=== PATIENT | female | born 1990 | race Caucasian/White ===

== ENCOUNTER 2023-04-30 22:30 | Emergency (ER) | payer OTHER, SELFPAY ==
[2023-04-30 22:34] VITALS: BP 165/109; PULSE 94; RESP 18; TEMP 36.8; O2SAT 95; BMI 34.3
--- NOTE | 2023-04-30 22:43 | ED.GENADUL1 ---
HPI - General Adult General Chief complaint: Extremity Injury, Lower Stated complaint: LOWER EXTREMITY PAIN Time Seen by Provider: 04/30/23 22:43 Mode of arrival: walk-in History of Present Illness HPI narrative: pt presents to emergency department complaining of left knee pain. Patient states yesterday she was startled by her and thinks she twisted her knee. She's had issues with the knee in the passt. She had an MRI done 2 years ago. Pain is worse in the medial aspect. She denies any weakness or paresthesias,She did not take anything at home because she doesn't have anything at home for pain. She states the pain is worse when she tries to bear weight. He denies any fever, chills, or direct trauma to it. Related Data Home Medications Medication Instructions Recorded Confirmed buspirone 5 mg tablet 5 mg PO BID 04/30/23 04/30/23 paliperidone palmitate 156 mg/mL 234 mg IM Q30D 04/30/23 04/30/23 intramuscular syringe (Invega Sustenna) Previous Rx's Medication Instructions Recorded ibuprofen 800 mg tablet 800 mg PO Q8H PRN pain #20 tabs 05/01/23 Allergies Allergy/AdvReac Type Severity Reaction Status Date / Time codeine Allergy Unknown UNKNOWN Verified 04/30/23 22:43 fluticasone Allergy Unknown DYSPNEA Verified 04/30/23 22:43 [From Advair Diskus] salmeterol Allergy Unknown DYSPNEA Verified 04/30/23 22:43 [From Advair Diskus] sumatriptan AdvReac Unknown Verified 04/30/23 22:43 Review of Systems ROS Status of ROS 10 or more systems reviewed and unremarkable except as noted in history and below [facility] Medical History (Updated 05/01/23 @ 00:33 by Estrellita Nolasco MD) Social History Smoking status: Current every day smoker Exam Narrative Exam Narrative: Vital signs reviewed and nurse's notes. The patient is not hypoxic. General: Alert, no acute distress, patient resting comfortably Skin: warm, intact, no pallor noted Head: Normocephalic, atraumatic Eye: Normal conjunctiva Respiratory: No acute distress Musculoskeletal: No evidence of deformity to the L knee. There is amount of swelling. There is no ecchymosis. No erythema or warmth noted. DP and PT pulses are intact 2+. Normal sensation, normal capillary refill less than 2 seconds. There is no cyanosis or mottling noted. The patient has tenderness to of the right knee. The patient has no laxity with varus or valgus stressing. The patient has negative anterior drawer and Ny testing. The patient was able to flex and extend although with pain. Patient was able to extend leg off the cart without difficulty. No tenderness noted to the 5th MT, midfoot, ankle or proximal fibular area. There is no pain with calcaneal squeeze, achilles tendon is intact and no defect is palpated. The patient has no pelvic instability. The patient has no shortening or rotation noted to the bilateral lower extremities. Neurological: alert and orient x4, normal sensory and motor observed. Psychiatric: Cooperative Constitutional Vital Signs, click to edit/add: Last Vital Signs Temp 98.3 F 04/30/23 22:34 Pulse 90 04/30/23 22:51 Resp 18 04/30/23 22:34 BP 165/109 H 04/30/23 22:34 Pulse Ox 95 04/30/23 22:34 O2 Del Method Room Air 04/30/23 22:34 Course Vital Signs Vital signs: Vital Signs Temperature 98.3 F 04/30/23 22:34 Pulse Rate 94 H 04/30/23 22:34 Respiratory Rate 18 04/30/23 22:34 Blood Pressure 165/109 H 04/30/23 22:34 Pulse Oximetry 95 04/30/23 22:34 Oxygen Delivery Method Room Air 04/30/23 22:34 Temperature 98.3 F 04/30/23 22:34 Pulse Rate 90 04/30/23 22:51 Respiratory Rate 18 04/30/23 22:34 Blood Pressure 165/109 H 04/30/23 22:34 Pulse Oximetry 95 04/30/23 22:34 Oxygen Delivery Method Room Air 04/30/23 22:34 Medical Decision Making MDM Narrative Medical decision making narrative: Patient was given Motrin 800. This helped her symptoms. She had an x-ray done which was unremarkable. Patient is advised to apply pressure as high she stated is due to the pain she will monitor with her primary care doctor. Patient was given an knee immobilizer, crutches. She is nontoxic, stable for outpatient follow-up and treatment. No additional indication for emergent studies at this time. I answered all questions. Discussed discharge instructions including standard anticipatory guidance and what should prompt a return to the emergency department, including if they get worse are not getting better or develops any new or concerning symptoms. I've given them specific time frame in which to follow-up, and who to follow-up with. The patient demonstrates understanding. Patient is nontoxic and stable for discharge with outpatient follow-up. This note was created with the assistance of a speech recognition program. Although the intention is to generate documents that actually reflects the content of the visit, no guarantees can be provided that every mistake has been identified and corrected by editing. Discharge Plan Discharge Chief Complaint: Extremity Injury, Lower Clinical Impression: Left knee sprain Patient Disposition: Home, Self-Care Time of Disposition Decision: 00:25 Condition: Good Mode of Transportation: Private Vehicle Prescriptions / Home Meds: New ibuprofen 800 mg tablet 800 mg PO Q8H PRN (Reason: pain) Qty: 20 0RF No Action Invega Sustenna 156 mg/mL syringe 234 mg IM Q30D buspirone 5 mg tablet 5 mg PO BID Instructions: Knee Sprain (ED) Additional Instructions: Cynthia Barkley [phone] Stand Alone Forms: Portal Instructions Referrals: CYNTHIA BARKLEY [Physician] - 1 week CARMEN DONAHUE APRN [Physician] - 1 week Physician,Non-Staff, MD [Primary Care Provider] - 1 week Discharge Date/Time: 05/01/23 01:01
[2023-04-30 22:51] VITALS: PULSE 90
--- NOTE | 2023-04-30 22:54 | PC.NURSE ---
patient jumped and believe she twister her left knee. Pain was minimal yesterday. woke up in the night with more pain.
--- NOTE | 2023-04-30 23:13 | XR_ITS ---
The [address] [address] Patient Name: BOZENA PERERA MRN: [id number] date: 1990 Sex: F Assigned Patient Location: ER Current Patient Location: Accession/Order Number: [id number] Exam Date: 04/30/2023 23:25 Report Date: 05/01/2023 00:10 At the request of: LEAH COLIN Procedure: XR knee LT 4V EXAM: XR knee LT 4V HISTORY: pain COMPARISON: None. TECHNIQUE: 4 views of the left knee were obtained. FINDINGS: No acute fracture or dislocation is seen. The joint spaces are preserved. There is no significant left knee joint effusion. XR/XR knee LT 4V IMPRESSION: 1. No acute fracture or dislocation of the left knee is seen. If there is concern for internal derangement, a nonemergent outpatient MRI is recommended. Electronically authenticated by: Suellen DE LEON Date: 05/01/2023 00:10
[2023-04-30] MEDS: IBUPROFEN 400 MG TABLET 800 MG PO (23:42)
--- NOTE | 2023-05-01 12:42 | PC.NURSE ---
PT CALLED ER TO TRY AND FIND OUT WHERE HER PRESCRIPTION WAS SENT. TOLD PATIENT THAT NO PRESCRIPTION WAS SENT ELECTRONICALLY, PRESCRIPTION FOUND IN PT'S CHART PILE -- CALLED [facility] PER PT'S REQUEST.
== END 2023-05-01 01:01 | disposition home or self-care (01) ==
PROVIDERS: Emergency Provider Emergency Medicine
DX: S83.92XA Sprain of unspecified site of left knee, initial encounter (principal); X50.1XXA Overexertion from prolonged static or awkward postures, initial encounter; Z79.899 Other long term (current) drug therapy; F17.210 Nicotine dependence, cigarettes, uncomplicated
CPT/HCPCS: 73564; 99283

== ENCOUNTER 2023-05-13 10:01 | Outpatient (RCR) | payer OTHER, SELFPAY | END 2023-05-18 15:47 | disposition home or self-care (01) | LOC: PT 10:01 | DX: M23.92 Unspecified internal derangement of left knee (principal) | CPT/HCPCS: 97110; 97161 ==

== ENCOUNTER 2023-07-17 10:05 | Outpatient (OUT) | payer OTHER, SELFPAY ==
[2023-07-17 10:45] LABS: Basophils Absolute Auto 0.1 10^3/uL (0.0-0.1); Basophils Percent Auto 0.7 % (0.2-2.0); Eosinophils Absolute Auto 0.2 10^3/uL (0.0-0.7); Eosinophils Percent Auto 1.5 % (0.9-7.0); Hematocrit 43.3 % (36.0-48.0); Hemoglobin 13.8 g/dL (12.0-16.0); Immature Granulocytes Abs Auto 0.04 10^3/uL (0.00-0.03); Immature Granulocytes Pct Auto 0.4 % (0.0-0.5); Lymphocytes Absolute Auto 2.2 10^3/uL (1.2-3.8); Lymphocytes Percent Auto 21.9 % (20.5-60.0); Mean Corpuscular HGB Conc 31.9 g/dL (29.9-35.2); Mean Corpuscular Hemoglobin 27.4 pg (26.7-34.0); Mean Corpuscular Volume 86.1 fL (81.0-99.0); Mean Platelet Volume 9.8 fL (9.5-13.5); Monocytes Absolute Auto 0.6 10^3/uL (0.3-0.8); Neutrophils Percent Auto 69.5 % (43.0-75.0); Platelet Count 302 10^3/uL (150-450); Red Blood Count 5.03 10^6/uL (4.20-5.40); Red Cell Distribution Width 13.2 % (11.0-15.0); White Blood Count 10.1 10^3/uL (4.0-11.0)
[2023-07-17 11:17] LABS: Alanine Aminotransferase 28 U/L (14-59); Albumin Globulin Ratio 0.9; Albumin Level 3.6 g/dL (3.4-5.0); Alkaline Phosphatase 83 U/L (46-116); Anion Gap 12.3; Aspartate Amino Transferase 15 U/L (15-37); BUN Creatinine Ratio 6.6; Bilirubin Total 0.3 mg/dL (0.2-1.0); Calcium 9.3 mg/dL (8.5-10.1); Carbon Dioxide 29.4 mmol/L (21.0-32.0); Chloride 101 mmol/L (98-107); Chol HDL Ratio 5.7; Cholesterol 215 mg/dL (<=200); Estimated GFR (African America >60 (>=60); Estimated GFR (Non-African Ame >60 (>=60); Globulin 3.8 g/dL; Glucose 99 mg/dL (74-106); HCG Quantitative <1 mIU/mL; HDL Cholesterol 38 mg/dL (40-60); Potassium 3.7 mmol/L (3.5-5.1); Sodium 139 mmol/L (136-145); Thyroid Stimulating Hormone 0.665 uIU/mL (0.358-3.740); Total Protein 7.4 g/dL (6.4-8.2); Triglycerides 92 mg/dL (<=150); VLDL CHOLESTEROL 18.4 mg/dL
[2023-07-18 07:07] LABS: FSH 7.1 mIU/mL (.); Luteinizing Hormone(LH) 12.5 mIU/mL (.); Triiodothyronine (T3) 143 ng/dL (71-180)
[2023-07-22 01:07] LABS: Estrogens, Total 159 pg/mL (.)
== END 2023-07-17 10:06 | disposition home or self-care (01) ==
LOC: LAB 10:08
DX: Z00.00 Encounter for general adult medical examination without abnormal findings (principal); N94.6 Dysmenorrhea, unspecified
CPT/HCPCS: 36415; 80053; 80061; 82672; 83001; 83002; 84436; 84443; 84480; 84702; 85025

== ENCOUNTER 2023-08-09 22:44 | Emergency (ER) | payer OTHER, SELFPAY ==
[2023-08-09 22:47] VITALS: BP 151/96; PULSE 100; RESP 18; TEMP 36.7; O2SAT 99; BMI 35.9
--- NOTE | 2023-08-09 23:05 | CT_ITS ---
The [address] [address] Patient Name: BOZENA PERERA MRN: [id number] date: 1990 Sex: F Assigned Patient Location: ER Current Patient Location: ED.MAIN Accession/Order Number: [id number] Exam Date: 08/09/2023 23:15 Report Date: 08/09/2023 23:53 At the request of: LANA TAY Procedure: CT cervical spine wo con EXAMINATION: CT cervical spine wo con HISTORY: fall COMPARISON: No relevant comparison available. TECHNIQUE: Axial, Coronal, and Sagittal images were created without IV contrast. Dose reduction techniques were achieved by using automated exposure control and/or adjustment of mA and/or kV according to patient size and/or use of iterative reconstruction technique. FINDINGS: VERTEBRAL BODIES: No fracture, pars defect, or osseous lesion. FACET JOINTS: No disruption or abnormal widening. DISCS: No significant disc/facet abnormality, spinal stenosis, or foraminal stenosis. CENTRAL CANAL: No spinal stenosis or evidence of hemorrhage. PARASPINAL AREA: No visible mass. CT/CT cervical spine wo con IMPRESSION: 1. No acute abnormality or significant degenerative changes of the cervical spine. Electronically authenticated by: DARLINE TREVIZO Date: 08/09/2023 23:53
--- NOTE | 2023-08-09 23:05 | XR_ITS ---
The [address] [address] Patient Name: BOZENA PERERA MRN: [id number] date: 1990 Sex: F Assigned Patient Location: ER Current Patient Location: ER Accession/Order Number: [id number] Exam Date: 08/09/2023 23:15 Report Date: 08/09/2023 23:49 At the request of: LANA TAY Procedure: XR hand LT 2V PROCEDURE: XR hand LT 2V, XR wrist LT min 3V, XR forearm LT 2V HISTORY: fall COMPARISON: None. FINDINGS: BONES:Sclerotic focus along the articular surface of distal radial metaphysis. Questionable cortical step off involving the distal radial articular surface with nondisplaced fracture through metaphysis versus summation artifact of the trabecula. Intact carpal bones SOFT TISSUES:No visible soft tissue swelling. EFFUSION:None visible. OTHER: Negative. XR/XR hand LT 2V IMPRESSION: 1. Suspect nondisplaced fracture of the distal radial metaphysis with intra-articular extension. Electronically authenticated by: DARLINE TREVIZO Date: 08/09/2023 23:49
--- NOTE | 2023-08-09 23:05 | XR_ITS ---
The [address] [address] Patient Name: BOZENA PERERA MRN: [id number] date: 1990 Sex: F Assigned Patient Location: ER Current Patient Location: ER Accession/Order Number: [id number] Exam Date: 08/09/2023 23:15 Report Date: 08/09/2023 23:54 At the request of: LANA TAY Procedure: XR shoulder LT min 2V PROCEDURE: XR shoulder LT min 2V HISTORY: fall COMPARISON: None. FINDINGS: BONES:No fracture, acute abnormality, or significant arthropathy. SOFT TISSUES:No visible soft tissue swelling. EFFUSION:None visible. OTHER: Negative. XR/XR shoulder LT min 2V IMPRESSION: 1. No acute bone abnormality. Electronically authenticated by: DARLINE TREVIZO Date: 08/09/2023 23:54
--- NOTE | 2023-08-09 23:05 | XR_ITS ---
The [address] [address] Patient Name: BOZENA PERERA MRN: [id number] date: 1990 Sex: F Assigned Patient Location: ER Current Patient Location: ER Accession/Order Number: [id number] Exam Date: 08/09/2023 23:15 Report Date: 08/09/2023 23:49 At the request of: LANA TAY Procedure: XR forearm LT 2V PROCEDURE: XR hand LT 2V, XR wrist LT min 3V, XR forearm LT 2V HISTORY: fall COMPARISON: None. FINDINGS: BONES:Sclerotic focus along the articular surface of distal radial metaphysis. Questionable cortical step off involving the distal radial articular surface with nondisplaced fracture through metaphysis versus summation artifact of the trabecula. Intact carpal bones SOFT TISSUES:No visible soft tissue swelling. EFFUSION:None visible. OTHER: Negative. XR/XR forearm LT 2V IMPRESSION: 1. Suspect nondisplaced fracture of the distal radial metaphysis with intra-articular extension. Electronically authenticated by: DARLINE TREVIZO Date: 08/09/2023 23:49
--- NOTE | 2023-08-09 23:05 | XR_ITS ---
The [address] [address] Patient Name: BOZENA PERERA MRN: [id number] date: 1990 Sex: F Assigned Patient Location: ER Current Patient Location: ER Accession/Order Number: [id number] Exam Date: 08/09/2023 23:15 Report Date: 08/09/2023 23:49 At the request of: LANA TAY Procedure: XR wrist LT min 3V PROCEDURE: XR hand LT 2V, XR wrist LT min 3V, XR forearm LT 2V HISTORY: fall COMPARISON: None. FINDINGS: BONES:Sclerotic focus along the articular surface of distal radial metaphysis. Questionable cortical step off involving the distal radial articular surface with nondisplaced fracture through metaphysis versus summation artifact of the trabecula. Intact carpal bones SOFT TISSUES:No visible soft tissue swelling. EFFUSION:None visible. OTHER: Negative. XR/XR wrist LT min 3V IMPRESSION: 1. Suspect nondisplaced fracture of the distal radial metaphysis with intra-articular extension. Electronically authenticated by: DARLINE TREVIZO Date: 08/09/2023 23:49
[2023-08-09] MEDS: KETOROLAC TROMETHAMINE 60 MG/2 ML VIAL IM (23:34)
--- NOTE | 2023-08-09 23:50 | ED_ITS ---
HPI - General Adult General Chief complaint: Extremity Injury, Upper Stated complaint: Fall Upper Injury Time Seen by Provider: 08/09/23 22:53 Source: patient Mode of arrival: walk-in Limitations: no limitations History of Present Illness HPI narrative: The patient presenting to us after she fell down almost 5 days ago on Wednesday and she is presently on a Wednesday, she mentioned that she was getting into the shower with her boyfriend scared her and she slipped and fell on the left side of her body with time she did have some muscle pain but she noted over the last few days that she been having some left-sided neck pain also left shoulder pain and left wrist and finger pain associated with numbness and tingling in the thumb area the patient mentioned that she have no pain in her left elbow no other injuries There was no head injury at that time there was no loss of consciousness The patient described the pain as shooting pain from her shoulder down to her fingers, with limitation of the flexion of the wrist as well as the fingers Related Data Home Medications Medication Instructions Recorded Confirmed paliperidone palmitate 156 mg/mL 234 mg IM Q30D 04/30/23 04/30/23 intramuscular syringe (Invega Sustenna) hydroxyzine HCl 50 mg tablet 50 mg PO DAILY PRN itching 08/09/23 08/09/23 Previous Rx's Medication Instructions Recorded diclofenac sodium 75 mg 75 mg PO BID PRN pain #14 tabs 08/10/23 tablet,delayed release Allergies Allergy/AdvReac Type Severity Reaction Status Date / Time codeine Allergy Unknown UNKNOWN Verified 08/09/23 22:50 fluticasone Allergy Unknown DYSPNEA Verified 08/09/23 22:50 [From Advair Diskus] salmeterol Allergy Unknown DYSPNEA Verified 08/09/23 22:50 [From Advair Diskus] sumatriptan AdvReac Unknown Verified 08/09/23 22:50 Review of Systems ROS Status of ROS 10 or more systems reviewed and unremarkable except as noted in history and below [facility] Medical History (Updated 08/10/23 @ 00:27 by Aspen Pozo MD) Asthma ?J45.909 - Unspecified asthma, uncomplicated (ICD-10) Autism ?F84.0 - Autistic disorder (ICD-10) Social History Smoking status: Current every day smoker Exam Narrative Exam Narrative: Nurses notes and vital signs reviewed and patient is not hypoxic. General: Well-appearing and in no apparent distress. Skin: Warm, dry, no pallor noted. No rash. Head: Normocephalic, atraumatic. Neck: Supple, left paraspinal muscle tenderness there was no intervertebral line tenderness Eye: Pupils are equal, round and EOMI. No scleral icterus. Ears, Nose, Mouth, and Throat: TM are clear, no nasal mucosal hypertrophy. Oral mucosa is moist, no posterior oropharynx erythema, uvula is mid-line Cardiovascular: Regular Rate and Rhythm without murmur, gallop or rub. Respiratory: No accessory muscle use or respiratory distress. Lungs are clear to auscultation, no wheezing, rales or rhonchi Chest Wall: no tenderness Back: No midline thoracic or lumbar vertebral tenderness. No CVA tenderness Musculoskeletal: normal ROM, no calf or popliteal tenderness, no lower extremity edema/swelling, there is tenderness upon palpation of the whole wrist and the left side, in addition to limitation of the flexion of the rest, according to the patient she does have decreased sensation on the hand level mostly at the palmar aspect the patient also had full range of movement of the left shoulder but with pain on abduction GI: Abdomen is soft, non-distended. Normal bowel sounds. No masses appreciated. No tenderness to palpation. No rebound, guarding, or rigidity noted. Neurological: A&O x4. No cranial nerve dysfunction observed. No truncal ataxia. Moves all extremities. Sensation intact. Psychiatric: Cooperative and interactive. Normal mood and affect. Constitutional Vital Signs, click to edit/add: Last Vital Signs Temp 98.0 F 08/09/23 22:47 Pulse 100 H 08/09/23 22:47 Resp 18 08/09/23 22:47 BP 151/96 H 08/09/23 22:47 Pulse Ox 99 08/09/23 22:47 O2 Del Method Room Air 08/09/23 22:47 Course Vital Signs Vital signs: Vital Signs Temperature 98.0 F 08/09/23 22:47 Pulse Rate 100 H 08/09/23 22:47 Respiratory Rate 18 08/09/23 22:47 Blood Pressure 151/96 H 08/09/23 22:47 Pulse Oximetry 99 08/09/23 22:47 Oxygen Delivery Method Room Air 08/09/23 22:47 Temperature 98.0 F 08/09/23 22:47 Pulse Rate 100 H 08/09/23 22:47 Respiratory Rate 18 08/09/23 22:47 Blood Pressure 151/96 H 08/09/23 22:47 Pulse Oximetry 99 08/09/23 22:47 Oxygen Delivery Method Room Air 08/09/23 22:47 Medical Decision Making MDM Narrative Medical decision making narrative: X-ray of the left distal radius shows that he have fracture nondisplaced although the patient mentioned that she had similar injury almost when she was at the age of 19 and she has been doing physical therapy because of her left forearm pain The patient had a sugar-tongue splint applied with sling and she was instructed about follow-up and referral to orthopedic as outpatient The patient is to follow up with primary care physician in next 2-3 days or to return to the emergency department should any of the signs or symptoms worsen or new symptoms develop. The patient agrees with the following Diagnosis and Treatment plan and the patient will be discharged home. Discharge Plan Discharge Chief Complaint: Extremity Injury, Upper Clinical Impression: Contusion of hand, Contusion of neck, Contusion of left shoulder, Distal radius fracture Patient Disposition: Home, Self-Care Time of Disposition Decision: 00:26 Condition: Good Prescriptions / Home Meds: New diclofenac sodium 75 mg tablet,delayed release (DR/EC) 75 mg PO BID PRN (Reason: pain) Qty: 14 0RF Discontinued ibuprofen 800 mg tablet 800 mg PO Q8H PRN (Reason: pain) Qty: 20 0RF No Action hydroxyzine HCl 50 mg tablet 50 mg PO DAILY PRN (Reason: itching) Invega Sustenna 156 mg/mL syringe 234 mg IM Q30D Instructions: Arm Fracture in Adults (DC) Stand Alone Forms: Portal Instructions Referrals: Physician,Non-Staff, [Primary Care Provider] - 1 week Brayan Garber MD [Physician] - 1 week
== END 2023-08-10 00:41 | disposition home or self-care (01) ==
PROVIDERS: Emergency Provider Emergency Medicine
DX: S52.502A Unspecified fracture of the lower end of left radius, initial encounter for closed fracture (principal); S10.93XA Contusion of unspecified part of neck, initial encounter; S40.012A Contusion of left shoulder, initial encounter; S60.222A Contusion of left hand, initial encounter; J45.909 Unspecified asthma, uncomplicated; F84.0 Autistic disorder; F17.210 Nicotine dependence, cigarettes, uncomplicated; Z79.899 Other long term (current) drug therapy; W16.212A Fall in (into) filled bathtub causing other injury, initial encounter
CPT/HCPCS: 29125; 72125; 73030; 73090; 73110; 73120; 96372; 99285

== ENCOUNTER 2024-09-07 07:42 | Emergency (ER) | payer OTHER, SELFPAY ==
[2024-09-07] VITALS (20 sets, daily range): BP systolic 116–153; BP diastolic 83–106; PULSE 83–102; TEMP 36.8; O2SAT 97–100; BMI 27.5
--- NOTE | 2024-09-07 07:49 | ECG_ITS ---
The [facility] Test Date: 2024-09-07 Pat Name: BOZENA PERERA Department: Room: - Gender: Female [employer]: : 1990 Requested By: Order Number: [id number] Reading MD: CAROLE POSADAS Measurements Intervals [place] Rate: 93 P: 24 MA: 130 QRS: 28 QRSD: 88 T: 24 QT: 370 QTc: 421 Interpretive Statements 1100 Sinus rhythm 4068 Nonspecific [place] abnormality 9130 borderline ECG Compared to ECG 04/18/2022 22:37:58 Sinus tachycardia no longer present Short MA interval no longer present Electronically Signed On 09-07-2024 19:25:41 EST by CAROLE POSADAS
--- NOTE | 2024-09-07 07:50 | ED_ITS ---
HPI HPI - General Adult General Chief complaint: Neuro Symptoms/Deficit Stated complaint: GENERAL WEAKNESS Time Seen by Provider: 09/07/24 07:49 Source: patient Mode of arrival: ambulance Limitations: no limitations History of Present Illness HPI narrative: 34-year-old female presents to the emergency department for bilateral leg numbness and weakness. This appears to be an ongoing issue for about a year and she states in the last 2 months its gotten worse. She had 3 emergency department visits in the last week at another hospital and she tells me she is never seen a specialist such as a neurologist for this issue. She tells me they did blood tests over this past week but no scans. Related Data Home Medications ?Medication ?Instructions ?Recorded ?Confirmed paliperidone palmitate 156 mg/mL 234 mg IM Q30D 04/30/23 09/07/24 intramuscular syringe (Invega Sustenna) Previous Rx's ?Medication ?Instructions ?Recorded magnesium oxide-magnesium amino 1 cap PO DAILY 7 days #7 caps 09/07/24 acid chelate 300 mg capsule (Magnesium (oxide/AA chelate)) potassium chloride 20 mEq 40 meq (2 x 20 mEq) PO DAILY 7 09/07/24 tablet,extended release days #14 tabs Allergies Allergy/AdvReac Type Severity Reaction Status Date / Time codeine Allergy Unknown UNKNOWN Verified 08/09/23 22:50 fluticasone (From Advair Allergy Unknown DYSPNEA Verified 08/09/23 22:50 Diskus) salmeterol (From Advair Allergy Unknown DYSPNEA Verified 08/09/23 22:50 Diskus) sumatriptan AdvReac Unknown Verified 08/09/23 22:50 Opioid HPI Opioid Management Most Recent Opioid Data: Last Pain Scale 8 08/09/23 23:34 08/09/23 Review of Systems ROS Narrative A ten point review of systems is negative except as noted above. [facility] Medical History (Updated 09/07/24 @ 10:27 by Kyle Yu MD) Autism ?F84.0 - Autistic disorder (ICD-10) Asthma ?J45.909 - Unspecified asthma, uncomplicated (ICD-10) Social History Smoking status: Current every day smoker Exam Narrative Exam Narrative: Nurses note and vital signs reviewed and patient is not hypoxic. General: The patient appears in no apparent distress. Patient is resting comfortably on cart. Skin: Warm, dry, no pallor noted. There is no rash noted. Head: Normocephalic, atraumatic Eye: Normal conjunctiva, no drainage Ears, Nose, Mouth, and Throat: oral mucosa is moist. Nares patent. Cardiovascular: Regular Rate and Rhythm Respiratory: Patient is in no distress, no accessory muscle use, lungs are clear to auscultation, no wheezing, rales or rhonchi Back: non-tender, no CVA tenderness bilaterally to percussion. GI: Soft and nontender Musculoskeletal: The patient has no evidence of calf tenderness, no pitting edema, symmetrical pulses noted bilaterally Neurological: A&O, normal speech; she seems to have symmetric mild weakness in each leg. Psychiatric: Cooperative Constitutional Vital Signs, click to edit/add: Last Vital Signs Temp 98.3 F 09/07/24 07:44 Pulse 102 H 09/07/24 07:44 Resp 18 09/07/24 07:44 BP 145/98 H 09/07/24 07:44 Pulse Ox 100 09/07/24 08:04 O2 Del Method Room Air 09/07/24 08:04 Course Vital Signs Vital signs: Vital Signs Temperature 98.3 F 09/07/24 07:44 Pulse Rate 102 H 09/07/24 07:44 Respiratory Rate 18 09/07/24 07:44 Blood Pressure 145/98 H 09/07/24 07:44 Pulse Oximetry 99 09/07/24 07:44 Oxygen Delivery Method Room Air 09/07/24 07:44 Temperature 98.3 F 09/07/24 07:44 Pulse Rate 102 H 09/07/24 07:44 Respiratory Rate 18 09/07/24 07:44 Blood Pressure 145/98 H 09/07/24 07:44 Pulse Oximetry 100 09/07/24 08:04 Oxygen Delivery Method Room Air 09/07/24 08:04 Medical Decision Making MDM Narrative Medical decision making narrative: Her symptoms are an ongoing issue for many months, perhaps a year. Potassium and magnesium were found to be low again and she was given oral supplementation for the potassium and IV for the magnesium. Prescriptions are sent to her pharmacy for both of these as well. The importance of follow-up with PCP was discussed and she was given a primary care list. Treatment diagnosis and follow-up were discussed thoroughly. CAT scan of the brain and lumbar spine are negative. Differential Diagnosis Differential Diagnosis: Intracranial mass, lumbar disc herniation, electrolyte imbalance Lab Data Lab results reviewed: Yes I reviewed the patient's lab results Labs: Lab Results 09/07/24 Range/Units 07:56 WBC 15.7 H (4.0-11.0) 10^3/uL RBC 4.44 (4.20-5.40) 10^6/uL Hgb 13.3 (12.0-16.0) g/dL Hct 39.9 (36.0-48.0) % MCV 89.9 (81.0-99.0) fL MCH 30.0 (26.7-34.0) pg MCHC 33.3 (29.9-35.2) g/dL RDW 16.2 H (11.0-15.0) % Plt Count 324 (150-450) 10^3/uL MPV 10.1 (9.5-13.5) fL Neut % (Auto) 65.3 (43.0-75.0) % Lymph % (Auto) 26.9 (20.5-60.0) % [place] % (Auto) 5.8 (1.7-12.0) % Eos % (Auto) 1.0 (0.9-7.0) % Baso % (Auto) 0.4 (0.2-2.0) % Neut # (Auto) 10.2 H (1.4-6.5) 10^3/uL Lymph # (Auto) 4.2 H (1.2-3.8) 10^3/uL [place] # (Auto) 0.9 H (0.3-0.8) 10^3/uL Eos # (Auto) 0.2 (0.0-0.7) 10^3/uL Baso # (Auto) 0.1 (0.0-0.1) 10^3/uL Abs Immat Gran (auto) 0.09 H (0.00-0.03) 10^3/uL Imm/Tot Granulo (auto) 0.6 H (0.0-0.5) % Sodium 141 (136-145) mmol/L Potassium 2.8 L* (3.5-5.1) mmol/L Chloride 102 (98-107) mmol/L Carbon Dioxide 26.0 (21.0-32.0) mmol/L Anion Gap 15.8 BUN 4.0 L (7.0-18.0) mg/dL Creatinine 0.71 (0.55-1.02) mg/dL Est GFR ( Amer) >60 (>=60 mL/min/1.73m^2) Est GFR (Non-Af Amer) >60 (>=60 mL/min/1.73m^2) BUN/Creatinine Ratio 5.6 Glucose 101 (74-106) mg/dL Calcium 8.5 (8.5-10.1) mg/dL Magnesium 1.6 L (1.8-2.4) mg/dL Serum HCG, Qual Negative (NEGATIVE) Imaging Data CT scan - head: Radiologist's impression: ITS Impressions Head CT 09/07/24 09:03 IMPRESSION: Normal CT of the head. Electronically authenticated by: GEORGE HANDY Date: 09/07/2024 10:[address] 09/07/24 09:03 IMPRESSION: 1. Normal CT of the lumbar spine. 2. No significant degenerative changes. There is no spinal stenosis or neural foraminal narrowing at any level. Electronically authenticated by: GEORGE HANDY Date: 09/07/2024 10:16 Discharge Plan Discharge Chief Complaint: Neuro Symptoms/Deficit Clinical Impression: Hypokalemia, Hypomagnesemia Patient Disposition: Home, Self-Care Time of Disposition Decision: 10:26 Condition: Good Mode of Transportation: Private Vehicle Prescriptions / Home Meds: New potassium chloride 20 mEq tablet extended release 40 meq PO DAILY 7 Days Qty: 14 0RF Magnesium (oxide/AA chelate) 300 mg capsule 1 cap PO DAILY 7 Days Qty: 7 0RF No Action Invega Sustenna 156 mg/mL syringe 234 mg IM Q30D Print Language: Indonesian Instructions: Hypokalemia (ED), Hypomagnesemia (ED) Additional Instructions: Obtain PCP. List provided. Referrals: Physician,Non-Staff, MD [Physician] - 1 week
--- OUTSIDE RECORDS SUMMARY | 2024-09-07 07:52 | XMS_ITS | CCD ---
Author Organization [facility] Care Team Providers Care Emergency Vehicle Driver Name Role Phone Desmond Barrera Unavailable Unavailable gibran Unavailable Unavailable sprout Unavailable Unavailable Desmond Barrera Unavailable Unavailable Albert, Negin Unavailable Unavailable Provider, None Unavailable Unavailable Provider, None Unavailable Unavailable Blane, Johnny M Unavailable Unavailable Blane, Johnny M Unavailable Unavailable Provider, None Unavailable Unavailable Blane, Johnny M Unavailable Unavailable Blane, Johnny M Unavailable Unavailable Provider, None Unavailable Unavailable Hercher, Annika L Unavailable Unavailable Hercher, Annika L Unavailable Unavailable Hercher, Annika L Unavailable Unavailable Hercher, Annika L Unavailable Unavailable Provider, None Unavailable Unavailable Desmond Barrera Primary Care Provider Desmond Barrera Primary Care Provider Desmond Barrera Primary Care Provider [phone] RAJENDRA NEWTON Attending Unavaila ROBERTO CARLOS Jones Referring Unavailable DESMOND BARRERA Primary Care Unavailable RAJENDRA NEWTON Admitting Unavaila ble Bruce 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 - Desmond GOOD Primary Care Provider Desmond Barrera CNP Primary Care Provider [phone] Desmond Barrera CNP Primary Care Provider [phone] DESMOND BARRERA Referring Unavailable DESMOND BARRERA Primary Care Unavailable Bruce 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 - Desmond GOOD Primary Care Provider FRANSICO SHELL Referring Unavailable DESMOND BARRERA Primary Care Unavailable FRANSICO SHELL Referring Unavailable BRUCE, DESMOND M Primary Care Unavailable DESMOND BARRERA M Primary Care Unavailable BAHN CAL M Admitting Unavailable CAL ELIZABETH Attending Unavailable JL, DR MONIE Dacosta Consulting Unavailable BRUCE, MS DESMOND Primary Care Unavailable DEBI, MIKAL Attending Unavailable DEBI, MIKAL Admitting Unavailable DEBI, MIKAL Consulting Unavailable JL, DR MNOIE Dacosta Consulting Unavailable BRUCE, MS DESMOND Primary Care Unavailable MISC, DR SOLORIO Attending Unavailable MISC, DR SOLORIO Admitting Unavailable MISC, DR SOLORIO Consulting Unavailable MISC, DR SOLORIO Consulting Unavailable BRUCE, MS DESMOND Primary Care Unavailable MISC, DR SOLORIO Attending Unavailable MISC, DR SOLORIO Admitting Unavailable GRECHNY ., SHAWNEE FERNANDEZ Consulting Unavailabl e MARKER ., DR ARREDONDO Attending Unavailable MARKER ., DR ARREDONDO Admitting Unavailable BRUCE, MS DESMOND Primary Care Unavailable BINU PETER Consulting Unavailable JENY LAYTON Consulting Unavailable KINJAL, JENY Monroy Attending Unavailable JENY LAYTON Admitting Unavailable BRUCE, MS DESMOND Primary Care Unavailable MONIE YANEZ Consulting Unavailable JOSELINE, DR DARLINE Cruz Consulting Unavailable DIXIE ., LEAH Attending Unavailable DIXIE ., LEAH Admitting Unavailable BRUCE, MS DESMOND Primary Care Unavailable DIXIE ., LEAH Consulting Unavailable SOFIA, FROY Consulting Unavailable BRUCE, MS DESMOND Primary Care Unavailable SOFIA, FROY Attending Unavailable SOFIA, FROY Admitting Unavailable SOFIA, FROY Consulting Unavailable SOFIA, FROY Attending Unavailable SOFIA, FROY Admitting Unavailable BRUCE, MS DSEMOND Primary Care Unavailable PAY ., DR HE Consulting Unavailable PAY ., DR HE Attending Unavailable PAY ., DR HE Admitting Unavailable BRUCE, MS DESMOND Primary Care Unavailable Bruce FLORENTINO, Desmond Primary Care Provider Isabel Chi Unavailable Patric Peters Unavailable NON STAFF Primary Care Provider UnavailALTA Reyes Attending Provider Pancho Henry Unavailable Halie BARRERA Primary Care Physician Unavailab Halie Rangel Referring Unavailable Halie BARRERA Attending Unavailable NON STAFF Primary Care Provider UnavailMD Pancho Cortez Attending Provider [phone] NON STAFF Primary Care Unavailable Isabel Chi Admitting Unavailable Isabel Chi Attending Unavailable NON STAFF Primary Care Unavailable Isaak Guzman Admitting Unavailab Isaak Estes Attending Unavailab Pancho Kohler Admitting Unavailable Pancho Henry Attending Unavailable NON STAFF Primary Care Unavailable Bruce 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, Desmond M Primary Care Provider CANDIS WALLACE Referring Unavailable CANDIS WALLACE Attending Unavailable CANDIS WALLACE Attending Unavailable NONE, NONE Primary Care Unavailable BRUCE, DESMOND M Primary Care Unavailable SCHJACQUELYN QUIROZ Referring Unavailable BRUCE, DESMOND M Primary Care Unavailable NONE, NONE Primary Care Unavailable ABRIL VALLADARES Attending Unavailable BRUCE, DESMOND M Primary Care Unavailable BRUCE, DESMOND M Primary Care Unavailable JACQUELYN SADLER Referring Unavailable BRUCE, DESMOND M Primary Care Unavailable SCHGABRIELLA JACQUELYN Referring Unavailable BRUCE, DESMOND M Primary Care Unavailable SCHCOCOGER JACQUELYN Referring Unavailable BRUCE, DESMOND M Primary Care Unavailable SCHUERGER, JACQUELYN Referring Unavailable BRUCE, DESMOND M Primary Care Unavailable SCHUERGER, JACQUELYN Referring Unavailable BRUCE, DESMOND M Primary Care Unavailable SCHCOCOGER, JACQUELYN Referring Unavailable BRUCE, DESMOND M Primary Care Unavailable SCHCOCOGER, JACQUELYN Referring Unavailable BRUCE, DESMOND M Primary Care Unavailable SCHCOCOGER, JACQUELYN Referring Unavailable BRUCE, DESMOND M Primary Care Unavailable BRUCE, DESMOND M Primary Care Unavailable BRUCE, DESMOND M Primary Care Unavailable ROBERTO CARLOS SMITH Attending Unavailable NONE, NONE Primary Care Unavailable BRUCE, DESMOND M Primary Care Unavailable Allergies Allergy Classification Reported Allergen(s) Allergy Type Date of Onset Reaction(s) Facility Amitriptyline (1 source) Amitriptyline Drug Allergy 05-25-20 17 [facility] Antihistamines (1 source) hydrOXYzine Drug Allergy 08-16-20 23 [facility] Corticosteroids (1 source) fluticasone Drug Allergy 04-30-20 23 Shortness Of Breath [facility] Opioid Agonists (5 sources) Codeine Drug Allergy 04-13-20 17 Codeine [facility] Plasmin (1 source) Plasmin Drug Allergy 12-13-19 20 [facility] salmeterol (1 source) salmeterol Drug Allergy 04-30-20 23 Shortness Of Breath [facility] Serotonin-1b and Serotonin-1d Receptor Agonists (4 sources) SUMAtriptan Drug Allergy 04-30-20 23 Nausea And Vomiting Health [facility] Work Phone: (20 sources) codeine; Translations: [codeine] Drug Allergy 03-13-19 98 unknown [facility] Repository (20 sources) SUMAtriptan; Translations: [Sumatriptan] Drug Allergy 03-13-20 09 Health [facility] (20 sources) -No Environmental Allergies Allergy to substance (disorder) [facility] (1 source) -No Known Food Allergies Allergy to substance (disorder) [facility] (1 source) Tryptan; Translations: [Tryptan] Propensity to adverse reactions to drug (disorder) [facility] Repository (7 sources) Triptans Propensity to adverse reactions to drug 02-29-20 [place] Sun Allergy to substance 04-08-20 20 Skin Rashes, Skin Rashes / Eruption of skin [facility] (5 sources) Amitriptyline; Translations: [AMITRIPTYLINE] Drug Allergy 05-25-20 17 [facility] (5 sources) Plasmin Drug Allergy 12-13-19 20 [facility] Work Phone: (5 sources) Triptans Propensity to adverse reactions to drug 02-29-20 20 [facility] (10 sources) SUMAtriptan Drug Allergy 04-30-20 23 Nausea And Vomiting [facility] Other (3 sources) hydrOXYzine; Translations: [hydrOXYzine HCl 50 MG Oral Tablet] Drug Allergy 08-16-20 23 [facility] (1 source) SUMAtriptan Drug Allergy 09-30-20 23 [facility] Repository (2 sources) fluticasone Drug Allergy 04-30-20 23 Shortness Of Breath [facility] (2 sources) hydrOXYzine Drug Allergy 08-16-20 23 [facility] (2 sources) salmeterol Drug Allergy 04-30-20 23 Shortness Of Breath [facility] (2 sources) ALLERGIES NOT ON FILE; Translations: [ALLERGIES NOT ON FILE] Propensity to adverse reactions (disorder) [facility] Repository Medications Current Medications Medication Drug Class(es) Dates Sig (Normalized) Sig (Original) *NEBULIZER SUPPLIES Miscellaneous (12 sources) Start: 04-30-2022 *NEBULIZER SUPPLIES Miscellaneous 04/30/2022 Provider: Desmond Barrera CNP [id number] 200 actuat albuterol 0.09 mg/actuat metered dose inhaler (20 sources) beta2-Adrenergic Agonist Start: 04-30-2022 Albuterol Sulfate (2.5 MG/3ML) 0.083% Inhalation Nebulization solution 04/30/2022 Provider: Desmond Barrera CNP Start: 12-19-2020 End: 07-15-2023 VENTOLIN HFA 108 (90 Base) M CG/ACT inhaler Start: 12-19-2020 Ventolin HFA 1 08 (90 Base) MCG/ACT Inhalation Aerosol Solution 12/19/2020 Provider: Desmond Barrera CNP Albuterol Sulfat e HFA 108 (90 Base) MCG/ACT Inhalation for 25 Days Active Albuterol Sulfat e HFA 108 (90 Base) MCG/ACT Inhalation for 25 Days Active Ankle Support Miscellaneous (18 sources) Start: 04-28-2021 Ankle Support Miscellaneous 04/28/2021 Provider: Desmond Barrera CNP busPIRone hydrochloride 5 mg oral tablet (12 sources) Start: 08-16-2023 busPIRone HCl 5 MG Oral Tablet 08/16/2023 Provider: Desmond Barrera CNP Start: 05-25-2023 End: 07-15-2023 busPIRone HCl 5 MG Oral Tabl et 05/25/2023 - 07/15/2023 Provider: cholecalciferol 1.25 mg oral capsule (5 sources) Vitamin D Start: 09-08-2018 take 1 capsule by mouth every week Cholecalciferol 56753 UNIT 1 capsule Orally once a week Aug, Active diclofenac sodium 75 mg delayed release oral tablet (3 sources) Nonsteroidal Anti-inflammatory Drug take 1 tablet by mouth every twelve hours Diclofenac Sodium 75 MG 1 tablet as needed Oral Twice a day for 30 days Active etodolac 400 mg oral tablet (2 sources) Nonsteroidal Anti-inflammatory Drug Start: 04-03-2024 take 1 tablet by mouth twice daily etodolac (LODINE) 400 MG tablet Take 1 tablet by mouth 2 times daily 14 tablet 0 04/03/2024 Active Start: 02-05-2024 End: 04-03-2024 take 1 tablet by mouth twice daily etodolac (LODINE) 400 MG tablet Take 1 tablet by mouth 2 times daily 14 tablet 0 02/05/2024 04/03/2024 Discontinued 60 actuat formoterol fumarate 0.005 mg/actuat / mometasone furoate 0.2 mg/actuat metered dose inhaler (20 sources) Corticosteroid, beta2-Adrenergic Agonist Start: 04-30-2022 End: 07-15-2023 Dulera 200-5 MCG/ACT Inhalation Aerosol 07/15/2023 Provider: Desmond Barrera CNP Dulera 200-5 MCG /ACT Inhalation for 30 Days Active lidocaine 0.04 mg/mg medicated patch (1 source) Antiarrhythmic, Amide Local Anesthetic Start: 12-12-2023 End: 01-11-2024 apply 1 dose transdermal route once daily lidocaine 4 % external patch Place 1 patch onto the skin daily 30 patch 0 12/12/2023 01/11/2024 Active naproxen 500 mg oral tablet (3 sources) Nonsteroidal Anti-inflammatory Drug Start: 12-12-2023 naproxen (NAPROSYN) tablet 500 mg ondansetron 4 mg disintegrating oral tablet (20 sources) Serotonin-3 Receptor Antagonist Start: 01-11-2024 take 1 tablet by mouth three times daily as needed for nausea ondansetron (ZOFRAN-ODT) 4 MG disintegrating tablet Take 1 tablet by mouth 3 times daily as needed for Nausea or Vomiting 21 tablet 0 01/11/2024 Active Start: 01-11-2024 End: 01-11-2024 ondansetron (ZOFRAN) injecti on 4 mg Start: 02-15-2021 End: 02-15-2021 ondansetron (ZOFRAN) injecti on 4 mg Start: 07-25-2020 End: 04-28-2021 take 1 tablet by mouth every eight hours as needed for nausea ondansetron (ZOFRAN ODT) 4 MG disintegrating tablet Take 1 tablet by mouth every 8 hours as needed for Nausea 20 tablet 0 02/16/2021 Active microencapsulated potassium chloride 20 meq extended release oral tablet (5 sources) Start: 09-08-2018 take 1 tablet by mouth every twenty-four hours Klor-Con M20 20 MEQ 1 tablet with food Orally Once a day for 30 day(s) Aug, Active sertraline 50 mg oral tablet (6 sources) Serotonin Reuptake Inhibitor Start: 09-04-2020 take 1 tablet by mouth once daily sertraline (ZOLOFT) 50 MG tablet Take 1 tablet by mouth daily 30 tablet 0 09/04/2020 Active Start: 09-04-2020 take 1 tablet by ethan th once daily sertraline (ZOLOFT) 50 MG tablet Take 1 tablet by mouth daily 30 tablet 0 09/04/2020 Active vitamin B12 (5 sources) Vitamin B12 Start: 09-08-2018 take 1 tablet by mouth once daily Cyanocobalamin 500 MCG 1 tablet Orally Once a day for 30 day(s) Aug, Active Completed/Discontinued Medications Medication Drug Class(es) Dates Sig (Normalized) Sig (Original) 60 actuat budesonide 0.16 mg/actuat / formoterol fumarate 0.0045 mg/actuat metered dose inhaler (18 sources) Corticosteroid, beta2-Adrenergic Agonist Start: 03-19-2021 End: 03-16-2022 Symbicort 160-4.5 MCG/ACT Inhalation Aerosol 03/19/2021 - 03/16/2022 Provider: Desmond Barrera CNP cefdinir (20 sources) Cephalosporin Antibacterial Start: 09-08-2017 End: 09-09-2020 CEFDINIR 300 mg [facility] 09/08/2017 - 09/09/2020 Provider: Start: 09-08-2017 End: 09-08-2017 CEFDINIR 300 mg [facility] 017 - 09/08/2017 Provider: Start: 09-08-2017 End: 09-18-2017 take 1 capsule by mouth every twelve hours cefdinir 300 mg oral capsule 09/08/2017 09/18/2017 take 1 capsule (300 mg) by oral route every 12 hours for 10 days cetirizine hydrochloride 10 mg oral tablet (20 sources) Histamine-1 Receptor Antagonist Start: 03-03-2018 take 1 tablet by mouth once daily Zyrtec 10 mg oral tablet 03/03/2018 take 1 tablet (10 mg) by oral route once daily , start after zyrtec d complete Start: 03-03-2018 End: 09-09-2020 ZYRTEC 10 mg MISC 03/03/2018 - 09/09/2020 Provider: Start: 03-03-2018 End: 03-03-2018 ZYRTEC 10 mg MISC 03/03/2018 - 03/03/2018 Provider: 12 hr cetirizine hydrochloride 5 mg / pseudoePHEDrine hydrochloride 120 mg extended release oral tablet (20 sources) alpha-Adrenergic Agonist, Histamine-1 Receptor Antagonist Start: 03-03-2018 take 1 tablet by mouth every twelve hours Zyrtec-D 5-120 mg oral tablet extended release 12 hr 03/03/2018 take 1 tablet by oral route every 12 hours x 14 days Start: 03-03-2018 End: 09-09-2020 Z[facility]EC-D 5-120 [facility] 03/03 - 09/09/2020 Provider: Start: 03-03-2018 End: 03-03-2018 ZYRTEC-D 5-120 MG [facility] 03/03 - 03/03/2018 Provider: famotidine 40 mg oral tablet (20 sources) Histamine-2 Receptor Antagonist Start: 08-15-2020 End: 03-16-2022 Pepcid 40 MG Oral Tablet 08/15/2020 - 03/16/2022 Provider: Desmond Barrera CNP fluconazole 150 mg oral tablet (14 sources) Azole Antifungal Start: 03-16-2022 End: 04-30-2022 Diflucan 150 MG Oral Tablet 03/16/2022 - 04/30/2022 Provider: Desmond Barrera CNP 120 actuat fluticasone propionate 0.115 mg/actuat / salmeterol 0.021 mg/actuat metered dose inhaler (20 sources) Corticosteroid, beta2-Adrenergic Agonist Start: 12-19-2020 End: 03-19-2021 Advair HFA 115-21 MCG/ACT Inhalation Aerosol 12/19/2020 - 03/19/2021 Provider: Desmond Barrera CNP hydrOXYzine hydrochloride 50 mg oral tablet (20 sources) Antihistamine Start: 09-24-2021 End: 08-16-2023 hydrOXYzine HCl 50 MG Oral Tablet 07/15/2023 - 08/09/2023 Provider: Desmond Barrera CNP Start: 09-03-2020 End: 09-18-2020 take 1 tablet by mouth three times daily as needed for anxiety hydrOXYzine (ATARAX) 50 MG tablet Take 1 tablet by mouth 3 times daily as needed for Anxiety 45 tablet 0 09/03/2020 09/18/2020 Active take 1 capsule by [facility] three times daily as needed hydrOXYzine pamoate (VISTARIL) 50 MG capsule Take 50 mg by mouth 3 times daily as needed for Itching 0 Active End: 09-03-2020 hydrOXYzine (VISTARIL) 50 MG capsule Take 25 mg by mouth 3 times daily as needed for Anxiety 0 09/03/2020 Discontinued (Stop Taking at Discharge) hydrOXYzine (VIS TARIL) 50 MG capsule Take 75 mg by mouth 3 times daily as needed for Itching 0 Active ibuprofen 600 mg oral tablet (20 sources) Nonsteroidal Anti-inflammatory Drug Start: 11-28-2023 End: 11-28-2023 ibuprofen (ADVIL;MOTRIN) tablet 600 mg Start: 12-04-2016 End: 09-09-2020 Ibuprofen 800 MG OR TABS - 09/09/2020 Provider: take 1 tablet by [facility] every six hours as needed for pain ibuprofen (ADVIL;MOTRIN) 200 MG tablet Take 200 mg by mouth every 6 hours as needed for Pain 0 Active iopamidol (ISOVUE-370) 76 % injection 75 mL (1 source) Start: 02-15-2021 End: 02-15-2021 iopamidol (ISOVUE-370) 76 % injection 75 mL loratadine 10 mg oral tablet (19 sources) Start: 02-25-2021 End: 03-16-2022 Claritin 10 MG Oral Tablet 02/25/2021 - 03/16/2022 Provider: Desmond Barrera CNP lurasidone hydrochloride 60 mg oral tablet (20 sources) Atypical Antipsychotic Start: 11-05-2018 End: 09-09-2020 Latuda 20 MG OR TABS 11/05/2018 - 09/09/2020 Provider: Conversion Provider Start: 11-05-2018 End: 09-09-2020 Latuda 60 MG OR TABS 019 - 09/09/2020 Provider: Conversion Provider End: 09-03-2020 take 1 tablet by mouth once daily lurasidone (LATUDA) 40 MG TABS tablet Take 40 mg by mouth daily 0 09/03/2020 Discontinued (Stop Taking at Discharge) End: 06-01-2017 take 1 tablet by mouth once daily at mealtime Latuda 20 mg oral tablet 06/01/2017 take 1 tablet (20 mg) by oral route once daily with food (at least 350 calories) Dosage Change metroNIDAZOLE 0.0075 mg/mg vaginal gel (19 sources) Nitroimidazole Antimicrobial Start: 01-20-2021 End: 02-25-2021 metroNIDAZOLE 0.75% Vaginal Gel 01/20/2021 - 02/25/2021 Provider: Desmond Barrera CNP multivitamin (1 source) Start: 09-02-2016 take 1 tablet by mouth once daily multivitamin oral tablet 09/02/2016 take 1 tablet by oral route daily MULTIVITAMIN MISC (8 sources) Start: 09-02-2016 End: 09-02-2016 MULTIVITAMIN MISC 09/02/2016 - 09/02/2016 Provider: MULTIVITAMIN MISC (20 sources) Start: 09-02-2016 End: 09-09-2020 MULTIVITAMIN MISC 09/02/2016 - 09/09/2020 Provider: Start: 09-02-2016 End: 09-02-2016 MULTIVITAMIN MISC 09/02/2016 - 09/02/2016 Provider: 0.5 ml paliperidone palmitate 156 mg/ml prefilled syringe (20 sources) Atypical Antipsychotic Start: 07-25-2020 End: 07-15-2023 Invega Sustenna 78 MG/0.5ML Intramuscular Suspension Prefilled Syringe 07/25/2020 - 07/15/2023 Provider: Paliperidone Pal mitate (INVEGA SUSTENNA IM) Inject into the muscle Pt states get this injection monthly 0 Active End: 09-03-2020 inject 156 mg by intramuscular injection every 30 days paliperidone palmitate ER (INVEGA SUSTENNA) 156 MG/ML WADE IM injection Inject 156 mg into the muscle every 30 days 0 09/03/2020 Discontinued (Stop Taking at Discharge) penicillin v potassium 500 mg oral tablet (14 sources) Start: 03-16-2022 End: 04-30-2022 Penicillin V Potassium 500 MG Oral Tablet 03/16/2022 - 04/30/2022 Provider: Desmond Barrera CNP predniSONE 10 mg oral tablet (20 sources) Corticosteroid Start: 03-03-2018 End: 09-09-2020 predniSONE 10 MG OR TABS 03/03/2018 - 09/09/2020 Provider: Start: 09-08-2017 End: 09-09-2020 predniSONE 20 MG OR TABS - 09/09/2020 Provider: sincalide (KINEVAC) 1.22 mcg in sodium chloride 0.9 % 50 mL infusion (1 source) Start: 08-12-2020 End: 08-12-2020 sincalide (KINEVAC) 1.22 mcg in sodium chloride 0.9 % 50 mL infusion 50 ml sodium chloride 9 mg/m l injection (2 sources) Start: 01-11-2024 End: 01-11-2024 sodium chloride 0.9 % bolus 1,000 mL Start: 02-15-2021 End: 02-16-2021 0.9 % sodium chloride bolus technetium mebrofenin (CHOLETEC) injection 5 millicurie (1 source) Start: 08-12-2020 End: 08-12-2020 technetium mebrofenin (CHOLETEC) injection 5 millicurie topiramate 50 mg oral tablet (20 sources) Anti-epileptic Agent Start: 11-05-2018 End: 09-09-2020 Topamax 50 MG OR TABS 11/05/2018 - 09/09/2020 Provider: Linda Provider End: 02-21-2020 take 2 tablets by mouth twice daily topiramate (TOPAMAX) 25 MG tablet Take 50 mg by mouth 2 times daily 0 02/21/2020 Discontinued (Therapy completed) triamcinolone acetonide 40 mg/ml injectable suspension (5 sources) Corticosteroid Start: 06-08-2023 Kenalog-40 May, 40 mg Problems Active Problems Problem Classification Problem Date Documented Date Episodic/Chronic Anxiety disorders (20 sources) Generalized anxiety disorder; Translations: [Generalized anxiety disorder] Onset: 07-25-2020 Chronic Asthma (20 sources) Moderate persistent asthma; Translations: [Moderate persistent asthma, uncomplicated] Onset: 03-31-2022 Resolved: 05-28-2022 Chronic Blindness and vision defects (1 source) Visual hallucinations; Translations: [Visual hallucination] Episodic Disorders usually diagnosed in infancy, childhood, or adolescence (15 sources) Autism spectrum disorder; Translations: [Autistic disorder] Onset: 03-29-2023 07-15-2023 Chronic E Codes: Natural/environment (1 source) Overexertion from prolonged static or awkward postures, initial encounter; Translations: [OVEREXERT PROLNG STAT/AWK PST INIT] Onset: 10-23-2022 Episodic E Codes: Struck by; against (1 source) Striking against or struck by other objects, initial encounter; Translations: [STRIKING AGNST/STRUCK OTH OBJ INIT] Onset: 11-04-2022 Episodic Esophageal disorders (1 source) Gastro-esophageal reflux disease without esophagitis; Translations: [GERD WITHOUT ESOPHAGITIS] Onset: 03-31-2022 Chronic Fluid and electrolyte disorders (1 source) Hypokalemia; Translations: [Hypokalemia] Onset: 08-27-2024 Episodic Fracture of lower limb (4 sources) Nondisplaced fracture of second metatarsal bone, left foot, initial encounter for closed fracture; Translations: [NDSPL FX 2ND MT BN LT FT INIT CLOS] Onset: 12-16-2022 Episodic Immunizations and screening for infectious disease (5 sources) Encounter for immunization; Translations: [Encounter For Immunization] Onset: 07-15-2023 Episodic Joint disorders and dislocations; trauma-related (9 sources) Derangement of left knee; Translations: [Unspecified internal derangement of left knee] Chronic Menstrual disorders (6 sources) Dysmenorrhea; Translations: [Dysmenorrhea] Onset: 07-15-2023 Chronic Mood disorders (9 sources) Bipolar II disorder; Translations: [Depressive disorder] Chronic Nausea and vomiting (5 sources) Nausea; Translations: [Nausea] Onset: 08-04-2024 Episodic Nutritional deficiencies (8 sources) Vitamin D deficiency; Translations: [Vitamin D deficiency, unspecified] Chronic Other bone disease and musculoskeletal deformities (1 source) Other specified disorders of bone, forearm; Translations: [Other specified disorders of bone, forearm] Onset: 09-30-2022 Episodic Other congenital anomalies (1 source) Other specified congenital deformities of feet; Translations: [OTH SPEC CONGEN DEFORMITIES FEET] Onset: 12-19-2022 Chronic Other connective tissue disease (1 source) Other enthesopathies, not elsewhere classified; Translations: [Other enthesopathies, not elsewhere classified] Onset: 09-30-2022 Episodic Other connective tissue disease (3 sources) Pain in left foot; Translations: [PAIN IN LEFT FOOT] Onset: 11-03-2022 Episodic Other connective tissue disease (4 sources) Enthesopathy, unspecified; Translations: [ENTHESOPATHY UNSPECIFIED] Onset: 10-05-2022 Episodic Other connective tissue disease (1 source) Pain in left foot; Translations: [Left foot pain] Other injuries and conditions due to external causes (1 source) Other specified injuries of left wrist, hand and finger(s), initial encounter Episodic Other nervous system disorders (2 sources) Lesion of ulnar nerve, left upper limb; Translations: [Lesion of ulnar nerve, left upper limb] Onset: 08-21-2024 Chronic Other nervous system disorders (2 sources) Carpal tunnel syndrome, left upper limb; Translations: [Carpal tunnel syndrome, left upper limb] Onset: 03-20-2024 Chronic Other non-traumatic joint disorders (1 source) Knee pain; Translations: [Acute pain of left knee] Episodic Other non-traumatic joint disorders (2 sources) Arthralgia of the ankle and/or foot; Translations: [Pain in joint, ankle and foot] Onset: 04-28-2021 Episodic Other non-traumatic joint disorders (3 sources) Pain in right ankle and joints of right foot; Translations: [PAIN IN RIGHT ANKLE] Onset: 10-20-2022 Episodic Other non-traumatic joint disorders (1 source) Pain in left knee Episodic Other non-traumatic joint disorders (1 source) Joint derangement, unspecified Episodic Other non-traumatic joint disorders (1 source) Pain in wrist; Translations: [Pain in left wrist] 11-28-2023 Episodic Other nutritional; endocrine; and metabolic disorders (6 sources) Overweight; Translations: [Overweight] Onset: 12-11-2020 Chronic Other nutritional; endocrine; and metabolic disorders (20 sources) Finding of body mass index; Translations: [Body mass index (observable entity)] Onset: 02-25-2021 Chronic Other nutritional; endocrine; and metabolic disorders (11 sources) Simple obesity ; Translations: [Obesity, unspecified] Onset: 02-25-2021 Chronic Other nutritional; endocrine; and metabolic disorders (1 source) Hypomagnesemia; Translations: [Hypomagnesemia] Onset: 08-27-2024 Chronic Other upper respiratory disease (5 sources) Perennial allergic rhinitis with seasonal variation; Translations: [Other seasonal allergic rhinitis] Onset: 02-25-2021 Chronic Ovarian cyst (2 sources) Cyst of right ovary; Translations: [Unspecified ovarian cyst, right side] Onset: 08-04-2024 Episodic Schizophrenia and other psychotic disorders (20 sources) Schizoaffective disorder; Translations: [Schizoaffective disorder, bipolar type] Onset: 07-25-2020 08-30-2020 Chronic Screening and history of mental health and substance abuse codes (1 source) Abnormal developmental screening; Translations: [Encounter for autism screening] Episodic Spondylosis; intervertebral disc disorders; other back problems (2 sources) Spondylosis without myelopathy or radiculopathy, lumbar region; Translations: [Spondylosis without myelopathy or radiculopathy, lumbar region] Onset: 09-08-2022 Chronic Sprains and strains (12 sources) Sprain of unspecified ligament of right ankle, initial encounter; Translations: [Sprain of other specified parts of left knee, subsequent encounter] Onset: 10-23-2022 Episodic Substance-related disorders (20 sources) Nicotine dependence; Translations: [Tobacco use disorder] Onset: 02-25-2021 Chronic Suicide and intentional self-inflicted injury (2 sources) Suicidal thoughts; Translations: [Suicidal ideation] Episodic Superficial injury; contusion (8 sources) Contusion of left foot, subsequent encounter; Translations: [Contusion of left foot, initial encounter] Onset: 08-12-2022 Episodic Unclassified (2 sources) CONTACT W/AND (SUSP) EXPOS COVID-19; Translations: [CONTACT W/AND (SUSP) EXPOS COVID-19] Onset: 06-18-2022 Unclassified (1 source) Joint derangement, unspecified; Translations: [Joint derangement, unspecified] Onset: 09-22-2023 Unclassified (1 source) Unspecified internal derangement of left knee; Translations: [Unspecified internal derangement of left knee] Onset: 06-05-2023 Unclassified (1 source) Low back pain, unspecified; Translations: [Low back pain, unspecified] Onset: 08-27-2024 Urinary tract infections (1 source) Acute cystitis without hematuria; Translations: [Acute cystitis without hematuria] Onset: 08-04-2024 Episodic Viral infection (1 source) COVID-19; Translations: [COVID-19] Onset: 06-18-2022 Past or Other Problems Problem Classification Problem Date Documented Da te Episodic/Chronic Disorders of teeth and jaw (4 sources) Other specified disorders of teeth and supporting structures; Translations: [Periapical abscess without sinus] Onset: 03-30-2022 Episodic Other bone disease and musculoskeletal deformities (2 sources) Disorder of bone, unspecified; Translations: [Disorder of bone, unspecified] Onset: 03-20-2024 Episodic Other lower respiratory disease (20 sources) Cough; Translations: [Cough] Onset: 12-24-2021 Episodic Other non-traumatic joint disorders (4 sources) Disorder of joint of ankle and/or foot; Translations: [Pain] Onset: 04-28-2021 Episodic Other non-traumatic joint disorders (6 sources) Pain in left wrist; Translations: [PAIN IN LEFT WRIST] Onset: 10-09-2022 Episodic Other nutritional; endocrine; and metabolic disorders (14 sources) Finding of body mass index; Translations: [Body mass index (observable entity)] Onset: 07-25-2020 Episodic Other nutritional; endocrine; and metabolic disorders (11 sources) Overweight; Translations: [Overweight] Onset: 12-11-2020 Episodic Other screening for suspected conditions (not mental disorders or infectious disease) (20 sources) Encounter for screening for diabetes mellitus; Translations: [Encounter for screening for malignant neoplasm of cervix] Onset: 12-11-2020 Episodic Other upper respiratory disease (20 sources) Deviated nasal septum; Translations: [Deviated nasal septum] Onset: 04-08-2020 04-08-2020 Episodic Spondylosis; intervertebral disc disorders; other back problems (3 sources) Radiculopathy, cervical region; Translations: [Dorsalgia, unspecified] Onset: 12-12-2023 Episodic Unclassified (10 sources) Finding of body mass index; Translations: [Body mass index (observable entity)] Onset: 07-25-2020 Unclassified (9 sources) Intervention & Counseling Cessation of Tobacco Use 3-10 Min.; Translations: [Intervention & Counseling Cessation of Tobacco Use 3-10 Min.] Onset: 12-24-2021 Unclassified (1 source) CONTACT W/AND (SUSP) EXPOS COVID-19; Translations: [CONTACT W/AND (SUSP) EXPOS COVID-19] Onset: 06-16-2022 Viral infection (2 sources) Viral disease; Translations: [Viral infection, unspecified] Onset: 01-11-2024 01-11-2024 Episodic Results Test Name Value Interpretation Reference Range Facility XR ANKLE LEFT (MIN 3 VIEWS)o n 09-03-2024 XR ANKLE LEFT (MIN 3 VIEWS) EXAMINATION: THREE XRAY VIEWS OF THE LEFT ANKLE 09/03/2024 5:28 pm COMPARISON: None. HISTORY: ORDERING SYSTEM PROVIDED HISTORY: pain TECHNOLOGIST PROVIDED HISTORY: Reason for exam:->pain Is the patient ?->No What reading provider will be dictating this exam?->CRC FINDINGS: No fracture or dislocation. Talar dome is intact. No radiopaque foreign body. IMPRESSION: No acute osseous abnormality involving the left ankle. Interpreted by: Chris Ashraf DO Signed by: Chris Ashraf DO 09/03/24 Final result Normal [facility] Basic Metabolic Panelon 11- Anion gap [Moles/Vol] 12 mmol/L Normal 9-15 [facility] Comment on above: Order Comment: [facility] tel. [phone], Chemistry results called to and read back by charleen PEARSON, 08/27/2024 01:47, by CANDELARIO Performed By: #### B MP #### [facility] [address] [place] [address] Calcium [Mass/Vol] 9.2 mg/dL Normal 8.5-9.9 [facility] Comment on above: Order Comment: [facility] tel. [phone], Chemistry results called to and read back by charleen PEARSON, 08/27/2024 01:47, by CANDELARIO Performed By: #### B MP #### [facility] [address] [place] [address] Chloride [Moles/Vol] 96 mmol/L Normal 95-107 [facility] Comment on above: Order Comment: [facility] tel. [phone], Chemistry results called to and read back by charleen PEARSON, 08/27/2024 01:47, by CANDELARIO Performed By: #### B MP #### [facility] [address] [place] [address] CO2 [Moles/Vol] 28 mmol/L Normal 20-31 [facility] Comment on above: Order Comment: CALL [facility] tel. [phone], Chemistry results called to and read back by charleen PEARSON, 08/27/2024 01:47, by CANDELARIO Performed By: #### B MP #### [facility] [address] [place] [address] Creatinine [Mass/Vol] 0.61 mg/dL Normal 0.50-0.90 [facility] Comment on above: Order Comment: CALL [facility] tel. [phone], Chemistry results called to and read back by charleen PEARSON, 08/27/2024 01:47, by CANDELARIO Performed By: #### B MP #### [facility] [address] [place] [address] GFR >90.0 Normal >60 [facility] Comment on above: Order Comment: CALL [facility] tel. [phone], Chemistry results called to and read back by charleen PEARSON, 08/27/2024 01:47, by CANDELARIO Result Comment: Apolinar atric calculator link https://www.kidney.org/professionals/kdoqi/gfr_calculatorped Effective Jul 13, 2022 These results are not intended for use in patients <18 years of age. eGFR results are calculated without a race factor using the 2020 CKD-EPI equation. Careful clinical correlation is recommended, particularly when comparing to results calculated using previous equations. The CKD-EPI equation is less accurate in patients with extremes of muscle mass, extra-renal metabolism of creatinine, excessive creatinine ingestion, or following therapy that affects renal tubular secretion. Performed By: #### B MP #### [facility] [address] [place] [address] Glucose [Mass/Vol] 161 mg/dL Critically high 70-99 [facility] Comment on above: Order Comment: [facility] tel. [phone], Chemistry results called to and read back by charleen PEARSON, 08/27/2024 01:47, by CANDELARIO Performed By: #### B MP #### [facility] [address] [place] [address] Potassium [Moles/Vol] 2.7 mmol/L Critically low 3.4-4.9 [facility] Comment on above: Order Comment: [facility] tel. [phone], Chemistry results called to and read back by charleen RN, 08/27/2024 01:47, by CANDELARIO Performed By: #### B MP #### [facility] [address] [place] [address] Sodium [Moles/Vol] 136 mmol/L Normal 135-144 [facility] Comment on above: Order Comment: [facility] tel. [phone], Chemistry results called to and read back by charleen PEARSON, 08/27/2024 01:47, by CANDELARIO Performed By: #### B MP #### [facility] [address] [place] [address] Urea nitrogen [Mass/Vol] mg/dL Low 6-20 [facility] Comment on above: Order Comment: CALL [facility] tel. [phone], Chemistry results called to and read back by charleen PEARSON, 08/27/2024 01:47, by CANDELARIO Performed By: #### B MP #### [facility] [address] [place] [address] CBC With Platelet and Differ entialon 08-27-2024 Basophils (Bld) [#/Vol] 0.1 10*3/uL Normal 0.0-0.2 [facility] Comment on above: Performed By: #### C BCWD #### [facility] [address] [place] [address] Basophils/100 WBC (Bld) 0.4 % Normal [facility] Comment on above: Performed By: #### C BCWD #### [facility] [address] [place] [address] Eosinophils (Bld) [#/Vol] 0.3 10*3/uL Normal 0.0-0.7 [facility] Comment on above: Performed By: #### C BCWD #### [facility] [address] [place] [address] Eosinophils/100 WBC (Bld) 1.8 % Normal [facility] Comment on above: Performed By: #### C BCWD #### [facility] [address] [place] [address] Erythrocyte distribution width (RBC) [Ratio] 15.9 % Critically high 11.5-14.5 [facility] Comment on above: Performed By: #### C BCWD #### [facility] [address] [place] [address] Hematocrit (Bld) [Volume fraction] 42.7 % Normal 37.0-47.0 [facility] Comment on above: Performed By: #### C BCWD #### [facility] [address] [place] [address] Hemoglobin (Bld) [Mass/Vol] 14.6 g/dL Normal 12.0-16.0 [facility] Comment on above: Performed By: #### C BCWD #### [facility] [address] [place] [address] Lymphocytes (Bld) [#/Vol] 5.0 10*3/uL Critically high 1.0-4.8 [facility] Comment on above: Performed By: #### C BCWD #### [facility] [address] [place] [address] Lymphocytes/100 WBC (Bld) 31.5 % Normal [facility] Comment on above: Performed By: #### C BCWD #### [facility] [address] [place] [address] MCH (RBC) [Entitic mass] 30.5 pg Normal 27.0-31.3 [facility] Comment on above: Performed By: #### C BCWD #### [facility] [address] [place] [address] MCHC 34.2 % Normal 33.0-37.0 [facility] Comment on above: Performed By: #### C BCWD #### [facility] [address] [place] [address] MCV (RBC) [Entitic vol] 89.1 fL Normal 79.4-94.8 [facility] Comment on above: Performed By: #### C BCWD #### [facility] [address] [place] [address] Monocytes (Bld) [#/Vol] 0.9 10*3/uL Critically high 0.2-0.8 [facility] Comment on above: Performed By: #### C BCWD #### [facility] [address] [place] [address] Monocytes/100 WBC (Bld) 5.5 % Normal [facility] Comment on above: Performed By: #### C BCWD #### [facility] [address] [place] [address] Neutrophils (Bld) [#/Vol] 9.5 10*3/uL Critically high 1.4-6.5 [facility] Comment on above: Performed By: #### C BCWD #### [facility] [address] [place] [address] Neutrophils/100 WBC (Bld) 60.0 % Normal [facility] Comment on above: Performed By: #### C BCWD #### [facility] [address] [place] [address] Platelets (Bld) [#/Vol] 372 10*3/uL Normal 130-400 [facility] Comment on above: Performed By: #### C BCWD #### [facility] [address] [place] [address] RBC (Bld) [#/Vol] 4.79 10*6/uL Normal 4.20-5.40 [facility] Comment on above: Performed By: #### C BCWD #### [facility] [address] [place] [address] WBC (Bld) [#/Vol] 15.9 10*3/uL Critically high 4.8-10.8 [facility] Comment on above: Performed By: #### C BCWD #### [facility] [address] [place] [address] Creatine Kinaseon 08-27-2024 CK [Catalytic activity/Vol] 151 U/L Normal 0-170 [facility] Comment on above: Order Comment: CALL [facility] tel. [phone], Chemistry results called to and read back by charleen PEARSON, 08/27/2024 01:47, by CANDELARIO Performed By: #### B MP #### [facility] [address] [place] [address] High Sensitivity Troponin To n 08-27-2024 High Sensitivity Troponin T 14 ng/L Normal 0-19 [facility] Comment on above: Result Comment: High Sensitivity Troponin values cannot be compared with other Troponin methodologies. Performed By: #### T RP5 #### [facility] [address] [place] [address] Lactic Acidon 08-27-2024 Lactate [Moles/Vol] 2.0 mmol/L Normal 0.5-2.2 [facility] Comment on above: Performed By: #### B MP #### [facility] [address] [place] [address] Magnesiumon 08-27-2024 Magnesium [Mass/Vol] 1.5 mg/dL Low 1.7-2.4 [facility] Comment on above: Order Comment: CALL [facility] tel. [phone], Chemistry results called to and read back by charleen PEARSON, 08/27/2024 01:47, by CANDELARIO Performed By: #### B MP #### [facility] [address] [place] [address] TSH w/out Reflexon 11-17-202 4 TSH w/out Reflex 1.510 uIU/mL Normal 0.440-3.86 [facility] Comment on above: Performed By: #### T SH #### [facility] [address] [place] [address] CBC With Platelet and Differ entialon 08-04-2024 Platelet Slide Review Adequate Normal [facility] Comment on above: Performed By: #### C BCWD #### [facility] [address] [place] [address] Slide Review see below Normal [facility] Comment on above: Result Comment: Slid e review agrees with reported results Performed By: #### C BCWD #### [facility] [address] [place] [address] Anisocytosis Ql (Bld) 1+ Normal [facility] Comment on above: Performed By: #### C BCWD #### [facility] [address] [place] [address] Atypical Lymphs 10 % Normal [facility] Comment on above: Performed By: #### C BCWD #### [facility] [address] [place] [address] Basophils (Bld) [#/Vol] 0.0 10*3/uL Normal 0.0-0.2 [facility] Comment on above: Performed By: #### C BCWD #### [facility] [address] [place] [address] Eosinophils (Bld) [#/Vol] 0.3 10*3/uL Normal 0.0-0.7 [facility] Comment on above: Performed By: #### C BCWD #### [facility] [address] [place] [address] Eosinophils/100 WBC (Bld) 2.0 % Normal [facility] Comment on above: Performed By: #### C BCWD #### [facility] [address] [place] [address] Lymphocytes (Bld) [#/Vol] 4.8 10*3/uL Normal 1.0-4.8 [facility] Comment on above: Performed By: #### C BCWD #### [facility] [address] [place] [address] Lymphocytes/100 WBC (Bld) 20.0 % Normal [facility] Comment on above: Performed By: #### C BCWD #### [facility] [address] [place] [address] Macrocytic 1+ Normal [facility] Comment on above: Performed By: #### C BCWD #### [facility] [address] [place] [address] Monocytes (Bld) [#/Vol] 1.0 10*3/uL Critically high 0.2-0.8 [facility] Comment on above: Performed By: #### C BCWD #### [facility] [address] [place] [address] Monocytes/100 WBC (Bld) 5.8 % Normal [facility] Comment on above: Performed By: #### C BCWD #### [facility] [address] [place] [address] Neutrophils (Bld) [#/Vol] 10.1 10*3/uL Critically high 1.4-6.5 [facility] Comment on above: Performed By: #### C BCWD #### [facility] [address] [place] [address] Neutrophils/100 WBC (Bld) 63.0 % Normal [facility] Comment on above: Performed By: #### C BCWD #### [facility] [address] [place] [address] Poikilocytosis 1+ Normal [facility] Comment on above: Performed By: #### C BCWD #### [facility] [address] [place] [address] Smudge Cells 12.5 Normal [facility] Comment on above: Performed By: #### C BCWD #### [facility] [address] [place] [address] Basophils/100 WBC (Bld) 0.4 % Normal [facility] Comment on above: Performed By: #### C BCWD #### [facility] [address] [place] [address] Erythrocyte distribution width (RBC) [Ratio] 15.4 % Critically high 11.5-14.5 [facility] Comment on above: Performed By: #### C BCWD #### [facility] [address] [place] [address] Hematocrit (Bld) [Volume fraction] 45.4 % Normal 37.0-47.0 [facility] Comment on above: Performed By: #### C BCWD #### [facility] [address] [place] [address] Hemoglobin (Bld) [Mass/Vol] 15.3 g/dL Normal 12.0-16.0 [facility] Comment on above: Performed By: #### C BCWD #### [facility] [address] [place] [address] MCH (RBC) [Entitic mass] 29.2 pg Normal 27.0-31.3 [facility] Comment on above: Performed By: #### C BCWD #### [facility] [address] [place] [address] MCHC 33.7 % Normal 33.0-37.0 [facility] Comment on above: Performed By: #### C BCWD #### [facility] [address] [place] [address] MCV (RBC) [Entitic vol] 86.6 fL Normal 79.4-94.8 [facility] Comment on above: Performed By: #### C BCWD #### [facility] [address] [place] [address] Platelets (Bld) [#/Vol] 352 10*3/uL Normal 130-400 [facility] Comment on above: Performed By: #### C BCWD #### [facility] [address] [place] [address] RBC (Bld) [#/Vol] 5.24 10*6/uL Normal 4.20-5.40 [facility] Comment on above: Performed By: #### C BCWD #### [facility] [address] [place] [address] WBC (Bld) [#/Vol] 16.0 10*3/uL Critically high 4.8-10.8 [facility] Comment on above: Performed By: #### C BCWD #### [facility] [address] [place] [address] CT ABDOMEN PELVIS W IV CONTR Babar 08-04-2024 CT ABDOMEN PELVIS W IV CONTRAST EXAMINATION: CT OF THE ABDOMEN AND PELVIS WITH CONTRAST 08/04/2024 8:47 pm TECHNIQUE: CT of the abdomen and pelvis was performed with the administration of intravenous contrast. Multiplanar reformatted images are provided for review. Automated exposure control, iterative reconstruction, and/or weight based adjustment of the mA/kV was utilized to reduce the radiation dose to as low as reasonably achievable. COMPARISON: None. HISTORY: ORDERING SYSTEM PROVIDED HISTORY: generalized abd pain with NV TECHNOLOGIST PROVIDED HISTORY: Reason for exam:->generalized abd pain with NV Additional Contrast?->None Decision Support Exception - unselect if not a suspected or confirmed emergency medical condition->Emergency Medical Condition (MA) What reading provider will be dictating this exam?->CRC FINDINGS: Lower Chest: The lung bases are clear. The heart is normal in size. No pleural or pericardial effusion. Organs: Liver: Normal in size and contour. Diffuse steatosis. No focal lesion or ductal dilatation. Gallbladder: Decompressed. Otherwise, grossly unremarkable. Pancreas: Unremarkable. Spleen: Unremarkable. Adrenals: Unremarkable. Kidneys: Unremarkable. GI/Bowel: No bowel wall thickening or obstruction. Status post appendectomy. Pelvis: There is a 5.4 x 3.4 x 4.9 cm septated left adnexal cyst. The urinary bladder and the uterus are grossly unremarkable. Peritoneum/Retroperitoneum: No lymphadenopathy. No free air or free fluid is seen. The abdominal aorta and pelvic arteries are unremarkable. Bones/Soft Tissues: The visualized bones are intact without fracture or focal lesion. IMPRESSION: 1. No acute abnormality in the abdomen or pelvis. 2. 5.4 x 3.4 x 4.9 cm septated left adnexal cyst. Further evaluation with pelvic sonography is recommended. 3. Hepatic steatosis. Interpreted by: Norma Fuentes MD Signed by: Norma Fuentes MD 08/04/24 Final result Normal [facility] Comprehensive Metabolic Pane иван 08-04-2024 Albumin [Mass/Vol] 3.8 g/dL Normal 3.5-4.6 [facility] Comment on above: Order Comment: CALL [facility] tel. [phone], Chemistry results called to and read back by charleen PEARSON, 08/27/2024 01:47, by CANDELARIO Performed By: #### B MP #### [facility] [address] [place] [address] ALP [Catalytic activity/Vol] 81 U/L Normal 40-130 [facility] Comment on above: Order Comment: [facility] tel. [phone], Chemistry results called to and read back by charleen PEARSON, 08/27/2024 01:47, by CANDELARIO Performed By: #### B MP #### [facility] [address] [place] [address] ALT [Catalytic activity/Vol] 39 U/L Critically high 0-33 [facility] Comment on above: Order Comment: [facility] tel. [phone], Chemistry results called to and read back by charleen PEARSON, 08/27/2024 01:47, by CANDELARIO Performed By: #### B MP #### [facility] [address] [place] [address] Anion gap [Moles/Vol] 9 mmol/L Normal 9-15 [facility] Comment on above: Order Comment: [facility] tel. [phone], Chemistry results called to and read back by charleen PEARSON, 08/27/2024 01:47, by CANDELARIO Performed By: #### B MP #### [facility] [address] [place] [address] AST [Catalytic activity/Vol] 31 U/L Normal 0-35 [facility] Comment on above: Order Comment: [facility] tel. [phone], Chemistry results called to and read back by charleen PEARSON, 08/27/2024 01:47, by CANDELARIO Performed By: #### B MP #### [facility] [address] [place] [address] Bilirubin [Mass/Vol] 0.6 mg/dL Normal 0.2-0.7 [facility] Comment on above: Order Comment: [facility] tel. [phone], Chemistry results called to and read back by charleen PEARSON, 08/27/2024 01:47, by CANDELARIO Performed By: #### B MP #### [facility] [address] [place] [address] Calcium [Mass/Vol] 9.3 mg/dL Normal 8.5-9.9 [facility] Comment on above: Order Comment: [facility] tel. [phone], Chemistry results called to and read back by charleen PEARSON, 08/27/2024 01:47, by CANDELARIO Performed By: #### B MP #### [facility] [address] [place] [address] Chloride [Moles/Vol] 97 mmol/L Normal 95-107 [facility] Comment on above: Order Comment: [facility] tel. [phone], Chemistry results called to and read back by charleen PEARSON, 08/27/2024 01:47, by CANDELARIO Performed By: #### B MP #### [facility] [address] [place] [address] CO2 [Moles/Vol] 29 mmol/L Normal 20-31 [facility] Comment on above: Order Comment: [facility] tel. [phone], Chemistry results called to and read back by charleen PEARSON, 08/27/2024 01:47, by CANDELARIO Performed By: #### B MP #### [facility] [address] [place] [address] Creatinine [Mass/Vol] 0.66 mg/dL Normal 0.50-0.90 [facility] Comment on above: Order Comment: [facility] tel. [phone], Chemistry results called to and read back by charleen PEARSON, 08/27/2024 01:47, by CANDELARIO Performed By: #### B MP #### [facility] [address] [place] [address] GFR >90.0 Normal >60 [facility] Comment on above: Order Comment: [facility] tel. [phone], Chemistry results called to and read back by charleen PEARSON, 08/27/2024 01:47, by CANDELARIO Result Comment: Apolinar atric calculator link https://www.kidney.org/professionals/kdoqi/gfr_calculatorped Effective Jul 13, 2022 These results are not intended for use in patients <18 years of age. eGFR results are calculated without a race factor using the 2020 CKD-EPI equation. Careful clinical correlation is recommended, particularly when comparing to results calculated using previous equations. The CKD-EPI equation is less accurate in patients with extremes of muscle mass, extra-renal metabolism of creatinine, excessive creatinine ingestion, or following therapy that affects renal tubular secretion. Performed By: #### B MP #### [facility] [address] [place] [address] Globulin (S) [Mass/Vol] 2.5 g/dL Normal 2.3-3.5 [facility] Comment on above: Order Comment: CALL [facility] tel. [phone], Chemistry results called to and read back by charleen PEARSON, 08/27/2024 01:47, by CANDELARIO Performed By: #### B MP #### [facility] [address] [place] [address] Glucose [Mass/Vol] 111 mg/dL Critically high 70-99 M [facility] Comment on above: Order Comment: CALL [facility] tel. [phone], Chemistry results called to and read back by charleen PEARSON, 08/27/2024 01:47, by CANDELARIO Performed By: #### B MP #### [facility] [address] [place] [address] Potassium [Moles/Vol] 2.7 mmol/L Critically low 3.4-4.9 [facility] Comment on above: Order Comment: CALL [facility] tel. [phone], Chemistry results called to and read back by charleen PEARSON, 08/27/2024 01:47, by CANDELARIO Performed By: #### B MP #### [facility] [address] [place] [address] Protein [Mass/Vol] 6.3 g/dL Normal 6.3-8.0 [facility] Comment on above: Order Comment: CALL [facility] tel. [phone], Chemistry results called to and read back by charleen PEARSON, 08/27/2024 01:47, by CANDELARIO Performed By: #### B MP #### [facility] [address] [place] [address] Sodium [Moles/Vol] 135 mmol/L Normal 135-144 [facility] Comment on above: Order Comment: CALL [facility] tel. [phone], Chemistry results called to and read back by charleen PEARSON, 08/27/2024 01:47, by CANDELARIO Performed By: #### B MP #### [facility] [address] [place] [address] Urea nitrogen [Mass/Vol] 3 mg/dL Low 6-20 [facility] Comment on above: Order Comment: CALL [facility] tel. [phone], Chemistry results called to and read back by charleen PEARSON, 08/27/2024 01:47, by CANDELARIO Performed By: #### B MP #### [facility] [address] [place] [address] Culture, Urineon 08-04-2024 Culture, Urine ORDER#: [id number] OR DERED BY: MONIE STOLL SOURCE: Urine Clean Catch COLLECTED: 08/04/24 21:07 ANTIBIOTICS AT MALATHI.: RECEIVED : 08/04/24 21:07 Culture, Urine FINAL 08/06/24 10:41 Cult,Urine: NO SIGNIFICANT GROWTH Performed at [facility] [address] [place] [address] Normal [facility] Comment on above: Performed By: #### Godwin LEONARD #### [facility] [address] [place] [address] Lipaseon 08-04-2024 Lipase [Catalytic activity/Vol] 12 U/L Normal 12-95 [facility] Comment on above: Order Comment: CALL [facility] tel. [phone],POTASSIUM results called to and read back by Godwin AVALOS RN, 08/04/2024 19:47,by WEBAM Performed By: #### R SS #### [facility] [address] [place] [address] Magnesiumon 08-04-2024 Magnesium [Mass/Vol] 1.8 mg/dL Normal 1.7-2.4 [facility] Comment on above: Order Comment: CALL [facility] tel. [phone], POTASSIUM results called to and read back by Godwin AVALOS RN, 08/04/2024 19:47, by WEBAM Performed By: #### M G #### [facility] [address] [place] [address] Urinalysis, reflex to cultur xiao 08-04-2024 Urine Reflexed to Culture Yes Normal [facility] Comment on above: Performed By: #### B MP #### [facility] [address] [place] [address] Bilirubin Ql (U) Negative Normal Negative [facility] Comment on above: Performed By: #### B MP #### [facility] [address] [place] [address] Clarity (U) CLOUDY Abnormal Clear [facility] Comment on above: Performed By: #### B MP #### [facility] [address] [place] [address] Color (U) Yellow Normal Straw/[place] [facility] Comment on above: Performed By: #### B MP #### [facility] [address] [place] [address] Glucose Ql (U) Negative Normal Negative [facility] Comment on above: Performed By: #### B MP #### [facility] [address] [place] [address] Hemoglobin Ql (U) Negative Normal Negative [facility] Comment on above: Performed By: #### B MP #### [facility] [address] [place] [address] Ketones Ql (U) Negative Normal Negative [facility] Comment on above: Performed By: #### B MP #### [facility] [address] [place] [address] Leukocyte esterase Test strip Ql (U) SMALL Abnormal Negative [facility] Comment on above: Performed By: #### B MP #### [facility] [address] [place] [address] Nitrite Ql (U) Negative Normal Negative [facility] Comment on above: Performed By: #### B MP #### [facility] [address] [place] [address] pH (U) 7.0 [pH] Normal 5.0-9.0 [facility] Comment on above: Performed By: #### B MP #### [facility] [address] [place] [address] Protein Ql (U) Negative Normal Negative [facility] Comment on above: Performed By: #### B MP #### [facility] [address] [place] [address] Specific gravity (U) [Rel density] 1.003 Normal 1.005-1.03 [facility] Comment on above: Performed By: #### B MP #### [facility] [address] [place] [address] Urobilinogen Qn (U) 0.2 {Karina'U}/dL Normal < 2.0 [facility] Comment on above: Performed By: #### B MP #### [facility] [address] [place] [address] Urine Microscopicon 08-04-20 24 Urine RBC 0-2 Normal 0-2 [facility] Comment on above: Performed By: #### B MP #### [facility] [address] [place] [address] Bacteria LM.HPF (Urine sed) [#/Area] Negative Normal Negative [facility] Comment on above: Performed By: #### B MP #### [facility] [address] [place] [address] Urine Epithelial Cells Auto 6-10 Normal 0-5 [facility] Comment on above: Performed By: #### B MP #### [facility] [address] [place] [address] Urine Hyaline Casts Auto 0-1 Normal 0-5 [facility] Comment on above: Performed By: #### B MP #### [facility] [address] [place] [address] Urine WBC Auto 10-20 Abnormal 0-5 [facility] Comment on above: Performed By: #### B MP #### [facility] [address] [place] [address] XR CHEST PORTABLEon 08-04-20 24 XR CHEST PORTABLE EXAMINATION: ONE XRAY VIEW OF THE CHEST 08/04/2024 8:07 pm COMPARISON: None. HISTORY: ORDERING SYSTEM PROVIDED HISTORY: cough TECHNOLOGIST PROVIDED HISTORY: Reason for exam:->cough Is the patient ?->No What reading provider will be dictating this exam?->CRC FINDINGS: The lungs are without acute focal process. There is no effusion or pneumothorax. The cardiomediastinal silhouette is without acute process. The osseous structures are without acute process. IMPRESSION: No acute process. Interpreted by: Michael Euceda MD Signed by: Michael Euceda MD 08/04/24 Final result Normal [facility] XR SHOULDER LEFT (MIN 2 VIEW S)on 06-13-2024 XR SHOULDER LEFT (MIN 2 VIEWS) EXAMINATION: THREE XRAY VIEWS OF THE LEFT SHOULDER 06/13/2024 4:01 am COMPARISON: None. HISTORY: ORDERING SYSTEM PROVIDED HISTORY: fall TECHNOLOGIST PROVIDED HISTORY: Reason for exam:->fall Is the patient ?->No What reading provider will be dictating this exam?->CRC IMPRESSION: No radiographic evidence of acute fracture or dislocation. Interpreted by: Migel Garcia MD Signed by: Migel Garcia MD 06/13/24 Final result Normal [facility] XR HAND LEFT (MIN 3 VIEWS)on 04-03-2024 XR HAND LEFT (MIN 3 VIEWS) EXAMINATION: THREE XRAY VIEWS OF THE LEFT HAND; 3 XRAY VIEWS OF THE LEFT WRIST; TWO XRAY VIEWS OF THE LEFT FOREARM 04/03/2024 12:39 am COMPARISON: 11/28/2023 HISTORY: ORDERING SYSTEM PROVIDED HISTORY: pain TECHNOLOGIST PROVIDED HISTORY: Reason for exam:->pain Is the patient ?->No What reading provider will be dictating this exam?->CRC FINDINGS: There is no evidence of acute fracture. There is normal alignment. No acute joint abnormality. No focal osseous lesion. No focal soft tissue abnormality. IMPRESSION: No acute osseous abnormality. Interpreted by: Debo Cantu MD Signed by: Debo Cantu MD 04/03/24 Final result Normal [facility] XR RADIUS ULNA LEFT (2 VIEWS )on 04-03-2024 XR RADIUS ULNA LEFT (2 VIEWS) EXAMINATION: THREE XRAY VIEWS OF THE LEFT HAND; 3 XRAY VIEWS OF THE LEFT WRIST; TWO XRAY VIEWS OF THE LEFT FOREARM 04/03/2024 12:39 am COMPARISON: 11/28/2023 HISTORY: ORDERING SYSTEM PROVIDED HISTORY: pain TECHNOLOGIST PROVIDED HISTORY: Reason for exam:->pain Is the patient ?->No What reading provider will be dictating this exam?->CRC FINDINGS: There is no evidence of acute fracture. There is normal alignment. No acute joint abnormality. No focal osseous lesion. No focal soft tissue abnormality. IMPRESSION: No acute osseous abnormality. Interpreted by: Debo Cantu MD Signed by: Debo Cantu MD 04/03/24 Final result Normal [facility] XR WRIST LEFT (MIN 3 VIEWS)o n 04-03-2024 XR WRIST LEFT (MIN 3 VIEWS) EXAMINATION: THREE XRAY VIEWS OF THE LEFT HAND; 3 XRAY VIEWS OF THE LEFT WRIST; TWO XRAY VIEWS OF THE LEFT FOREARM 04/03/2024 12:39 am COMPARISON: 11/28/2023 HISTORY: ORDERING SYSTEM PROVIDED HISTORY: pain TECHNOLOGIST PROVIDED HISTORY: Reason for exam:->pain Is the patient ?->No What reading provider will be dictating this exam?->CRC FINDINGS: There is no evidence of acute fracture. There is normal alignment. No acute joint abnormality. No focal osseous lesion. No focal soft tissue abnormality. IMPRESSION: No acute osseous abnormality. Interpreted by: Debo Cantu MD Signed by: Debo Cantu MD 04/03/24 Final result Normal [facility] XR WRIST LEFT 3+ VIEWSon XR WRIST LEFT 3+ VIEWS Interpreted By: Judy Negron, STUDY: XR WRIST LEFT 3+ VIEWS; ; 03/20/2024 9:57 am INDICATION: Signs/Symptoms:pain. COMPARISON: None. ACCESSION NUMBER(S): [id number] ORDERING CLINICIAN: CANDIS WALLACE FINDINGS: PA, oblique and lateral views were obtained. There is no fracture or dislocation. Joint spaces appear intact. Cortical bone island is noted in the dorsal subcortical aspect of the distal radius. IMPRESSION: No acute osseous abnormality MACRO: None Signed by: Judy Negron 03/23/2024 3:26 PM Dictation workstation: [id number] [facility] XR FOOT RIGHT (MIN 3 VIEWS)o n 02-05-2024 XR FOOT RIGHT (MIN 3 VIEWS) EXAMINATION: THREE XRAY VIEWS OF THE RIGHT FOOT 02/05/2024 4:17 pm COMPARISON: None. HISTORY: ORDERING SYSTEM PROVIDED HISTORY: injury TECHNOLOGIST PROVIDED HISTORY: Reason for exam:->injury Is the patient ?->No What reading provider will be dictating this exam?->CRC FINDINGS: There is no evidence of acute fracture. There is normal alignment of the tarsometatarsal joints. No acute joint abnormality. No focal osseous lesion. No focal soft tissue abnormality. IMPRESSION: No acute osseous abnormality. Interpreted by: Trey Duggan MD Signed by: Trey Duggan MD 02/05/24 Final result Normal [facility] COVID-19on 01-11-2024 SARS-CoV-2 (COVID-19) RNA MONY+probe Ql (Unsp spec) Not detected Normal Not Detect [facility] Comment on above: Result Comment: Rapi d NAAT: Negative results should be treated as presumptive and, if inconsistent with clinical signs and symptoms or necessary for patient management, should be tested with an alternative molecular assay. Negative results do not preclude SARS-CoV-2 infection and should not be used as the sole basis for patient management decisions. This test has been authorized by the FDA under an Emergency Use Authorization (EUA) for use by authorized laboratories. Fact sheet for Healthcare Providers: https://www.fda.gov/media/311174/download Fact sheet for Patients: https://www.fda.gov/media/796365/download METHODOLOGY: Isothermal Nucleic Acid Amplification Performed By: #### C OVRG #### [facility] [address] [facility] [address] COVID-19, Rapidon 01-11-2024 SARS-CoV-2 (COVID-19) RdRp gene MONY+probe Ql (Resp) Not detected Not Detected [facility] Comment on above: Rapid NAAT: Negative results should be treated as presumptive and, if inconsistent with clinical signs and symptoms or necessary for patient management, should be tested with an alternative molecular assay. Negative results do not preclude SARS-CoV-2 infection and should not be used as the sole basis for patient management decisions. This test has been authorized by the FDA under an Emergency Use Authorization (EUA) for use by authorized laboratories. Fact sheet for Healthcare Providers: https://www.fda.gov/media/840513/download Fact sheet for Patients: https://www.fda.gov/media/627620/download METHODOLOGY: Isothermal Nucleic Acid Amplification [facility] Influenza A and [facility] 01-11-20 24 Influenza A by PCR Negative Normal [facility] Comment on above: Performed By: #### B MP #### [facility] [address] [facility] [address] Influenza B by PCR Negative Normal [facility] Comment on above: Performed By: #### B MP #### [facility] [address] [facility] [address] No Panel InformationOrdered By: Orly Manning on 01-11-2024 [facility] POC Urine QualOrde red By: Orly Manning on 01-11-2024 Beta HCG ( test) Ql (U) Negative Negative [facility] MMIS Lot Number [id number] [facility] Negative QC Pass/Fail Acceptable [facility] Positive QC Pass/Fail Acceptable [facility] POCT CREATININEon 01-11-2024 Interpretation and review of laboratory results Normal [facility] MMIS POC CREATININE WHOLE BLOOD 0.6 [facility] MMIS POCT Venouson 01-11-2024 Creatinine [Mass/Vol] 0.6 mg/dL 0.6 - 1.2 mg/dL [facility] GFR/1.73 sq M.predicted among non-blacks MDRD (S/P/Bld) [Vol rate/Area] 60 - PINF [facility] Comment on above: Pediatric calculator link https://www.kidney.org/professionals/kdoqi/gfr_calculatorped Effective Jul 13, 2022 These results are not intended for use in patients <18 years of age. eGFR results are calculated without a race factor using the 2020 CKD-EPI equation. Careful clinical correlation is recommended, particularly when comparing to results calculated using previous equations. The CKD-EPI equation is less accurate in patients with extremes of muscle mass, extra-renal metabolism of creatinine, excessive creatinine ingestion, or following therapy that affects renal tubular secretion. Performed on SEE BELOW [facility] Comment on above: Performed on POC Sample Type KONRAD [facility] Creatinine [Mass/Vol] 0.6 mg/dL Normal 0.6-1.2 [facility] Comment on above: Performed By: #### P KONRAD #### [facility] [address] [place] [address] GFR >90 Normal >60 [facility] Comment on above: Result Comment: Pedsharla atric calculator link https://www.kidney.org/professionals/kdoqi/gfr_calculatorped Effective Jul 13, 2022 These results are not intended for use in patients <18 years of age. eGFR results are calculated without a race factor using the 2020 CKD-EPI equation. Careful clinical correlation is recommended, particularly when comparing to results calculated using previous equations. The CKD-EPI equation is less accurate in patients with extremes of muscle mass, extra-renal metabolism of creatinine, excessive creatinine ingestion, or following therapy that affects renal tubular secretion. Performed By: #### P KONRAD #### [facility] [address] [place] [address] POC Performed on SEE BELOW Normal [facility] Comment on above: Result Comment: Perf ormed on POC Performed By: #### P KONRAD #### [facility] [address] [place] [address] POC Sample Type KONRAD Normal [facility] Comment on above: Performed By: #### P KONRAD #### [facility] [address] [place] [address] Rapid A Strep Antigenon 04-0 S. pyogenes Ag IA Ql (Unsp spec) Negative Normal [facility] Comment on above: Result Comment: Nega tive for Strep A nucleic acid. Performed By: #### R SS #### [facility] [address] [place] [address] Rapid Influenza A/B Antigens on 01-11-2024 [facility] [employer] Rapid Strep Screenon 024 Strep Grp A PCR Negative [facility] Comment on above: Negative for Strep A nucleic acid. [facility] [employer] XR WRIST LEFT (MIN 3 VIEWS)o n 11-28-2023 XR WRIST LEFT (MIN 3 VIEWS) EXAMINATION: 3 XRAY VIEWS OF THE LEFT WRIST 11/28/2023 2:05 am COMPARISON: None. HISTORY: ORDERING SYSTEM PROVIDED HISTORY: distal ulna pain TECHNOLOGIST PROVIDED HISTORY: Reason for exam:->distal ulna pain Is the patient ?->No What reading provider will be dictating this exam?->CRC FINDINGS: Osteopenia. No fracture, dislocation or osseous lesion. No significant degenerative change. Soft tissues unremarkable. IMPRESSION: No acute fracture or dislocation. Osteopenia. RECOMMENDATION: Careful clinical correlation and follow up recommended. Interpreted by: Butch Novoa MD Signed by: Butch Novoa MD 11/28/23 Final result Normal [facility] XR Wrist - left 3 Viewson No acute fracture or dislocation. Osteopenia. RECOMMENDATION: Careful clinical correlation and follow up recommended. [facility] EXAMINATION: 3 XRAY VIEWS OF THE LEFT WRIST 11/28/2023 2:05 am COMPARISON: None. HISTORY: ORDERING SYSTEM PROVIDED HISTORY: distal ulna pain TECHNOLOGIST PROVIDED HISTORY: Reason for exam:->distal ulna pain Is the patient ?->No What reading provider will be dictating this exam?->CRC FINDINGS: Osteopenia. No fracture, dislocation or osseous lesion. No significant degenerative change. Soft tissues unremarkable. [facility] Butch Novoa MD - 11/28/2023 EXAMINATION: 3 XRAY VIEWS OF THE LEFT WRIST 11/28/2023 2:05 am COMPARISON: None. HISTORY: ORDERING SYSTEM PROVIDED HISTORY: distal ulna pain TECHNOLOGIST PROVIDED HISTORY: Reason for exam:->distal ulna pain Is the patient ?->No What reading provider will be dictating this exam?->CRC FINDINGS: Osteopenia. No fracture, dislocation or osseous lesion. No significant degenerative change. Soft tissues unremarkable. IMPRESSION: No acute fracture or dislocation. Osteopenia. RECOMMENDATION: Careful clinical correlation and follow up recommended. [facility] Radiology Study observation (narrative) [employer] [facility] i[employer] XR Wrist - left 3 ViewsOrder ed By: Butch Novoa on 11-28-2023 [facility] Work Phone: MR wrist LT wo conon 023 MR wrist LT wo con [facility] [address] MRI Report Signed Patient: Maggie Gaines MR#: [id number] : 1990 Acct:[id number] Age/Sex: 33 / F ADM Date: 09/22/23 Loc: [facility] Room: Type: [facility] Attending Dr: Pancho Henry MD Copies to: Pancho Henry MD Ordering Provider: Pancho Henry MD Date of Service: 09/22/23 MR/MR wrist LT wo con: Derangement of left wrist joint MRI left wrist without contrast Routine technique HISTORY: Fell on outstretched left hand 7 weeks ago. Continued pain. Heterogeneous signal changes of the disc proper of the triangular fibrocartilage near the ulnar styloid suggests a tear. The foveal insertion is intact. The radial insertion intact. There is a small amount of fluid in the distal radioulnar joint concerning for a full-thickness tear. The dorsal and volar radioulnar ligaments are intact. Volar ulnar lunate and ulnar triquetral ligaments intact. No bone marrow edema. No fracture. Adequate bony alignment. Normal signal and musculature. No subcutaneous abnormality. Tiny ganglion cyst near the radial styloid. MR/MR wrist LT wo con IMPRESSION: Heterogeneous signal changes of the disc proper of the TFCC complex near the ulnar styloid consistent with tear with a full-thickness tear suspected given fluid identified in the distal radioulnar articulation. Impression dictated by: Nathan Farrar M.D.09/22/2023 2:11 PM Dictation Location: [place] [address] Transcribed By: [facility] 09/22/23 1411 Dictated By: Nathan Farrar DO 09/22/23 1349 Signed By: 09/22/23 1411 [facility] ST - Assessmentson 3 ST - Assessments [id number]#1.00CD:127 [facility] MR knee LT wo conon 06-05-20 MR knee LT wo con [facility] [address] MRI Report Signed Patient: Maggie Gaines MR#: [id number] : 1990 Acct:[id number] Age/Sex: 32 / F ADM Date: 06/05/23 Loc: MR Room: Type: [facility] Attending Dr: Isabel CARDENASC Copies to: RENATE Emerson Ordering Provider: RENATE Emerson Date of Service: 06/05/23 MR/MR knee LT wo con: Internal derangement of left knee EXAMINATION: MRI OF THE LEFT KNEE CLINICAL DATA: Twisted left knee 6 weeks ago. Medial knee pain since COMPARISON: none TECHNIQUE: Multiecho, multiplanar imaging was performed with use of an extremity coil. No contrast was administered. FINDINGS: Joint:Minimal joint effusion. No bone marrow edema or fracture. Articular cartilage appears intact. Soft tissues: Mild soft tissue swelling. Quadriceps/Patellar tendon/retinaculum: Normal Muscles: Normal ACL:Normal PCL:Normal Medial Meniscus:Normal Lateral Meniscus:Normal MCL:Normal LCL complex: Normal MR/MR knee LT wo con IMPRESSION: MINIMAL JOINT EFFUSION. NO MRI EVIDENCE OF INTERNAL DERANGEMENT. Impression dictated by: Vidal Karimi Jr., D.O.06/05/2023 12:12 PM Dictation Location: [place] [address] Transcribed By: [facility] 06/05/23 121 Dictated By: Vidal Karimi Jr, DO 06/05/23 1210 Signed By: 06/05/23 1212 [facility] Consent for Treatmenton 03-11 Consent for Treatment [id number]:[address] [facility] Outside Recordson 03-26-2023 Outside Records [id number]#1.00CD:[address] [facility] ST - Orderson 03-26-2023 ST - Orders [id number]#1.00CD:[address] [facility] ST - Otheron 03-26-2023 ST - Other [id number]#1.00CD:[address] [facility] CT FOOT LT WO CONon 12-17-19 CT FOOT LT WO CON EXAMINATION: CT FOOT LT WO CON HISTORY: Closed fracture of second metatarsal bone of left foot COMPARISON: 11/03/2022 TECHNIQUE: Multi-planar CT images were created without IV contrast. Dose reduction techniques were achieved by using automated exposure control and/or adjustment of mA and/or kV according to patient size and/or use of iterative reconstruction technique. FINDINGS: BONES: Normal alignment with no definite fracture, dislocation or significant degenerative changes SOFT TISSUES: Negative. No visible soft tissue swelling. EFFUSION: None visible. OTHER: Negative. IMPRESSION: No acute abnormality observed Electronically authenticated by: MONIE PARIKH Date: 2022-12-16 11:10 Normal [facility] XR ANKLE RT MIN 3 VIEWSon XR ANKLE RT MIN 3 VIEWS EXAM: XR ANKLE RT MIN 3 VIEWS HISTORY: Arthralgia of the ankle and/or foot COMPARISON: Right foot x-ray 06/08/2013 TECHNIQUE: 3 views of the right ankle were obtained. FINDINGS: There is no evidence of an acute fracture or dislocation. The joint spaces are intact. No osteochondral injury is identified. There is no apparent effusion at the ankle joint. No abnormal soft tissue calcifications are present. No osteophytes arise from the posterior calcaneus. IMPRESSION: No acute fracture or dislocation. The joint spaces are intact. No significant osseous abnormality is identified. Similar findings can be seen in corresponding areas of the right foot study performed in 2012. Electronically authenticated by: BINU PETER Date: 2022-10-20 19:55 Normal [facility] SAUNDRA by IFAon 10-07-2022 Antinuclear Antibodies, IFA Negative Normal [facility] Comment on above: Result Comment: Nega tive <1:80 Borderline 1:80 Positive >1:80 ICAP nomenclature: AC-0 For more information about Hep-2 cell patterns use ANApatterns.org, the official website for the International Consensus on Antinuclear Antibody (SAUNDRA) Patterns (ICAP). Performed By: #### A NAIFA #### [facility] [address] [address] [address] Randal Fontaine RHEUMATOID FACTORon 10-07-20 RA Latex Turbid. <10.0 Normal <14.0 [facility] Comment on above: Performed By: #### R F ####[facility] [address] [place], [place] [address]DiDr. Randal Fontaine CBC AUTO DIFFon 10-05-2022 BASO # 0.1 103/ul Normal 0.0-0.1 [facility] Comment on above: Performed By: #### C BC #### [facility] [address] [address] [address] Randal Fontaine Basophils/100 WBC (Bld) 0.5 % Normal 0.2-2.0 [facility] Comment on above: Performed By: #### C BC #### [facility] [address] [place] [address] Dr. Randal Fontaine EO # 0.2 103/ul Normal 0.0-0.7 [facility] Comment on above: Performed By: #### C BC #### [facility] [address] [place] [address] Dr. Randal Fontaine Eosinophils/100 WBC (Bld) 1.6 % Normal 0.9-7.0 [facility] Comment on above: Performed By: #### C BC #### [facility] [address] [place] [address] Dr. Randal Fontaine Erythrocyte distribution width (RBC) [Ratio] 14.0 % Normal 11.0-15.0 [facility] Comment on above: Performed By: #### C BC #### [facility] [address] [place] [address] Dr. Randal Fontaine Hematocrit (Bld) [Volume fraction] 44.5 % Normal 36.0-48.0 [facility] Comment on above: Performed By: #### C BC #### [facility] [address] [place] [address] Dr. Randal Fontaine Hemoglobin (Bld) [Mass/Vol] 14.4 g/dL Normal 12.0-16.0 [facility] Comment on above: Performed By: #### C BC #### [facility] [address] [place] [address] Dr. Randal Fontaine IG # 0.03 10e3/ul Normal 0.00-0.03 [facility] Comment on above: Performed By: #### C BC #### [facility] [address] [place] [address] Dr. Randal Fontaine IG % 0.3 % Normal 0.0-0.5 [facility] Comment on above: Performed By: #### C BC #### [facility] [address] [place] [address] Dr. Randal Fontaine LYMPH # 2.3 103/ul Normal 1.2-3.8 [facility] Comment on above: Performed By: #### C BC #### [facility] [address] [place] [address] Dr. Randal Fontaine Lymphocytes/100 WBC (Bld) 20.3 % Critically low 20.5-60.0 [facility] Comment on above: Performed By: #### C BC #### [facility] [address] [place] [address] Dr. Randal Fontaine MANUAL DIFF REQ NO Normal [facility] Comment on above: Performed By: #### C BC #### [facility] [address] [place] [address] Dr. Randal Fontaine MCH (RBC) [Entitic mass] 27.9 pg Normal 26.7-34.0 [facility] Comment on above: Performed By: #### C BC #### [facility] [address] [place] [address] Dr. Randal Fontaine MCHC (RBC) [Mass/Vol] 32.4 g/dL Normal 29.9-35.2 [facility] Comment on above: Performed By: #### C BC #### [facility] [address] [place] [address] Dr. Randal Fontaine MCV (RBC) [Entitic vol] 86.2 fL Normal 81.0-99.0 [facility] Comment on above: Performed By: #### C BC #### [facility] [address] [place] [address] Dr. Randal Fontaine MONO # 0.6 103/ul Normal 0.3-0.8 [facility] Comment on above: Performed By: #### C BC #### [facility] [address] [place] [address] Dr. Randal Fontaine Monocytes/100 WBC (Bld) 5.7 % Normal 1.7-12.0 [facility] Comment on above: Performed By: #### C BC #### [facility] [address] [place] [address] Dr. Randal Fontaine NEUT # 7.9 103/ul Critically high 1.4-6.5 [facility] Comment on above: Performed By: #### C BC #### [facility] [address] [address] [address] Randal Fontaine Neutrophils/100 WBC (Bld) 71.6 % Normal 43.0-75.0 [facility] Comment on above: Performed By: #### C BC #### [facility] [address] [address] [address] Randal Fontaine Platelet mean volume (Bld) [Entitic vol] 10.5 fL Normal 9.5-13.5 [facility] Comment on above: Performed By: #### C BC #### [facility] [address] [address] [address] Randal Fontaine PLT 263 103/ul Normal 150-450 [facility] Comment on above: Performed By: #### C BC #### [facility] [address] [place] [address] Dr. Randal Fontaine RBC 5.16 106/ul Normal 4.20-5.40 [facility] Comment on above: Performed By: #### C BC #### [facility] [address] [address] [address] Randal Fontaine WBC 11.1 103/ul Critically high 4.0-11.0 [facility] Comment on above: Performed By: #### C BC #### [facility] [address] [place] [address] Dr. Randal Fontaine CRPon 10-05-2022 CRP [Mass/Vol] mg/L Normal <=1.0 [facility] Comment on above: Performed By: #### C RP, URIC #### [facility] [address] [address] [address] Randal Fontaine SED RATE WESTERGRENon 2021 SED RATE 16 mm/hr Normal <=20 [facility] Comment on above: Performed By: #### S EDR ####[facility] [address] [address]Dr. Randal Fontaine URIC ACID SERUMon 10-05-2022 Urate [Mass/Vol] 4.6 mg/dL Normal 2.6-6.0 [facility] Comment on above: Performed By: #### C , URIC #### [facility] [address] [address] [address] Randal Fontaine NM BONE SCAN 3 PHASEon 10-01 NM BONE SCAN 3 PHASE EXAMINATION: THREE PHASE BONE SCAN 09/30/2022 8:02 am TECHNIQUE: The patient was injected intravenously with 25.8 mCi of 99 mTc MDP. Initial blood flow and pool images of the hands and wrists were acquired. After 3 hours, delayed bone images were acquired. COMPARISON: Patient did not have previous imaging studies for comparison. 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 Blood pool images reveal asymmetric increased soft tissue activity in the right thenar eminence. Findings compatible with hyperemia medial right wrist. Delayed images show no abnormal foci of radiotracer deposition. IMPRESSION: Increased flow medial right wrist increased soft tissue activity on blood pool images same location consistent with hyperemia to the soft tissues of the thenar eminence right wrist. Bone uptake is unremarkable. Interpreted by: Rosalba Gutierrez MD Signed by: Rosalba Gutierrez MD 10/01/22 Final result Normal [facility] Increased flow media l right wrist increased soft tissue activity on blood pool images same location consistent with hyperemia to the soft tissues of the thenar eminence right wrist. Bone uptake is unremarkable. [facility] EXAMINATION: THREE PHASE BONE SCAN 09/30/2022 8:02 am TECHNIQUE: The patient was injected intravenously with 25.8 mCi of 99 mTc MDP. Initial blood flow and pool images of the hands and wrists were acquired. After 3 hours, delayed bone images were acquired. COMPARISON: Patient did not have previous imaging studies for comparison. 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 Blood pool images reveal asymmetric increased soft tissue activity in the right thenar eminence. Findings compatible with hyperemia medial right wrist. Delayed images show no abnormal foci of radiotracer deposition. [facility] Rosalba Gutierrez MD - 10/01/2022 EXAMINATION: THREE PHASE BONE SCAN 09/30/2022 8:02 am TECHNIQUE: The patient was injected intravenously with 25.8 mCi of 99 mTc MDP. Initial blood flow and pool images of the hands and wrists were acquired. After 3 hours, delayed bone images were acquired. COMPARISON: Patient did not have previous imaging studies for comparison. 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 Blood pool images reveal asymmetric increased soft tissue activity in the right thenar eminence. Findings compatible with hyperemia medial right wrist. Delayed images show no abnormal foci of radiotracer deposition. IMPRESSION: Increased flow medial right wrist increased soft tissue activity on blood pool images same location consistent with hyperemia to the soft tissues of the thenar eminence right wrist. Bone uptake is unremarkable. [employer] Phone: NM BONE SCAN 3 PHASEOrdered By: Rosalba Gutierrez on 10-01-2022 [facility] [employer] Phone: NM BONE SCAN 3 PHASEon 09-30 Radiology Study observation (narrative) [facility] [employer] Phone: FLUORO FOR SURGICAL PROCEDUR ESon 09-08-2022 FLUORO FOR SURGICAL PROCEDURES Radiology exam is complete. No Radiologist dictation. Please follow up with ordering provider. Final result Normal [facility] XR FOOT LT MIN 3 VIEWSon XR FOOT LT MIN 3 VIEWS EXAM: XR FOOT LT MIN 3 VIEWS HISTORY: Foot pain COMPARISON: X-rays 06/08/2013 TECHNIQUE: 3 views FINDINGS: No osseous lesion, fracture, dislocation or subluxation. Joint spaces are normal. No visualized effusion. No visualized soft tissue edema. IMPRESSION: Normal x-rays Electronically authenticated by: MONIE YANEZ Date: 2022-07-30 19:04 Normal [facility] Covid-19 PCR (CVDTBH)on SARS-CoV-2 (COVID-19) RNA MONY+probe Ql (Unsp spec) Detected Critically abnormal NOT DETECTED [facility] Comment on above: Result Comment: This test is not yet approved or cleared by the [place] FDA. When there are no FDA-approved or cleared tests available, and other criteria are met, FDA can make tests available under an emergency access mechanism called an Emergency Use Authorization (EUA). The EUA for this test is supported by the [place] of Health and Human Service's (HHS's) declaration that circumstances exist to justify the emergency use of in vitro diagnostics for the detection and/or diagnosis of the virus that causes COVID-19. This EUA will remain in effect (meaning this test can be used) for the duration of the COVID-19 declaration justifying emergency of IVDs, unless it is terminated or revoked by FDA (after which the test may no longer be used). Performed By: #### C [facility] #### [facility] [address] [place] [address] Dr. Randal Fontaine CBC with Diffon 03-17-2022 Abs. Basophil 0.07 k/uL Normal 0.00-0.20 [facility] Comment on above: Performed By: #### C P, T4, CDP, TSH, T3, LIPR #### [place] [address] [employer]: Pedro Luis Morales MD Abs.Imm.Granulocyte 0.03 k/uL Normal 0.00-0.30 [facility] Comment on above: Performed By: #### C P, T4, CDP, TSH, T3, LIPR #### [id number] [employer]: Pedro Luis Morales MD Abs.Neutrophil (Seg) 5.46 k/uL Normal 1.50-8.10 [facility] Comment on above: Performed By: #### C P, T4, CDP, TSH, T3, LIPR #### [place] [address] [employer]: Pedro Luis Morales MD Basophils/100 WBC (Bld) 1 % Normal 0-2 [facility] Comment on above: Performed By: #### C P, T4, CDP, TSH, T3, LIPR #### [address] [address] [employer]: Pedro Luis Morales MD Eosinophils (Bld) [#/Vol] 0.15 10*3/uL Normal 0.00-0.44 [facility] Comment on above: Performed By: #### C P, T4, CDP, TSH, T3, LIPR #### [place] [address] [employer]: Pedro Luis Morales MD Eosinophils/100 WBC (Bld) 2 % Normal 1-4 [facility] Comment on above: Performed By: #### C P, T4, CDP, TSH, T3, LIPR #### [place] [address] [employer]: Pedro Luis Morales MD Erythrocyte distribution width (RBC) [Ratio] 12.8 % Normal 11.8-14.4 [facility] Comment on above: Performed By: #### C P, T4, CDP, TSH, T3, LIPR #### [place] [address] [employer]: Pedro Luis Morales MD Hematocrit (Bld) [Volume fraction] 43.7 % Normal 36.3-47.1 [facility] Comment on above: Performed By: #### C P, T4, CDP, TSH, T3, LIPR #### [place] [address] [employer]: Pedro Luis Morales MD Hemoglobin (Bld) [Mass/Vol] 13.7 g/dL Normal 11.9-15.1 [facility] Comment on above: Performed By: #### C P, T4, CDP, TSH, T3, LIPR #### [address] [address] [employer]: Pedro Luis Morales MD Immature granulocytes/100 WBC (Bld) 0 % Normal 0 [facility] Comment on above: Performed By: #### C P, T4, CDP, TSH, T3, LIPR #### [address] [address] [employer]: Pedro Luis Morales MD Lymphocytes (Bld) [#/Vol] 2.15 10*3/uL Normal 1.10-3.70 [facility] Comment on above: Performed By: #### C P, T4, CDP, TSH, T3, LIPR #### [address] [address] [employer]: Pedro Luis Morales MD Lymphocytes/100 WBC (Bld) 26 % Normal 24-43 [facility] Comment on above: Performed By: #### C P, T4, CDP, TSH, T3, LIPR #### [place] [address] [employer]: Pedro Luis Morales MD MCH (RBC) [Entitic mass] 30.6 pg Normal 25.2-33.5 [facility] Comment on above: Performed By: #### C P, T4, CDP, TSH, T3, LIPR #### [address] [address] [employer]: Pedro uLis Morales MD MCHC (RBC) [Mass/Vol] 31.4 g/dL Normal 28.4-34.8 [facility] Comment on above: Performed By: #### C P, T4, CDP, TSH, T3, LIPR #### [address] [address] [employer]: Pedro Luis Morales MD MCV (RBC) [Entitic vol] 97.5 fL Normal 82.6-102.9 [facility] Comment on above: Performed By: #### C P, T4, CDP, TSH, T3, LIPR #### [address] [address] [employer]: Pedro Luis Morales MD Monocytes (Bld) [#/Vol] 0.56 10*3/uL Normal 0.10-1.20 [facility] Comment on above: Performed By: #### C P, T4, CDP, TSH, T3, LIPR #### [address] [address] [employer]: Pedro Luis Morales MD Monocytes/100 WBC (Bld) 7 % Normal 3-12 [facility] Comment on above: Performed By: #### C P, T4, CDP, TSH, T3, LIPR #### [address] [address] [employer]: Pedro Luis Morales MD Neutrophil (Seg) 64 % Normal 36-65 [facility] Comment on above: Performed By: #### C P, T4, CDP, TSH, T3, LIPR #### [address] [address] [employer]: Pedro Luis Morales MD NRBC Automated 0.0 per 100 WBC Normal 0.0 [facility] Comment on above: Performed By: #### C P, T4, CDP, TSH, T3, LIPR #### [address] [address] [employer]: Pedro Luis Morales MD Platelet mean volume (Bld) [Entitic vol] 10.6 fL Normal 8.1-13.5 [facility] Comment on above: Performed By: #### C P, T4, CDP, TSH, T3, LIPR #### [address] [address] [employer]: Pedro Luis Morales MD Platelets (Bld) [#/Vol] 300 10*3/uL Normal 138-453 [facility] Comment on above: Performed By: #### C P, T4, CDP, TSH, T3, LIPR #### [address] [place] [address] [employer]: Pedro Luis Morales MD RBC (Bld) [#/Vol] 4.48 10*6/uL Normal 3.95-5.11 [facility] Comment on above: Performed By: #### C P, T4, CDP, TSH, T3, LIPR #### [address] [place] [address] [employer]: Pedro Luis Morales MD WBC (Bld) [#/Vol] 8.4 10*3/uL Normal 3.5-11.3 [facility] Comment on above: Performed By: #### C P, T4, CDP, TSH, T3, LIPR #### [address] [address] [employer]: Pedro Luis Morales MD Comp Metabolic Profon 2021 (cont.) Normal [facility] Comment on above: Result Comment: Aver age GFR for 30-39 years old: 107 mL/min/1.73sq m Chronic Kidney Disease: <60 mL/min/1.73sq m Kidney failure: <15 mL/min/1.73sq m eGFR calculated using average adult body mass. Additional eGFR calculator available at: http://www.[employer]inplug.ZeeWhere/multiple_crcl_2012.htm Performed By: #### C P, T4, CDP, TSH, T3, LIPR #### [address] [address] [employer]: Pedro Luis Morales MD Albumin [Mass/Vol] 4.1 g/dL Normal 3.5-5.2 [facility] Comment on above: Performed By: #### C P, T4, CDP, TSH, T3, LIPR #### [address] [address] [employer]: Pedro Luis Morales MD Albumin/Glob Ratio 1.6 Normal 1.0-2.5 [facility] Comment on above: Performed By: #### C P, T4, CDP, TSH, T3, LIPR #### [address] [address] [employer]: Pedro Luis Morales MD Alkaline Phos 77 U/L Normal 35-104 [facility] Comment on above: Performed By: #### C P, T4, CDP, TSH, T3, LIPR #### [address] [address] [employer]: Pedro Luis Morales MD ALT [Catalytic activity/Vol] 16 U/L Normal 5-33 [facility] Comment on above: Performed By: #### C P, T4, CDP, TSH, T3, LIPR #### [address] [address] [employer]: Pedro Luis Morales MD Anion gap [Moles/Vol] 15 mmol/L Normal 9-17 [facility] Comment on above: Performed By: #### C P, T4, CDP, TSH, T3, LIPR #### [address] [address] [employer]: Pedro Luis Morales MD AST [Catalytic activity/Vol] 17 U/L Normal <32 [facility] Comment on above: Performed By: #### C P, T4, CDP, TSH, T3, LIPR #### [address] [address] [employer]: Pedro Luis Morales MD Bilirubin [Mass/Vol] 0.28 mg/dL Low 0.3-1.2 [facility] Comment on above: Performed By: #### C P, T4, CDP, TSH, T3, LIPR #### [address] [address] [employer]: Pedro Luis Morales MD Calcium [Mass/Vol] 9.5 mg/dL Normal 8.6-10.4 [facility] Comment on above: Performed By: #### C P, T4, CDP, TSH, T3, LIPR #### [address] [address] [employer]: Pedro Luis Morales MD Chloride [Moles/Vol] 101 mmol/L Normal 98-107 [facility] Comment on above: Performed By: #### C P, T4, CDP, TSH, T3, LIPR #### [address] [address] [employer]: Pedro Luis Morales MD CO2 [Moles/Vol] 23 mmol/L Normal 20-31 [facility] Comment on above: Performed By: #### C P, T4, CDP, TSH, T3, LIPR #### [address] [address] [employer]: Pedro Luis Morales MD Creatinine [Mass/Vol] 0.68 mg/dL Normal 0.50-0.90 [facility] Comment on above: Performed By: #### C P, T4, CDP, TSH, T3, LIPR #### [address] [address] [employer]: Pedro Luis Morales MD GFR, Amer >60 Normal >60 [facility] Comment on above: Performed By: #### C P, T4, CDP, TSH, T3, LIPR #### [address] [address] [employer]: Pedro Luis Morales MD GFR,non Amer >60 Normal >60 [facility] Comment on above: Performed By: #### C P, T4, CDP, TSH, T3, LIPR #### [address] [address] [employer]: Pedro Luis Morales MD Glucose [Mass/Vol] 89 mg/dL Normal 70-99 [facility] Comment on above: Performed By: #### C P, T4, CDP, TSH, T3, LIPR #### [facility] [employer] [address] [place] [address] [employer]: Pedro Luis Morales MD Potassium [Moles/Vol] 4.1 mmol/L Normal 3.7-5.3 [facility] Comment on above: Performed By: #### C P, T4, CDP, TSH, T3, LIPR #### [facility] [employer] [address] [place] [address] [employer]: Pedro Luis Morales MD Protein [Mass/Vol] 6.6 g/dL Normal 6.4-8.3 [facility] Comment on above: Performed By: #### C P, T4, CDP, TSH, T3, LIPR #### [facility] [employer] [address] [place] [address] [employer]: Pedro Luis Morales MD Sodium [Moles/Vol] 139 mmol/L Normal 135-144 [facility] Comment on above: Performed By: #### C P, T4, CDP, TSH, T3, LIPR #### [facility] [employer] [address] [place] [address] [employer]: Pedro Luis Morales MD Urea nitrogen [Mass/Vol] 3 mg/dL Low 6-20 [facility] Comment on above: Performed By: #### C P, T4, CDP, TSH, T3, LIPR #### [facility] [employer] [address] [place] [address] [employer]: Pedro Luis Morales MD Lipid Profileon 03-17-2022 Cholesterol [Mass/Vol] 159 mg/dL Normal <200 [facility] Comment on above: Result Comment: Cholesterol Guidelines: <200 Desirable 200-240 Borderline >240 Undesirable Performed By: #### C P, T4, CDP, TSH, T3, LIPR #### [facility] [employer] [address] [place] [address] [employer]: Pedro Luis Morales MD Cholesterol in HDL [Mass/Vol] 36 mg/dL Low >40 [facility] Comment on above: Result Comment: HDL Guidelines: <40 Undesirable 40-59 Borderline >59 Desirable Performed By: #### C P, T4, CDP, TSH, T3, LIPR #### [address] [id number] [employer]: Pedro Luis Morales MD Cholesterol in LDL [Mass/Vol] 105 mg/dL Normal 0-130 [facility] Comment on above: Result Comment: LDL Guidelines: <100 Desirable 100-129 Near to/above Desirable 130-159 Borderline >159 Undesirable Direct (measured) LDL and calculated LDL are not interchangeable tests. Performed By: #### C P, T4, CDP, TSH, T3, LIPR #### [address] [id number] [employer]: Pedro Luis Morales MD Cholesterol.total/Ch olesterol in HDL [Mass ratio] 4.4 {ratio} Normal <5 [facility] Comment on above: Performed By: #### C P, T4, CDP, TSH, T3, LIPR #### [address] [address] [employer]: Pedro Luis Morales MD Triglyceride [Mass/Vol] 92 mg/dL Normal <150 [facility] Comment on above: Result Comment: Triglyceride Guidelines: <150 Desirable 150-199 Borderline 200-499 High >499 Very high Based on AHA Guidelines for fasting triglyceride, July 2012. Performed By: #### C P, T4, CDP, TSH, T3, LIPR #### [address] [id number] [employer]: Pedro Luis Morales MD Thyroid Stim. Horm.on 2021 Thyroid Stim. Horm. 0.92 uIU/mL Normal 0.30-5.00 [facility] Comment on above: Performed By: #### C P, T4, CDP, TSH, T3, LIPR #### [facility] [employer] [address] [place] [address] [employer]: Pedro Luis Morales MD Thyroxine T4on 03-17-2022 T4 [Mass/Vol] 7.5 ug/dL Normal 4.5-10.9 [facility] Comment on above: Performed By: #### C P, T4, CDP, TSH, T3, LIPR #### [facility] [employer] [address] [place] [phone] [employer]: Pedro Luis Morales MD Triiodothyronine T3on 2021 Triiodothyronine T3 149 ng/dL Normal 60-181 [facility] Comment on above: Performed By: #### C P, T4, CDP, TSH, T3, LIPR #### [address] [address] [employer]: Pedro Luis Morales MD Laboratory - Chemistry and C hemistry - challengeOrdered By: Desmond Barrera on 03-16-2022 Albumin [Mass/Vol] 4.1 g/dL (3.5-5.2 ) [facility] Work Phone: Comment on above: Note: Responsible Ob dining room server: CCEV AUTOFILE (3002) ALT [Catalytic activity/Vol] 16 U/L (5-33 ) [facility] Work Phone: Comment on above: Note: Responsible Ob dining room server: CCEV AUTOFILE (3002) Anion gap [Moles/Vol] 15 mmol/L (9-17 ) [facility] Work Phone: Comment on above: Note: Responsible Ob dining room server: CCEV AUTOFILE (3002) AST [Catalytic activity/Vol] 17 U/L (<32 ) [facility] Work Phone: Comment on above: Note: Responsible Ob dining room server: CCEV AUTOFILE (3002) Bilirubin [Mass/Vol] 0.28 mg/dL Low (0.3-1.2 ) [employer] Work Phone: Comment on above: Note: Responsible Ob dining room server: CCEV AUTOFILE (3002) Calcium [Mass/Vol] 9.5 mg/dL (8.6-10.4 ) [facility] Work Phone: Comment on above: Note: Responsible Ob dining room server: CCEV AUTOFILE (3002) Chloride [Moles/Vol] 101 mmol/L (98-107 ) [employer] Work Phone: Comment on above: Note: Responsible Ob dining room server: CCEV AUTOFILE (3002) Cholesterol [Mass/Vol] 159 mg/dL (<200 ) [facility] Work Phone: Comment on above: Note: Cholesterol Gu idelines:<200 [id number] Borderline>240 UndesirableResponsible Observer: CCEV AUTOFILE (3002) Cholesterol.total/Ch olesterol in HDL [Mass ratio] 4.4 {ratio} (<5 ) [facility] Work Phone: Comment on above: Note: Responsible Ob dining room server: CCEV AUTOFILE (3002) CO2 [Moles/Vol] 23 mmol/L (20-31 ) [facility] Work Phone: Comment on above: Note: Responsible Ob dining room server: CCEV AUTOFILE (3002) Creatinine [Mass/Vol] 0.68 mg/dL (0.50-0.90 ) [facility] Work Phone: Comment on above: Note: Responsible Ob dining room server: CCEV AUTOFILE (3002) Glucose [Mass/Vol] 89 mg/dL (70-99 ) [facility] Work Phone: Comment on above: Note: Responsible Ob dining room server: CCEV AUTOFILE (3002) Magnesium [Mass/Vol] 36 mg/dL Low (>40 ) [employer] Work Phone: Comment on above: Note: HDL Guidelines :<40 [id number] Borderline>59 DesirableResponsible Observer: CCEV AUTOFILE (3002) Magnesium [Mass/Vol] 105 mg/dL (0-130 ) [facility] Work Phone: Comment on above: Note: LDL Guidelines :<100 [id number] Near to/above [id number] Borderline>159 UndesirableDirect (measured) LDL and calculated LDL are not interchangeable tests.Responsible Observer: CCEV AUTOFILE (3002) Potassium [Moles/Vol] 4.1 mmol/L (3.7-5.3 ) [facility] Work Phone: Comment on above: Note: Responsible Ob dining room server: CCEV AUTOFILE (3002) Protein [Mass/Vol] 6.6 g/dL (6.4-8.3 ) [facility] Work Phone: Comment on above: Note: Responsible Ob dining room server: CCEV AUTOFILE (3002) Sodium [Moles/Vol] 139 mmol/L (135-144 ) [facility] Work Phone: Comment on above: Note: Responsible Ob dining room server: CCEV AUTOFILE (3002) T4 [Mass/Vol] 7.5 ug/dL (4.5-10.9 ) [facility] Work Phone: Comment on above: Note: Responsible Ob dining room server: HENRY SALES (4007) Triglyceride [Mass/Vol] 92 mg/dL (<150 ) [facility] Work Phone: Comment on above: Note: Triglyceride G uidelines:<150 [id number] Urqobjtuys195-353 High>499 Very highBased on AHA Guidelines for fasting triglyceride, July 2012.Responsible Observer: CCEV AUTOFILE (3002) Urea nitrogen [Mass/Vol] 3 mg/dL Low (6-20 ) [facility] Work Phone: Comment on above: Note: Responsible Ob dining room server: CCEV AUTOFILE (3002) Laboratory - Hematology and Cell countsOrdered By: Desmond Barrera on 03-16-2022 Basophils/100 WBC (Bld) 1 % (0-2 ) [facility] Work Phone: Comment on above: Note: Responsible Ob dining room server: XNV AUTOFILE (3018) Eosinophils (Bld) [#/Vol] 0.15 10*3/uL (0.00-0.44 ) [facility] Work Phone: Comment on above: Note: Responsible Ob dining room server: XNV AUTOFILE (3018) Eosinophils/100 WBC (Bld) 2 % (1-4 ) [facility] Work Phone: Comment on above: Note: Responsible Ob dining room server: XNV AUTOFILE (3018) Erythrocyte distribution width (RBC) [Ratio] 12.8 % (11.8-14.4 ) [facility] Work Phone: Comment on above: Note: Responsible Ob dining room server: XNV AUTOFILE (3018) Hematocrit (Bld) [Volume fraction] 43.7 % (36.3-47.1 ) [facility] Work Phone: Comment on above: Note: Responsible Ob dining room server: XNV AUTOFILE (3018) Hemoglobin (Bld) [Mass/Vol] 13.7 g/dL (11.9-15.1 ) [facility] Work Phone: Comment on above: Note: Responsible Ob dining room server: XNV AUTOFILE (3018) Immature granulocytes/100 WBC (Bld) 0 % (0 ) [facility] Work Phone: Comment on above: Note: Responsible Ob dining room server: XNV AUTOFILE (3018) Lymphocytes (Bld) [#/Vol] 2.15 10*3/uL (1.10-3.70 ) [facility] Work Phone: Comment on above: Note: Responsible Ob dining room server: XNV AUTOFILE (3018) Lymphocytes/100 WBC (Bld) 26 % (24-43 ) [facility] Work Phone: Comment on above: Note: Responsible Ob dining room server: XNV AUTOFILE (3018) MCH (RBC) [Entitic mass] 30.6 pg (25.2-33.5 ) [facility] Work Phone: Comment on above: Note: Responsible Ob dining room server: XNV AUTOFILE (3018) MCHC (RBC) [Mass/Vol] 31.4 g/dL (28.4-34.8 ) [facility] Work Phone: Comment on above: Note: Responsible Ob dining room server: XNV AUTOFILE (3018) MCV (RBC) [Entitic vol] 97.5 fL (82.6-102. 9 ) [facility] Work Phone: Comment on above: Note: Responsible Ob dining room server: XNV AUTOFILE (3018) Monocytes (Bld) [#/Vol] 0.56 10*3/uL (0.10-1.20 ) [facility] Work Phone: Comment on above: Note: Responsible Ob dining room server: XNV AUTOFILE (3018) Monocytes/100 WBC (Bld) 7 % (3-12 ) [facility] Work Phone: Comment on above: Note: Responsible Ob dining room server: XNV AUTOFILE (3018) Platelet mean volume (Bld) [Entitic vol] 10.6 fL (8.1-13.5 ) [facility] Work Phone: Comment on above: Note: Responsible Ob dining room server: XNV AUTOFILE (3018) Platelets (Bld) [#/Vol] 300 10*3/uL (138-453 ) [facility] Work Phone: Comment on above: Note: Responsible Ob dining room server: XNV AUTOFILE (3018) RBC (Bld) [#/Vol] 4.48 10*6/uL (3.95-5.11 ) [facility] Work Phone: Comment on above: Note: Responsible Ob dining room server: XNV AUTOFILE (3018) Segmented neutrophils/100 WBC (Bld) 64 % (36-65 ) [facility] Work Phone: Comment on above: Note: Responsible Ob dining room server: XNV AUTOFILE (3018) WBC (Bld) [#/Vol] 8.4 10*3/uL (3.5-11.3 ) [facility] Work Phone: Comment on above: Note: Responsible Ob dining room server: XNV AUTOFILE (3018) No Panel InformationOrdered By: Desmond Barrera on 03-16-2022 (cont.) See Note [facility] Work Phone: Comment on above: Note: Average GFR fo r 30-39 years old:107 mL/min/1.73sq mChronic Kidney Disease:<60 mL/min/1.73sq mKidney failure:<15 mL/min/1.73sq meGFR calculated using average adult body mass. Additional eGFR calculatoravailable at:http://www.fuseSPORT/multiple_crcl_2012.htmResponsible Observer: CCEV AUTOFILE (3002) Abs. Basophil 0.07 k/uL (0.00-0.20 ) [facility] Work Phone: Comment on above: Note: Responsible Ob dining room server: XNV AUTOFILE (3018) Abs.Imm.Granulocyte 0.03 k/uL (0.00-0. 30 ) [facility] Work Phone: Comment on above: Note: Responsible Ob dining room server: XNV AUTOFILE (3018) Abs.Neutrophil (Seg) 5.46 k/uL (1.50-8 .10 ) [facility] Work Phone: Comment on above: Note: Responsible Ob dining room server: XNV AUTOFILE (3018) Albumin/Glob Ratio 1.6 (1.0-2.5 ) [facility] Work Phone: Comment on above: Note: Responsible Ob dining room server: CCEV AUTOFILE (3002) Alkaline Phos 77 U/L (35-104 ) [facility] Work Phone: Comment on above: Note: Responsible Ob dining room server: CCEV AUTOFILE (3002) GFR, Amer >60 mL/min (>60 ) [facility] Work Phone: Comment on above: Note: Responsible Ob dining room server: CCEV AUTOFILE (3002) GFR,non Amer >60 mL/min (>60 ) [employer] Work Phone: Comment on above: Note: Responsible Ob dining room server: CCEV AUTOFILE (3002) NRBC Automated 0.0 per_100_WBC (0.0 ) [facility] Work Phone: Comment on above: Note: Responsible Ob dining room server: XNV AUTOFILE (1448) Reported Physicians See Note [facility] Work Phone: Comment on above: Note: Reported Physi cians:Ordering: Desmond Barrera MAttending: Desmond BarreraReferring: Desmond Barrera Thyroid Stim. Horm. 0.92 uIU/mL (0.30-5. 00 ) [facility] Work Phone: Comment on above: Note: Responsible Ob dining room server: CCEV AUTOFILE (3002) Triiodothyronine T3 149 ng/dL (60-181 ) [facility] Work Phone: Comment on above: Note: Responsible Ob dining room server: CANDIS WILSON (061) CT ABDOMEN PELVIS W IV CONTR AST Additional Contrast? NoneOrdered By: Elliot Reed on 02-16-2021 No acute finding in the abdomen or pelvis. Specifically, the appendix is normal. RECOMMENDATIONS: 2 cm benign appearing ovarian cyst. No follow-up imaging is recommended. Reference: J Am Malathi Radiol 2013;10:675-681 [facility] Work Phone: EXAMINATION: CT OF T ABDOMEN AND PELVIS WITH CONTRAST 02/15/2021 11:48 pm TECHNIQUE: CT of the abdomen and pelvis was performed with the administration of intravenous contrast. Multiplanar reformatted images are provided for review. Dose modulation, iterative reconstruction, and/or weight based adjustment of the mA/kV was utilized to reduce the radiation dose to as low as reasonably achievable. COMPARISON: None. HISTORY: ORDERING SYSTEM PROVIDED HISTORY: 2 days of RLQ abd pain. Tenderness worst at [place]. TECHNOLOGIST PROVIDED HISTORY: 2 days of RLQ abd pain. Tenderness worst at [place]. Decision Support Exception - unselect if not a suspected or confirmed emergency medical condition->Emergency Medical Condition (MA) FINDINGS: Lower Chest: The lung bases are clear and the heart size is normal. Organs: The gallbladder is contracted. There are no calcified gallstones. No pericholecystic fluid. The liver, spleen, pancreas, adrenal glands and kidneys are normal. GI/Bowel: The appendix is normal. Unopacified bowel loops are unremarkable. No bowel obstruction. Pelvis: There is a 2 cm dominant follicle in the right ovary. Uterus and ovaries are otherwise unremarkable. Urinary bladder is normal. Peritoneum/Retroperitoneum: There is no adenopathy, free air or free fluid. Bones/Soft Tissues: No acute bone or soft tissue abnormality. [employer] Work Phone: Lucas, Mhpn Incoming R adiant Results From Viral[facility]/Victiv - 02/16/2021 12:40 AM EDT EXAMINATION: CT OF THE ABDOMEN AND PELVIS WITH CONTRAST 02/15/2021 11:48 pm TECHNIQUE: CT of the abdomen and pelvis was performed with the administration of intravenous contrast. Multiplanar reformatted images are provided for review. Dose modulation, iterative reconstruction, and/or weight based adjustment of the mA/kV was utilized to reduce the radiation dose to as low as reasonably achievable. COMPARISON: None. HISTORY: ORDERING SYSTEM PROVIDED HISTORY: 2 days of RLQ abd pain. Tenderness worst at [place]. TECHNOLOGIST PROVIDED HISTORY: 2 days of RLQ abd pain. Tenderness worst at [place]. Decision Support Exception - unselect if not a suspected or confirmed emergency medical condition->Emergency Medical Condition (MA) FINDINGS: Lower Chest: The lung bases are clear and the heart size is normal. Organs: The gallbladder is contracted. There are no calcified gallstones. No pericholecystic fluid. The liver, spleen, pancreas, adrenal glands and kidneys are normal. GI/Bowel: The appendix is normal. Unopacified bowel loops are unremarkable. No bowel obstruction. Pelvis: There is a 2 cm dominant follicle in the right ovary. Uterus and ovaries are otherwise unremarkable. Urinary bladder is normal. Peritoneum/Retroperitoneum: There is no adenopathy, free air or free fluid. Bones/Soft Tissues: No acute bone or soft tissue abnormality. IMPRESSION: No acute finding in the abdomen or pelvis. Specifically, the appendix is normal. RECOMMENDATIONS: 2 cm benign appearing ovarian cyst. No follow-up imaging is recommended. Reference: J Am Malathi Radiol 2013;10:[id number] [employer] Phone: Comprehensive Metabolic Pane lOrdered By: Elliot Reed on 02-16-2021 Albumin [Mass/Vol] 3.7 g/dL 3.5 - 5.2 g/dL [facility] Phone: Albumin/Globulin [Mass ratio] 1.5 {ratio} [employer] Phone: ALP (Bld) [Catalytic activity/Vol] 87 U/L 35 - 104 U/L [facility] Phone: ALT [Catalytic activity/Vol] 9 U/L 5 - 33 U/L [facility] Phone: Anion gap [Moles/Vol] 7 mmol/L Low 9 - 17 mmol/L [facility] Phone: AST [Catalytic activity/Vol] 12 U/L <32 [employer] Phone: Bilirubin [Mass/Vol] mg/dL Low 0.3 - 1 .2 mg/dL [facility] Phone: Calcium [Mass/Vol] 9.7 mg/dL 8.6 - 10. 4 mg/dL [facility] Phone: Chloride [Moles/Vol] 104 mmol/L 98 - 10 7 mmol/L [facility] Phone: CO2 [Moles/Vol] 26 mmol/L 20 - 31 mmol/L [facility] Phone: Creatinine [Mass/Vol] 0.54 mg/dL 0.50 - 0.90 mg/dL [employer] Phone: Free PSA/Total PSA [Mass fraction] 6.1 g/dL Low 6.4 - 8.3 g/dL [facility] Phone: GFR >60 >60 mL/min [facility] Phone: GFR Non- >60 >60 mL/min [facility] Phone: Glucose [Mass/Vol] 102 mg/dL High 70 - 99 mg/dL [facility] Phone: Interpretation and review of laboratory results Abnormal [facility] Phone: Potassium [Moles/Vol] 3.8 mmol/L 3.7 - 5.3 mmol/L [facility] Phone: Sodium [Moles/Vol] 137 mmol/L 135 - 144 mmol/L [facility] Phone: Urea nitrogen (BldV) [Mass/Vol] 4 mg/dL Low 6 - 20 mg/dL [facility] Phone: Urea nitrogen/Creatinine (Bld) [Mass ratio] 7 Low [facility] Phone: Laboratory - Chemistry and C hemistry - challengeOrdered By: Elliot Reed on 02-16-2021 GFR/1.73 sq M.predicted MDRD (S/P/Bld) [Vol rate/Area] [facility] Phone: Comment on above: Average GFR for 20-2 9 years old: 116 mL/min/1.73sq m Chronic Kidney Disease: <60 mL/min/1.73sq m Kidney failure: <15 mL/min/1.73sq m eGFR calculated using average adult body mass. Additional eGFR calculator available at: http://www.fuseSPORT/multiple_crcl_2012.htm Stage 1: Some kidney damage normal GFR Stage 2: Mild kidney damage GFR 60-89 Stage 3: Moderate kidney damage GFR 30-59 Stage 4: Severe kidney damage GFR 15-29 Stage 5: Severe kidney damage GFR <15 ESRD - chronic treatment by dialysis or transplant CBC auto differentialOrdered By: Elliot Reed on 02-15-2021 Absolute Eos # 0.25 [employer] Work Phone: Absolute Immature Granulocyte 0.06 [employer] Work Phone: Absolute Lymph # 3.13 [employer] [facility] Work Phone: Absolute Snyder # 0.94 [employer] Work Phone: Basophils (Bld) [#/Vol] 0.07 10*3/uL [employer] Work Phone: Basophils/100 WBC (Bld) 0 % 0 - 2 % [employer] Phone: Differential Type NOT REPORTED [employer] Phone: Eosinophils/100 WBC (Bld) 2 % 1 - 4 % [employer] [facility] Phone: Hematocrit (Bld) [Volume fraction] 41.0 % 36.3 - 47.1 % [employer] Phone: Hemoglobin.gastroint estinal spec 1 Ql (Stl) 13.5 g/dL 11.9 - 15.1 g/dL [employer] Phone: Immature granulocytes/100 WBC (Bld) 0 % 0 [employer] [facility] Phone: Interpretation and review of laboratory results Abnormal [employer] Phone: Lymphocytes/100 WBC (Bld) 20 % Low 24 - 43 % [employer] [facility] Phone: MCH (RBC) [Entitic mass] 30.1 pg 25.2 - 33.5 pg [employer] [facility] Phone: MCHC (RBC) [Mass/Vol] 32.9 g/dL 28.4 - 34.8 g/dL [employer] [facility] Phone: MCV (RBC) [Entitic vol] 91.5 fL 82.6 - 102.9 fL [employer] [facility] Phone: Monocytes/100 WBC (Bld) 6 % 3 - 12 % [employer] [facility] Phone: NRBC Automated 0.0 0.0 per 100 WBC [employer] [facility] Phone: Platelet distribution width (Bld) [Ratio] 15.3 % High 11.8 - 14.4 % [employer] Phone: Platelet Estimate NOT REPORTED [employer] Phone: Platelet mean volume (Bld) [Entitic vol] 9.9 fL 8.1 - 13.5 fL [employer] Phone: Platelets (Bld) [#/Vol] 260 10*3/uL [employer] Phone: RBC (Bld) [#/Vol] 4.48 10*6/uL 3.95 - 5.11 m/uL [employer] Phone: RBC (Bld) [#/Vol] NOT REPORTED [employer] Phone: Segmented neutrophils/100 WBC (Bld) 72 % High 36 - 65 % [employer] Phone: Segs Absolute 11.34 High [employer] Work Phone: WBC (Bld) [#/Vol] 15.8 10*3/uL High [employer] Work Phone: WBC (Bld) [#/Vol] NOT REPORTED [employer] Phone: Lactic acid, plasmaOrdered B y: Elliot Reed on 02-15-2021 Lactate [Moles/Vol] 1.4 mmol/L 0.5 - 2. 2 mmol/L [employer] [facility] Phone: Lactic Acid, Whole Blood NOT REPORTED 0.7 - 2.1 mmol/L [employer] Phone: LipaseOrdered By: Elliot Enamorado gaby on 02-15-2021 Lipase [Catalytic activity/Vol] 22 U/L 13 - 60 U/L [facility] Phone: Microscopic UrinalysisOrdere d By: Elliot Enamoradoin on 02-15-2021 - [facility] Work Phone: Amorphous, UA NOT REPORTED None [facility] Work Phone: Bacteria, UA NOT REPORTED None [facility] Work Phone: Casts UA NOT REPORTED /LPF [facility] Work Phone: Crystals, UA NOT REPORTED None /HPF [facility] Work Phone: Epithelial Cells UA 0 TO 2 [facility] Work Phone: Mucus, UA NOT REPORTED None [facility] Work Phone: Other Observations UA NOT REPORTED NOT REQ. [facility] Work Phone: RBC, UA None [facility] Work Phone: Renal Epithelial, UA NOT REPORTED 0 /HPF [facility] [employer] Work Phone: Trichomonas, UA NOT REPORTED None [facility] Work Phone: WBC, UA None [facility] Work Phone: Yeast, UA NOT REPORTED None [facility] Work Phone: , UrineOrdered By: Elliot Reed on 02-15-2021 Beta HCG ( test) Ql (U) Negative NEGATIVE [facility] Work Phone: Comment on above: Specimens with hCG l evels near the threshold of the test (25 mIU/mL) may give a negative or indeterminate result. In such cases, another test should be performed with a new specimen in 48-72 hours. If early is suspected clinically in this setting, correlation with quantitative serum b-hCG level is suggested. [employer] has confirmed the use of plasma for this test. This has not been cleared or approved by the U.S. Food and Drug Administration. The FDA has determined that such clearance is not necessary. Urinalysis Reflex to Culture Ordered By: Elliot Reed on 02-15-2021 Bilirubin Urine Negative NEGATIVE [facility] Work Phone: Color, UA YELLOW YELLOW [facility] Work Phone: Glucose, Ur Negative NEGATIVE [facility] Work Phone: Interpretation and review of laboratory results Abnormal [facility] Work Phone: Ketones Ql (U) TRACE Abnormal NEGATIVE [facility] Work Phone: Leukocyte esterase Test strip Ql (U) Negative NEGATIVE [facility] [employer] Work Phone: Nitrite, Urine Negative NEGATIVE [facility] Work Phone: pH, UA 6.0 [facility] Work Phone: Protein, UA Negative NEGATIVE [facility] Work Phone: Specific [place], UA 1.025 High [facility] [employer] Work Phone: Turbidity UA CLEAR CLEAR [facility] [employer] Work Phone: Urinalysis Comments NOT REPORTED [facility] [employer] Work Phone: Urine Hgb Negative NEGATIVE [facility] Work Phone: Urobilinogen, Urine Normal Normal [facility] Work Phone: C.trachomatis N.gonorrhoeae DNA, Thin Prepon 01-10-2021 Chlamydia By Thin Prep Negative NEGATIVE [facility] Work Phone: Comment on above: CHLAMYDIA TRACHOMATI S DNA not detected by nucleic acid amplification. This test is intended for medical purposes only and is not valid for the evaluation of suspected sexual abuse or for other forensic purposes. In certain contexts, culture may be required to meet applicable laws and regulations for diagnosis of C. trachomatis and N. gonorrhoeae infections. Per 2014 CDC recommendations, this test does not include confirmation of positive results by an alternative nucleic acid target. N. gonorrhoeae DNA, Thin Prep Negative NEGATIVE [facility] [employer] Work Phone: Comment on above: NEISSERIA GONORRHOEA E DNA not detected by nucleic acid amplification. This test is intended for medical purposes only and is not valid for the evaluation of suspected sexual abuse or for other forensic purposes. In certain contexts, culture may be required to meet applicable laws and regulations for diagnosis of C. trachomatis and N. gonorrhoeae infections. Per 2014 CDC recommendations, this test does not include confirmation of positive results by an alternative nucleic acid target. Specimen Description .CERVIX [facility] [employer] Work Phone: Laboratory - CytologyOrdered By: Desmond Barrera on 01-09-2021 Microscopic observation Cyto stain Nom (Cvx) See Note [facility] Work Phone: Comment on above: Note: (NOTE)INTERPRE TATIONCervical material, (ThinPrep vial, Imaging-assisted review):Specimen Adequacy:Satisfactory for evaluation.-Endocervical/transformation zone component is absent.Descriptive Diagnosis:Negative for intraepithelial lesion or malignancy.Shift in mikie suggestive of bacterial vaginosis.Sample Carrier: DANY Ahmadi(ASCP)Electronically Signed [place]/01/15/2021ource:1: Cervical material, (ThinPrep vial, Imaging-assisted review)Clinical SfnmjduM44.4 Encounter for screening for malignant neoplasm of cervixGYNECOLOGIC CYTOLOGY REPORTPatient Name: [facility]INESUniversity [facility] Rec: [id number] Number: [id number] LABORATORIESCONSULTING PATHOLOGISTS [facility] [id number] [place] [address]. [place], [place] [address] Fax: No Panel InformationOrdered By: Desmond Barrera on 01-09-2021 Reported Physicians See Note [facility] Work Phone: Comment on above: Note: Reported Physi cians:Ordering: Cotton, AimeeAttending: Cotton, AimeeReferring: Cotton, Desmond Chlamydia Probe, TP Negative (NEG ) [facility] Work Phone: Comment on above: Note: CHLAMYDIA TRAC HOMATIS DNA not detected by nucleic acid amplification.This test is intended for medical purposes only and is not valid for theevaluation of suspected sexual abuse or for other forensic purposes.In certain contexts, culture may be required to meet applicable laws andregulations for diagnosis of C. trachomatis and N. gonorrhoeae infections.Per 2014 CDC recommendations, this test does not include confirmation ofpositive results by an alternative nucleic acid target.Responsible Observer: CFORTYEIGH AUTOFILE (6938) Gonorrhea Probe, TP Negative (NEG ) [facility] Work Phone: Comment on above: Note: NEISSERIA GONO RRHOEAE DNA not detected by nucleic acid amplification.This test is intended for medical purposes only and is not valid for theevaluation of suspected sexual abuse or for other forensic purposes.In certain contexts, culture may be required to meet applicable laws andregulations for diagnosis of C. trachomatis and N. gonorrhoeae infections.Per 2014 CDC recommendations, this test does not include confirmation ofpositive results by an alternative nucleic acid target.Responsible Observer: CFORTYEIGH AUTOFILE (3041) Reported Physicians See Note [facility] Work Phone: Comment on above: Note: Reported Physi cians:Ordering: Cotton, AimeeAttending: Cotton, AimeeReferring: Cotton, Desmond CardiacOrdered By: Desmond elizondo on 12-20-2020 Cholesterol [Mass/Vol] 150 mg/dL (<200 ) [facility] Work Phone: Comment on above: Note: Cholesterol Gu idelines:<200 [id number] Borderline>240 UndesirableResponsible Observer: CCEV AUTOFILE (3742) HematologyOrdered By: Desmond Barrera on 12-20-2020 Basophils/100 WBC (Bld) 1 % (0-2 ) [facility] Work Phone: Comment on above: Note: Responsible Ob dining room server: XNV AUTOFILE (2500) Eosinophils (Bld) [#/Vol] 0.15 10*3/uL (0.00-0.44 ) [facility] Work Phone: Comment on above: Note: Responsible Ob dining room server: XNV AUTOFILE (3018) Eosinophils/100 WBC (Bld) 1 % (1-4 ) [facility] Work Phone: Comment on above: Note: Responsible Ob dining room server: XNV AUTOFILE (3018) Hematocrit (Bld) [Volume fraction] 44.8 % (36.3-47.1 ) [facility] Work Phone: Comment on above: Note: Responsible Ob dining room server: XNV AUTOFILE (3018) Hemoglobin (Bld) [Mass/Vol] 13.7 g/dL (11.9-15.1 ) [facility] Work Phone: Comment on above: Note: Responsible Ob dining room server: XNV AUTOFILE (3018) Lymphocytes (Bld) [#/Vol] 2.02 10*3/uL (1.10-3.70 ) [facility] Work Phone: Comment on above: Note: Responsible Ob dining room server: XNV AUTOFILE (3018) Lymphocytes/100 WBC (Bld) 16 % Low (24-43 ) [facility] Work Phone: Comment on above: Note: Responsible Ob dining room server: XNV AUTOFILE (3018) MCH (RBC) [Entitic mass] 28.5 pg (25.2-33.5 ) [facility] Work Phone: Comment on above: Note: Responsible Ob dining room server: XNV AUTOFILE (3018) MCV (RBC) [Entitic vol] 93.3 fL (82.6-102. 9 ) [facility] Work Phone: Comment on above: Note: Responsible Ob dining room server: XNV AUTOFILE (3018) Monocytes (Bld) [#/Vol] 0.65 10*3/uL (0.10-1.20 ) [facility] Work Phone: Comment on above: Note: Responsible Ob dining room server: XNV AUTOFILE (3018) Monocytes/100 WBC (Bld) 5 % (3-12 ) [facility] Work Phone: Comment on above: Note: Responsible Ob dining room server: XNV AUTOFILE (3018) Platelets (Bld) [#/Vol] 270 10*3/uL (138-453 ) [facility] Work Phone: Comment on above: Note: Responsible Ob dining room server: XNV AUTOFILE (3018) RBC (Bld) [#/Vol] 4.80 10*6/uL (3.95-5.11 ) [facility] Work Phone: Comment on above: Note: Responsible Ob dining room server: XNV AUTOFILE (3018) RBC morphology finding Nom (Bld) ANISOCYTOSIS PRESENT [facility] Work Phone: Comment on above: Note: Responsible Ob dining room server: XNV AUTOFILE (3018) WBC (Bld) [#/Vol] 12.3 10*3/uL High (3.5-11.3 ) [facility] Work Phone: Comment on above: Note: Responsible Ob dining room server: XNV AUTOFILE (3018) Hematologyon 12-20-2020 Platelets (Bld) [#/Vol] NOT REPORTED [facility] Work Phone: WBC (Bld) [#/Vol] 0.0 per_100_WBC (0.0) He [facility] Work Phone: Comment on above: Note: Responsible Ob dining room server: XNV AUTOFILE (3018) Laboratory - Chemistry and C hemistry - challengeOrdered By: Desmond Barrera on 12-20-2020 Magnesium [Mass/Vol] 35 mg/dL Low (>40 ) [employer] [facility] [employer] Work Phone: Comment on above: Note: HDL Guidelines :<40 Ujdewhcvbrk83-17 Borderline>59 DesirableResponsible Observer: CCEV AUTOFILE (3002) Magnesium [Mass/Vol] 104 mg/dL (0-130 ) [employer] Work Phone: Comment on above: Note: LDL Guidelines :<100 [id number] Near to/above Mdifflcrr489-228 Borderline>159 UndesirableDirect (measured) LDL and calculated LDL are not interchangeable tests.Responsible Observer: CCEV AUTOFILE (3002) Magnesium [Mass/Vol] 57 mg/dL (<150 ) [employer] Work Phone: Comment on above: Note: Triglyceride G uidelines:<150 Kwhdlmhgb237-429 Ximtcdphrt339-790 High>499 Very highBased on AHA Guidelines for fasting triglyceride, July 2012.Responsible Observer: CCEV AUTOFILE (3002) Laboratory - Hematology and Cell countsOrdered By: Desmond Barrera on 12-20-2020 Immature granulocytes/100 WBC (Bld) 0 % (0 ) [facility] Work Phone: Comment on above: Note: Responsible Ob dining room server: XNV AUTOFILE (3018) Metabolic PanelOrdered By: Elvia Barrera on 12-20-2020 Albumin [Mass/Vol] 3.7 g/dL (3.5-5.2 ) [facility] Work Phone: Comment on above: Note: Responsible Ob dining room server: CCEV AUTOFILE (3002) ALT [Catalytic activity/Vol] 10 U/L (5-33 ) [facility] Work Phone: Comment on above: Note: Responsible Ob dining room server: CCEV AUTOFILE (3002) Anion gap [Moles/Vol] 13 mmol/L (9-17 ) [facility] Work Phone: Comment on above: Note: Responsible Ob dining room server: CCEV AUTOFILE (3002) AST [Catalytic activity/Vol] 13 U/L (<32 ) [facility] Work Phone: Comment on above: Note: Responsible Ob dining room server: CCEV AUTOFILE (3002) Bilirubin [Mass/Vol] 0.25 mg/dL Low (0.3-1.2 ) [employer] Work Phone: Comment on above: Note: Responsible Ob dining room server: CCEV AUTOFILE (3002) Calcium [Mass/Vol] 8.7 mg/dL (8.6-10.4 ) [facility] Work Phone: Comment on above: Note: Responsible Ob dining room server: CCEV AUTOFILE (3002) Chloride [Moles/Vol] 104 mmol/L (98-107 ) [facility] Work Phone: Comment on above: Note: Responsible Ob dining room server: CCEV AUTOFILE (3002) CO2 [Moles/Vol] 23 mmol/L (20-31 ) [facility] Work Phone: Comment on above: Note: Responsible Ob dining room server: CCEV AUTOFILE (3002) Creatinine [Mass/Vol] 0.54 mg/dL (0.50-0.90 ) [facility] Work Phone: Comment on above: Note: Responsible Ob dining room server: CCEV AUTOFILE (3002) Glucose [Mass/Vol] 75 mg/dL (70-99 ) [facility] Work Phone: Comment on above: Note: Responsible Ob dining room server: CCEV AUTOFILE (3002) Potassium [Moles/Vol] 4.1 mmol/L (3.7-5.3 ) [facility] Work Phone: Comment on above: Note: Responsible Ob dining room server: CCEV AUTOFILE (3002) Protein [Mass/Vol] 6.0 g/dL Low (6.4-8.3 ) [facility] Work Phone: Comment on above: Note: Responsible Ob dining room server: CCEV AUTOFILE (3002) Sodium [Moles/Vol] 140 mmol/L (135-144 ) [facility] Work Phone: Comment on above: Note: Responsible Ob dining room server: CCEV AUTOFILE (3002) Urea nitrogen [Mass/Vol] 3 mg/dL Low (6-20 ) [facility] Work Phone: Comment on above: Note: Responsible Ob dining room server: CCEV AUTOFILE (3002) No Panel InformationOrdered By: Desmond Barrera on 12-20-2020 NRBC Automated 0.0 per_100_WBC (0.0 ) [facility] Work Phone: Comment on above: Note: Responsible Ob dining room server: XNV AUTOFILE (301) Platelet Estimate NOT REPORTED [facility] Work Phone: OtherOrdered By: Desmond nicholas on 12-20-2020 (cont.) See Note [facility] Work Phone: Comment on above: Note: Average GFR fo r 20-29 years old:116 mL/min/1.73sq mChronic Kidney Disease:<60 mL/min/1.73sq mKidney failure:<15 mL/min/1.73sq meGFR calculated using average adult body mass. Additional eGFR calculatoravailable at:http://www.fuseSPORT/multiple_crcl_2011.htmResponsible Observer: CCEV AUTOFILE (3002) Abs. Basophil 0.07 k/uL (0.00-0.20 ) [facility] Work Phone: Comment on above: Note: Responsible Ob dining room server: XNV AUTOFILE (3018) Abs.Imm.Granulocyte 0.05 k/uL (0.00-0. 30 ) [facility] Work Phone: Comment on above: Note: Responsible Ob dining room server: XNV AUTOFILE (3018) Abs.Neutrophil (Seg) 9.34 k/uL High (1.50-8 .10 ) [facility] Work Phone: Comment on above: Note: Responsible Ob dining room server: XNV AUTOFILE (3018) Albumin/Glob Ratio 1.6 (1.0-2.5 ) [facility] Work Phone: Comment on above: Note: Responsible Ob dining room server: CCEV AUTOFILE (3002) Alkaline Phos 67 U/L (35-104 ) [facility] Work Phone: Comment on above: Note: Responsible Ob dining room server: CCEV AUTOFILE (3002) Auto Diff Performed NOT REPORTED [facility]: BUN/CRE Ratio NOT REPORTED (9-20 ) [facility] Work Phone: Cholesterol,VLDL NOT REPORTED mg/dL (1-30 ) [facility] Work Phone: Cholesterol.total/Ch olesterol in HDL [Mass ratio] 4.3 {ratio} (<5 ) [facility] Work Phone: Comment on above: Note: Responsible Ob dining room server: CCEV AUTOFILE (3002) Erythrocyte distribution width (RBC) [Ratio] 14.7 % High (11.8-14.4 ) [facility] Work Phone: Comment on above: Note: Responsible Ob dining room server: XNV AUTOFILE (3018) GFR, Amer >60 mL/min (>60 ) [facility] Work Phone: Comment on above: Note: Responsible Ob dining room server: CCEV AUTOFILE (3002) GFR,non Amer >60 mL/min (>60 ) [employer] Work Phone: Comment on above: Note: Responsible Ob dining room server: CCEV AUTOFILE (3002) MCHC (RBC) [Mass/Vol] 30.6 g/dL (28.4-34.8 ) [facility] Work Phone: Comment on above: Note: Responsible Ob dining room server: XNV AUTOFILE (3018) Performing Lab: see note [facility] Work Phone: Comment on above: Note: [address] [facility] [address] Platelet mean volume (Bld) [Entitic vol] 11.2 fL (8.1-13.5 ) [facility] Work Phone: Comment on above: Note: Responsible Ob dining room server: XNV AUTOFILE (655) Reported Physicians See Note [facility] Work Phone: Comment on above: Note: Reported Physi cians:Ordering: Cotton, AimeeAttending: Cotton, AimeeReferring: Cotton, Desmond Sedimentation Rate 2 mm (0-20 ) [facility] Work Phone: Comment on above: Note: Responsible Ob dining room server: FELICIANO VERA (269) Segmented neutrophils/100 WBC (Bld) 77 % High (36-65 ) [facility] Work Phone: Comment on above: Note: Responsible Ob dining room server: XNV AUTOFILE (0124) Staging: NOT REPORTED [facility] Work Phone: Thyroid Stim. Horm. 1.31 mIU/L (0.30-5. 00 ) [facility] Work Phone: Comment on above: Note: Responsible Ob dining room server: BROOK BAUGH (0683) WBC Morphology NOT REPORTED [facility] Work Phone: Otheron 12-20-2020 Cholesterol,HDL 35 mg/dL Low (>40) [facility] Work Phone: Comment on above: Note: HDL Guidelines :<40 Rttizvtuiwi85-80 Borderline>59 DesirableResponsible Observer: CCEV AUTOFILE (3002) Cholesterol,LDL 104 mg/dL (0-130) [facility] Work Phone: Comment on above: Note: LDL Guidelines :<100 Fdttdgyxz831-133 Near to/above [id number] Borderline>159 UndesirableDirect (measured) LDL and calculated LDL are not interchangeable tests.Responsible Observer: CCEV AUTOFILE (3002) Immature granulocytes (Bld) [#/Vol] 0 % (0) [facility] Work Phone: Comment on above: Note: 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 [facility] Phone: EXAMINATION: THREE X RAY VIEWS OF THE LEFT KNEE 11/30/2020 11:36 am COMPARISON: None. HISTORY: ORDERING SYSTEM PROVIDED HISTORY: pain FINDINGS: No evidence of acute fracture or dislocation. No focal osseous lesion. No evidence of joint effusion. No focal soft tissue abnormality. [facility] Phone: Lucas, Erika Incoming R adiant Results From Viral[facility]ictiv - 11/30/2020 11:48 AM EST EXAMINATION: THREE XRAY VIEWS OF THE LEFT KNEE 11/30/2020 11:36 am COMPARISON: None. HISTORY: ORDERING SYSTEM PROVIDED HISTORY: pain FINDINGS: No evidence of acute fracture or dislocation. No focal osseous lesion. No evidence of joint effusion. No focal soft tissue abnormality. IMPRESSION: Negative left knee. [facility] Phone: Drugon 08-30-2020 Ethanol [Mass/Vol] mg/dL <10 mg/dL [facility] [place] EKG 12 Leadon 08-30-2020 Atrial Rate 98 BPM [facility], [place] P [place] 11 degrees [facility], [place] P-R Interval 124 ms [facility], [place] Q-T Interval 372 ms [facility], [place] QRS Duration 88 ms [facility] [place], [place] QTc Calculation (Bazett) 474 ms [facility] [place] R [place] 21 degrees [facility] [place] [place] T [place] 25 degrees [facility] [place] Ventricular Rate 98 BPM [facility] [place], [place] Poor data qualit y, interpretation may be adversely affected Normal sinus rhythm T wave abnormality, consider anterior ischemia Prolonged QT Abnormal ECG When compared with ECG of 31-OCT-2011 23:02, T wave inversion now evident in Anterior leads Confirmed by DARLINE SMITH ([id number]) on 08/30/2020 12:19:48 PM [place], [place] Lucas, Mhpn Incoming E kg Results From Ge Inman - 08/30/2020 12:19 PM EST Poor data quality, interpretation may be adversely affected Normal sinus rhythm T wave abnormality, consider anterior ischemia Prolonged QT Abnormal ECG When compared with ECG of 31-OCT-2011 23:02, T wave inversion now evident in Anterior leads Confirmed by DARLINE SMITH ([id number]) on 08/30/2020 12:19:48 PM [place] Hematologyon 08-30-2020 Basophils (Bld) [#/Vol] 0.06 10*3/uL [place] Basophils/100 WBC (Bld) 1 % 0 - 2 % [place] Eosinophils (Bld) [#/Vol] 0.18 10*3/uL [place] Eosinophils/100 WBC (Bld) 2 % 1 - 4 % [place] Hematocrit (Bld) [Volume fraction] 41.4 % 36.3 - 47.1 % [place] Hemoglobin (Bld) [Mass/Vol] 13.2 g/dL 11.9 - 15.1 g/dL [place] Lymphocytes (Bld) [#/Vol] 2.76 10*3/uL [place] Lymphocytes/100 WBC (Bld) 34 % 24 - 43 % [place] MCH (RBC) [Entitic mass] 28.5 pg 25.2 - 33.5 pg [place] MCV (RBC) [Entitic vol] 89.4 fL 82.6 - 102.9 fL [place] Monocytes (Bld) [#/Vol] 0.51 10*3/uL [place] Monocytes/100 WBC (Bld) 6 % 3 - 12 % [place] Platelets (Bld) [#/Vol] NOT REPORTED [place] Platelets (Bld) [#/Vol] 256 10*3/uL [place] RBC (Bld) [#/Vol] 4.63 10*6/uL 3.95 - 5.11 m/uL [place] RBC morphology finding Nom (Bld) NOT REPORTED [place] WBC (Bld) [#/Vol] 0.0 10*3/uL 0.0 per 100 WBC [place] WBC (Bld) [#/Vol] 8.2 10*3/uL [place] Metabolic Panelon 08-30-2020 Albumin [Mass/Vol] 3.7 g/dL 3.5 - 5.2 g/dL [place] ALP [Catalytic activity/Vol] 62 U/L 35 - 104 U/L [place] ALT [Catalytic activity/Vol] 6 U/L 5 - 33 U/L [place] Anion gap [Moles/Vol] 8 mmol/L Low 9 - 17 mmol/L [place] AST [Catalytic activity/Vol] 10 U/L <32 [place] Calcium [Mass/Vol] 8.9 mg/dL 8.6 - 10. 4 mg/dL [place] Chloride [Moles/Vol] 103 mmol/L 98 - 10 7 mmol/L [place] CO2 [Moles/Vol] 24 mmol/L 20 - 31 mmol/L [place] Creatinine [Mass/Vol] 0.56 mg/dL 0.5 - 0.9 mg/dL [place] GFR/1.73 sq M predicted among non-blacks MDRD (S/P/Bld) [Vol rate/Area] [place] Comment on above: Stage 1: Some kidney damage normal GFR Stage 2: Mild kidney damage GFR 60-89 Stage 3: Moderate kidney damage GFR 30-59 Stage 4: Severe kidney damage GFR 15-29 Stage 5: Severe kidney damage GFR <15 ESRD - chronic treatment by dialysis or transplant Average GFR for 20-2 9 years old: 116 mL/min/1.73sq m Chronic Kidney Disease: <60 mL/min/1.73sq m Kidney failure: <15 mL/min/1.73sq m eGFR calculated using average adult body mass. Additional eGFR calculator available at: http://www.Coinplug.ZeeWhere/multiple_crcl_2012.htm Glucose [Mass/Vol] 110 mg/dL High 70 - 99 mg/dL [place] Potassium [Moles/Vol] 3.4 mmol/L Low 3.7 - 5.3 mmol/L [place] Protein [Mass/Vol] 6.1 g/dL Low 6.4 - 8.3 g/dL [place] Sodium [Moles/Vol] 135 mmol/L 135 - 144 mmol/L [place] Urea nitrogen [Mass/Vol] 3 mg/dL Low 6 - 20 mg/dL [place] Otheron 08-30-2020 SARS-CoV-2 [place] SARS-CoV-2, Rapid Not Detected Not Detected [place] Comment on above: Rapid NAAT: The specimen is NEGATIVE for SARS-CoV-2, the novel coronavirus associated with COVID-19. The ID NOW COVID-19 assay is designed to detect the virus that causes COVID-19 in patients with signs and symptoms of infection who are suspected of COVID-19. An individual without symptoms of COVID-19 and who is not shedding SARS-CoV-2 virus would expect to have a negative (not detected) result in this assay. Negative results should be treated as presumptive and, if inconsistent with clinical signs and symptoms or necessary for patient management, should be tested with an alternative molecular assay. Negative results do not preclude SARS-CoV-2 infection and should not be used as the sole basis for patient management decisions. Fact sheet for Healthcare Providers: https://www.fda.gov/media/289099/download Fact sheet for Patients: https://www.fda.gov/media/606909/download Methodology: Isothermal Nucleic Acid Amplification Source .NASOPHARYNGEAL SWAB [place], [place] Ethanol percent <0.010 <0.010 % [place], [place] Interpretation and review of laboratory results Abnormal [place] Salicylate Lvl <1 Low 3 - 10 mg/dL [place] Albumin/Globulin [Mass ratio] 1.5 {ratio} [place] Bilirubin Ql (U) 0.18 mg/dL Low 0.3 - 1.2 mg/dL [place] Bun/Cre Ratio 5 Low [facility] [place] GFR >60 >60 mL/min [facility]- [place], [place] GFR Non- >60 >60 mL/min [facility] [place], [place] Amphetamine Screen, Ur Negative NEGATIVE [facility] Barbiturate Screen, Ur Negative NEGATIVE [facility], [place] Benzodiazepine Screen, Urine Negative NEGATIVE [facility], [place] Buprenorphine Urine Negative NEGATIVE [facility], [place] Cannabinoid Scrn, Ur Negative NEGATIVE [facility], [place] Cocaine Metabolite, Urine Negative NEGATIVE [facility], [place] MDMA, Urine NOT REPORTED NEGATIVE [facility] [place] [place] Methadone Screen, Urine Negative NEGATIVE [facility], [place] Methamphetamine, Urine Negative NEGATIVE [facility], [place] Opiates, Urine Negative NEGATIVE [facility]- [place], [place] Oxycodone Screen, Ur Negative NEGATIVE [facility], [place] Phencyclidine, Urine Negative NEGATIVE [facility], [place] Propoxyphene, Urine Negative NEGATIVE [facility], [place] Test Information NOT REPORTED [place] Tricyclic Antidepressants, Urine Negative NEGATIVE [facility], [place] Comment on above: Drug screen results are to be used for medical purposes only. All positive results are unconfirmed. Testing for employment or legal uses should be sent to a reference laboratory for confirmation. Acetaminophen [Mass/Vol] <5 Low 10 - 30 ug/mL [place] Interpretation and review of laboratory results Abnormal [place] hCG Qual Negative NEGATIVE [place] Comment on above: Specimens with hCG l evels near the threshold of the test (25 mIU/mL) may give a negative or indeterminate result. In such cases, another test should be performed with a new specimen in 48-72 hours. If early is suspected clinically in this setting, correlation with quantitative serum b-hCG level is suggested. [employer] has confirmed the use of plasma for this test. This has not been cleared or approved by the U.S. Food and Drug Administration. The FDA has determined that such clearance is not necessary. Differential Type NOT REPORTED [place] Erythrocyte distribution width (RBC) [Ratio] 13.2 % 11.8 - 14.4 % [place] Immature granulocytes (Bld) [#/Vol] 0 % 0 [place] Immature granulocytes (Bld) [#/Vol] 10*3/uL [facility] MCHC (RBC) [Mass/Vol] 31.9 g/dL 28.4 - 34.8 g/dL [facility] Platelet mean volume (Bld) [Entitic vol] 10.2 fL 8.1 - 13.5 fL [facility] Segmented neutrophils/100 WBC (Bld) 57 % 36 - 65 % [facility] Segs Absolute 4.69 [place], [place] WBC Morphology NOT REPORTED [facility] Otheron 08-12-2020 Normal HIDA scan. [facility] [place] EXAMINATION: NUCLEAR MEDICINE HEPATOBILIARY SCINTIGRAPHY (HIDA SCAN). 08/12/2020 9:15 am TECHNIQUE: Approximately 5.8 [id number] Mebrofenin (Choletec) was administered IV. Then, dynamic images of the abdomen were obtained in the anterior projection for 60 mins. A right lateral view was also obtained at 60 mins. 1.22 mcg Kinevac was given to calculate gallbladder ejection fraction. HISTORY: ORDERING SYSTEM PROVIDED HISTORY: Nausea TECHNOLOGIST PROVIDED HISTORY: Is the patient ?->No FINDINGS: Prompt, homogenous uptake by the liver is noted with normal appearance of radiotracer excretion into the biliary system. Clearance of bloodpool activity appears appropriate. Gallbladder and small bowel is visualized in appropriate sequence. Gallbladder ejection fraction is normal at 88%. [facility] PHOEBE Lucas, Mhpn Incoming R adiant Results From Viral[facility]/Pacs - 08/12/2020 12:13 PM EST EXAMINATION: NUCLEAR MEDICINE HEPATOBILIARY SCINTIGRAPHY (HIDA SCAN). 08/12/2020 9:15 am TECHNIQUE: Approximately 5.8 [id number] Mebrofenin (Choletec) was administered IV. Then, dynamic images of the abdomen were obtained in the anterior projection for 60 mins. A right lateral view was also obtained at 60 mins. 1.22 mcg Kinevac was given to calculate gallbladder ejection fraction. HISTORY: ORDERING SYSTEM PROVIDED HISTORY: Nausea TECHNOLOGIST PROVIDED HISTORY: Is the patient ?->No FINDINGS: Prompt, homogenous uptake by the liver is noted with normal appearance of radiotracer excretion into the biliary system. Clearance of bloodpool activity appears appropriate. Gallbladder and small bowel is visualized in appropriate sequence. Gallbladder ejection fraction is normal at 88%. IMPRESSION: Normal HIDA scan. [place] Basic Metabolic Panel w/ Ref francheska to MGon 02-29-2020 Anion gap [Moles/Vol] 12 mmol/L 9 - 17 mmol/L [place] Bun/Cre Ratio 6 [place] Calcium [Mass/Vol] 9.1 mg/dL 8.6 - 10. 4 mg/dL [place] Chloride [Moles/Vol] 102 mmol/L 98 - 10 7 mmol/L [place] CO2 [Moles/Vol] 26 mmol/L 20 - 31 mmol/L [place] Creatinine [Mass/Vol] 0.52 mg/dL 0.5 - 0.9 mg/dL [place] GFR >60 >60 mL/min [place] GFR Non- >60 >60 mL/min [place] Glucose [Mass/Vol] 99 mg/dL 70 - 99 mg/dL [place] Interpretation and review of laboratory results Abnormal [place] Potassium [Moles/Vol] 3.9 mmol/L 3.7 - 5.3 mmol/L [place] Sodium [Moles/Vol] 140 mmol/L 135 - 144 mmol/L [place] Urea nitrogen [Mass/Vol] 3 mg/dL Low 6 - 20 mg/dL [place] CBC Auto Differentialon 02-09 Basophils (Bld) [#/Vol] 0.05 10*3/uL [place] Basophils/100 WBC (Bld) 0 % 0 - 2 % [place] Differential Type NOT REPORTED [place] Eosinophils (Bld) [#/Vol] 0.11 10*3/uL [place] Eosinophils/100 WBC (Bld) 1 % 1 - 4 % [place] Erythrocyte distribution width (RBC) [Ratio] 14.1 % 11.8 - 14.4 % [place] Hematocrit (Bld) [Volume fraction] 44.5 % 36.3 - 47.1 % [place] Hemoglobin (Bld) [Mass/Vol] 13.9 g/dL 11.9 - 15.1 g/dL [place] Immature granulocytes (Bld) [#/Vol] 0.06 10*3/uL [place] Immature granulocytes (Bld) [#/Vol] 1 % High 0 [place] Interpretation and review of laboratory results Abnormal [place] Lymphocytes (Bld) [#/Vol] 2.74 10*3/uL [place] Lymphocytes/100 WBC (Bld) 21 % Low 24 - 43 % [place] MCH (RBC) [Entitic mass] 29.7 pg 25.2 - 33.5 pg [place] MCHC (RBC) [Mass/Vol] 31.2 g/dL 28.4 - 34.8 g/dL [place] MCV (RBC) [Entitic vol] 95.1 fL 82.6 - 102.9 fL [place] Monocytes (Bld) [#/Vol] 0.54 10*3/uL [place] Monocytes/100 WBC (Bld) 4 % 3 - 12 % [place] Platelet mean volume (Bld) [Entitic vol] 10.5 fL 8.1 - 13.5 fL [place] Platelets (Bld) [#/Vol] 272 10*3/uL [place] Platelets (Bld) [#/Vol] NOT REPORTED [place] RBC (Bld) [#/Vol] 4.68 10*6/uL 3.95 - 5.11 m/uL [place] RBC morphology finding Nom (Bld) NOT REPORTED [place] Segmented neutrophils/100 WBC (Bld) 73 % High 36 - 65 % [place] Segs Absolute 9.73 [place] WBC (Bld) [#/Vol] 13.2 10*3/uL [place] WBC (Bld) [#/Vol] 0.0 10*3/uL 0.0 per 100 WBC [place] WBC Morphology NOT REPORTED [place] HCG Qualitative, Serumon hCG Qual Negative NEGATIVE [place] Comment on above: Specimens with hCG l evels near the threshold of the test (25 mIU/mL) may give a negative or indeterminate result. In such cases, another test should be performed with a new specimen in 48-72 hours. If early is suspected clinically in this setting, correlation with quantitative serum b-hCG level is suggested. [employer] has confirmed the use of plasma for this test. This has not been cleared or approved by the U.S. Food and Drug Administration. The FDA has determined that such clearance is not necessary. Metabolic Panelon 02-29-2020 GFR/1.73 sq M predicted among non-blacks MDRD (S/P/Bld) [Vol rate/Area] [place] Comment on above: Stage 1: Some kidney damage normal GFR Stage 2: Mild kidney damage GFR 60-89 Stage 3: Moderate kidney damage GFR 30-59 Stage 4: Severe kidney damage GFR 15-29 Stage 5: Severe kidney damage GFR <15 ESRD - chronic treatment by dialysis or transplant Average GFR for 20-2 9 years old: 116 mL/min/1.73sq m Chronic Kidney Disease: <60 mL/min/1.73sq m Kidney failure: <15 mL/min/1.73sq m eGFR calculated using average adult body mass. Additional eGFR calculator available at: http://www.fuseSPORT/multiple_crcl_2012.htm TOX SCR, BLD, EDon 0 Acetaminophen [Mass/Vol] <5 Low 10 - 30 ug/mL [place] Ethanol [Mass/Vol] mg/dL <10 mg/dL [place] Ethanol percent <0.010 <0.010 % [place] Interpretation and review of laboratory results Abnormal [place] Salicylate Lvl <1 Low 3 - 10 mg/dL [place] Toxic Tricyclic Sc,Blood Negative NEGATIVE [place] TSH with Reflexon 02-29-2020 TSH Qn 1.08 m[IU]/L [place] Urine Drug Screenon 02-29-20 20 Amphetamine Screen, Ur Negative NEGATIVE [facility], [place] Barbiturate Screen, Ur Negative NEGATIVE [facility], [place] Benzodiazepine Screen, Urine Negative NEGATIVE [facility], [place] Buprenorphine Urine Negative NEGATIVE [facility] [place], [place] Cannabinoid Scrn, Ur Negative NEGATIVE [facility] [place], [place] Cocaine Metabolite, Urine Negative NEGATIVE [facility], [place] MDMA, Urine NOT REPORTED NEGATIVE [facility] [place] [place] Methadone Screen, Urine Negative NEGATIVE [facility], [place] Methamphetamine, Urine Negative NEGATIVE [facility] [place], [place] Opiates, Urine Negative NEGATIVE [facility]- [place], [place] Oxycodone Screen, Ur Negative NEGATIVE [facility], [place] Phencyclidine, Urine Negative NEGATIVE [facility], [place] Propoxyphene, Urine Negative NEGATIVE [facility], [place] Test Information NOT REPORTED [facility] Tricyclic Antidepressants, Urine Negative NEGATIVE [facility], [place] Comment on above: Drug screen results are to be used for medical purposes only. All positive results are unconfirmed. Testing for employment or legal uses should be sent to a reference laboratory for confirmation. XR FOOT LEFT (MIN 3 VIEWS)on 02-21-2020 No acute osseous abnormality. [place] EXAMINATION: THREE X RAY VIEWS OF THE LEFT FOOT 02/21/2020 8:55 pm COMPARISON: December 07, 2016 HISTORY: ORDERING SYSTEM PROVIDED HISTORY: pain TECHNOLOGIST PROVIDED HISTORY: pain FINDINGS: There is no evidence of acute fracture. There is normal alignment of the tarsometatarsal joints. No acute joint abnormality. No focal osseous lesion. No focal soft tissue abnormality. [place], [place], M[facility] Incoming R adiant Results From [facility] - 02/21/2020 9:17 PM EDT EXAMINATION: THREE XRAY VIEWS OF THE LEFT FOOT 02/21/2020 8:55 pm COMPARISON: December 07, 2016 HISTORY: ORDERING SYSTEM PROVIDED HISTORY: pain TECHNOLOGIST PROVIDED HISTORY: pain FINDINGS: There is no evidence of acute fracture. There is normal alignment of the tarsometatarsal joints. No acute joint abnormality. No focal osseous lesion. No focal soft tissue abnormality. IMPRESSION: No acute osseous abnormality. [place] Coding Summaryon 08-23-2018 Coding Summary CODING DATE: [facility] STATUS: Home PAYOR: Medicaid HMO ADMIT DX: REASON FOR VISIT DX: G43.909 Migraine, unspecified, not intractable, without status migrainosus FINAL DX: PRINCIPAL: G43.909 Migraine, unspecified, not intractable, without status migrainosus SECONDARY: PROCEDURES DOCTOR NAME DATE NOTE: The code number assigned matches the documented diagnosis and / or procedure in the patient's chart. However, the narrative phrase printed from the coding software may appear abbreviated, or result in slightly different terminology. Coded By: Isabel Dover Date Saved: 08/23/2018 09:46 am [facility] Coding Summary CODING DATE: [facility] STATUS: Home PAYOR: Medicaid HMO ADMIT DX: REASON FOR VISIT DX: G43.909 Migraine, unspecified, not intractable, without status migrainosus FINAL DX: PRINCIPAL: G43.909 Migraine, unspecified, not intractable, without status migrainosus SECONDARY: PROCEDURES DOCTOR NAME DATE NOTE: The code number assigned matches the documented diagnosis and / or procedure in the patient's chart. However, the narrative phrase printed from the coding software may appear abbreviated, or result in slightly different terminology. Coded By: Isabel Dover Date Saved: 08/23/2018 09:43 am [facility] ED Clinical Summaryon 2017 ED Clinical Summary [facility] - Emergency [id number] [place], [place] [id number] ed Clinical SummaryPERSON INFORMATIONName: BRADLY GAINESElvia SEARS Age: 28 Years Sex: FEMALEDOB: [birth year] MRN: Acct#:Visit Reason: Headache - Recurrent; HEADACHE Arrival: 07/20/18 15:01:00 Discharge: 07/20/18 17:20:00LOS: 000 02:19 Check In: 07/20/18 15:01:00 Checkout:07/20/18 17:20:00Address:[address] [place] [id number]: Provider, NonePROVIDER INFORMATIONProvider Role Assigned UnassAnnika Lezama MD ED Provider 07/20/18 15:04:59Blanca Cruz RN ED Nurse 07/20/18 15:14:05VITALS INFORMATIONVital Sign Triage LatestTemperature TympanicTemperature Temporal ArteryPulse Rate 94 bpm 72 bpmO2 Sat 98 % 98 %Respiratory Rate 16 br/min 16 br/minBlood Pressure 118 mmHg/84 mmHg 118 mmHg/84 mmHgMEDICAL INFORMATIONMedications Given:Medication Dose Routeprochlorperazine 10 mg IV PushdiphenhydrAMINE 25 mg IV Pushmagnesium sulfate 2 gm IV Piggybackketorolac 30 mg IV PushAllergy Information:Tryptan; codeinePHYSICIAN DOCUMENTATIONDISCHARGE INFORMATION:Discharge Disposition: HomeDischarge Location:PATIENT EDUCATION INFORMATIONInstructions: Migraine HeadacheFollow-Up:With: Address: When:JENNIFER NAYAK [facility], [address] [place] [address]/ [address] [place], [place] [id number] Business (1) Within 3 to 5 daysComments:Follow-up with Dr. Nayak if she did not have a family doctor. Return if any concerns or worsening. Drink plenty of fluids. He may take Excedrin or Tylenol or ibuprofen for your headaches do not take Excedrin and Tylenol or Motrin together. Magnesium 400 mg daily. Drink plenty of water and Gatorade. Return if any concerns or worsening.DIAGNOSIS:Patient Understands: Yes - Patient/family/caregiver verbalizes understanding of instructions givenComment: [facility] ED Note - Physicianon 2017 ED Note - Physician Patient: AUBREY GAINES : 28 years Sex: FEMALE : [birth year]Associated Diagnoses: NoneAuthor: Annika Colby MDBasic InformationTime seen: Date & time 07/20/18 15:06:00.History source: Patient, boyfriends father .Arrival mode: Private vehicle.History limitation: None.History of Present Aifcazp32 yo female with h/o chronic migraines since age 16, schizo affective disorder, depression, anxiety on no medications except for Excedrin when necessary complaints of typical migraine headache that began on Wednesday throbbing behind the right eye associated with light splashing in the right eye at the beginning of the headache which is her typical aura patient is light sensitive and nauseous no vomiting no fevers no chills no trauma no dizziness no focal numbness tingling or weakness. She states this is a typical migraine and she has had other headaches this severe. She took Excedrin approximately 1 PM. Positive blurry vision which is typical with her headaches. There are no unusual or atypical features with this headache there is no thunderclap onset no neck. She reports Excedrin helps her headaches but is not gone completely away. There is a family history of migraines no history of aneurysm. She reports her migraines have been worse since she has been off her psychiatric atrophic medication for the last 3 months. Patient denies any suicidal or homicidal ideation last menstrual period was 2 weeks ago. Patient does smoke no illicit drugs patient has no PCP she is establishing care with a local PCP soon she has had previous CTs and MRIs done when she was in her late teensReview of SystemsConstitutional symptoms: No fever, no chills, no weakness.Skin symptoms: No rash,Eye symptoms: Vision unchanged.ENMT symptoms: No ear pain, no sore throat, no nasal congestion.Respiratory symptoms: No shortness of breath, no cough.Cardiovascular symptoms: No chest pain, no palpitations, no syncope, no peripheral edema.Gastrointestinal symptoms: No abdominal pain, no nausea, no vomiting, no diarrhea.Genitourinary symptoms: No dysuria,Neurologic symptoms: Headache, no dizziness, no altered level of consciousness, no numbness, no tingling, no weakness.Psychiatric symptoms: No anxiety, Additional review of systems information: All other systems reviewed and otherwise negative.Health StatusAllergies:Allergic Reactions (Selected)Severity Not DocumentedCodeine- No reactions were documented.Tryptan- No reactions were documented..Past Medical/ Family/ Social HistoryMedical history:No active or resolved past medical history items have been selected or recorded..Surgical history:No active procedure history items have been selected or recorded..Family history:No family history items have been selected or recorded..Social history:Social & Psychosocial HabitsNo Data Available.Problem list:Active Problems (1)Anxiety.Physical Examination Vital Signs Time: 07/20/18 15:24:00.Vital Signs07/20/18 15:06 EDT Temperature Oral 36.9 DegC Peripheral Pulse Rate 94 bpm Respiratory Rate 16 br/min Systolic Blood Pressure 118 mmHg Diastolic Blood Pressure 84 mmHg SpO2 98 %.General: Alert, mild distress, anxious.Skin: Warm, dry, intact, no pallor, no rash, normal for ethnicity.Head: Normocephalic, atraumatic.Neck: Supple, trachea midline, no tenderness.Eye: Pupils are equal, round and reactive to light, extraocular movements are intact, normal conjunctiva, vision unchanged, Normal funduscopic.Ears, nose, mouth and throat: Tympanic membranes clear, oral mucosa moist, no pharyngeal erythema or exudate.Cardiovascular: Regular rate and rhythm, No murmur, Normal peripheral perfusion, No edema.Respiratory: Lungs are clear to auscultation, respirations are non-labored, breath sounds are equal, Symmetrical chest wall expansion.Chest wall: No tenderness, No deformity.Back: Nontender, Normal range of motion, Normal alignment, no step-offs.Musculoskeletal: Normal ROM, normal strength, no tenderness, no swelling, no deformity.Gastrointestinal: Soft, Nontender, Non distended, Normal bowel sounds, No organomegaly.GenitourinaryN eurological: Alert and oriented to person, place, time, and situation, No focal neurological deficit observed, CN II-XII intact, normal sensory observed, normal motor observed, normal speech observed, normal coordination observed, Normal speech, normal gait.Psychiatric: Cooperative, appropriate mood & affect, normal judgment, Anxious.Medical Decision MakingResults review: Lab results : Lab Rttctdeuw59/10/18 15:50 EDT U Preg Negative .Reexamination/ [id number] headache is much improved. Patient feels she will be able to go home at this point in [id number] headache is completely resolved.Impression and PlanDiagnosisMigraine headache, typical, recurrentPlanCondition: Improved.Disposition: Discharged: time 07/20/18 17:09:00.Patient was given the following educational materials: Migraine Headache, Migraine Headache.Follow up with: ; JENNIFER NAYAK Within 3 to 5 days Follow-up with Dr. Nayak if she did not have a family doctor. Return if any concerns or worsening. Drink plenty of fluids. He may take Excedrin or Tylenol or ibuprofen for your headaches do not take Excedrin and Tylenol or Motrin together. Magnesium 400 mg daily. Drink plenty of water and Gatorade. Return if any concerns or worsening..Counseled: Patient, Regarding diagnosis, Regarding treatment plan, Regarding prescription, Patient indicated understanding of instructions.[Electronicall y Signed on: 07/20/2018 17:48 EDT] Annika Colby MD[Verified on: 07/20/2018 17:48 EDT] Annika Colby MD [facility] ED Patient Education Noteon 07-20-2018 ED Patient Education Note Education MaterialsNeurologyMigraine HeadacheA migraine headache is an intense, throbbing pain on one side or both sides of the head. Migraines may also cause other symptoms, such as nausea, vomiting, and sensitivity to light and noise. What are the causes?Doing or taking certain things may also trigger migraines, such as:? Alcohol.? Smoking.? Medicines, such as:? Medicine used to treat chest pain (nitroglycerine).? control pills.? Estrogen pills.? Certain blood pressure medicines.? Aged cheeses, chocolate, or caffeine.? Foods or drinks that contain nitrates, glutamate, aspartame, or tyramine.? Physical activity.Other things that may trigger a migraine include:? Menstruation.? .? Hunger.? Stress, lack of sleep, too much sleep, or fatigue.? Weather changes.What increases the risk?The following factors may make you more likely to experience migraine headaches:? Age. Risk increases with age.? Family history of migraine headaches.? Being .? Depression and anxiety.? Obesity.? Being a woman.? Having a hole in the heart (patent foramen ovale) or other heart problems.What are the signs or symptoms?The main symptom of this condition is pulsating or throbbing pain. Pain may:? Happen in any area of the head, such as on one side or both sides.? Interfere with daily activities.? Get worse with physical activity.? Get worse with exposure to bright lights or loud noises.Other symptoms may include:? Nausea.? Vomiting.? Dizziness.? General sensitivity to bright lights, loud noises, or smells.Before you get a migraine, you may get warning signs that a migraine is developing (aura). An aura may include:? Seeing flashing lights or having blind spots.? Seeing bright spots, halos, or zigzag lines.? Having tunnel vision or blurred vision.? Having numbness or a tingling feeling.? Having trouble talking.? Having muscle weakness.How is this diagnosed?A migraine headache can be diagnosed based on:? Your symptoms.? A physical exam.? Tests, such as CT scan or MRI of the head. These imaging tests can help rule out other causes of headaches.? Taking fluid from the spine (lumbar puncture) and analyzing it (cerebrospinal fluid analysis, or CSF analysis).How is this treated?A migraine headache is usually treated with medicines that:? Relieve pain.? Relieve nausea.? Prevent migraines from coming back.Treatment may also include:? Acupuncture.? Lifestyle changes like avoiding foods that trigger migraines.Follow these instructions at home:Medicines? Take rzuh-aph-mthmtin and prescription medicines only as told by your health care provider.? Do not drive or use heavy machinery while taking prescription pain medicine.? To prevent or treat constipation while you are taking prescription pain medicine, your health care provider may recommend that you:? Drink enough fluid to keep your urine clear or pale yellow.? Take udhn-vou-ptiutaj or prescription medicines.? Eat foods that are high in fiber, such as fresh fruits and vegetables, whole grains, and beans.? Limit foods that are high in fat and processed sugars, such as fried and sweet foods.Lifestyle? Avoid alcohol use.? Do not use any products that contain nicotine or tobacco, such as cigarettes and e-cigarettes. If you need help quitting, ask your health care provider.? Get at least 8 hours of sleep every night.? Limit your stress.General instructions ? Keep a journal to find out what may trigger your migraine headaches. For example, write down:? What you eat and drink.? How much sleep you get.? Any change to your diet or medicines.? If you have a migraine:? Avoid things that make your symptoms worse, such as bright lights.? It may help to lie down in a dark, quiet room.? Do not drive or use heavy machinery.? Ask your health care provider what activities are safe for you while you are experiencing symptoms.? Keep all follow-up visits as told by your health care provider. This is important.Contact a health care provider if:? You develop symptoms that are different or more severe than your usual migraine symptoms.Get help right away if:? Your migraine becomes severe.? You have a fever.? You have a stiff neck.? You have vision loss.? Your muscles feel weak or like you cannot control them.? You start to lose your balance often.? You develop trouble walking.? You faint.This information is not intended to replace advice given to you by your health care provider. Make sure you discuss any questions you have with your health care provider.Document Released: 09/27/2006 Document Revised: 04/16/2017 Document Reviewed: 03/15/2017[employer] Interactive Patient Education ? 2016 [employer]. Normal [facility] ED Patient Summaryon 018 ED Patient Summary [facility] - Emergency [address] [place], [place] [id number] pATIENT DISCHARGE INSTRUCTIONSPatient InformationName: MAGGIE GAINES Age: 28 YearsDate of : [birth year]MRN: [id number] For Visit: Headache - Recurrent; HEADACHEArrival Time: 07/20/18 15:01:00Phone: Primary Care Physician: Provider, NoneAttending Physician: Annika Colby MDComment:Visit Diagnosis:Diagnoses This Visit Headache - Recurrent ([id number])If you received any narcotics, sedation, or any other medication that causes drowsiness for the next 24 hours, unless otherwise directed:? Do not drive a car.? Do not operate machinery such as power tools, lawn mowers, drills, sewing machines, or stoves? Avoid alcoholic beverages and drugs for allergies, nerves, or sleep? Do not make important personal or business decisions or sign any legal documentsWith: Address: When:[facility]ENNIFER NAYAK [facility], [address] [place] [address] Business (1) Within 3 to 5 daysComments:Follow-up with Dr. Nayak if she did not have a family doctor. Return if any concerns or worsening. Drink plenty of fluids. He may take Excedrin or Tylenol or ibuprofen for your headaches do not take Excedrin and Tylenol or Motrin together. Magnesium 400 mg daily. Drink plenty of water and Gatorade. Return if any concerns or worsening.Medication Information:The exam and treatment you received today in the [facility] Emergency Department were for an urgent problem and are not intended as complete care. It is important for you to follow up with a doctor, nurse practitioner, or physician?s engineer assistant for ongoing care. If your symptoms become worse or you do not improve as expected and you are unable to reach your usual health care provider, you should return to the Emergency Department, we are available 24 hours a day.For those patients who have received Radiology results, the interpretation of your X-ray as given to you by our Emergency Department physician is only a preliminary report. The Radiologist will review your films and if there is a change in the diagnosis you will be notified by phone. Please make sure you have provided a working phone number so we can reach you if necessary.In the event that you had a lab culture while you were a patient in the Emergency Department, you will be notified by phone if there is a need to change your antibiotic. Please make sure you have provided a working phone number so we can reach you if necessary.[facility] Emergency Department has provided you with a complete list of medications post discharge. 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 Any specific questions regarding your chronic medications and dosages should be discussed with your primary care physician(s) and/or pharmacist.Visit InformationAllergies:Substa nce Reaction Symptoms Type Commentscodeine DrugTryptan DrugVital Signs: Vitals and Measurements this Visit (last charted value for your 07/20/2018 visit) Vital Signs This Visit Temperature Oral: 36.9 DegC Peripheral Pulse Rate: 72 bpm Respiratory Rate: 16 br/min Systolic Blood Pressure: 108 mmHg Diastolic Blood Pressure: 80 mmHg SpO2: 98 % Measurements This Visit Height/Length Dosin.560 cm Height/Length Estimated: 162.560 cm Weight Dosin.770 kg Weight Estimated: 65.770 kgProblems List:Problem Onset CommentsAnxietyHeadachePati ent EducationMigraine HeadacheA migraine headache is an intense, throbbing pain on one side or both sides of the head. Migraines may also cause other symptoms, such as nausea, vomiting, and sensitivity to light and noise. What are the causes?Doing or taking certain things may also trigger migraines, such as:? Alcohol.? Smoking.? Medicines, such as:? Medicine used to treat chest pain (nitroglycerine).? control pills.? Estrogen pills.? Certain blood pressure medicines.? Aged cheeses, chocolate, or caffeine.? Foods or drinks that contain nitrates, glutamate, aspartame, or tyramine.? Physical activity.Other things that may trigger a migraine include:? Menstruation.? .? Hunger.? Stress, lack of sleep, too much sleep, or fatigue.? Weather changes.What increases the risk?The following factors may make you more likely to experience migraine headaches:? Age. Risk increases with age.? Family history of migraine headaches.? Being .? Depression and anxiety.? Obesity.? Being a woman.? Having a hole in the heart (patent foramen ovale) or other heart problems.What are the signs or symptoms?The main symptom of this condition is pulsating or throbbing pain. Pain may:? Happen in any area of the head, such as on one side or both sides.? Interfere with daily activities.? Get worse with physical activity.? Get worse with exposure to bright lights or loud noises.Other symptoms may include:? Nausea.? Vomiting.? Dizziness.? General sensitivity to bright lights, loud noises, or smells.Before you get a migraine, you may get warning signs that a migraine is developing (aura). An aura may include:? Seeing flashing lights or having blind spots.? Seeing bright spots, halos, or zigzag lines.? Having tunnel vision or blurred vision.? Having numbness or a tingling feeling.? Having trouble talking.? Having muscle weakness.How is this diagnosed?A migraine headache can be diagnosed based on:? Your symptoms.? A physical exam.? Tests, such as CT scan or MRI of the head. These imaging tests can help rule out other causes of headaches.? Taking fluid from the spine (lumbar puncture) and analyzing it (cerebrospinal fluid analysis, or CSF analysis).How is this treated?A migraine headache is usually treated with medicines that:? Relieve pain.? Relieve nausea.? Prevent migraines from coming back.Treatment may also include:? Acupuncture.? Lifestyle changes like avoiding foods that trigger migraines.Follow these instructions at home:Medicines? Take xhwp-hfz-lxysqtt and prescription medicines only as told by your health care provider.? Do not drive or use heavy machinery while taking prescription pain medicine.? To prevent or treat constipation while you are taking prescription pain medicine, your health care provider may recommend that you:? Drink enough fluid to keep your urine clear or pale yellow.? Take dbyh-acz-zaxdhbb or prescription medicines.? Eat foods that are high in fiber, such as fresh fruits and vegetables, whole grains, and beans.? Limit foods that are high in fat and processed sugars, such as fried and sweet foods.Lifestyle? Avoid alcohol use.? Do not use any products that contain nicotine or tobacco, such as cigarettes and e-cigarettes. If you need help quitting, ask your health care provider.? Get at least 8 hours of sleep every night.? Limit your stress.General instructions ? Keep a journal to find out what may trigger your migraine headaches. For example, write down:? What you eat and drink.? How much sleep you get.? Any change to your diet or medicines.? If you have a migraine:? Avoid things that make your symptoms worse, such as bright lights.? It may help to lie down in a dark, quiet room.? Do not drive or use heavy machinery.? Ask your health care provider what activities are safe for you while you are experiencing symptoms.? Keep all follow-up visits as told by your health care provider. This is important.Contact a health care provider if:? You develop symptoms that are different or more severe than your usual migraine symptoms.Get help right away if:? Your migraine becomes severe.? You have a fever.? You have a stiff neck.? You have vision loss.? Your muscles feel weak or like you cannot control them.? You start to lose your balance often.? You develop trouble walking.? You faint.This information is not intended to replace advice given to you by your health care provider. Make sure you discuss any questions you have with your health care provider.Document Released: 09/27/2006 Document Revised: 04/16/2017 Document Reviewed: 03/15/2017[employer] Patient Education ? 2017 [employer]. Viruses or BacteriaWhat?s got you sick?Antibiotics only treat bacterial infections. Viral illnesses cannot be treated with antibiotics. When an antibiotic is not prescribed, ask your healthcare professional for tips on how to relieve symptoms and feel better. Usual CauseIllnessVirusesBacteria Antibiotic NeededCold/Runny Nose NOBronchitis/Chest Cold (in otherwise healthy children and adults) NOWhooping Cough YesFlu NOStrep Throat YesSore Throat (except strep) NOFluid in the middle ear (otitis media with effusion) NOUrinary Tract Infection YesAntibiotics Aren?t Always the Answerwww.cdc.gov/getsmart GET SMART Know When Antibiotics [place] Department of Health and Human ServicesCenters for Disease Control and Prevention June 2014 [facility] Test Urine 1 U Preg Negative [facility] Comment on above: Performed By: #### [id number] ####[facility] (DEFAULT)[address] [place] [id number] U Preg Internal Control Pass [facility] Comment on above: Performed By: #### [id number] ####[facility] (DEFAULT)[address] [place] [address] Coding Summaryon 07-08-2018 Coding Summary CODING DATE: 018 [facility] STATUS: PAYOR: Workers Compensation ADMIT DX: REASON FOR VISIT DX: M25.531 Pain in right wrist FINAL DX: PRINCIPAL: S60.211A Contusion of right wrist, initial encounter SECONDARY: W22.8XXA Striking against or struck by other objects, initial encounter PROCEDURES DOCTOR NAME DATE NOTE: The code number assigned matches the documented diagnosis and / or procedure in the patient's chart. However, the narrative phrase printed from the coding software may appear abbreviated, or result in slightly different terminology. Coded By: Cameron Shah' Date Saved: 07/08/2018 09:42 am [facility] Coding Summary CODING DATE: 018 [facility] STATUS: Home PAYOR: Workers Compensation APC DESCRIPTION 5521 Level 1 Imaging without Contrast ADMIT DX: REASON FOR VISIT DX: M25.531 Pain in right wrist FINAL DX: PRINCIPAL: S60.211A Contusion of right wrist, initial encounter SECONDARY: W22.8XXA Striking against or struck by other objects, initial encounter PYMT PROC APC STAT DESCRIPTION DOCTOR NAME DATE NOTE: The code number assigned matches the documented diagnosis and / or procedure in the patient's chart. However, the narrative phrase printed from the coding software may appear abbreviated, or result in slightly different terminology. Coded By: Cameron Shah' Date Saved: 07/08/2018 09:40 am [facility] Discharge Instructionson Discharge Instructions [id number] [facility] ED Clinical Summaryon 2017 ED Clinical Summary [facility] - Emergency [address] [place] [address] ed Clinical SummaryPERSON INFORMATIONName: MAGGIE GOMES Age: 28 Years Sex: FEMALEDOB: [birth year] MRN: Acct#:Visit Reason: RIGTH WRIST PAIN Arrival: 07/07/18 20:01:00 Discharge: 07/07/18 21:19:00LOS: 000 01:18 Check In: 07/07/18 20:01:00 Checkout:07/07/18 21:19:00Address:[address] [place] [id number]: Provider, NonePROVIDER INFORMATIONProvider Role Assigned UnassignedLawrbritt PEARSON, Elle ED Nurse 07/07/18 20:08:09Johnny Artis PA-C ED PA 07/07/18 20:23:14VITALS INFORMATIONVital Sign Triage LatestTemperature TympanicTemperature Temporal ArteryPulse RateO2 Sat 100 % 100 %Respiratory RateBlood Pressure 134 mmHg/98 mmHg 134 mmHg/98 mmHgMEDICAL INFORMATIONMedications Given:Allergy Information:Tryptan; codeinePHYSICIAN DOCUMENTATIONPatient: MAGGIE GOMES : 28 years Sex: FEMALE : [birth year]Associated Diagnoses: Contusion of wrist, rightAuthor: Chandra DE LUNA, Johnny Veliz InformationTime seen: Date & time 07/07/18 20:23:00.History source: Patient.Arrival mode: Private vehicle.History limitation: None.History of Present IllnessThis 28-year-old female presents here to the emergency department today complaining of right wrist pain. Patient states right wrist pain started approximately 1 hour ago. 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 Patient states that she was frustrated at the time and having to look away and hit the top of the right wrist radial aspect with the hammer. She states tingling from the right thumb fingertip to the right elbow. States she is able to bend the right wrist. She denies any lacerations and abrasions or lesions. She denies any other trauma or injuries. She denies any prior rate wrist injuries. She has no other concerns at this time. Patient is left-hand dominantReview of SystemsConstitutional symptoms: No fever, no chills, no sweats, no weakness, no fatigue.Skin symptoms: No rash,Eye symptoms: Vision unchanged.ENMT symptoms: No ear pain, no sore throat, no nasal congestion, no sinus pain.Respiratory symptoms: No shortness of breath, no cough.Cardiovascular symptoms: No chest pain, no palpitations, no tachycardia, no syncope, no diaphoresis, no peripheral edema.Gastrointestinal symptoms: No abdominal pain, no nausea, no vomiting, no diarrhea, no constipation.Genitourinary symptoms: No dysuria, no hematuria.Musculoskeletal symptoms: Joint pain, Right wrist pain, no back pain, no Muscle pain.Neurologic symptoms: Tingling, no headache, no dizziness, no altered level of consciousness, no numbness, no weakness. Additional review of systems information: All other systems reviewed and otherwise negative.Health StatusAllergies:No active allergies have been recorded..Medications: None.Menstrual history: Last menstrual period: Date 07/07/2018.Past Medical/ Family/ Social HistoryMedical history: Negative.Surgical history: Negative.Social history:Social & Psychosocial HabitsNo Data Available.Physical ExaminationGeneral: Alert, no acute distress.Skin: Warm, dry, intact, no pallor, no rash.Head: Normocephalic, atraumatic.Neck: Supple.Eye: Pupils are equal, round and reactive to light, extraocular movements are intact, normal conjunctiva.Ears, nose, mouth and throat: Oral mucosa moist.Cardiovascular: Regular rate and rhythm, No murmur, Normal peripheral perfusion, No edema, S1, S2, regular rhythm.Respiratory: Lungs are clear to auscultation, respirations are non-labored, breath sounds are equal, Symmetrical chest wall expansion, Lung sounds clear bilaterally. No wheezing, rhonchi, crackles on exam..Musculoskeletal: Normal range of motion of all 4 extremities. Some tenderness with range of motion at right wrist. Patient has good flexion and extension at right wrist. She is able to rotate the right thumb. Patient has tenderness at the right radial aspect of the right wrist. Small bruise overlying the area. No lacerations, abrasions, lesions. Brisk capillary refill bilaterally. Strong radial pulses bilaterally. 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 No focal deficits. No acute swelling. No erythema. No concern for cellulitis. Patient is neurovascularly intact..Chest wallNeurological: Alert and oriented to person, place, time, and situation, No focal neurological deficit observed, normal sensory observed, normal motor observed, normal speech observed, normal coordination observed, Normal sensory, motor, speech, coordination is observed on exam..Lymphatics: No lymphadenopathy.Psychiatric : Cooperative, appropriate mood & affect, normal judgment.Medical Decision MakingOrders Launch OrdersRadiology:XR Wrist Complete Right (Order): 07/07/18 20:37 EDT Stat, right wrist injury, Allow Modification Per Radiologist, Transport Mode: Wheelchair, Launch OrdersPatient Care:Brace/Splint ED (Order): 07/07/18 21:04 EDT, Wrist splint cockup, right wrist.Reexamination/ [id number] I spoke with patient in regards to right wrist x-ray which was negative for any acute fracture or dislocation. I will place patient in right wrist splint and treat her for wrist contusion. Patient may return to work. She understands to continue Tylenol or ibuprofen as needed for pain rest ice and elevate wrist as needed for discomfort and swelling. Patient agreed and understood plan of care she understands follow up with urgent care for Workmen's Compensation injury.Impression and PlanDiagnosisContusion of wrist, right ([id number] S60.211A, Discharge, Medical)PlanCondition: Stable.Disposition: Discharged: Time 07/07/18 21:05:00, to home.Patient was given the following educational materials: Contusion, Elastic Bandage and RICE, Elastic Bandage and RICE, Contusion.Follow up with: ; ; Follow up with primary care provider Within 3 to 5 days Please follow up with our urgent care in 3-5 days. You were seen today for right wrist injury at work. You are left-handed. You were using a hammer and hit the right wrist. You had x-ray of right wrist completed which was negative for any acute fracture or dislocation. If there are any discrepancies you will be notified. You are to rest, ice, elevate the right wrist as needed for pain you may continue Tylenol or ibuprofen as needed for pain. You were placed in a right wrist splint. You may use this as needed for discomfort. No current work restrictions. Please follow-up in our urgent care for Workmen's Compensation injury. You may return here to the emergency department for any worsening or concerning symptoms..Counseled: Patient, Regarding diagnosis, Regarding diagnostic results, Regarding treatment plan, Patient indicated understanding of instructions.Notes: 28-year-old female presented here to the emergency department with chief complaint of right wrist pain following injury at work. 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 States that she looked away for a second and struck the right radial aspect of the wrist with the hammer and chisel. Patient states she had tingling from the right thumb to the right elbow. Rated her pain low as she declined Tylenol or ibuprofen while here in emergency department. Patient had a right wrist x-ray completed which was negative for any acute fracture or dislocation. Patient understands if there are any discrepancies that she will be notified. Patient is to follow-up with our urgent care in 3-5 days as this is a Workmen's Compensation injury. There are no focal or neurological deficits on exam there are no lacerations or abrasions on exam. She has strong radial pulses and brisk capillary refill bilaterally. Patient was placed in a right wrist splint for comfort. She is to rest ice and elevate the right wrist. Patient is treated for right wrist contusion. She may return to work without restriction. If there are any discrepancies she'll be notified. She understands about the urgent care in 3-5 days and return for any worsening or concerning symptoms. Continue Tylenol or ibuprofen as needed for pain..DISCHARGE INFORMATION:Discharge Disposition: HomeDischarge Location: HomePATIENT EDUCATION INFORMATIONInstructions: Elastic Bandage and RICE; ContusionFollow-Up:With: Address: When:Follow up with primary care provider Within 3 to 5 daysComments:Please follow up with our urgent care in 3-5 days. You were seen today for right wrist injury at work. You are left-handed. You were using a hammer and hit the right wrist. You had x-ray of right wrist completed which was negative for any acute fracture or dislocation. If there are any discrepancies you will be notified. You are to rest, ice, elevate the right wrist as needed for pain you may continue Tylenol or ibuprofen as needed for pain. You were placed in a right wrist splint. You may use this as needed for discomfort. No current work restrictions. Please follow-up in our urgent care for Workmen's Compensation injury. You may return here to the emergency department for any worsening or concerning symptoms.DIAGNOSIS:Contusio n of wrist, rightPatient Understands: Yes - Patient/family/caregiver verbalizes understanding of instructions givenComment: [facility] ED Note - Physicianon 2017 ED Note - Physician Patient: WILSON GOMES : 28 years Sex: FEMALE : [birth year]Associated Diagnoses: Contusion of wrist, rightAuthor: Chandra DE LUNA, Johnny Veliz InformationTime seen: Date & time 07/07/18 20:23:00.History source: Patient.Arrival mode: Private vehicle.History limitation: None.History of Present IllnessThis 28-year-old female presents here to the emergency department today complaining of right wrist pain. Patient states right wrist pain started approximately 1 hour ago. 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 Patient states that she was frustrated at the time and having to look away and hit the top of the right wrist radial aspect with the hammer. She states tingling from the right thumb fingertip to the right elbow. States she is able to bend the right wrist. She denies any lacerations and abrasions or lesions. She denies any other trauma or injuries. She denies any prior rate wrist injuries. She has no other concerns at this time. Patient is left-hand dominantReview of SystemsConstitutional symptoms: No fever, no chills, no sweats, no weakness, no fatigue.Skin symptoms: No rash,Eye symptoms: Vision unchanged.ENMT symptoms: No ear pain, no sore throat, no nasal congestion, no sinus pain.Respiratory symptoms: No shortness of breath, no cough.Cardiovascular symptoms: No chest pain, no palpitations, no tachycardia, no syncope, no diaphoresis, no peripheral edema.Gastrointestinal symptoms: No abdominal pain, no nausea, no vomiting, no diarrhea, no constipation.Genitourinary symptoms: No dysuria, no hematuria.Musculoskeletal symptoms: Joint pain, Right wrist pain, no back pain, no Muscle pain.Neurologic symptoms: Tingling, no headache, no dizziness, no altered level of consciousness, no numbness, no weakness. Additional review of systems information: All other systems reviewed and otherwise negative.Health StatusAllergies:No active allergies have been recorded..Medications: None.Menstrual history: Last menstrual period: Date 07/07/2018.Past Medical/ Family/ Social HistoryMedical history: Negative.Surgical history: Negative.Social history:Social & Psychosocial HabitsNo Data Available.Physical ExaminationGeneral: Alert, no acute distress.Skin: Warm, dry, intact, no pallor, no rash.Head: Normocephalic, atraumatic.Neck: Supple.Eye: Pupils are equal, round and reactive to light, extraocular movements are intact, normal conjunctiva.Ears, nose, mouth and throat: Oral mucosa moist.Cardiovascular: Regular rate and rhythm, No murmur, Normal peripheral perfusion, No edema, S1, S2, regular rhythm.Respiratory: Lungs are clear to auscultation, respirations are non-labored, breath sounds are equal, Symmetrical chest wall expansion, Lung sounds clear bilaterally. No wheezing, rhonchi, crackles on exam..Musculoskeletal: Normal range of motion of all 4 extremities. Some tenderness with range of motion at right wrist. Patient has good flexion and extension at right wrist. She is able to rotate the right thumb. Patient has tenderness at the right radial aspect of the right wrist. Small bruise overlying the area. No lacerations, abrasions, lesions. Brisk capillary refill bilaterally. Strong radial pulses bilaterally. 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 No focal deficits. No acute swelling. No erythema. No concern for cellulitis. Patient is neurovascularly intact..Chest wallNeurological: Alert and oriented to person, place, time, and situation, No focal neurological deficit observed, normal sensory observed, normal motor observed, normal speech observed, normal coordination observed, Normal sensory, motor, speech, coordination is observed on exam..Lymphatics: No lymphadenopathy.Psychiatric : Cooperative, appropriate mood & affect, normal judgment.Medical Decision MakingOrders Launch OrdersRadiology:XR Wrist Complete Right (Order): 07/07/18 20:37 EDT Stat, right wrist injury, Allow Modification Per Radiologist, Transport Mode: Wheelchair, Launch OrdersPatient Care:Brace/Splint ED (Order): 07/07/18 21:04 EDT, Wrist splint cockup, right wrist.Reexamination/ [id number] I spoke with patient in regards to right wrist x-ray which was negative for any acute fracture or dislocation. I will place patient in right wrist splint and treat her for wrist contusion. Patient may return to work. She understands to continue Tylenol or ibuprofen as needed for pain rest ice and elevate wrist as needed for discomfort and swelling. Patient agreed and understood plan of care she understands follow up with urgent care for Workmen's Compensation injury.Impression and PlanDiagnosisContusion of wrist, right ([id number] S60.211A, Discharge, Medical)PlanCondition: Stable.Disposition: Discharged: Time 07/07/18 21:05:00, to home.Patient was given the following educational materials: Contusion, Elastic Bandage and RICE, Elastic Bandage and RICE, Contusion.Follow up with: ; ; Follow up with primary care provider Within 3 to 5 days Please follow up with our urgent care in 3-5 days. You were seen today for right wrist injury at work. You are left-handed. You were using a hammer and hit the right wrist. You had x-ray of right wrist completed which was negative for any acute fracture or dislocation. If there are any discrepancies you will be notified. You are to rest, ice, elevate the right wrist as needed for pain you may continue Tylenol or ibuprofen as needed for pain. You were placed in a right wrist splint. You may use this as needed for discomfort. No current work restrictions. Please follow-up in our urgent care for Workmen's Compensation injury. You may return here to the emergency department for any worsening or concerning symptoms..Counseled: Patient, Regarding diagnosis, Regarding diagnostic results, Regarding treatment plan, Patient indicated understanding of instructions.Notes: 28-year-old female presented here to the emergency department with chief complaint of right wrist pain following injury at work. 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 States that she looked away for a second and struck the right radial aspect of the wrist with the hammer and chisel. Patient states she had tingling from the right thumb to the right elbow. Rated her pain low as she declined Tylenol or ibuprofen while here in emergency department. Patient had a right wrist x-ray completed which was negative for any acute fracture or dislocation. Patient understands if there are any discrepancies that she will be notified. Patient is to follow-up with our urgent care in 3-5 days as this is a Workmen's Compensation injury. There are no focal or neurological deficits on exam there are no lacerations or abrasions on exam. She has strong radial pulses and brisk capillary refill bilaterally. Patient was placed in a right wrist splint for comfort. She is to rest ice and elevate the right wrist. Patient is treated for right wrist contusion. She may return to work without restriction. If there are any discrepancies she'll be notified. She understands about the urgent care in 3-5 days and return for any worsening or concerning symptoms. Continue Tylenol or ibuprofen as needed for pain..[Electronically Signed on: 07/07/2018 21:15 EDT] Johnny Artis PA-C[Verified on: 07/07/2018 21:15 EDT] Johnny Artis PA-C [facility] ED Patient Education Noteon 07-07-2018 ED Patient Education Note Education MaterialsOrthopedicsElastic Bandage and RICEWhat does an elastic bandage do?Elastic bandages come in different shapes and sizes. They generally provide support to your injury and reduce swelling while you are healing, but they can perform different functions. Your health care provider will help you to decide what is best for your protection, recovery, or rehabilitation following an injury. What are some general tips for using an elastic bandage?? Use the bandage as directed by the maker of the bandage that you are using.? Do not wrap the bandage too tightly. This may cut off the circulation in the arm or leg in the area below the bandage.? If part of your body beyond the bandage becomes blue, numb, cold, swollen, or is more painful, your bandage is most likely too tight. If this occurs, remove your bandage and reapply it more loosely.? See your health care provider if the bandage seems to be making your problems worse rather than better.? An elastic bandage should be removed and reapplied every 3?4 hours or as directed by your health care provider.What is RICE?The routine care of many injuries includes rest, ice, compression, and elevation (RICE therapy).RestRest is required to allow your body to heal. Generally, you can resume your routine activities when you are comfortable and have been given permission by your health care provider.IceIcing your injury helps to keep the swelling down and it reduces pain. Do not apply ice directly to your skin.? Put ice in a plastic bag.? Place a towel between your skin and the bag.? Leave the ice on for 20 minutes, 2?3 times per day.Do this for as long as you are directed by your health care provider.CompressionCompres keya helps to keep swelling down, gives support, and helps with discomfort. Compression may be done with an elastic bandage.ElevationElevation helps to reduce swelling and it decreases pain. If possible, your injured area should be placed at or above the level of your heart or the center of your chest.When should I seek medical care?You should seek medical care if:? You have persistent pain and swelling.? Your symptoms are getting worse rather than improving.These symptoms may indicate that further evaluation or further X-rays are needed. Sometimes, X-rays may not show a small broken bone (fracture) until a number of days later. Make a follow-up appointment with your health care provider. Ask when your X-ray results will be ready. Make sure that you get your X-ray results.When should I seek immediate medical care?You should seek immediate medical care if:? You have a sudden onset of severe pain at or below the area of your injury.? You develop redness or increased swelling around your injury.? You have tingling or numbness at or below the area of your injury that does not improve after you remove the elastic bandage.This information is not intended to replace advice given to you by your health care provider. Make sure you discuss any questions you have with your health care provider.Document Released: 03/19/2003 Document Revised: 08/23/2017 Document Reviewed: 05/13/2015Elsevier Interactive Patient Education ? 2017 [employer].ContusionA contusion is a deep bruise. Contusions are the result of a blunt injury to tissues and muscle fibers under the skin. The injury causes bleeding under the skin. The skin overlying the contusion may turn blue, purple, or yellow. Minor injuries will give you a painless contusion, but more severe contusions may stay painful and swollen for a few weeks. What are the causes?This condition is usually caused by a blow, trauma, or direct force to an area of the body.What are the signs or symptoms?Symptoms of this condition include:? Swelling of the injured area.? Pain and tenderness in the injured area.? Discoloration. The area may have redness and then turn blue, purple, or yellow.How is this diagnosed?This condition is diagnosed based on a physical exam and medical history. An X-ray, CT scan, or MRI may be needed to determine if there are any associated injuries, such as broken bones (fractures).How is this treated?Specific treatment for this condition depends on what area of the body was injured. In general, the best treatment for a contusion is resting, icing, applying pressure to (compression), and elevating the injured area. This is often called the RICE strategy. Ixzp-noa-issblte anti-inflammatory medicines may also be recommended for pain control.Follow these instructions at home:? Rest the injured area.? If directed, apply ice to the injured area:? Put ice in a plastic bag.? Place a towel between your skin and the bag.? Leave the ice on for 20 minutes, 2?3 times per day.? If directed, apply light compression to the injured area using an elastic bandage. Make sure the bandage is not wrapped too tightly. Remove and reapply the bandage as directed by your health care provider.? If possible, raise (elevate) the injured area above the level of your heart while you are sitting or lying down.? Take mxlh-jez-rgbhjaf and prescription medicines only as told by your health care provider.Contact a health care provider if:? Your symptoms do not improve after several days of treatment.? Your symptoms get worse.? You have difficulty moving the injured area.Get help right away if:? You have severe pain.? You have numbness in a hand or foot.? Your hand or foot turns pale or cold.This information is not intended to replace advice given to you by your health care provider. Make sure you discuss any questions you have with your health care provider.Document Released: 07/07/2006 Document Revised: 02/04/2017 Document Reviewed: 02/12/2016Nohem[employer] Interactive Patient Education ? 2017 [employer] Normal [facility] ED Patient Summaryon 018 ED Patient Summary [facility] - Emergency [id number] [place] [address] pATIENT DISCHARGE INSTRUCTIONSPatient InformationName: MAGGIE GOMES Age: 28 YearsDate of : [birth year]MRN: For Visit: RIGTH WRIST PAINArrival Time: 07/07/18 20:01:00Phone: Primary Care Physician: Provider, NoneAttending Physician: Leighton Gibson DOComment:Visit Diagnosis:Diagnoses This Visit Contusion of wrist, right (S60.655A)If you received any narcotics, sedation, or any other medication that causes drowsiness for the next 24 hours, unless otherwise directed:? Do not drive a car.? Do not operate machinery such as power tools, lawn mowers, drills, sewing machines, or stoves? Avoid alcoholic beverages and drugs for allergies, nerves, or sleep? Do not make important personal or business decisions or sign any legal documentsWith: Address: When:Follow up with primary care provider Within 3 to 5 daysComments:Please follow up with our urgent care in 3-5 days. You were seen today for right wrist injury at work. You are left-handed. You were using a hammer and hit the right wrist. You had x-ray of right wrist completed which was negative for any acute fracture or dislocation. If there are any discrepancies you will be notified. You are to rest, ice, elevate the right wrist as needed for pain you may continue Tylenol or ibuprofen as needed for pain. You were placed in a right wrist splint. You may use this as needed for discomfort. No current work restrictions. Please follow-up in our urgent care for Workmen's Compensation injury. You may return here to the emergency department for any worsening or concerning symptoms.Medication Information:The exam and treatment you received today in the [facility] Emergency Department were for an urgent problem and are not intended as complete care. It is important for you to follow up with a doctor, nurse practitioner, or physician?s engineer assistant for ongoing care. If your symptoms become worse or you do not improve as expected and you are unable to reach your usual health care provider, you should return to the Emergency Department, we are available 24 hours a day.For those patients who have received Radiology results, the interpretation of your X-ray as given to you by our Emergency Department physician is only a preliminary report. The Radiologist will review your films and if there is a change in the diagnosis you will be notified by phone. Please make sure you have provided a working phone number so we can reach you if necessary.In the event that you had a lab culture while you were a patient in the Emergency Department, you will be notified by phone if there is a need to change your antibiotic. Please make sure you have provided a working phone number so we can reach you if necessary.[facility] Emergency Department has provided you with a complete list of medications post discharge. 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 Any specific questions regarding your chronic medications and dosages should be discussed with your primary care physician(s) and/or pharmacist.Visit InformationAllergies:Substa nce Reaction Symptoms Type Commentscodeine DrugTryptan DrugVital Signs: Vitals and Measurements this Visit (last charted value for your 07/07/2018 visit) Vital Signs This Visit Temperature Oral: 36.8 DegC Systolic Blood Pressure: 134 mmHg Diastolic Blood Pressure: 98 mmHg SpO2: 100 % Oxygen Therapy: Room air Measurements This Visit Height/Length Dosin.560 cm Height/Length Estimated: 162.560 cm Weight Dosin.770 kg Weight Estimated: 65.770 kgProblems List:Problem Onset CommentsAnxietyPatient EducationElastic Bandage and RICEWhat does an elastic bandage do?Elastic bandages come in different shapes and sizes. They generally provide support to your injury and reduce swelling while you are healing, but they can perform different functions. Your health care provider will help you to decide what is best for your protection, recovery, or rehabilitation following an injury. What are some general tips for using an elastic bandage?? Use the bandage as directed by the maker of the bandage that you are using.? Do not wrap the bandage too tightly. This may cut off the circulation in the arm or leg in the area below the bandage.? If part of your body beyond the bandage becomes blue, numb, cold, swollen, or is more painful, your bandage is most likely too tight. If this occurs, remove your bandage and reapply it more loosely.? See your health care provider if the bandage seems to be making your problems worse rather than better.? An elastic bandage should be removed and reapplied every 3?4 hours or as directed by your health care provider.What is RICE?The routine care of many injuries includes rest, ice, compression, and elevation (RICE therapy).RestRest is required to allow your body to heal. Generally, you can resume your routine activities when you are comfortable and have been given permission by your health care provider.IceIcing your injury helps to keep the swelling down and it reduces pain. Do not apply ice directly to your skin.? Put ice in a plastic bag.? Place a towel between your skin and the bag.? Leave the ice on for 20 minutes, 2?3 times per day.Do this for as long as you are directed by your health care provider.CompressionCompres keya helps to keep swelling down, gives support, and helps with discomfort. Compression may be done with an elastic bandage.ElevationElevation helps to reduce swelling and it decreases pain. If possible, your injured area should be placed at or above the level of your heart or the center of your chest.When should I seek medical care?You should seek medical care if:? You have persistent pain and swelling.? Your symptoms are getting worse rather than improving.These symptoms may indicate that further evaluation or further X-rays are needed. Sometimes, X-rays may not show a small broken bone (fracture) until a number of days later. Make a follow-up appointment with your health care provider. Ask when your X-ray results will be ready. Make sure that you get your X-ray results.When should I seek immediate medical care?You should seek immediate medical care if:? You have a sudden onset of severe pain at or below the area of your injury.? You develop redness or increased swelling around your injury.? You have tingling or numbness at or below the area of your injury that does not improve after you remove the elastic bandage.This information is not intended to replace advice given to you by your health care provider. Make sure you discuss any questions you have with your health care provider.Document Released: 03/19/2003 Document Revised: 08/23/2017 Document Reviewed: 05/13/2015Nohemi Interactive Patient Education ? 2017 [employer]ContusionA contusion is a deep bruise. Contusions are the result of a blunt injury to tissues and muscle fibers under the skin. The injury causes bleeding under the skin. The skin overlying the contusion may turn blue, purple, or yellow. Minor injuries will give you a painless contusion, but more severe contusions may stay painful and swollen for a few weeks. What are the causes?This condition is usually caused by a blow, trauma, or direct force to an area of the body.What are the signs or symptoms?Symptoms of this condition include:? Swelling of the injured area.? Pain and tenderness in the injured area.? Discoloration. The area may have redness and then turn blue, purple, or yellow.How is this diagnosed?This condition is diagnosed based on a physical exam and medical history. An X-ray, CT scan, or MRI may be needed to determine if there are any associated injuries, such as broken bones (fractures).How is this treated?Specific treatment for this condition depends on what area of the body was injured. In general, the best treatment for a contusion is resting, icing, applying pressure to (compression), and elevating the injured area. This is often called the RICE strategy. Bovs-sbd-qbqtxsz anti-inflammatory medicines may also be recommended for pain control.Follow these instructions at home:? Rest the injured area.? If directed, apply ice to the injured area:? Put ice in a plastic bag.? Place a towel between your skin and the bag.? Leave the ice on for 20 minutes, 2?3 times per day.? If directed, apply light compression to the injured area using an elastic bandage. Make sure the bandage is not wrapped too tightly. Remove and reapply the bandage as directed by your health care provider.? If possible, raise (elevate) the injured area above the level of your heart while you are sitting or lying down.? Take rjyv-vhw-rifjnqx and prescription medicines only as told by your health care provider.Contact a health care provider if:? Your symptoms do not improve after several days of treatment.? Your symptoms get worse.? You have difficulty moving the injured area.Get help right away if:? You have severe pain.? You have numbness in a hand or foot.? Your hand or foot turns pale or cold.This information is not intended to replace advice given to you by your health care provider. Make sure you discuss any questions you have with your health care provider.Document Released: 07/07/2006 Document Revised: 02/04/2017 Document Reviewed: 02/12/2016Nohemi Interactive Patient Education ? 2017 [employer]. Viruses or BacteriaWhat?s got you sick?Antibiotics only treat bacterial infections. Viral illnesses cannot be treated with antibiotics. When an antibiotic is not prescribed, ask your healthcare professional for tips on how to relieve symptoms and feel better. Usual CauseIllnessVirusesBacteria Antibiotic NeededCold/Runny Nose NOBronchitis/Chest Cold (in otherwise healthy children and adults) NOWhooping Cough YesFlu NOStrep Throat YesSore Throat (except strep) NOFluid in the middle ear (otitis media with effusion) NOUrinary Tract Infection YesAntibiotics Aren?t Always the Answerwww.cdc.gov/getsmart GET SMART Know When Antibiotics [place] Department of Health and Human ServicesOhiohealth [facility] Methodist Hospitalers for Disease Control and Prevention June 2014 [facility] Progress Note - Nurseon 06-12 Protein mass conc Patient arrives to E D room 3 after hitting her right wrist with a hammer at work this afternoon. Patient states that when she moves her wrist her pain is a 6/10 and when it is at rest the pain is a 2/10. 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 Patient did not take anything for pain prior to arrival and denies anything for pain at this time. Patient is currently resting on cart.[Electronically Signed on: 07/07/2018 20:41 EDT] Elle Norwood RN[Verified on: 07/07/2018 20:41 EDT] Elle Norwood RN [facility] XR Wrist Complete Righton XR Wrist Complete Right WRIST COMPLETE RIGHTCLINICAL DATA: Impact injury to right wrist today, pain.Four views of the right wrist were obtained. No definite acute fracture ordislocation is seen. There is mild cortical thickening about the distalradius medially at the distal diaphyseal level near the diaphysealmetaphyseal junction not felt to be acutely significant. Faint longitudinallyoriented lucency is seen about the distal radius on the frontal view withoutcortical break, felt to be related to prominent trabecular marking oroverlying soft tissue artifact, not felt to be acutely significant. Softtissues are grossly within normal limits.IMPRESSION:1. RIGHT WRIST STUDY FAILS TO DEMONSTRATE DEFINITE ACUTE FRACTURE ORDISLOCATION.2. FOLLOW-UP NEEDED.ANTOINE Fiore #: [id number]: 07/08/2018T: 07/08/2018 Final Dictated by: Ahmet Perez MD SDictated DT/TM: 07/08/18 6:02Signed (Electronic Signature): Ahmet Perez MD 07/08/18 11:27 aTechnologist: [facility] Other 09-08-2017 0 Invalid Interpretation Code [facility] Other 06-01-2017 0= N/A Invalid Interpretation Code [facility] Risk Level 1=3 or < Invalid Interpretation Code [facility] 1 Invalid Interpretation Code [facility] 0=No Invalid Interpretation Code [facility] 0 Invalid Interpretation Code [facility] 0-N/A Invalid Interpretation Code [facility] 1=Controlled Invalid Interpretation Code [facility]acon 09-01-2016 Cholesterol 144 mg/dL Invalid Interpretation Code <200 [facility] HDL Cholesterol 28.0 mg/dL Invalid Interpretation Code 40-60 [facility] Triglyceride 101.0 mg/dL Invalid Interpretation Code <150 [facility] Hematologyon 09-01-2016 Basophils Auto #/vol (Bld) 0.3 % Invalid Interpretation Code 0.-1. [facility] Basophils/100 WBC Auto (Bld) 0.0 K/uL Invalid Interpretation Code 0.0-0.1 [facility] Eosinophils/100 leukocytes 1.4 % Invalid Interpretation Code 1.-4. [facility] Erythrocyte distribution width Auto Ratio (RBC) 12.9 % Invalid Interpretation Code 10.8-14.8 [facility] Erythrocytes (RBC) 5.120 10*6/uL Invalid Interpretation Code 4.00-5.50 [facility] Hematocrit (HCT) 47.80 % Invalid Interpretation Code 36.0-48.0 [facility] Hemoglobin S presence 15.7 Invalid Interpretation Code 12.0-16.0 [facility] Lipoprotein a mass conc 0.2 10*3/uL Invalid Interpretation Code 0.1-0.4 [facility] Lipoprotein a mass conc 3.1 10*3/uL Invalid Interpretation Code 0.8-5.2 [facility] Lipoprotein a mass conc 0.7 10*3/uL Invalid Interpretation Code 0.1-0.9 [facility] Lipoprotein a mass conc 9.0 10*3/uL Invalid Interpretation Code 1.3-9.1 [facility] Lymphocytes/100 leukocytes 23.7 % Invalid Interpretation Code 16-48 [facility] MCH 30.7 pg Invalid Interpretation Code 27.0-34.0 [facility] N-1-1 MCHC mass conc (RBC) 32.8 g/dL Invalid Interpretation Code 31.0-36.0 [facility] MCV 93.4 fL Invalid Interpretation Code 80.-100. [facility] Monocytes/100 leukocytes 5.6 % Invalid Interpretation Code 1.-8. [facility] Neutrophils/100 leukocytes 68.6 % Invalid Interpretation Code 45-75 [facility] WBC (Leukocytes) 13.1 10*3/uL Invalid Interpretation Code 3.7-10.8 [facility] Metabolic Panelon 09-01-2016 Alanine aminotransferase (ALT) 11.0 U/L Invalid Interpretation Code 5-59 [facility] Albumin 3.30 g/dL Invalid Interpretation Code 3.2-5.3 [facility] Alkaline phosphatase (ALP) 103.0 U/L Invalid Interpretation Code 35-121 [facility] Anion gap 11 mmol/L Invalid Interpretation Code [facility] Aspartate aminotransferase (AST) 13.0 U/L Invalid Interpretation Code 10-42 [facility] Calcium 9.0 mg/dL Invalid Interpretation Code 8.7-10.8 [facility] Chloride 103 mmol/L Invalid Interpretation Code 95-111 [facility] CO2 28 mmol/L Invalid Interpretation Code 21-32 [facility] Creatinine 0.50 mg/dL Invalid Interpretation Code 0.5-1.3 [facility] eGFR (non-black) 150 mL/min/{1.73_m2} Invalid Interpretation Code >60 [facility] eGFR (non-black) 182 mL/min/{1.73_m2} Invalid Interpretation Code >60 [facility] Glucose mass conc 94 mg/dL Invalid Interpretation Code 70-100 [facility] Potassium molar conc 3.20 mmol/L Invalid Interpretation Code 3.5-5.4 [facility] Sodium 139 mmol/L Invalid Interpretation Code 134-147 [facility] Urea nitrogen 2.0 mg/dL Invalid Interpretation Code 10-20 [facility] Glucose mass conc 81.0 mg/dL Invalid Interpretation Code [facility] Hemoglobin A1c/Hemoglobin.total mass fraction (Bld) 4.50 % Invalid Interpretation Code < 7 [facility] Otheron 09-01-2016 Bilirubin Ql (U) 0.4 Invalid Interpretation Code 0.2-1.3 [facility] Cholesterol to HDL Ratio 5.1 {ratio} Invalid Interpretation Code <5 [facility] LDL to HDL Ratio 3.4 Invalid Interpretation Code <3.5 [facility] PreB-LP SerPl-mCnc 20.0 mg/dL Invalid Interpretation Code <30 [facility] PreB-LP SerPl-mCnc 96.0 mg/dL Invalid Interpretation Code <130 [facility] 6.1 Invalid Interpretation Code 5.8-8.0 [facility] 306 Invalid Interpretation Code 150.-450. [facility] Cessation/Specialist Invalid Interpretation Code [facility] Provide self-help materials Inva lid Interpretation Code [facility] stress Invalid Interpretation Code [facility] No Invalid Interpretation Code [facility] Pre-contemplation Invalid Interpretation Code [facility] 30.0 Count Invalid Interpretation Code [facility] Pre-contemplation Invalid Interpretation Code [facility] Current Invalid Interpretation Code [facility] 7 Invalid Interpretation Code [facility] A[employer] Invalid Interpretation Code [facility] Strong advice to quit Invalid Interpretation Code [facility] Negative Invalid Interpretation Code [facility] Thyroidon 09-01-2016 Thyroid stimulating hormone (TSH) 2.290 uIU/mL Invalid Interpretation Code 0.40-4.40 [facility] Vital Signs Date Time Vital Sign Value Performing Clinician Facility 04-03-2024 00:27-0400 Body mass index (BMI) [Ratio] 32.27 kg/m2 Desmond Barrera APRN [employer] Work Phone: [facility] 04-03-2024 00:27-0400 Body temperature 98.6 [degF] Desmond Barrera APRN [employer] Work Phone: [facility] 04-03-2024 00:27-0400 Body weight 85.28 kg Desmond Barrera APRN [employer] Work Phone: [facility] 04-03-2024 00:27-0400 Diastolic blood pressure 103 mm[Hg] Desmond Barrera APRN [employer] Work Phone: [facility] 04-03-2024 00:27-0400 Heart rate 114 /min Desmond Barrera APRN [employer] Work Phone: [facility] 04-03-2024 00:27-0400 Respiratory rate 18 /min Desmond Barrera APRN [employer] Work Phone: [facility] 04-03-2024 00:27-0400 SaO2% (BldA) [Mass fraction] 98 % Desmond Barrera APRN [employer] Work Phone: [facility] 04-03-2024 00:27-0400 Systolic blood pressure 166 mm[Hg] Desmond Barrera APRN [employer] Work Phone: [facility] 01-11-2024 05:30-0400 Diastolic blood pressure 78 mm[Hg] Desmond Barrera APRN [employer] Work Phone: [facility] 01-11-2024 05:30-0400 Heart rate 88 /min Desmond Barrera APRN [employer] Work Phone: [facility] 01-11-2024 05:30-0400 Respiratory rate 20 /min Desmond Khoury CNP Work Phone: [facility] 01-11-2024 05:30-0400 SaO2% (BldA) [Mass fraction] 100 % Desmond Khoury CNP Work Phone: [facility] 01-11-2024 05:30-0400 Systolic blood pressure 128 mm[Hg] Desmond Khoury CNP Work Phone: [facility] 01-11-2024 04:30-0400 Body temperature 98.29 [degF] Desmond Khoury CAP MACHINE OPERATOR Work Phone: [facility] 01-11-2024 01:13-0400 Body height 162.6 cm Desmond Khoury CAP MACHINE OPERATOR Work Phone: [facility] 01-11-2024 01:13-0400 Body mass index (BMI) [Ratio] 34.5 kg/m2 Desmond Khoury CAP MACHINE OPERATOR Work Phone: [facility] 01-11-2024 01:13-0400 Body weight 91.17 kg Desmond Khoury CAP MACHINE OPERATOR Work Phone: [facility] 11-28-2023 01:08-0500 Body height 162.6 cm Desmond Khoury CAP MACHINE OPERATOR Work Phone: [facility] 11-28-2023 01:08-0500 Body mass index (BMI) [Ratio] 35.36 kg/m2 Desmond Khoury CAP MACHINE OPERATOR Work Phone: [facility] 11-28-2023 01:08-0500 Body temperature 97.9 [degF] Desmond Khoury CAP MACHINE OPERATOR Work Phone: [facility] 11-28-2023 01:08-0500 Body weight 93.44 kg Desmond Khoury CAP MACHINE OPERATOR Work Phone: [facility] 11-28-2023 01:08-0500 Diastolic blood pressure 84 mm[Hg] Desmond Khoury CAP MACHINE OPERATOR Work Phone: [facility] 11-28-2023 01:08-0500 Heart rate 100 /min Desmond Barrera APRN - [employer] MACHINE OPERATOR Work Phone: [facility] 11-28-2023 01:08-0500 Respiratory rate 16 /min Desmond Barrera APRN - CAP MACHINE OPERATOR Work Phone: [facility] 11-28-2023 01:08-0500 SaO2% (BldA) [Mass fraction] 100 % Desmond Barrera APRN - CAP MACHINE OPERATOR Work Phone: [facility] 11-28-2023 01:08-0500 Systolic blood pressure 135 mm[Hg] Desmond Barrera APRN - CAP MACHINE OPERATOR Work Phone: [facility] 09-30-2023 09:30-0500 Body height 162.56 cm Pancho Olexa Other [employer] Other 09-30-2023 09:30-0500 Body mass index (BMI) [Ratio] 35.87 kg/m2 Pancho Olexa Other [employer] Other 09-30-2023 09:30-0500 Body weight 94.8 kg Pancho Olexa Other [facility] Other 08-26-2023 10:45-0500 Body height 162.56 cm Pancho Olexa Other [employer] Other 08-26-2023 10:45-0500 Body mass index (BMI) [Ratio] 35.87 kg/m2 Pancho Olexa Other [employer] Other 08-26-2023 10:45-0500 Body weight 94.8 kg Pancho Olexa Other [facility] Other 08-16-2023 11:37-0500 Body height 162.56 cm Desmond Barrera CNP Work Phone: [facility] Work Phone: 08-16-2023 11:37-0500 Body mass index (BMI) [Ratio] 36 kg/m2 Desmond Barrera CNP Work Phone: [facility] Work Phone: 08-16-2023 11:37-0500 Body surface area Derived from formula 2 m2 Desmond Barrera CNP Work Phone: [facility] Work Phone: 08-16-2023 11:37-0500 Body weight 95.26 kg Desmond Barrera CNP Work Phone: [facility] Work Phone: 08-16-2023 11:37-0500 Diastolic blood pressure 89 mm[Hg] Desmond Barrera CNP Work Phone: [facility] Work Phone: 08-16-2023 11:37-0500 Heart rate 82 /min Desmond Barrera CNP Work Phone: [facility] Work Phone: 08-16-2023 11:37-0500 SaO2% (BldA) [Mass fraction] 98 % Desmond Barrera CNP Work Phone: [facility] Work Phone: 08-16-2023 11:37-0500 Systolic blood pressure 122 mm[Hg] Desmond Barrera CNP Work Phone: [facility] Work Phone: 07-15-2023 10:52-0400 Body height 162.56 cm Desmond Barrera CNP Work Phone: [facility] Work Phone: 07-15-2023 10:52-0400 Body mass index (BMI) [Ratio] 35.9 kg/m2 Desmond Barrera CNP Work Phone: [facility] Work Phone: 07-15-2023 10:52-0400 Body surface area Derived from formula 2 m2 Desmond Barrera CNP Work Phone: [facility] Work Phone: 07-15-2023 10:52-0400 Body weight 94.98 kg Desmond Barrera CNP Work Phone: [facility] Work Phone: 07-15-2023 10:52-0400 Diastolic blood pressure 89 mm[Hg] Desmond Barrera CNP Work Phone: [facility] Work Phone: 07-15-2023 10:52-0400 Heart rate 100 /min Desmond Barrera CNP Work Phone: [facility] Work Phone: 07-15-2023 10:52-0400 SaO2% (BldA) [Mass fraction] 96 % Desmond Barrera CNP Work Phone: [facility] Work Phone: 07-15-2023 10:52-0400 Systolic blood pressure 122 mm[Hg] Desmond Barrera CNP Work Phone: [facility] Work Phone: 07-08-2023 10:45-0400 Body height 162.56 cm Pancho Henry Other [employer] Other 05-06-2023 11:30-0400 Body height 162.56 cm Isabel Chi Other [employer] Other 05-06-2023 11:30-0400 Body mass index (BMI) [Ratio] 34.33 kg/m2 Isabel Chi Other [facility] Other 05-06-2023 11:30-0400 Body weight 90.72 kg Isabel Chi Other [employer] Other 12-24-2022 10:23-0400 Body height 162.56 cm Desmond Barrera CNP Work Phone: [facility] Work Phone: 12-24-2022 10:23-0400 Body mass index (BMI) [Ratio] 33.6 kg/m2 Desmond Barrera CNP Work Phone: [facility] Work Phone: 12-24-2022 10:23-0400 Body surface area Derived from formula 1.9 m2 Desmond Barrera CNP Work Phone: [facility] Work Phone: 12-24-2022 10:23-0400 Body temperature 98.2 [degF] Desmond Barrera CNP Work Phone: [facility] Work Phone: 12-24-2022 10:23-0400 Body weight 88.81 kg Desmond Barrera CNP Work Phone: [facility] Work Phone: 12-24-2022 10:23-0400 Diastolic blood pressure 80 mm[Hg] Desmond Barrera CNP Work Phone: [facility] Work Phone: 12-24-2022 10:23-0400 Heart rate 88 /min Desmond Barrera CNP Work Phone: [facility] Work Phone: 12-24-2022 10:23-0400 SaO2% (BldA) [Mass fraction] 98 % Desmond Barrera CNP Work Phone: [facility] Work Phone: 12-24-2022 10:23-0400 Systolic blood pressure 112 mm[Hg] Desmond Barrera CNP Work Phone: [facility] Work Phone: 05-28-2022 09:46-0400 Body height 162.56 cm Desmond Barrera CNP Work Phone: [facility] Work Phone: 05-28-2022 09:46-0400 Body mass index (BMI) [Ratio] 33.1 kg/m2 Desmond Barrera CNP Work Phone: [facility] Work Phone: 05-28-2022 09:46-0400 Body surface area Derived from formula 1.93 m2 Desmond Barrera CNP Work Phone: [facility] Work Phone: 05-28-2022 09:46-0400 Body surface area Derived from formula 1.9 m2 Desmond Barrera CNP Work Phone: [facility] Work Phone: 05-28-2022 09:46-0400 Body temperature 97.4 [degF] Desmond Barrera CNP Work Phone: [facility] Work Phone: 05-28-2022 09:46-0400 Body weight 87.54 kg Desmond Barrera CNP Work Phone: [facility] Work Phone: 05-28-2022 09:46-0400 Diastolic blood pressure 84 mm[Hg] Desmond Barrera CNP Work Phone: [facility] Work Phone: 05-28-2022 09:46-0400 Heart rate 100 /min Desmond Barrera CNP Work Phone: [facility] Work Phone: 05-28-2022 09:46-0400 Heart Rate Rhythm 1 1 Desmond Barrera CNP Work Phone: [facility] Work Phone: 05-28-2022 09:46-0400 SaO2% (BldA) [Mass fraction] 98 % Desmond Barrera CNP Work Phone: [facility] Work Phone: 05-28-2022 09:46-0400 Systolic blood pressure 114 mm[Hg] Desmond Barrera CNP Work Phone: [facility] Work Phone: 04-30-2022 09:06-0400 Body height 162.56 cm Desmond Barrera CNP Work Phone: [facility] Work Phone: 04-30-2022 09:06-0400 Body mass index (BMI) [Ratio] 32.6 kg/m2 Desmond Barrera CNP Work Phone: [facility] Work Phone: 04-30-2022 09:06-0400 Body surface area Derived from formula 1.91 m2 Desmond Barrera CNP Work Phone: [facility] Work Phone: 04-30-2022 09:06-0400 Body surface area Derived from formula 1.9 m2 Desmond Barrera CNP Work Phone: [facility] Work Phone: 04-30-2022 09:06-0400 Body temperature 97.6 [degF] Desmond Barrera CNP Work Phone: [facility] Work Phone: 04-30-2022 09:06-0400 Body weight 86.18 kg Desmond Barrera CNP Work Phone: [facility] Work Phone: 04-30-2022 09:06-0400 Diastolic blood pressure 80 mm[Hg] Desmond Barrera CNP Work Phone: [facility] Work Phone: 04-30-2022 09:06-0400 Heart rate 101 /min Desmond Barrera CNP Work Phone: [facility] Work Phone: 04-30-2022 09:06-0400 SaO2% (BldA) [Mass fraction] 98 % Desmond Barrera CNP Work Phone: [facility] Work Phone: 04-30-2022 09:06-0400 Systolic blood pressure 122 mm[Hg] Desmond Barrera CNP Work Phone: [facility] Work Phone: 03-16-2022 10:33-0400 Body height 162.56 cm Desmond Barrera CNP Work Phone: [facility] Work Phone: 03-16-2022 10:33-0400 Body mass index (BMI) [Ratio] 32.1 kg/m2 Desmond Barrera CNP Work Phone: [facility] Work Phone: 03-16-2022 10:33-0400 Body surface area Derived from formula 1.9 m2 Desmond Barrera CNP Work Phone: [facility] Work Phone: 03-16-2022 10:33-0400 Body temperature 98.3 [degF] Desmond Barrera CNP Work Phone: [facility] Work Phone: 03-16-2022 10:33-0400 Body weight 84.82 kg Desmond Barrera CNP Work Phone: [facility] Work Phone: 03-16-2022 10:33-0400 Diastolic blood pressure 88 mm[Hg] Desmond Barrera CNP Work Phone: [facility] Work Phone: 03-16-2022 10:33-0400 Heart rate 94 /min Desmond Barrera CNP Work Phone: [facility] Work Phone: 03-16-2022 10:33-0400 SaO2% (BldA) [Mass fraction] 98 % Desmond Barrera CNP Work Phone: [facility] Work Phone: 03-16-2022 10:33-0400 Systolic blood pressure 123 mm[Hg] Desmond Barrera CNP Work Phone: [facility] Work Phone: 12-24-2021 10:44-0400 Body height 162.56 cm Desmond Barrera CNP Work Phone: [facility] Work Phone: 12-24-2021 10:44-0400 Body mass index (BMI) [Ratio] 31.9 kg/m2 Desmond Barrera CNP Work Phone: [facility] Work Phone: 12-24-2021 10:44-0400 Body surface area Derived from formula 1.9 m2 Desmond Barrera CNP Work Phone: [facility] Work Phone: 12-24-2021 10:44-0400 Body temperature 97.4 [degF] Desmond Barrera CNP Work Phone: [facility] Work Phone: 12-24-2021 10:44-0400 Body weight 84.37 kg Desmond Barrera CNP Work Phone: [facility] Work Phone: 12-24-2021 10:44-0400 Diastolic blood pressure 78 mm[Hg] Desmond Barrera CNP Work Phone: [facility] Work Phone: 12-24-2021 10:44-0400 Heart rate 93 /min Desmond Barrera CNP Work Phone: [facility] Work Phone: 12-24-2021 10:44-0400 SaO2% (BldA) [Mass fraction] 97 % Desmond Barrera CNP Work Phone: [facility] Work Phone: 12-24-2021 10:44-0400 Systolic blood pressure 122 mm[Hg] Desmond Barrera CNP Work Phone: [facility] Work Phone: 04-28-2021 17:00-0400 Body height 162.56 cm Desmond Barrera CNP Work Phone: [facility] Work Phone: 04-28-2021 17:00-0400 Body mass index (BMI) [Ratio] 31.6 kg/m2 Desmond Barrera CNP Work Phone: [facility] Work Phone: 04-28-2021 17:00-0400 Body surface area Derived from formula 1.89 m2 Desmond Barrera CNP Work Phone: [facility] Work Phone: 04-28-2021 17:00-0400 Body temperature 93.7 [degF] Desmond Barrera CNP Work Phone: [facility] Work Phone: 04-28-2021 17:00-0400 Body weight 83.46 kg Desmond Barrera CNP Work Phone: [facility] Work Phone: 04-28-2021 17:00-0400 Diastolic blood pressure 82 mm[Hg] Desmond Barrera CNP Work Phone: [facility] Work Phone: 04-28-2021 17:00-0400 Heart rate 84 /min Desmond Barrera CNP Work Phone: [facility] Work Phone: 04-28-2021 17:00-0400 Respiratory rate 18 /min Desmond Barrera CNP Work Phone: [facility] Work Phone: 04-28-2021 17:00-0400 SaO2% (BldA) [Mass fraction] 99 % Desmond Barrera CNP Work Phone: [facility] Work Phone: 04-28-2021 17:00-0400 Systolic blood pressure 120 mm[Hg] Desmond Barrera CNP Work Phone: [facility] Work Phone: 02-25-2021 15:28-0400 Body height 162.56 cm Desmond Barrera CNP Work Phone: [facility] Work Phone: 02-25-2021 15:28-0400 Body mass index (BMI) [Ratio] 30.3 kg/m2 Desmond Barrera CNP Work Phone: [facility] Work Phone: 02-25-2021 15:28-0400 Body surface area Derived from formula 1.86 m2 Desmond Barrera CNP Work Phone: [facility] Work Phone: 02-25-2021 15:28-0400 Body temperature 96.9 [degF] Desmond Barrera CNP Work Phone: [facility] Work Phone: 02-25-2021 15:28-0400 Body weight 80.2 kg Desmond Barrera CNP Work Phone: [facility] Work Phone: 02-25-2021 15:28-0400 Diastolic blood pressure 82 mm[Hg] Desmond Barrera CNP Work Phone: [facility] Work Phone: 02-25-2021 15:28-0400 Heart rate 92 /min Desmond Barrera CNP Work Phone: [facility] Work Phone: 02-25-2021 15:28-0400 SaO2% (BldA) [Mass fraction] 99 % Desmond Barrera CNP Work Phone: [facility] Work Phone: 02-25-2021 15:28-0400 Systolic blood pressure 124 mm[Hg] Desmond Barrera CNP Work Phone: [facility] Work Phone: 02-16-2021 00:58-0400 Diastolic blood pressure 71 mm[Hg] Elliot Reed MD Work Phone: [employer] Work Phone: 02-16-2021 00:58-0400 Heart rate 83 /min Elliot Reed MD Work Phone: [employer] Work Phone: 02-16-2021 00:58-0400 Respiratory rate 18 /min Elliot Reed MD Work Phone: [employer] Work Phone: 02-16-2021 00:58-0400 SaO2% (BldA) [Mass fraction] 98 % Elliot Reed MD Work Phone: [employer] Work Phone: 02-16-2021 00:58-0400 Systolic blood pressure 110 mm[Hg] Elliot Reed MD Work Phone: [employer] Work Phone: 02-15-2021 22:36-0400 Body temperature 99 [degF] Elliot Reed MD Work Phone: [employer] Work Phone: 01-09-2021 17:57-0400 BMI (Body Mass Index) 29.3 kg/m2 [facility] Work Phone: 01-09-2021 17:57-0400 Body Temperature 97 [degF] [facility] Work Phone: 01-09-2021 17:57-0400 Body weight 77.38 kg [facility] Work Phone: 01-09-2021 17:57-0400 BP Diastolic 80 mm[Hg] [facility] Work Phone: 01-09-2021 17:57-0400 BP Systolic 118 mm[Hg] [facility] Work Phone: 01-09-2021 17:57-0400 BSA (Body Surface Area) 1.83 m2 [facility] Work Phone: 01-09-2021 17:57-0400 Height 162.56 cm [facility] Work Phone: 01-09-2021 17:57-0400 Pulse (Heart Rate) 94 /min [facility] Work Phone: 01-09-2021 17:57-0400 Pulse Oximetry 98 % [facility] Work Phone: 01-09-2021 17:57-0400 Respiratory Rate 18 /min [facility] Work Phone: 01-09-2021 17:57-0400 SaO2% (BldA) [Mass fraction] 98 % [facility] Work Phone: [facility] Work Phone: 12-19-2020 18:19-0500 BMI (Body Mass Index) 29.5 kg/m2 [facility] Work Phone: 12-19-2020 18:19-0500 Body Temperature 98.1 [degF] [facility] Work Phone: 12-19-2020 18:19-0500 Body weight 78.02 kg [facility] Work Phone: 12-19-2020 18:19-0500 BP Diastolic 78 mm[Hg] [facility] Work Phone: 12-19-2020 18:19-0500 BP Systolic 124 mm[Hg] [facility] Work Phone: 12-19-2020 18:19-0500 BSA (Body Surface Area) 1.83 m2 [facility] Work Phone: 12-19-2020 18:19-0500 Height 162.56 cm [facility] Work Phone: 12-19-2020 18:19-0500 Pulse (Heart Rate) 111 /min [facility] Work Phone: 12-19-2020 18:19-0500 Pulse Oximetry 99 % [facility] Work Phone: 12-19-2020 18:19-0500 Respiratory Rate 18 /min [facility] Work Phone: 12-19-2020 18:19-0500 SaO2% (BldA) [Mass fraction] 99 % Desmond Bruce CNP Work Phone: [facility] Work Phone: 12-11-2020 16:46-0500 BMI (Body Mass Index) 28.6 kg/m2 [facility] Work Phone: 12-11-2020 16:46-0500 Body Temperature 98.5 [degF] [facility] Work Phone: 12-11-2020 16:46-0500 Body weight 75.57 kg [facility] Work Phone: 12-11-2020 16:46-0500 BP Diastolic 84 mm[Hg] [facility] Work Phone: 12-11-2020 16:46-0500 BP Systolic 122 mm[Hg] [facility] Work Phone: 12-11-2020 16:46-0500 BSA (Body Surface Area) 1.81 m2 [facility] Work Phone: 12-11-2020 16:46-0500 Height 162.56 cm [facility] Work Phone: 12-11-2020 16:46-0500 Pulse (Heart Rate) 97 /min [facility] Work Phone: 12-11-2020 16:46-0500 Pulse Oximetry 98 % [facility] 12-11-2020 16:46-0500 Respiratory Rate 18 /min [facility] Work Phone: 12-11-2020 16:46-0500 SaO2% (BldA) [Mass fraction] 98 % Desmond Bruce [facility] Work Phone: [facility] Work Phone: 11-30-2020 11:25-0500 BMI (Body Mass Index) 30.11 kg/m2 Desmond Bruce [facility] Work Phone: 11-30-2020 11:25-0500 Body Temperature 98.4 [degF] Desmond Bruce [employer] Work Phone: 11-30-2020 11:25-0500 Body weight 77.11 kg [facility]: 11-30-2020 11:25-0500 BP Diastolic 86 mm[Hg] [facility] Work Phone: 11-30-2020 11:25-0500 BP Systolic 125 mm[Hg] [facility]: 11-30-2020 11:25-0500 Height 160 cm Desmond Bruce [employer] Work Phone: 11-30-2020 11:25-0500 Pulse (Heart Rate) 87 /min [facility] Work Phone: 11-30-2020 11:25-0500 Pulse Oximetry 100 % [facility]: 11-30-2020 11:25-0500 Respiratory Rate 16 /min Desmond Bruce [employer] Work Phone: 09-03-2020 08:13-0500 Body Temperature 97.59 [degF] Desmond Barrera [facility] [place] 09-03-2020 08:13-0500 BP Diastolic 74 mm[Hg] [facility] [place] 09-03-2020 08:13-0500 BP Systolic 118 mm[Hg] Desmond Barrera [facility] , [place] 09-03-2020 08:13-0500 Pulse (Heart Rate) 84 /min [facility] [place] 09-03-2020 08:13-0500 Respiratory Rate 14 /min [facility] [place] 08-30-2020 12:30-0500 BMI (Body Mass Index) 23.91 kg/m2 [facility] [place] 08-30-2020 12:30-0500 Body weight 61.24 kg [facility] [place] 08-30-2020 12:30-0500 Height 160 cm [facility] [place] 08-30-2020 12:30-0500 Pulse Oximetry 98 % [facility] [place] 08-30-2020 01:54-0500 Body Temperature 96.91 [degF] [facility] [place] 08-[facility]-2020 01:54-0500 BP Diastolic 97 mm[Hg] [facility] [place] 08-30-2020 01:54-0500 BP Systolic 158 mm[Hg] [facility] [place] 08-30-2020 01:54-0500 Pulse (Heart Rate) 98 /min [facility] [place] 08-30-2020 01:54-0500 Pulse Oximetry 99 % [facility] [place] 08-30-2020 01:54-0500 Respiratory Rate 20 /min [facility] [place] 08-12-2020 09:26-0500 BMI (Body Mass Index) 23.91 kg/m2 [facility] [place], [place] 08-12-2020 09:26-0500 Body weight 61.24 kg [facility] , [place] 08-12-2020 09:26-0500 Height 160 cm [facility] , [place] 07-25-2020 17:57-0400 BMI (Body Mass Index) 24 kg/m2 Desmond Barrera [facility] Work Phone: 07-25-2020 17:57-0400 Body weight 63.5 kg Desmondpaulette Barrera [facility] Work Phone: 07-25-2020 17:57-0400 BSA (Body Surface Area) 1.68 m2 Desmondpaulette Barrera [facility] Work Phone: 07-25-2020 17:57-0400 Height 162.56 cm Desmond Bruce [facility] Work Phone: 04-08-2020 11:03-0400 Body height 162.56 cm Desmond Barrera [facility] Work Phone: [facility] Work Phone: Comment on above: self report 04-08-2020 11:03-0400 Body mass index (BMI) [Ratio] 24 kg/m2 Desmond Barrera CNP Work Phone: [facility] [place] Work Phone: Comment on above: self report 04-08-2020 11:03-0400 Body surface area Derived from formula 1.68 m2 Desmond Barrera CNP Work Phone: [facility] [place] Work Phone: Comment on above: self report 04-08-2020 11:03-0400 Body weight 63.5 kg Desmond Barrera CNP Work Phone: [facility] [place] Work Phone: Comment on above: self report 02-29-2020 14:00-0400 Respiratory Rate 16 /min [facility] [place] [place] 02-29-2020 12:54-0400 Pulse (Heart Rate) 91 /min Sanjeev [facility], [place] 02-29-2020 12:54-0400 Pulse Oximetry 99 % Sanjeev [facility], [place] 02-29-2020 10:58-0400 BMI (Body Mass Index) 23.91 kg/m2 Sanjeev [facility], [place] 02-29-2020 10:58-0400 Body Temperature 98.1 [degF] Sanjeev [facility], [place] 02-29-2020 10:58-0400 Body weight 61.24 kg Sanjeev [facility], [place] 02-29-2020 10:58-0400 BP Diastolic 76 mm[Hg] Sanjeev [facility], [place] 02-29-2020 10:58-0400 BP Systolic 126 mm[Hg] Sanjeev [facility], [place] 02-21-2020 20:26-0400 Body Temperature 98.01 [degF] Jorge Alberto [facility], [place] 02-21-2020 20:26-0400 BP Diastolic 99 mm[Hg] Jorge Alberto [facility] , [place] 02-21-2020 20:26-0400 BP Systolic 150 mm[Hg] Jorge Alberto [facility] , [place] 02-21-2020 20:26-0400 Pulse (Heart Rate) 100 /min Jorge Alberto [facility], [place] 02-21-2020 20:26-0400 Pulse Oximetry 100 % Jorge Alberto [facility] , [place] 02-21-2020 20:26-0400 Respiratory Rate 20 /min Jorge Alberto [facility], [place] 03-22-2018 10:23-0400 BMI (Body Mass Index) 23.69 kg/m2 [facility] 03-22-2018 10:23-0400 Body Temperature 97.7 [degF] [facility] 03-22-2018 10:23-0400 BP Diastolic 81 mm[Hg] [facility] 03-22-2018 10:23-0400 BP Systolic 131 mm[Hg] [facility] 03-22-2018 10:23-0400 BSA (Body Surface Area) 1.68 m2 [facility] 03-22-2018 10:23-0400 Height 162.56 cm [facility] 03-22-2018 10:23-0400 Pulse (Heart Rate) 97 /min Desmond [facility] 03-22-2018 10:23-0400 Pulse Oximetry 98 % Desmond Bruce [facility] [place] 03-22-2018 10:23-0400 Respiratory Rate 20 /min [facility] 03-22-2018 10:23-0400 Weight 62.6 kg [facility] 03-03-2018 16:19-0400 BMI (Body Mass Index) 22.49 kg/m2 [facility] 03-03-2018 16:19-0400 Body Temperature 97 [degF] [facility] 03-03-2018 16:19-0400 BP Diastolic 84 mm[Hg] [facility] 03-03-2018 16:19-0400 BP Systolic 127 mm[Hg] [facility] 03-03-2018 16:19-0400 BSA (Body Surface Area) 1.64 m2 [facility] 03-03-2018 16:19-0400 Height 162.56 cm [facility] 03-03-2018 16:19-0400 Pulse (Heart Rate) 106 /min Desmond Bruce [facility] 03-03-2018 16:19-0400 Pulse Oximetry 100 % [facility] 03-03-2018 16:19-0400 Respiratory Rate 20 /min [facility] 03-03-2018 16:19-0400 Weight 59.42 kg [facility] 09-08-2017 09:58-0500 BMI (Body Mass Index) 23.17 kg/m2 [facility] 09-08-2017 09:58-0500 Body Temperature 97.7 [degF] [facility] 09-08-2017 09:58-0500 BP Diastolic 76 mm[Hg] [facility] 09-08-2017 09:58-0500 BP Systolic 114 mm[Hg] [facility] 09-08-2017 09:58-0500 BSA (Body Surface Area) 1.66 m2 [facility] 09-08-2017 09:58-0500 Height 162.56 cm [facility] 09-08-2017 09:58-0500 Pulse (Heart Rate) 108 /min [facility] 09-08-2017 09:58-0500 Pulse Oximetry 98 % [facility] 09-08-2017 09:58-0500 Respiratory Rate 20 /min [facility] 09-08-2017 09:58-0500 Weight 61.24 kg [facility] 06-01-2017 12:04-0400 BMI (Body Mass Index) 23.04 kg/m2 [facility] 06-01-2017 12:04-0400 Body Temperature 98.1 [degF] [facility] 06-01-2017 12:04-0400 BP Diastolic 78 mm[Hg] [facility] 06-01-2017 12:04-0400 BP Systolic 110 mm[Hg] [facility] 06-01-2017 12:04-0400 BSA (Body Surface Area) 1.66 m2 [facility] 06-01-2017 12:04-0400 Height 162.56 cm [facility] 06-01-2017 12:04-0400 Pulse (Heart Rate) 83 /min [facility] 06-01-2017 12:04-0400 Pulse Oximetry 98 % [facility] 06-01-2017 12:04-0400 Respiratory Rate 18 /min [facility] 06-01-2017 12:04-0400 Weight 60.9 kg [facility] 12-04-2016 12:18-0500 BMI (Body Mass Index) 21.49 kg/m2 [facility] 12-04-2016 12:18-0500 Body Temperature 96.5 [degF] [facility] 12-04-2016 12:18-0500 BP Diastolic 70 mm[Hg] [facility] 12-04-2016 12:18-0500 BP Systolic 100 mm[Hg] [facility] 12-04-2016 12:18-0500 BSA (Body Surface Area) 1.6 m2 [facility] 12-04-2016 12:18-0500 Height 162.56 cm [facility] 12-04-2016 12:18-0500 Pulse (Heart Rate) 88 /[facility] 12-04-2016 12:18-0500 Pulse Oximetry 90 % [facility] 12-04-2016 12:18-0500 Weight 56.78 kg [facility] 09-01-2016 10:24-0500 BMI (Body Mass Index) 21.61 kg/m2 [facility] 09-01-2016 10:24-0500 Body Temperature 98 [degF] [facility] 09-01-2016 10:24-0500 BP Diastolic 91 mm[Hg] [facility] 09-01-2016 10:24-0500 BP Systolic 139 mm[Hg] [facility] 09-01-2016 10:24-0500 BSA (Body Surface Area) 1.57 m2 [facility] 09-01-2016 10:24-0500 Height 160.02 cm [facility] 09-01-2016 10:24-0500 Pulse (Heart Rate) 94 /min [facility] 09-01-2016 10:24-0500 Pulse Oximetry 99 % [facility] 09-01-2016 10:24-0500 Respiratory Rate 18 /min [facility] 09-01-2016 10:24-0500 Weight 55.34 kg Desmond [facility] Encounters Encounter Date Encounter Type Care Provider Facility Start: 09-03-2024 End: 09-03-2024 Emergency department patient visit NONE [facility] Start: 08-27-2024 End: 08-27-2024 Emergency department patient visit NONE [facility] Start: 08-21-2024 End: 08-21-2024 ambulatory [facility] Start: 08-04-2024 End: 08-04-2024 Emergency department patient visit NONE NONE [facility] Start: 06-13-2024 End: 06-13-2024 Emergency department patient visit DESMOND Halie [facility] Start: 04-03-2024 End: 04-03-2024 Emergency department patient visit [facility] ED Comment on above: Sprain of left wrist , initial encounter (Primary Dx) Start: 03-20-2024 End: 03-20-[address] [facility] Start: 02-05-2024 End: 02-05-2024 Emergency department patient visit [facility] Start: 01-13-2024 ambulatory [facility] Start: 01-11-2024 End: 01-11-2024 Emergency department patient visit [facility] ED Comment on above: Nausea and vomiting, unspecified vomiting type (Primary Dx); Viral illness Start: 01-11-2024 ambulatory [facility] Start: 12-28-2023 End: 12-28-2023 ambulatory [facility] Start: 12-23-2023 End: 12-23-2023 ambulatory [facility] Start: 12-21-2023 End: 12-21-2023 ambulatory [facility] Start: 12-16-2023 End: 12-16-2023 ambulatory [facility] Start: 12-14-2023 End: 12-14-2023 ambulatory [facility] Start: 12-12-2023 End: 12-12-2023 Emergency department patient visit DESMOND Ambrose BRUCE [facility] Start: 12-10-2023 End: 12-10-2023 ambulatory [facility]N [facility] Start: 12-07-2023 End: 12-07-2023 ambulatory JACQUELYN [facility] Start: 12-07-2023 End: 12-07-2023 Subsequent hospital visit by physician Duy Moffett OTR/L [facility] Comment on above: Arrived Start: 11-28-2023 End: 11-28-2023 Emergency department patient visit DESMOND M [facility] Comment on above: Acute pain of left w rist (Primary Dx) Start: 09-30-2023 End: 09-30-2023 ambulatory Pancho Olexa Other [facility] Other Start: 09-30-2023 Office outpatient visit 25 minutes Pancho Olexa [facility] Start: 09-22-2023 End: 09-22-2023 ambulatory Pancho Olexa Facility:[facility] Start: 09-22-2023 End: 09-22-2023 ambulatory NON STAFF [facility] Work Phone: Start: 09-22-2023 End: 09-22-2023 Patient encounter procedure [facility] [address] Work Phone: Start: 09-20-2023 End: 09-20-2023 ambulatory Pancho Olexa Other [facility] Other Start: 09-20-2023 Telephone encounter Pancho Olexa [facility] Start: 08-26-2023 End: 08-26-2023 ambulatory Pancho Olexa Other [facility] Other Start: 08-26-2023 Office outpatient visit 25 minutes Pancho Olexa [facility] Start: 08-16-2023 End: 08-16-2023 [facility]QHC visit, estab pt Desmond Barrera CAP MACHINE OPERATOR Work Phone: [facility] [place] Work Phone: Start: 07-15-2023 End: 07-15-2023 [facility] visit, estab pt Tiffani DHILLONMARY ELLEN Work Phone: [facility] [place] Work Phone: Start: 07-08-2023 End: 07-08-2023 ambulatory Pancho Olexa Other [facility] Other Start: 07-08-2023 Office outpatient visit 15 minutes Pancho Olexa [facility] Start: 07-05-2023 ambulatory NON STAFF Facility:[facility] Start: 06-08-2023 End: 06-08-2023 ambulatory Pancho Olexa Other [facility] Other Start: 06-08-2023 Office outpatient visit 25 minutes Pancho Diazxa [facility] Start: 06-05-2023 End: 06-05-2023 ambulatory NON STAFF Facility:[facility] Start: 06-05-2023 End: 06-05-2023 ambulatory NON STAFF [facility] Work Phone: Start: 06-05-2023 End: 06-05-2023 Patient encounter procedure [facility] [address] Work Phone: Start: 05-17-2023 End: 05-17-2023 ambulatory Isabel Chi Other [facility] Other Start: 05-17-2023 Telephone encounter Isabel Chi [facility] Start: 05-06-2023 End: 05-06-2023 ambulatory Isabel Chi Other [facility] Other Start: 05-06-2023 Office outpatient ne w 45 minutes Isabel Chi [facility] Start: 05-03-2023 End: 05-03-2023 ambulatory Patric Peters Other [facility] Other Start: 05-03-2023 Telephone encounter [facility] Start: 03-29-2023 End: 06-28-2023 ambulatory Halie BARRERA [facility] Start: 03-29-2023 End: 06-27-2023 Recurring Halie BARRERA [facility] Start: 12-24-2022 End: 12-24-2022 [facility] visit, estab pt Tiffani Short [facility] Work Phone: [facility] [place] Work Phone: Start: 12-24-2022 End: 07-15-2023 Adult health examination Desmond Barrera CAP MACHINE OPERATOR Work Phone: [facility] [place] Work Phone: Start: 12-24-2022 End: 07-15-2023 [facility]QHC visit, estab pt Tiffani Short [facility] Work Phone: [employer] [facility] Work Phone: Start: 12-16-2022 End: 12-17-[address] MONIE PARIKH Facility:[facility] Start: 11-03-2022 End: 11-03-[address] DARLINE TREVIZO Facility:[facility] Start: 10-20-2022 End: 10-20-2022 ambulatory SHAWNEE BARRON . Facility:[facility] Start: 10-05-2022 End: 10-06-[address] DOCTOR RODAS Facility:[facility] Start: 09-30-2022 End: 10-03-2022 ambulatory FRANSICO SHELL [facility] Start: 09-30-2022 End: 10-02-2022 Subsequent hospital visit by physician [facility] Comment on above: Arrived Start: 09-08-2022 End: 09-08-2022 [facility] Start: 08-12-2022 End: 08-13-[address] MONIE PARIKH Facility:[facility] Start: 07-30-2022 End: 07-30-2022 ambulatory JENY LAYTON Facility:[facility] Start: 06-16-2022 End: 06-16-[address] NATHAN CRANE . Facility:[facility] Start: 05-28-2022 End: 05-28-2022 FQHC visit, estab pt Desmond Barrera CAP MACHINE OPERATOR Work Phone: [facility] Work Phone: Start: 04-30-2022 End: 04-30-2022 [facility] visit, estab pt Yelitza Gonsalez LPCC-S Work Phone: [facility] Work Phone: Start: 04-30-2022 End: 04-30-2022 [facility]QHC visit, estab pt Desmond Barrera CAP MACHINE OPERATOR Work Phone: [facility] Work Phone: Start: 04-19-2022 End: 04-19-2022 ambulatory FROY BLACK Facility:[facility] Start: 03-30-2022 End: 03-30-2022 ambulatory FROY BLACK Facility:[facility] Start: 03-16-2022 End: 03-16-2022 FQHC visit, estab pt Yelitza Gonsalez LPCC-S Work Phone: [facility] Work Phone: Start: 03-16-2022 End: 03-17-2022 ambulatory DESMOND BARRERA [facility] Start: 03-16-2022 End: 03-16-2022 FQHC visit, estab pt Yelitza Gonsalez LPCC-S Work Phone: [facility] Work Phone: Start: 12-24-2021 End: 12-24-2021 Adult health examination Desmond Barrera CAP MACHINE OPERATOR Work Phone: [facility] Work Phone: Start: 12-24-2021 End: 12-24-2021 [facility] visit, estab pt [facility] Work Phone: [facility] Work Phone: Start: 12-24-2021 End: 12-24-2021 Patient encounter procedure Desmond Barrera CNP Work Phone: [facility] Work Phone: Start: 04-28-2021 End: 04-28-2021 FQHC visit, estab pt Tiffanited BORJAS Work Phone: [facility] Work Phone: Start: 02-25-2021 End: 02-25-2021 FQ visit, estab pt Desmond Barrera CAP MACHINE OPERATOR Work Phone: [facility] Work Phone: Start: 02-15-2021 End: 02-16-2021 Emergency department patient visit Elliot Reed MD Work Phone: [facility] ED Comment on above: Nausea (Primary Dx); Cyst of right ovary Start: 01-09-2021 End: 01-09-2021 ambulatory Desmond Barrera Work Phone: [facility] Work Phone: Start: 01-09-2021 End: 01-09-2021 Subsequent hospital visit by physician Desmond BOATENG [facility] Start: 12-19-2020 End: 12-19-2020 Established patient Desmond Barrera Work Phone: [facility] Work Phone: Start: 12-11-2020 End: 12-11-2020 Established patient Desmond Barrera Work Phone: [facility] Work Phone: Start: 12-05-2020 End: 12-05-2020 Patient encounter procedure Desmond Barrera Work Phone: [facility] Work Phone: Start: 11-30-2020 End: 11-30-2020 Emergency department patient visit Desmond Barrera [facility] ED Comment on above: Acute pain of left k nee (Primary Dx) Start: 08-30-2020 Patient encounter procedure Desmond GARZA Admitting Start: 08-30-2020 End: 09-03-2020 Evaluation and management of inpatient [facility] Start: 08-30-2020 End: 08-30-2020 Emergency department patient visit Roberto Carlos Maxwellsailajajenae Work Phone: [facility] ED Comment on above: Suicidal ideation (P rimary Dx); Schizoaffective disorder, bipolar type (HCC) Start: 08-12-2020 End: 08-14-2020 Subsequent hospital visit by physician [facility] Nuclear [facility] Comment on above: Nausea Start: 07-25-2020 End: 07-25-2020 Telemedicine consultation with patient Desmond Barrera Work Phone: [facility] Work Phone: Start: 04-08-2020 End: 04-08-2020 Patient encounter procedure Tiffani Cross Work Phone: [facility] Work Phone: Start: 04-08-2020 End: 04-08-2020 Telemedicine consultation with patient Desmond Barrera Work Phone: [facility] Work Phone: Start: 02-29-2020 End: 02-29-2020 Emergency department patient visit Sanjeev Wiggins Work Phone: [facility] ED Comment on above: Visual hallucination (Primary Dx) Start: 02-21-2020 End: 02-21-2020 Emergency department patient visit Jorge Alberto Luther Work Phone: [facility] ED Comment on above: Left foot pain (Prim homer Dx) Start: 07-21-2018 End: 07-21-2018 Patient encounter Annika Colby Facility:[facility] Start: 07-20-2018 End: 07-21-2018 Emergency department patient visit None Provider Facility:[facility] Start: 07-08-2018 End: 07-08-2018 Patient encounter None Provider Facility:[facility] Start: 07-07-2018 End: 07-10-2018 Emergency department patient visit None Provider Facility:[facility] Start: 07-07-2018 Emergency department patient visit Neginelvia Albert Facility:[facility] Start: 03-22-2018 Office outpatient visit 15 minutes Desmond Barrera Other [facility] Start: 03-03-2018 Office outpatient visit 15 minutes Desmond Bruce Other [facility] Start: 09-08-2017 Behavioral Health Darline Khanh linh Other [facility] Start: 09-08-2017 Office outpatient visit 15 minutes Desmondpaulette Barrera Other [facility] Start: 06-01-2017 Office consultation new/estab patient 15 min Desmond Barrera Other [facility] Start: 12-04-2016 Office outpatient visit 15 minutes Desmond Bruce Other [facility] Start: 12-04-2016 Radex ankle complete minimum 3 views [facility] Start: 12-04-2016 Radex foot complete minimum 3 views [facility] Start: 09-01-2016 Tobacco use cessatio n intensive >10 minutes [facility] Start: 09-01-2016 Comprehensive metabolic panel [facility] Start: 09-01-2016 Gluc bld gluc mntr d ev cleared fda spec home use [facility] Start: 09-01-2016 Office outpatient ne w 30 minutes Desmond Barrera Other [facility] Procedures Date Procedure Procedure Detail Performing Clinician Start: 04-02-2024 Urine test visual color cmprsn meths Mcfarland MD Work Phone: Start: 01-11-2024 Creatinine other source Mcfarland MD Work Phone: Start: 01-11-2024 POCT VENOUS Kiesha Chan PA-C Work Phone: Start: 01-11-2024 COVID-19, RAPID Kiesha Chan PA-C Work Phone: Start: 01-11-2024 Iaad ia streptococcu s group a Kiesha Chan PA-C Work Phone: Start: 11-28-2023 Radex wrist complete minimum 3 views Louann MALLORY Work Phone: Start: 09-22-2023 MRI of left wrist Start: 08-16-2023 Current tobacco smoker Desmond Barrera CAP MACHINE OPERATOR Work Phone: Start: 08-16-2023 Most recent diastoli c blood pressure 80-89 mm hg Desmond Barrera CAP MACHINE OPERATOR Work Phone: Start: 08-16-2023 Most recent systolic blood pressure <130 mm hg Desmond Barrera CAP MACHINE OPERATOR Work Phone: Start: 08-16-2023 Psychotherapy w/zohra ent 30 minutes Tiffani Short LIS[facility] Work Phone: Start: 08-16-2023 Pt scrnd tobacco use rcvd tobacco cessation talk Desmond Barrera CAP MACHINE OPERATOR Work Phone: Start: 07-15-2023 Current tobacco smoker Desmond Barrera CAP MACHINE OPERATOR Work Phone: Start: 07-15-2023 Most recent diastoli c blood pressure 80-89 mm hg Desmond Barrera CAP MACHINE OPERATOR Work Phone: Start: 07-15-2023 Most recent systolic blood pressure <130 mm hg Desmond Barrera CAP MACHINE OPERATOR Work Phone: Start: 07-15-2023 Psychotherapy w/zohra ent 30 minutes Tiffani Short LISWS Work Phone: Start: 07-15-2023 Pt scrnd tobacco use rcvd tobacco cessation talk Tiffani BORJAS Work Phone: Start: 07-15-2023 Surgical procedure Sushant Barrera CNP Work Phone: Start: 06-05-2023 MRI of left knee Start: 12-24-2022 Hemoglobin glycosyla marcio a1c Desmond Barrera CNP Work Phone: Start: 12-24-2022 Most recent diastoli c blood pressure 80-89 mm hg Desmond Barrera CNP Work Phone: Start: 12-24-2022 Most recent hemoglob in a1c level < 7.0% Desmond Barrera CNP Work Phone: Start: 12-24-2022 Most recent systolic blood pressure <130 mm hg Desmond Barrera CNP Work Phone: Start: 12-24-2022 Pt-focused hlth risk assmt score doc stnd instrm Desmodn Barrera CNP Work Phone: Start: 09-30-2022 Bone &/joint imaging 3 phase study Fransico Shell PA-C Work Phone: Start: 05-28-2022 Current tobacco smoker Desmond Barrera CNP Work Phone: Start: 05-28-2022 Most recent diastoli c blood pressure 80-89 mm hg Desmond Barrera CNP Work Phone: Start: 05-28-2022 Most recent systolic blood pressure <130 mm hg Desmond Barrera CNP Work Phone: Start: 05-28-2022 Pt scrnd tobacco use rcvd tobacco cessation talk Desmond Barrera CNP Work Phone: Start: 04-30-2022 Current tobacco smoker Desmond Barrera CNP Work Phone: Start: 04-30-2022 Most recent diastoli c blood pressure 80-89 mm hg Desmond Barrera CNP Work Phone: Start: 04-30-2022 Most recent systolic blood pressure <130 mm hg Desmond Barrera CNP Work Phone: Start: 04-30-2022 Psychotherapy w/zohra ent 30 minutes Yelitza Gonsalez LPCC-S Work Phone: Start: 04-30-2022 Pt scrnd tobacco use rcvd tobacco cessation talk Desmond Barrera CAP MACHINE OPERATOR Work Phone: Start: 03-16-2022 Most recent diastoli c blood pressure 80-89 mm hg Desmond Barrera CAP MACHINE OPERATOR Work Phone: Start: 03-16-2022 Most recent systolic blood pressure <130 mm hg Desmond Barrera CAP MACHINE OPERATOR Work Phone: Start: 03-16-2022 Psychotherapy w/zohra ent 30 minutes Yelitza Gonsalez LPCC-S Work Phone: Start: 12-24-2021 Current tobacco smoker Desmond Barrera CNP Work Phone: Start: 12-24-2021 Hemoglobin glycosyla marcio a1c Desmond Barrera CAP MACHINE OPERATOR Work Phone: Start: 12-24-2021 Most recent diastoli c blood pressure < 80 mm hg Desmond Barrera CAP MACHINE OPERATOR Work Phone: Start: 12-24-2021 Most recent systolic blood pressure <130 mm hg Desmond Barrera CAP MACHINE OPERATOR Work Phone: Start: 12-24-2021 Pt scrnd tobacco use rcvd tobacco cessation talk Desmond Barrera CAP MACHINE OPERATOR Work Phone: Start: 04-28-2021 Current tobacco smoker Desmond Barrera CAP MACHINE OPERATOR Work Phone: Start: 04-28-2021 Most recent diastoli c blood pressure < 80 mm hg Desmond Barrera CAP MACHINE OPERATOR Work Phone: Start: 04-28-2021 Most recent systolic blood pressure <130 mm hg Desmond Barrera CAP MACHINE OPERATOR Work Phone: Start: 04-28-2021 Psychotherapy w/ozhra ent 30 minutes Tiffani BORJAS Work Phone: Start: 04-28-2021 Pt scrnd tobacco use rcvd tobacco cessation talk Desmond Barrera CNP Work Phone: Start: 02-25-2021 Current tobacco smoker Desmond Barrera CNP Work Phone: Start: 02-25-2021 Pt scrnd tobacco use rcvd tobacco cessation talk Desmond Barrera CNP Work Phone: Start: 02-15-2021 Ct abdomen & pelvis w/contrast material Elliot Reed MD Work Phone: Start: 02-15-2021 End: 02-15-2021 Comprehensive metabolic panel Elliot Reed MD Work Phone: Start: 02-15-2021 Urinalysis microscop ic only Elliot Reed MD Work Phone: Start: 02-15-2021 Urine test visual color cmprsn meths Elliot Reed MD Work Phone: Start: 01-09-2021 Diast bp <80 mm hg Sushant Barrera Work Phone: Start: 01-09-2021 Obtaining screen pap smear Desmond Barrera Work Phone: Start: 01-09-2021 Syst bp lt 130 mm hg mony Barrera Work Phone: Start: 01-09-2021 Iaad ia chlamydia trachomatis Desmond Barrera Work Phone: Start: 01-09-2021 Microscopic observat ion [Identifier] in Cervix by Cyto stain [place] [facility] Start: 12-19-2020 Current tobacco smoker Desmond Barrera Work Phone: Start: 12-11-2020 Diast bp 80-89 mm hg mony Barrera Work Phone: Start: 12-11-2020 Iaad ia hiv-1 ag w/h iv-1 & hiv-2 antbdy single Desmond Barrera Work Phone: Start: 12-11-2020 Pt-focused hlth risk assmt score doc stnd instrm Desmond Barrera Work Phone: Start: 12-11-2020 Syst bp lt 130 mm hg mony Barrera Work Phone: Start: 11-30-2020 Radiologic examinati on knee 3 views Roberto Carlos Jolie Work Phone: Start: 09-03-2020 DISCHARGE PATIENT RUSHE ETH THUMMALAPALLY Start: 08-30-2020 DIET GENERAL RUSHEETH T HUMMALAPALLY Start: 08-30-2020 IP CONSULT TO HISTOR Y AND PHYSICAL RUSHEETH THUMMALAPALLY Start: 08-30-2020 MISCELLANEOUS NURSIN G CARE ORDER (SPECIFY) RUSHEETH THUMMALAPALLY Start: 08-30-2020 PATIENT MONITORING C LOSE Q 15 MINUTES RUSHEETH THUMMALAPALLY Start: 08-30-2020 VITAL SIGNS, PSYCH CLAROS EETH THUMMALAPALLY Start: 08-30-2020 FULL CODE RUSHEETH T HUMMALAPALLY Start: 08-30-2020 PATIENT STATUS (DIRECT) RUSHEETH THUMMALAPALLY Start: 08-30-2020 COVID-19 Roberto Carlos Hector lombardi Work Phone: Start: 08-30-2020 Drug screen class list a Roberto Carlos Dave Work Phone: Start: 08-30-2020 Ecg routine ecg w/le ast 12 lds i&r only Roberto Carlos Danielsonjenae Work Phone: Start: 08-30-2020 Ecg routine ecg w/le ast 12 lds w/i&r Roberto Carlos Danielsonjenae Work Phone: Start: 08-30-2020 EKG REPORT Hpf Scanni ng Start: 08-30-2020 Assay of acetaminophen Roberto Carlos Dave Work Phone: Start: 08-30-2020 Assay of ethanol Larry d Hansmina Work Phone: Start: 08-30-2020 Assay of salicylate Pol[employer] Work Phone: Start: 08-30-2020 Blood count complete auto&auto difrntl wbc Roberto Carlos Dave Work Phone: Start: 08-30-2020 Comprehensive metabo lic panel Roberto Carlos Dave Work Phone: Start: 08-30-2020 Gonadotropin chorion ic qualitative Roberto Carlos Dave Work Phone: Start: 08-12-2020 Hepatobil syst imag inc gb w/pharma intervenj Desmond Barrera Work Phone: Start: 04-08-2020 no recent change in medical history Desmond Bruce CAP MACHINE OPERATOR Work Phone: Start: 02-29-2020 Drug screen class list a Sanjeev MedinaMobile Messenger Work Phone: Start: 02-29-2020 Assay of thyroid stimulating hormone tsh Sanjeev Wiggins Work Phone: Start: 02-29-2020 BASIC METABOLIC PANE L W/ REFLEX TO MG FOR LOW K Sanjeev Wiggins Work Phone: Start: 02-29-2020 Blood count complete auto&auto difrntl wbc Sanjeev Wiggins Work Phone: Start: 02-29-2020 Gonadotropin chorion ic qualitative Sanjeev Wiggins Work Phone: Start: 02-29-2020 TOX SCR, BLD, ED Alexan ArmendarizMobile Messenger Work Phone: Start: 02-21-2020 Radex foot complete minimum 3 views Jorge Alberto Luther Work Phone: Start: 09-08-2017 Psychotherapy w/zohra ent 30 minutes Desmond Barrera Start: 09-08-2017 End: 09-08-2017 PHQ9 Administered Desmond Barrera Start: 06-01-2017 Cytp cerv/vag auto t hin layer prep mnl screen Desmond Barrera Start: 12-04-2016 PHQ9 Administered Desmond Barrera Start: 12-04-2016 Radex ankle complete minimum 3 views Desmond Barrera Start: 12-04-2016 Radex foot complete minimum 3 views Desmond Barrera Start: 12-04-2016 SBIRT- Full Screen *POSITIVE* Referred to Provider Desmond Barrera Start: 09-01-2016 Assay of thyroid stimulating hormone tsh Desmond Barrera Start: 09-01-2016 Blood count complete auto&auto difrntl wbc Desmond Barrera Start: 09-01-2016 Collection venous bl ood venipuncture Desmond Barrera Start: 09-01-2016 Comprehensive metabo lic panel Desmond Barrera Start: 09-01-2016 ENT Desmond marina Start: 09-01-2016 Lipid panel Desmond marina Start: 09-01-2016 Hemoglobin glycosyla marcio a1c Desmond Barrera Start: 09-01-2016 HIV SCREENING *in-house* Desmond Barrera Plan of Treatment Date Care Activity Detail Author Start: 02-04-2024 End: 02-04-2024 Patient encounter procedure 02/04/2024 10:30 AM EDT Office Visit [facility] [address] [place] [id number] Jacquelyn Sadler PA-C [address] [place] [address] [phone] follow up , Left Wrists. [facility] Comment on above: follow up , Left Wri sts. Start: 01-10-2024 Screening for malignant neoplasm of cervix [facility] Start: 12-10-2023 End: 12-10-2023 Patient encounter procedure 12/10/2023 9:00 AM EST Appointment [address] [address] Duy Moffett, OTR/L 1-2x/wk 8-12 visits [facility] Comment on above: 1-2x/wk 8-12 visits Start: 10-21-2023 [facility] visit, estab pt Medical E stablished Patient [facility] Work Phone: Start: 08-16-2023 End: 08-16-2023 Patient education based on identified need [facility] offered active and supportive listening. ~P discussed coping skills and supports to implement in daily routine to manage increased anxiety. [facility] encouraged sheryl tto continue to follow-up with therapy via telehealth as she identified this as a postivie support [facility] Start: 08-16-2023 [facility] visit, estab pt Medical E stablished Patient [facility] Work Phone: Start: 08-16-2023 End: 08-16-2023 Patient education based on identified need [facility] Start: 07-20-2023 CBC W Auto Differential panel - Blood [facility] Start: 07-20-2023 Lipid 1996 panel - Serum or Plasma LIPID PROFILE [facility] Start: 07-20-2023 Thyrotropin [Units/volume] in Serum or Plasma TSH [facility] Start: 07-15-2023 End: 07-15-2023 Patient education based on identified need [facility] Start: 06-11-2023 COVID-19 Vaccine () COVID-19 Vaccine () Milo Start: 12-29-2022 CBC W Auto Differential panel - Blood [facility] Start: 12-29-2022 Lipid 1996 panel - Serum or Plasma LIPID PROFILE [facility] Start: 12-29-2022 Thyrotropin [Units/volume] in Serum or Plasma TSH [facility] Start: 12-24-2022 [facility] visit, estab pt Ti [facility] Work Phone: Comment on above: Note: Please make a referral to: behavioral health [place] Start: 12-24-2022 End: 12-24-2022 Patient education based on identified need [facility] Start: 05-28-2022 [facility] visit, estab pt Medical E stablished Patient [facility] Work Phone: Start: 05-28-2022 End: 05-28-2022 Patient education based on identified need [facility] Start: 05-25-2022 Dental Comp Exam [facility] Work Phone: Start: 05-11-2022 Influenza vaccination Flu vaccine (# 1) [facility] Start: 04-30-2022 End: 04-30-2022 Patient education based on identified need [facility] Start: 03-16-2022 [facility] Work Phone: Comment on above: Note: Please make a referral to: thais FATIMA , recent imaging on file Start: 03-16-2022 End: 03-16-2022 Patient education based on identified need [facility] Start: 12-29-2021 CBC W Auto Differential panel - Blood [facility] Start: 12-29-2021 Lipid 1996 panel - Serum or Plasma LIPID PROFILE [facility] Start: 12-29-2021 Thyrotropin [Units/volume] in Serum or Plasma TSH [facility] Start: 12-25-2021 [facility] visit, estab pt Medical E stablished Patient [facility] Work Phone: Start: 12-24-2021 End: 12-24-2021 Patient education based on identified need [facility] Start: 12-24-2021 End: 12-24-2021 Provider instructions for treatment Intervention and counseling on cessation of tobacco use, 3-10 minutes Discussed medication and nicotine replacement for tobacco cessation [facility] Start: 09-11-2021 COVID-19 Vaccine (3 - Booster for Pfizer series) COVID-19 Vaccine (3 - Booster for Pfizer series) [facility] Start: 2021 Screening for malignant neoplasm of cervix HPV (without or with Pap) [facility] Start: 04-28-2021 End: 04-28-2021 Patient education based on identified need [facility] Start: 04-28-2021 [facility] Work Phone: Comment on above: Note: Please make a referral to: Note: Please make a referral to: [facility] Start: 02-25-2021 End: 02-25-2021 Patient education based on identified need [facility] Start: 02-08-2021 ThinPrep with GC and Chlamydia [facility] Work Phone: Start: 01-09-2021 End: 01-09-2021 Patient education based on identified need [facility] Start: 01-09-2021 [facility] Work Phone: Start: 12-26-2020 Lipid 1996 panel [facility] Work Phone: Start: 12-19-2020 End: 12-19-2020 Patient education based on identified need [facility] Start: 12-19-2020 End: 12-19-2020 Provider instructions for treatment Intervention and counseling on cessation of tobacco use, 3-10 minutes [facility] Start: 12-11-2020 End: 12-11-2020 Patient education based on identified need [facility] Start: 08-24-2020 Other Diagnostic Test: [facility] Work Phone: Start: 06-11-2020 Influenza vaccination [place] Start: 04-15-2020 Iron [Mass/Vol] [facility] Work Phone: Start: 04-08-2020 [facility] Work Phone: Comment on above: Note: Please make a referral to: Start: 02-26-2020 DTaP/Tdap/Td vaccine (7 - Td or Tdap) DTaP/Tdap/Td vaccine (7 - Td or Tdap) [facility] Start: 02-26-2020 DTaP/Tdap/Td vaccine (7 - Td) DTaP/Tdap/Td vaccine (7 - Td) [facility] Work Phone: Start: 2012 Screening for malignant neoplasm of cervix Cervical cancer screen [place], [place] Start: 08-28-2010 Hepatitis A vaccine (2 of 2 - 2-dose series) Hepatitis A vaccine (2 of 2 - 2-dose series) [facility] Start: 06-17-2010 Hepatitis B vaccine (3 of 3 - 3-dose primary series) Hepatitis B vaccine (3 of 3 - 3-dose primary series) [facility] Work Phone: Start: 06-17-2010 Hepatitis B vaccine (3 of 3 - 3-dose series) Hepatitis B vaccine (3 of 3 - 3-dose series) [facility] Start: 2010 DTaP/Tdap/Td vaccine (1 - Tdap) DTaP/Tdap/Td vaccine (1 - Tdap) [place] Start: 2009 Hepatitis C screening Hepatitis C sc reen [facility] Start: 2007 COVID-19 Vaccine (1) COVID-19 Vaccin e (1) [facility] [employer] Phone: Start: 2006 HIV screening HIV screen [facility] [employer] Start: 2003 [facility] Start: 1997 Pneumococcal 0-64 years Vaccine (1 - PCV) Pneumococcal 0-64 years Vaccine (1 - PCV) [facility] Start: 1997 Pneumococcal 0-64 years Vaccine (1 of 1 - PPSV23) Pneumococcal 0-64 years Vaccine (1 of 1 - PPSV23) [place] Start: 1997 Pneumococcal 0-64 years Vaccine (1 of 2 - PCV) Pneumococcal 0-64 years Vaccine (1 of 2 - PCV) [facility] Start: 1992 Varicella vaccine (1 of 2 - 2-dose childhood series) Varicella vaccine (1 of 2 - 2-dose childhood series) [place] Start: 1991 Hepatitis C screening Hepatitis C sc cong [facility] [employer] Phone: EKG 12 Lead EKG 12 Lead ECG STAT 08/30/2020 2:25 AM EST [place] End: 01-11-2024 Glucose [Mass/volume] in Serum or Plasma POCT Glucose Point of Care Testing STAT One Time for 1 Occurrences starting 01/11/2024 until 01/11/2024 [facility] [employer] Phone: Comment on above: One Time for 1 Occur rences starting 01/11/2024 until 01/11/2024 End: 01-10-2021 CHEMICAL OPERATIONS SPECIALIST Cytology CHEMICAL OPERATIONS SPECIALIST Cytology Lab Routine Once for 1 Occurrences starting 01/10/2021 until 01/10/2021 [facility] [employer] Phone: Comment on above: Once for 1 Occurrenc es starting 01/10/2021 until 01/10/2021 End: 04-03-2024 XR Hand - left 3 Views XR HAND LEFT (MIN 3 VIEWS) Imaging STAT Once for 1 Occurrences starting 04/03/2024 until 04/03/2024 [facility] Comment on above: Once for 1 Occurrenc es starting 04/03/2024 until 04/03/2024 XR Hand - left 3 Views XR HAND L EFT (MIN 3 VIEWS) Imaging STAT 04/03/2024 12:52 AM EDT [facility] End: 04-03-2024 XR Radius and Ulna - left 2 Views XR RADIUS ULNA LEFT (2 VIEWS) Imaging STAT Once for 1 Occurrences starting 04/03/2024 until 04/03/2024 [facility] Work Phone: Comment on above: Once for 1 Occurrenc es starting 04/03/2024 until 04/03/2024 XR Radius and Ulna - left 2 Views XR RADIUS ULNA LEFT (2 VIEWS) Imaging STAT 04/03/2024 12:52 AM EDT [facility] End: 04-03-2024 XR Wrist - left 3 Views XR WRIST LEFT (MIN 3 VIEWS) Imaging STAT Once for 1 Occurrences starting 04/03/2024 until 04/03/2024 [facility] Comment on above: Once for 1 Occurrenc es starting 04/03/2024 until 04/03/2024 XR Wrist - left 3 Views XR WRIST LEFT (MIN 3 VIEWS) Imaging STAT 04/03/2024 12:52 AM EDT [facility] Immunizations Immunization Date Immunization Notes Care Provider Александр caballreo 07-15-2023 influenza, injectabl e, quadrivalent, preservative free; Translations: [Fluarix] Desmond Barrera CNP Work Phone: [facility] Comment on above: Note: Patient tolera marcio well. No signs or symptoms of adverse reactions. Patient waited a minimum of 15 minutes. 07-15-2023 Imm.Admin. over 18 y rs Any Route FIRST Injection Desmond Barrera CNP Work Phone: [facility] 07-15-2023 Imm.Admin. over 18 y rs Any Route FIRST Injection (Rendering physcian modifier) Desmond Barrera FLORENTINO Work Phone: [facility] 09-03-2020 influenza, injectabl e, quadrivalent, preservative free Desmond Barrera [facility] 07-17-2010 influenza, seasonal, injectable, preservative free Desmond Barrera CAP MACHINE OPERATOR Work Phone: [facility] 04-09-2010 hepatitis B vaccine, pediatric or pediatric/adolescent dosage Desmond Barrera CAP MACHINE OPERATOR Work Phone: [facility] 04-09-2010 varicella virus vaccine Sushant e Bruce CAP MACHINE OPERATOR Work Phone: [facility] 02-25-2010 hepatitis A vaccine, adult dosage Desmond Barrera CAP MACHINE OPERATOR Work Phone: [facility] 02-25-2010 hepatitis A vaccine, pediatric/adolescent dosage, 2 dose schedule Desmond Bruce GOOD Work Phone: [facility] 02-25-2010 hepatitis B vaccine, pediatric or pediatric/adolescent dosage Desmond Barrera CAP MACHINE OPERATOR Work Phone: [facility] 02-25-2010 human papilloma viru s vaccine, quadrivalent Desmond Barrera CAP MACHINE OPERATOR Work Phone: [facility] 02-25-2010 meningococcal polysaccharide (groups A, C, Y and W-135) diphtheria toxoid conjugate vaccine (MCV4P) Desmond Bruce GOOD Work Phone: [facility] 02-25-2010 tetanus toxoid, redu teagan diphtheria toxoid, and acellular pertussis vaccine, adsorbed Desmond Barrera CAP MACHINE OPERATOR Work Phone: [facility] 02-25-2010 varicella virus vaccine Sushant e Bruce GOOD Work Phone: [facility] 10-29-2009 human papilloma viru s vaccine, quadrivalent Desmondpaulette Barrera CNP Work Phone: [facility] 08-28-2009 human papilloma viru s vaccine, quadrivalent Desmond Bruce CAP MACHINE OPERATOR Work Phone: [facility] 09-06-2006 influenza, seasonal, injectable Desmond Bruce CAP MACHINE OPERATOR Work Phone: [facility] 08-19-2005 influenza, seasonal, injectable Desmond Bruce CAP MACHINE OPERATOR Work Phone: [facility] 08-26-2004 influenza, seasonal, injectable Desmond Bruce CAP MACHINE OPERATOR Work Phone: [facility] 07-23-2003 influenza, seasonal, injectable Desmond Bruce CAP MACHINE OPERATOR Work Phone: [facility] 08-16-2002 influenza, seasonal, injectable Desmond Bruce CAP MACHINE OPERATOR Work Phone: [facility] 08-24-2001 influenza, seasonal, injectable Desmond Bruce CAP MACHINE OPERATOR Work Phone: [facility] 06-08-1996 diphtheria, tetanus toxoids and acellular pertussis vaccine Desmond Bruce CAP MACHINE OPERATOR Work Phone: [facility] 06-08-1996 measles, mumps and rubella virus vaccine Desmond Bruce CAP MACHINE OPERATOR Work Phone: [facility] 06-08-1996 trivalent poliovirus vaccine, live, oral Desmond Bruce CAP MACHINE OPERATOR Work Phone: [facility] 10-31-1992 diphtheria, tetanus toxoids and pertussis vaccine Desmond Bruce CAP MACHINE OPERATOR Work Phone: [facility] 09-26-1992 measles, mumps and rubella virus vaccine Desmond Bruce CAP MACHINE OPERATOR Work Phone: [facility] 09-26-1992 trivalent poliovirus vaccine, live, oral Desmond Bruce CAP MACHINE OPERATOR Work Phone: [facility] 01-11-1992 diphtheria, tetanus toxoids and pertussis vaccine Desmond Bruce CAP MACHINE OPERATOR Work Phone: [facility] 1991 diphtheria, tetanus toxoids and pertussis vaccine Desmond Bruce CAP MACHINE OPERATOR Work Phone: [facility] 1991 trivalent poliovirus vaccine, live, oral Desmond Barrera CAP MACHINE OPERATOR Work Phone: [facility] 1991 diphtheria, tetanus toxoids and pertussis vaccine Desmond Barrera CAP MACHINE OPERATOR Work Phone: [facility] 1991 trivalent poliovirus vaccine, live, oral Desmond Barrera CAP MACHINE OPERATOR Work Phone: [facility] Payers Date Payer Category Payer Unknown [facility] MEDICAID xxxxxxxxxxx 2019-Present [phone] CLAIMS DEPARTMENT [address] [place] [address] xxxxxxxxxxx [id number] 2018 Self-pay [facility] 2018 Self-pay 1959 Medicaid [id number] [id number] 2018 Unknown [id number] 2.16.840.1.627841.3.441 1991 Unknown [id number] 2.16.840.1.899931.3.579.2. 1991 Unknown [id number] 2.16.840.1.777171.3.579.2. 1991 Unknown [id number] 2.16.840.1.845024.3.579.2. 1991 Unknown [id number] 2.16.840.1.796991.3.579.2. 1991 Unknown [id number] 2.16.840.1.756338.3.579.2. 1991 Unknown [id number] 2.16.840.1.740999.3.579.2.176 1991 Unknown [id number] 2.16.840.1.943223.3.579.2.175 1991 Unknown [id number] 2.16.840.1.211507.3.579.2.173 1991 Unknown [id number] 2.16.840.1.143746.3.579.2.173 1991 Unknown [id number] 2.16.840.1.954307.3.579.2.173 1991 Unknown [id number] 2.16.840.1.848583.3.579.2.593 1991 Unknown [id number] 2.16.840.1.762046.3.579.2.593 1991 Unknown [id number] 2.16.840.1.533508.3.579.2.593 1991 Unknown [id number] 2.16.840.1.041982.3.579.2.593 1991 Unknown [id number] 2.16.840.1.476075.3.579.2.593 1991 Unknown [id number] 2.16.840.1.294217.3.579.2.593 1991 Unknown [id number] 2.16.840.1.479770.3.579.2.593 1991 Unknown [id number] 2.16.840.1.032693.3.579.2.593 1991 Unknown [id number] 2.16.840.1.837869.3.579.2.593 1991 Unknown [id number] 2.16.840.1.040306.3.579.2.727 1991 Unknown [id number] 2.16.840.1.717222.3.579.2.1246 1991 Unknown [id number] 2.16.840.1.268564.3.579.2.1244 1991 Unknown [id number] 2.16.840.1.313893.3.579.2.1244 1991 Unknown [id number] 2.16.840.1.808900.3.579.2.182 1991 Unknown [id number] 2.16.840.1.769202.3.579.2.182 1991 Unknown [id number] 2.16.840.1.499834.3.579.2.182 1991 Unknown [id number] 2.16.840.1.806458.3.579.2.182 1991 Unknown [id number] 2.16.840.1.455350.3.579.2.182 1991 Unknown [id number] 2.16.840.1.901286.3.579.2.182 1991 Unknown [id number] 2.16.840.1.524989.3.579.2.182 1991 Unknown [id number] 2.16.840.1.615770.3.579.2.182 1991 Unknown [id number] 2.16.840.1.963563.3.579.2.182 1991 Unknown [id number] 2.16.840.1.527115.3.579.2.182 1991 Unknown [id number] 2.16.840.1.645015.3.579.2.182 1991 Unknown [id number] 2.16.840.1.144717.3.579.2.182 1991 Unknown [id number] 2.16.840.1.946325.3.579.2.182 1991 Unknown [id number] 2.16.840.1.590057.3.579.2.182 1991 Unknown [id number] 2.16.840.1.999654.3.579.2.182 1991 Unknown [id number] 2.16.840.1.834441.3.579.2.182 1991 Unknown [id number] 2.16.840.1.111651.3.579.2.182 1991 Unknown [id number] 2.16.840.1.843947.3.579.2.182 1959 Unknown [id number] 1959 Unknown [id number] 2.16.840.1.395397.3.140.1.7299 9.5.10.6.3 1959 Unknown [id number] 1959 Unknown [id number] Unknown [id number] 2.16.840.1.153181.3.579.2.531 Unknown [id number] 2.16.840.1.281126.3.579.2.531 Unknown [id number] 2.16.840.1.491955.3.579.2.531 Social History Date Type Detail Facility Start: Unknown if ever smoked [facility] Start: [facility] Start: 04-04-2019 End: 02-04-2024 Current every day smoker [facility] History of tobacco use Cigarette Smoker [place] Start: 04-04-2019 End: 02-05-2024 Cigarettes smoked current (pack per day) - Reported [place], [place] Start: 1991 Sex Assigned At Not on file [place] Exposure to SARS-CoV-2 (event) Unable to assess [place] Assertion Gender identity finding (finding) [facility] Assertion Finding of sexua l orientation (finding) [facility] Tobacco smoking status Unknown if ever smoked [facility] Work Phone: Start: 02-29-2020 End: 02-04-2024 [facility] and exposure [facility] Start: 08-29-2022 End: 09-08-2022 Exposure to SARS-CoV-2 (event) Not sure [facility] Start: 08-31-2020 End: 04-03-2024 [facility] Start: 08-30-2020 End: 12-02-2023 Tobacco Comment Patient declined counseling [facility] Assertion Tobacco user (finding) [facility] Work Phone: Assertion Smoker (finding) [facility] Assertion Moderate cigaret te smoker (10-19 cigs/day) (finding) [facility] Work Phone: Start: 01-27-2021 Assertion [facility] Assertion Ex-smoker (finding) [facility] Work Phone: Assertion Smoking monitori ng status (finding) [facility] Work Phone: Assertion Heavy cigarette smoker (20-39 cigs/day) (finding) [facility] Assertion Finding relating to sexual activity (finding) [facility] Assertion Sexually active (finding) [facility] Assertion Exposure to poll ution (event) [facility] Assertion Emotional stress (finding) [facility] Assertion Light cigarette smoker (1-9 cigs/day) (finding) [facility] Assertion Family problems (finding) [facility] Lives with dede mendoza (finding) [facility] Start: 11-28-2023 End: 02-05-2024 Sex Assigned At [facility] Start: 1990 Sex Assigned At Female F [facility] Tobacco smoking status No Smoking Status Entered [facility] Assertion Currently not se xually active (finding) [facility] Assertion Unemployed (finding) [facility] History of tobacco use Tobacco Use Types Packs/Day Years Used Date Smoking Tobacco: Every Day Cigarettes E-Cigarettes Smokeless Tobacco: Never BON SECOURS iFlipd How often to you hav e a drink containing alcohol? Never BON [facility] NEGATED: Highlighted row Assertion Exposure to pollution (event) Health [facility] NEGATED: Highlighted row Assertion Tobacco user (finding) Health [facility] Work Phone: NEGATED: Highlighted row Assertion Contraception (finding) [facility] NEGATED: Highlighted row Assertion Current drinker of alcohol (finding) Health [facility] NEGATED: Highlighted row Assertion Finding relating to drug misuse behavior (finding) Health [facility] NEGATED: Highlighted row Assertion Health [facility] Functional Status Date Assessment Result Facility Finding Health [facility] Work Phone: Mental Status Date Assessment Result Facility Cognitive function No anxiety Anxiety (fi nding) [facility] Work Phone: Clinical Notes 01-09-2021 to 09-30-2023 Note Date & Type Note Facility 09-30-2023 Evaluation note Encounter Date Diagnosis Assessment Notes Sep, Sprain of left wrist, subsequent encounter (ICD-10 - S63.502D) Sep, Contusion of left wrist, subsequent encounter (ICD-10 - S60.212D) Sep, 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 Extensive discussion about current condition and treatment options available. MRI demonstrates injury to TFCC. Patient advised this may improve with time and with light strengthening. Patient instructed on the use of wrist support as needed with activity. If problems persist, we will consider cortisone injection. [facility] Other 12-11-2023 Evaluation note* Encounter Date Diagnosis Assessment Notes Treatment Notes Treatment Clinical Notes Sep, Sprain of left wrist, initial encounter (ICD-10 - S63.502A) [facility] Other 11-16-2023 Evaluation note* Encounter Date Diagnosis Assessment Notes Treatment Notes Treatment Clinical Notes Aug, Sprain of left wrist, subsequent encounter (ICD-10 - S63.502D) Aug, Contusion of left wrist, subsequent encounter (ICD-10 - S60.212D) Aug, Derangement of left wrist joint (ICD-10 - M24.9) Extensive discussion was had about the current condition and treatment options available. Patient's symptoms have not improved and she continues to experience pain limiting activities. I am concerned about potential injury that will not improve with conservative and non-operative treatments. Continued active use of the wrist can lead to worsening of the condition. We will orider an MRI of the wrist to identify the source of pain [facility] Other 11-06-2023 Evaluation note Includes: Assessments for all patient encounters Findings Encounter Date Autism spectrum disorder Established Patient with Tiffani Short LISWS 08/16/2023 Last Documented On 3 4:21PM ; [facility] Bipolar schizoaffective disorder Esta blished Patient with Tiffani Short LISWS 08/16/2023 Last Documented On 3 4:21PM ; [facility] Dependence on nicotine in ci garettes - uncomplicated Established Patient with Tiffani Short LISWS 08/16/2023 Last Documented On 3 4:21PM ; [facility] Generalized anxiety disorder Establis hed Patient with Tiffani Short LISWS 08/16/2023 Last Documented On 3 4:21PM ; [facility] [Z68.36 - Body mass index [B WA] 36.0-36.9, adult] assessment of body mass index Medical Established Patient with Desmond Bruce CAP MACHINE OPERATOR 08/16/2023 Last Documented On 3 1:33PM ; [facility] Dependence on nicotine in ci garettes - uncomplicated Medical Established Patient with Desmond Bruce CAP MACHINE OPERATOR 08/16/2023 Last Documented On 3 1:33PM ; [facility] Dependence on nicotine in ci garettes - uncomplicated Medical Established Patient with Desmond Bruce CAP MACHINE OPERATOR 08/16/2023 Last Documented On 3 1:33PM ; [facility] Generalized anxiety disorder Medical Est ablished Patient with Desmond Bruce CAP MACHINE OPERATOR 08/16/2023 Last Documented On 3 1:33PM ; [facility] Generalized anxiety disorder Medical Est ablished Patient with Desmond Bruce CAP MACHINE OPERATOR 08/16/2023 Last Documented On 3 1:33PM ; [facility] Autistic disorder BH Established Patient with Daisy spencerlin Short LISWS 07/15/2023 Last Documented On 3 4:46PM ; [facility] Bipolar schizoaffective disorder BH Esta blished Patient with Tiffani Short LISWS 07/15/2023 Last Documented On 3 4:46PM ; [facility] Dependence on nicotine in ci garettes - uncomplicated BH Established Patient with Tiffani Short LISWS 07/15/2023 Last Documented On 3 4:46PM ; [facility] Generalized anxiety disorder BH Establis hed Patient with Tiffani Short LISWS 07/15/2023 Last Documented On 3 4:46PM ; [facility] [N94.6 - Dysmenorrhea, unspe cified] dysmenorrhea Medical Established Patient with Desmond Barrera CAP MACHINE OPERATOR 07/15/2023 Last Documented On 3 3:36PM ; [facility] Assessment of body mass index Medical Es tablished Patient with Desmond Bruce CAP MACHINE OPERATOR 07/15/2023 Last Documented On 3 3:36PM ; [facility] Body mass index Medical Established Patient with Desmond Bruce CAP MACHINE OPERATOR 07/15/2023 Last Documented On 3 3:36PM ; [facility] Dependence on nicotine in ci garettes - uncomplicated Medical Established Patient with Desmondpaulette Estradaen CAP MACHINE OPERATOR 07/15/2023 Last Documented On 3 3:36PM ; [facility] Encounter for Immunization Medical Estab lished Patient with Desmond Bruce CAP MACHINE OPERATOR 07/15/2023 Last Documented On 3 3:36PM ; [facility] Generalized anxiety disorder Medical Est ablished Patient with Desmond Bruce CAP MACHINE OPERATOR 07/15/2023 Last Documented On 3 3:36PM ; [facility] Uncomplicated mild persistent asthma Med ical Established Patient with Desmond Bruce CAP MACHINE OPERATOR 07/15/2023 Last Documented On 3 3:36PM ; [facility] Visit for routine adult H&P without abnormal findings Medical Established Patient with Desmond Bruce CAP MACHINE OPERATOR 07/15/2023 Last Documented On 3 3:36PM ; [facility] Bipolar schizoaffective disorder BH Esta blished Patient with Tiffani Short LISWS 12/24/2022 Last Documented On 3 8:44AM ; [facility] Generalized anxiety disorder BH Establis hed Patient with Tiffani Short LISWS 12/24/2022 Last Documented On 3 8:44AM ; [facility] [Z68.33 - Body mass index [B WA] 33.0-33.9, adult] assessment of body mass index Medical Established Patient with Desmondpaulette Estradaen CAP MACHINE OPERATOR 12/24/2022 Last Documented On 3 1:22PM ; [facility] Diabetes Risk Test Score was three score 12/24/2022 Medical Established Patient with Desmondpaulette Estradaen CAP MACHINE OPERATOR 12/24/2022 Last Documented On 3 1:22PM ; [facility] Visit for routine adult H&P without abnormal findings Medical Established Patient with Desmond Bruce CAP MACHINE OPERATOR 12/24/2022 Last Documented On 3 1:22PM ; [facility] Asthma Medical Established Patient with Desmond Bruce CAP MACHINE OPERATOR 05/28/2022 Last Documented On 2 10:19AM ; [facility] Z68.33 - Body mass index [BM I] 33.0-33.9, adult Medical Established Patient with Desmond Bruce CAP MACHINE OPERATOR 05/28/2022 Last Documented On 2 10:19AM ; [facility] Bipolar schizoaffective disorder BH Esta blished Patient with Yelitza Gonsalez LPCC-S 04/30/2022 Last Documented On 2 9:11PM ; [facility] Generalized anxiety disorder BH Establis hed Patient with Yelitza Gonsalez LPCC-S 04/30/2022 Last Documented On 2 9:11PM ; [facility] No cough Medical Established Patient with Desmond Bruce CAP MACHINE OPERATOR 04/30/2022 Last Documented On 2 9:39AM ; [facility] Z68.32 - Body mass index [BM I] 32.0-32.9, adult Medical Established Patient with Desmond Bruce CAP MACHINE OPERATOR 04/30/2022 Last Documented On 2 9:39AM ; [facility] Bipolar schizoaffective disorder BH Esta blished Patient with Yelitza Gonsalez LPCC-S 03/16/2022 Last Documented On 2 10:54PM ; [facility] Generalized anxiety disorder BH Establis hed Patient with Yelitza Gonsalez LPCC-S 03/16/2022 Last Documented On 2 10:54PM ; [facility] No cough Medical Established Patient with Desmond Bruce CAP MACHINE OPERATOR 03/16/2022 Last Documented On 2 11:22AM ; [facility] Z68.32 - Body mass index [BM I] 32.0-32.9, adult Medical Established Patient with Desmond Brcue CAP MACHINE OPERATOR 03/16/2022 Last Documented On 2 11:22AM ; [facility] Bipolar schizoaffective disorder BH Esta blished Patient with Yelitza Gonsalez LPCC-S 12/24/2021 Last Documented On 2 12:42AM ; [facility] Generalized anxiety disorder Establis hed Patient with Yelitza Gonsalez LPCC-S 12/24/2021 Last Documented On 2 12:42AM ; [facility] Diabetes Risk Test Score was three score 12/24/2021 Medical Established Patient with Desmond Bruce CAP MACHINE OPERATOR 12/24/2021 Last Documented On 2 11:15AM ; [facility] Intervention and counseling on cessation of tobacco use, 3-10 minutes Discussed medication and nicotine replacement for tobacco cessation Medical Established Patient with Desmond Bruce CAP MACHINE OPERATOR 12/24/2021 Last Documented On 2 11:15AM ; [facility] Nicotine dependence Medical Established Patient with Desmond Bruce CAP MACHINE OPERATOR 12/24/2021 Last Documented On 2 11:15AM ; [facility] No cough Medical Established Patient with Desmond Bruce CAP MACHINE OPERATOR 12/24/2021 Last Documented On 2 11:15AM ; [facility] Visit for routine adult H&P without abnormal findings Medical Established Patient with Desmond Bruce CAP MACHINE OPERATOR 12/24/2021 Last Documented On 2 11:15AM ; [facility] Z68.31 - Body mass index [BM I] 31.0-31.9, adult Medical Established Patient with Desmond Bruce CAP MACHINE OPERATOR 12/24/2021 Last Documented On 2 11:15AM ; [facility] Nicotine dependence BH Established Patient with Tiffani Short LISWS 04/28/2021 Last Documented On 1 9:36PM ; [facility] Schizoaffective disorder per patient reported history Established Patient with Tiffani Short LISWS 04/28/2021 Last Documented On 1 9:36PM ; [facility] Arthralgia of ankle / foot Medical Estab lished Patient with Desomnd Bruce CAP MACHINE OPERATOR 04/28/2021 Last Documented On 1 5:28PM ; [facility] Body mass index Medical Established Patient with Desmond Bruce CAP MACHINE OPERATOR 04/28/2021 Last Documented On 1 5:28PM ; [facility] Nicotine dependence Medical Established Patient with Desmond Bruce CAP MACHINE OPERATOR 04/28/2021 Last Documented On 1 5:28PM ; [facility] Obesity due to excess calories Medical E stablished Patient with Desmond Bruce CAP MACHINE OPERATOR 04/28/2021 Last Documented On 1 5:28PM ; [facility] Body mass index Medical Established Patient with Desmond Bruce CAP MACHINE OPERATOR 02/25/2021 Last Documented On 1 4:24PM ; [facility] Nicotine dependence Medical Established Patient with Desmond Bruce CAP MACHINE OPERATOR 02/25/2021 Last Documented On 1 4:24PM ; [facility] Obesity due to excess calories Medical E stablished Patient with Desmond Bruce CAP MACHINE OPERATOR 02/25/2021 Last Documented On 1 4:24PM ; [facility] Perennial allergic rhinitis with seasonal variation Medical Established Patient with Desmond Bruce CAP MACHINE OPERATOR 02/25/2021 Last Documented On 1 4:24PM ; [facility] Assess Screen malignant neop lasm cervix [facility] with Desmond Bruce CAP MACHINE OPERATOR 01/09/2021 Last Documented On 1 6:31PM ; [facility] Overweight [facility] with Desmondpaulette Estradaen CAP MACHINE OPERATOR 01/09/2021 Last Documented On 1 6:31PM ; [facility] Z68.29 - Body mass index [BM I] 29.0-29.9, adult [facility] with Desmondpaulette Estradaen CAP MACHINE OPERATOR 01/09/2021 Last Documented On 1 6:31PM ; [facility] Body mass index Medical Established Patient with Desmond Bruce CAP MACHINE OPERATOR 12/19/2020 Last Documented On 1 6:56PM ; [facility] Overweight Medical Established Patient with Desmond Bruce CAP MACHINE OPERATOR 12/19/2020 Last Documented On 1 6:56PM ; [facility] Diabetes Risk Test Score was 0 score 12/11/2020 Medical Established Patient with Desmond Bruce CAP MACHINE OPERATOR 12/11/2020 Last Documented On 1 5:31PM ; [facility] Overweight Medical Established Patient with Desmond Bruce CAP MACHINE OPERATOR 12/11/2020 Last Documented On 1 5:31PM ; [facility] Z68.28 - Body mass index [BM I] 28.0-28.9, adult Medical Established Patient with Desmondpaulette Barrera CAP MACHINE OPERATOR 12/11/2020 Last Documented On 1 5:31PM ; [facility] Z68.24 - Body mass index [BM I] 24.0-24.9, adult Telemedicine Establisted Patient with Desmond Barrera CAP MACHINE OPERATOR 07/25/2020 Last Documented On 0 6:12PM ; [facility] Work Phone: [phone]) 963-828611-06-2023 Evaluation note Includes: Assessments for all patient encounters Findings Encounter Date Autism spectrum disorder BH Established Patient with Tiffani Short LISWS 08/16/2023 Last Documented On 3 4:21PM ; [facility] Bipolar schizoaffective disorder BH Esta blished Patient with Tiffani Short LISWS 08/16/2023 Last Documented On 3 4:21PM ; [facility] Dependence on nicotine in ci garettes - uncomplicated BH Established Patient with Tiffani Short LISWS 08/16/2023 Last Documented On 3 4:21PM ; [facility] Generalized anxiety disorder Establis hed Patient with Tiffani Short LISWS 08/16/2023 Last Documented On 3 4:21PM ; [facility] [Z68.36 - Body mass index [B WA] 36.0-36.9, adult] assessment of body mass index Medical Established Patient with Desmond Bruce CAP MACHINE OPERATOR 08/16/2023 Last Documented On 3 7:55PM ; [facility] Dependence on nicotine in ci garettes - uncomplicated Medical Established Patient with Desmond Bruce CAP MACHINE OPERATOR 08/16/2023 Last Documented On 3 7:55PM ; [facility] Dependence on nicotine in ci garettes - uncomplicated Medical Established Patient with Desmond Bruce CAP MACHINE OPERATOR 08/16/2023 Last Documented On 3 7:55PM ; [facility] Generalized anxiety disorder Medical Est ablished Patient with Desmond Bruce CAP MACHINE OPERATOR 08/16/2023 Last Documented On 3 7:55PM ; [facility] Generalized anxiety disorder Medical Est ablished Patient with Desmond Bruce CAP MACHINE OPERATOR 08/16/2023 Last Documented On 3 7:55PM ; [facility] Autistic disorder Established Patient with Ka itlin Short LISWS 07/15/2023 Last Documented On 3 4:46PM ; [facility] Bipolar schizoaffective disorder Esta blished Patient with Tiffani Short LISWS 07/15/2023 Last Documented On 3 4:46PM ; [facility] Dependence on nicotine in ci garettes - uncomplicated BH Established Patient with Tiffani Short LISWS 07/15/2023 Last Documented On 3 4:46PM ; [facility] Generalized anxiety disorder BH Establis hed Patient with Tiffani Short LISWS 07/15/2023 Last Documented On 3 4:46PM ; [facility] [N94.6 - Dysmenorrhea, unspe cified] dysmenorrhea Medical Established Patient with Desmond Bruce CAP MACHINE OPERATOR 07/15/2023 Last Documented On 3 3:36PM ; [facility] Assessment of body mass index Medical Es tablished Patient with Desmond Barrera CAP MACHINE OPERATOR 07/15/2023 Last Documented On 3 3:36PM ; [facility] Body mass index Medical Established Patient with Desmond Barrera CAP MACHINE OPERATOR 07/15/2023 Last Documented On 3 3:36PM ; [facility] Dependence on nicotine in ci garettes - uncomplicated Medical Established Patient with Desmond Barrera CAP MACHINE OPERATOR 07/15/2023 Last Documented On 3 3:36PM ; [facility] Encounter for Immunization Medical Estab lished Patient with Desmond Barrera CAP MACHINE OPERATOR 07/15/2023 Last Documented On 3 3:36PM ; [facility] Generalized anxiety disorder Medical Est ablished Patient with Desmond Barrera CAP MACHINE OPERATOR 07/15/2023 Last Documented On 3 3:36PM ; [facility] Uncomplicated mild persistent asthma Med ical Established Patient with Desmond Barrera CAP MACHINE OPERATOR 07/15/2023 Last Documented On 3 3:36PM ; [facility] Visit for routine adult H&P without abnormal findings Medical Established Patient with Desmond Barrera CAP MACHINE OPERATOR 07/15/2023 Last Documented On 3 3:36PM ; [facility] Bipolar schizoaffective disorder BH Esta blished Patient with Tiffani Short LISWS 12/24/2022 Last Documented On 3 8:44AM ; [facility] Generalized anxiety disorder BH Establis hed Patient with Tiffani Short LISWS 12/24/2022 Last Documented On 3 8:44AM ; [facility] [Z68.33 - Body mass index [B WA] 33.0-33.9, adult] assessment of body mass index Medical Established Patient with Desmond Barrera CAP MACHINE OPERATOR 12/24/2022 Last Documented On 3 1:22PM ; [facility] Diabetes Risk Test Score was three score 12/24/2022 Medical Established Patient with Desmond Barrera CAP MACHINE OPERATOR 12/24/2022 Last Documented On 3 1:22PM ; [facility] Visit for routine adult H&P without abnormal findings Medical Established Patient with Desmond Bruce CAP MACHINE OPERATOR 12/24/2022 Last Documented On 3 1:22PM ; [facility] Asthma Medical Established Patient with Desmond Bruce CAP MACHINE OPERATOR 05/28/2022 Last Documented On 2 10:19AM ; [facility] Z68.33 - Body mass index [BM I] 33.0-33.9, adult Medical Established Patient with Desmond Bruce CAP MACHINE OPERATOR 05/28/2022 Last Documented On 2 10:19AM ; [facility] Bipolar schizoaffective disorder Esta blished Patient with Yelitza Gonsalez LPCC-S 04/30/2022 Last Documented On 2 9:11PM ; [facility] Generalized anxiety disorder Establis hed Patient with Yelitza Gonsalez LPCC-S 04/30/2022 Last Documented On 2 9:11PM ; [facility] No cough Medical Established Patient with Desmond Bruce CAP MACHINE OPERATOR 04/30/2022 Last Documented On 2 9:39AM ; [facility] Z68.32 - Body mass index [BM I] 32.0-32.9, adult Medical Established Patient with Desmond Bruce CAP MACHINE OPERATOR 04/30/2022 Last Documented On 2 9:39AM ; [facility] Bipolar schizoaffective disorder Esta blished Patient with Yelitza Gonsalez LPCC-S 03/16/2022 Last Documented On 2 10:54PM ; [facility] Generalized anxiety disorder Establis hed Patient with Yelitza Gonsalez LPCC-S 03/16/2022 Last Documented On 2 10:54PM ; [facility] No cough Medical Established Patient with Desmond Bruce CAP MACHINE OPERATOR 03/16/2022 Last Documented On 2 11:22AM ; [facility] Z68.32 - Body mass index [BM I] 32.0-32.9, adult Medical Established Patient with Desmond Bruce CAP MACHINE OPERATOR 03/16/2022 Last Documented On 2 11:22AM ; [facility] Bipolar schizoaffective disorder Esta blished Patient with Yelitza Easts LPCC-S 12/24/2021 Last Documented On 2 12:42AM ; [facility] Generalized anxiety disorder Establis hed Patient with Yelitza Easts LPCC-S 12/24/2021 Last Documented On 2 12:42AM ; [facility] Diabetes Risk Test Score was three score 12/24/2021 Medical Established Patient with Desmondpaulette Barrera CAP MACHINE OPERATOR 12/24/2021 Last Documented On 2 11:15AM ; [facility] Intervention and counseling on cessation of tobacco use, 3-10 minutes Discussed medication and nicotine replacement for tobacco cessation Medical Established Patient with Desmond Bruce CAP MACHINE OPERATOR 12/24/2021 Last Documented On 2 11:15AM ; [facility] Nicotine dependence Medical Established Patient with Desmond Bruce CAP MACHINE OPERATOR 12/24/2021 Last Documented On 2 11:15AM ; [facility] No cough Medical Established Patient with Desmond Bruce CAP MACHINE OPERATOR 12/24/2021 Last Documented On 2 11:15AM ; [facility] Visit for routine adult H&P without abnormal findings Medical Established Patient with Desmondpaulette Estradaen CAP MACHINE OPERATOR 12/24/2021 Last Documented On 2 11:15AM ; [facility] Z68.31 - Body mass index [BM I] 31.0-31.9, adult Medical Established Patient with Desmondpaulette Barrera CAP MACHINE OPERATOR 12/24/2021 Last Documented On 2 11:15AM ; [facility] Nicotine dependence Established Patient with Tiffani Short LISWS 04/28/2021 Last Documented On 1 9:36PM ; [facility] Schizoaffective disorder per patient reported history Established Patient with Tiffani Short LISWS 04/28/2021 Last Documented On 1 9:36PM ; [facility] Arthralgia of ankle / foot Medical Estab lished Patient with Desmond Bruce CAP MACHINE OPERATOR 04/28/2021 Last Documented On 1 5:28PM ; [facility] Body mass index Medical Established Patient with Desmond Bruce CAP MACHINE OPERATOR 04/28/2021 Last Documented On 1 5:28PM ; [facility] Nicotine dependence Medical Established Patient with Desmond Bruce CAP MACHINE OPERATOR 04/28/2021 Last Documented On 1 5:28PM ; [facility] Obesity due to excess calories Medical E stablished Patient with Desmond Bruce CAP MACHINE OPERATOR 04/28/2021 Last Documented On 1 5:28PM ; [facility] Body mass index Medical Established Patient with Desmond Bruce CAP MACHINE OPERATOR 02/25/2021 Last Documented On 1 4:24PM ; [facility] Nicotine dependence Medical Established Patient with Desmond Bruce CAP MACHINE OPERATOR 02/25/2021 Last Documented On 1 4:24PM ; [facility] Obesity due to excess calories Medical E stablished Patient with Desmond Bruce CAP MACHINE OPERATOR 02/25/2021 Last Documented On 1 4:24PM ; [facility] Perennial allergic rhinitis with seasonal variation Medical Established Patient with Desmond Bruce CAP MACHINE OPERATOR 02/25/2021 Last Documented On 1 4:24PM ; [facility] Assess Screen malignant neop lasm cervix Women's [facility] with Desmond Bruce CAP MACHINE OPERATOR 01/09/2021 Last Documented On 1 6:31PM ; [facility] Overweight Women's Health with Desmond Bruce CAP MACHINE OPERATOR 01/09/2021 Last Documented On 1 6:31PM ; [facility] Z68.29 - Body mass index [BM I] 29.0-29.9, adult Women's Health with Desmond Bruce CAP MACHINE OPERATOR 01/09/2021 Last Documented On 1 6:31PM ; [facility] Body mass index Medical Established Patient with Desmond Bruce CAP MACHINE OPERATOR 12/19/2020 Last Documented On 1 6:56PM ; [facility] Overweight Medical Established Patient with Desmond Bruce CAP MACHINE OPERATOR 12/19/2020 Last Documented On 1 6:56PM ; [facility] Diabetes Risk Test Score was 0 score 12/11/2020 Medical Established Patient with Desmond Bruce CAP MACHINE OPERATOR 12/11/2020 Last Documented On 1 5:31PM ; [facility] Overweight Medical Established Patient with Desmond Barrera CAP MACHINE OPERATOR 12/11/2020 Last Documented On 1 5:31PM ; [facility] Z68.28 - Body mass index [BM I] 28.0-28.9, adult Medical Established Patient with Desmond Barrera CAP MACHINE OPERATOR 12/11/2020 Last Documented On 1 5:31PM ; [facility] Z68.24 - Body mass index [BM I] 24.0-24.9, adult Telemedicine Establisted Patient with Desmond Barrera CNP 07/25/2020 Last Documented On 0 6:12PM ; [facility] Work Phone: [phone]) 591-761711-06-2023 Progress note* Progress note Date Encounter Last Documented by 08/16/2023 Medical Established Patient Last documented on 08/16/2023; 1:33 PM, Desmond Barrera FLORENTINO; [facility] Active Problems & Conditions - J45.30 - Asthma Mild Persistent Uncomplicated - F84.0 - Autism Spectrum Disorder - J34.2 - Deviated Nasal Septum - F41.1 - Generalized Anxiety Disorder - F17.210 - Nicotine Dependence Cigarettes Uncomplicated - F25.0 - Schizoaffective Disorder, Bipolar Chief Complaint The Chief Complaint is: Patient here for med follow up. Referred Here Referred by emergency room. Prior encounters. History of Present Illness Maggie Gaines is a 33 year old female. - Allergy list reviewed - Reviewed Medications - Medication list reviewed - Date of last menstruation 08/02/2023 - test - would not like a test Presents to f/u on hydroxyzine , report sit makes her too tired , would rather try to restart buspar I just have a hard time remebering to take it Current Medication - *NEBULIZER SUPPLIES Miscellaneous use with albuterol as directed, 30 days, 0 refills - Albuterol Sulfate (2.5 MG/3ML) 0.083% Inhalation Nebulization solution inhale via nebulization route every 6 hours as needed for wheezing/ shortness of breath (disp 1 box), 30 days, 5 refills - Ankle Support Miscellaneous apply to right ankle while at work, 30 days, 0 refills - Dulera 200-5 MCG/ACT Inhalation Aerosol inhale 1 actuation by mouth twice daily, 30 days, 5 refills - Ventolin HFA 108 (90 Base) MCG/ACT Inhalation Aerosol Solution inhale 1-2 puffs by mouth every 6 hours as needed for wheezing/ shortness of breath(may sub equivalent), 30 days, 11 refills Past Medical/Surgical History Reported: No recent change in medical history and Has sex without a condom. Medical: No previous hospitalizations. Partners sexually transmitted infection status known. Immunization History: Recent immunization for flu. : Previously 0 time(s) and para having 0 live (s). Not planning to have a baby in the next 12 months. Diagnoses: No diagnosis of cervical dysplasia. No diagnosis of human papilloma virus infection Procedural: - Tooth extraction Surgical: - General surgery nerve block lower spine to see if would help patient's pinched nerve Social History Environmental Exposure: Secondhand cigarette smoke exposure. Tobacco use: Cigarette smoking Light (1-10/day) and 14 pack-years. Not using electronic cigarettes/vaping. Alcohol: Not using alcohol. Drug Use: Not using drugs denied by patient. Sexual: Sexually active, sexual orientation Other, and gender identity Other. No report of control being practiced. Allergies - Codeine Reaction: unknown - hydrOXYzine HCl - -No Environmental Allergies - -No Known Food Allergies - Sumatriptan - Sun Reaction: Skin Rashes / Eruption of skin Family History No significant medical history Review Of Systems Head: No head symptoms. Neck: No neck symptoms. Eyes: No eye symptoms. Otolaryngeal: No ear symptoms, no nasal symptoms, no nose and sinus finding, no throat symptoms, no oral cavity symptoms, and no jaw symptoms. Breasts: No breast symptoms. Cardiovascular: No cardiovascular symptoms and no chest pain or discomfort. Pulmonary: No pulmonary symptoms. Gastrointestinal: No gastrointestinal symptoms. Genitourinary: No genitourinary symptoms. Musculoskeletal: No musculoskeletal symptoms. Neurological: No neurological symptoms. Psychological: Anxiety. No depression. Skin: No skin symptoms. Cardiovascular: Edema not present. Physical Findings - Vitals taken 08/16/2023 11:37 am BP-Sitting R122/89 mmHg BP Cuff SizeLarge Pulse Rate-Xsiexkq23 bpm Fmjpft57 in [id number] lbs Body Mass Index36 kg/m2 Body Surface Area2 m2 Oxygen Xtmbsbyofh23 % Vital Signs: - Systolic blood pressure < 130 mmHg. - Diastolic blood pressure 80-89 mmHg. General Appearance: - Awake. - Alert. - Well developed. - Well nourished. - In no acute distress. Lungs: - Respiration rhythm and depth was normal. - Clear to auscultation. Cardiovascular: Heart Rate And Rhythm: - Normal. Heart Sounds: - Normal. Murmurs: - No murmurs were heard. Abdomen: Visual Inspection: - Abdomen was normal on visual inspection. Musculoskeletal System: General/bilateral: - Normal movement of all extremities. Skin: - General appearance was normal. Tests Laboratory-based Chemistry: Other Laboratory Tests: Screening for sexually transmitted infections was not performed. Educational Testing: In the Past 4 Weeks, Asthma kept me from getting much done at work/school/work? (5 Pts) None of the Time, During the past 4 weeks, how often have you had shortness of breath? (5 Pts) Not at all, During the past for 4 weeks, asthma symptoms woke me up at night or earlier than (5 Pts) Not at all, During the past 4 weeks, have used rescue inhaler or nebulizer medication (5 Pts) Not at all, and Asthma control during the past 4 weeks (5 Pts) Completely Controlled. Assessment - Z68.36 - Body mass index [BMI] 36.0-36.9, adult - F17.210 - Nicotine dependence, cigarettes, uncomplicated - F17.210 - Nicotine dependence, cigarettes, uncomplicated - F41.1 - Generalized anxiety disorder - F41.1 - Generalized anxiety disorder Test Conclusions Asthma Control Test (ACT), adult total score was 25 08/16/2023. Vaccinations - Received dose of Reported: Patient has received the COVID Vaccine Counseling/Education - Not wishing to stop smoking offered Quit Line information - Discussed nutritional needs teach healthy choices including fruits and vegetables - Patient education about a proper diet - Not requesting contraception - Discussed concerns about exercise: promote physical activity Plan StartCited- Generalized anxiety disorder busPIRone HCl 5 MG tablet take 1 tablet by mouth twice daily, 30 days, 5 refills EndCited Health Reminders - ACT satisfied 08/16/2023. - Assess BMI satisfied 08/16/2023. - Assess Tobacco Use satisfied 08/16/2023. - Follow Up Plan BMI Management satisfied 08/16/2023. - Smoking & Tobacco Cessation Intervention and Counseling satisfied 08/16/2023. [facility]11-06-2023 Progress note* Progress note Date Encounter Last Documented by 08/16/2023 Established Patient Last docu mented on 08/16/2023; 4:21 PM, Tiffani BORJAS; [facility] Active Problems & Conditions - J45.30 - Asthma Mild Persistent Uncomplicated - F84.0 - Autism Spectrum Disorder - J34.2 - Deviated Nasal Septum - F41.1 - Generalized Anxiety Disorder - F17.210 - Nicotine Dependence Cigarettes Uncomplicated - F25.0 - Schizoaffective Disorder, Bipolar Chief Complaint The Chief Complaint is: [facility] met with patient to follow-up regarding anxiety and medications. Patient reports that since stopping Invega she has noticed feeling the same as she felt while taking it. Patient feels that due to the weather there have been some days of feeling down, but feels that it is manageable. Patient reports anxiety at times and will take Hydroxyzine, but will make her sleepy. Patient did get connected to a counseling agency out of [place] that she is able to do Telehealth sessions with and feels that this has been a good fit. Patient would be open to changing medications. Patient reports no thoughts of harm toward self or others. History of Present Illness Maggie Gaines is a 33 year old female. - No Irritability - Normal appetite - Anxiety - Sleep disturbances - Energy level is fair - No depression - No loss of interest in activities - Not easily distracted - No racing thoughts - No social isolation - No impulsive behavior Current Medication - *NEBULIZER SUPPLIES Miscellaneous use with albuterol as directed, 30 days, 0 refills - Albuterol Sulfate (2.5 MG/3ML) 0.083% Inhalation Nebulization solution inhale via nebulization route every 6 hours as needed for wheezing/ shortness of breath (disp 1 box), 30 days, 5 refills - Ankle Support Miscellaneous apply to right ankle while at work, 30 days, 0 refills - busPIRone HCl 5 MG Oral Tablet take 1 tablet by mouth twice daily, 30 days, 5 refills - Dulera 200-5 MCG/ACT Inhalation Aerosol inhale 1 actuation by mouth twice daily, 30 days, 5 refills - Ventolin HFA 108 (90 Base) MCG/ACT Inhalation Aerosol Solution inhale 1-2 puffs by mouth every 6 hours as needed for wheezing/ shortness of breath(may sub equivalent), 30 days, 11 refills Social History Environmental Exposure: Secondhand cigarette smoke exposure. Tobacco use: Current smoker. Alcohol: Not using alcohol. Drug Use: Not using drugs. Housing And Economic Circumstances: Lives with significant other. Physical Findings General Appearance: - Normal Appearance. Neurological: - Estimated intelligence was normal. - Oriented to time, place, and person. - No hallucinations. - Judgement was not impaired. Speech: - Is Normal. Psychiatric: - Mood is Euthymic. - Attitude Open. Demonstrated Behavior: - Motor Activity Normal Activity. - Eye Contact Appropriate. Affect: - Congruent with the mood. Thought Content: - Insight was intact. - No delusions. - No suicidal ideation. - No Passive thoughts of . - No suicidal plans. - No suicidal intent. - No homicidal ideations. - No homicidal plans. - No homicidal intent. Past Medical: - No repetitive self injurious behavior. - No access to weapons / guns in home. Assessment - F84.0 - Autistic disorder - F17.210 - Nicotine dependence, cigarettes, uncomplicated - F25.0 - Schizoaffective disorder, bipolar type - F41.1 - Generalized anxiety disorder Therapy - Brief solution-focused therapy. - Adherent with medications. - Plan - PCP to have patient stop Hydroxyzine and start Buspirone 5mg twice daily. Patient agreeable to plan and Collaborated with patient and provider: Counseling/Education P offered active and supportive listening. [facility] discussed coping skills and supports to implement in daily routine to manage increased anxiety. P encouraged sheryl bailey continue to follow-up with therapy via telehealth as she identified this as a postivie support. Plan Patient to take medications as prescribed and contact the office with any questions or concerns. Patient to implement coping skills and positive supports as discussed. [facility] to attempt to follow-up with patient via phone in 2 weeks and at next in person visit as scheduled. Health Reminders - Assess Tobacco Use satisfied 08/16/2023. 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 Referred Here Referred by emergency room. Prior encounters. History of Present Illness Maggie Gaines is a 33 year old female. - Allergy list reviewed - Reviewed Medications - Medication list reviewed - Date of last menstruation 08/02/2023 - test - would not like a test Presents to f/u on hydroxyzine , reports it makes her too tired , would rather try to restart buspar I just have a hard time remembering to take it fell in shower after sig other scared her / fractured wrist left side Current Medication - *NEBULIZER SUPPLIES Miscellaneous use with albuterol as directed, 30 days, 0 refills - Albuterol Sulfate (2.5 MG/3ML) 0.083% Inhalation Nebulization solution inhale via nebulization route every 6 hours as needed for wheezing/ shortness of breath (disp 1 box), 30 days, 5 refills - Ankle Support Miscellaneous apply to right ankle while at work, 30 days, 0 refills - Dulera 200-5 MCG/ACT Inhalation Aerosol inhale 1 actuation by mouth twice daily, 30 days, 5 refills - Ventolin HFA 108 (90 Base) MCG/ACT Inhalation Aerosol Solution inhale 1-2 puffs by mouth every 6 hours as needed for wheezing/ shortness of breath(may sub equivalent), 30 days, 11 refills Past Medical/Surgical History Reported: No recent change in medical history and Has sex without a condom. Medical: No previous hospitalizations. Partners sexually transmitted infection status known. Immunization History: Recent immunization for flu. : Previously 0 time(s) and para having 0 live (s). Not planning to have a baby in the next 12 months. Diagnoses: No diagnosis of cervical dysplasia. No diagnosis of human papilloma virus infection Procedural: - Tooth extraction Surgical: - General surgery nerve block lower spine to see if would help patient's pinched nerve Social History Environmental Exposure: Secondhand cigarette smoke exposure. Tobacco use: Cigarette smoking Light (1-10/day) and 14 pack-years. Not using electronic cigarettes/vaping. Alcohol: Not using alcohol. Drug Use: Not using drugs denied by patient. Sexual: Sexually active, sexual orientation Other, and gender identity Other. No report of control being practiced. Allergies - Codeine Reaction: unknown - hydrOXYzine HCl - -No Environmental Allergies - -No Known Food Allergies - Sumatriptan - Sun Reaction: Skin Rashes / Eruption of skin Family History No significant medical history Review Of Systems Head: No head symptoms. Neck: No neck symptoms. Eyes: No eye symptoms. Otolaryngeal: No ear symptoms, no nasal symptoms, no nose and sinus finding, no throat symptoms, no oral cavity symptoms, and no jaw symptoms. Breasts: No breast symptoms. Cardiovascular: No cardiovascular symptoms and no chest pain or discomfort. Pulmonary: No pulmonary symptoms. Gastrointestinal: No gastrointestinal symptoms. Genitourinary: No genitourinary symptoms. Musculoskeletal: No musculoskeletal symptoms wrist support / velcro left side. Neurological: No neurological symptoms. Psychological: Anxiety. No depression. Skin: No skin symptoms. Cardiovascular: Edema not present. Physical Findings - Vitals taken 08/16/2023 11:37 am BP-Sitting R122/89 mmHg BP Cuff SizeLarge Pulse Rate-Tnibcpn23 bpm Skdncy56 in Yvgqcw955 lbs Body Mass Index36 kg/m2 Body Surface Area2 m2 Oxygen Sshghjlhjh90 % Vital Signs: - Systolic blood pressure < 130 mmHg. - Diastolic blood pressure 80-89 mmHg. General Appearance: - Awake. - Alert. - Well developed. - Well nourished. - In no acute distress. Lungs: - Respiration rhythm and depth was normal. - Clear to auscultation. Cardiovascular: Heart Rate And Rhythm: - Normal. Heart Sounds: - Normal. Murmurs: - No murmurs were heard. Abdomen: Visual Inspection: - Abdomen was normal on visual inspection. Musculoskeletal System: General/bilateral: - Abnormal movement of all extremities. Wrist: General/bilateral: - Wrists showed abnormalities left wrist immobilizer until fracture heals per ortho. Skin: - General appearance was normal. Tests Laboratory-based Chemistry: Other Laboratory Tests: Screening for sexually transmitted infections was not performed. Educational Testing: In the Past 4 Weeks, Asthma kept me from getting much done at work/school/work? (5 Pts) None of the Time, During the past 4 weeks, how often have you had shortness of breath? (5 Pts) Not at all, During the past for 4 weeks, asthma symptoms woke me up at night or earlier than (5 Pts) Not at all, During the past 4 weeks, have used rescue inhaler or nebulizer medication (5 Pts) Not at all, and Asthma control during the past 4 weeks (5 Pts) Completely Controlled. Assessment - Z68.36 - Body mass index [BMI] 36.0-36.9, adult - F17.210 - Nicotine dependence, cigarettes, uncomplicated - F17.210 - Nicotine dependence, cigarettes, uncomplicated - F41.1 - Generalized anxiety disorder - F41.1 - Generalized anxiety disorder Test Conclusions Asthma Control Test (ACT), adult total score was 25 08/16/2023. Vaccinations - Received dose of Reported: Patient has received the COVID Vaccine Counseling/Education - Not wishing to stop smoking offered Quit Line information - Discussed nutritional needs teach healthy choices including fruits and vegetables - Patient education about a proper diet - Not requesting contraception - Discussed concerns about exercise: promote physical activity Plan StartCited- Generalized anxiety disorder busPIRone HCl 5 MG tablet take 1 tablet by mouth twice daily, 30 days, 5 refills EndCited Health Reminders - ACT satisfied 08/16/2023. - Assess BMI satisfied 08/16/2023. - Assess Tobacco Use satisfied 08/16/2023. - Follow Up Plan BMI Management satisfied 08/16/2023. - Smoking & Tobacco Cessation Intervention and Counseling satisfied 08/16/2023. [facility]11-06-2023 Instructions Includes: Instructions for all patient encounters Instructions to patient Intervention and counseling on cessation of tobacco use, 3-10 minutes Discussed medication and nicotine replacement for tobacco cessation Last Documented On 2 11:12AM ; [facility] Intervention and counseling on cessation of tobacco use, 3-10 minutes Last Documented On 1 6:19PM ; [facility] Education and Decision Aids were provided during visit for: Discussed nutritional needs teach healthy choices including fruits and vegetables Last Documented On 3 11:41AM ; [facility] Patient education about a pr oper diet Last Documented On 3 11:41AM ; [facility] Discussed concerns about exe rcise : promote physical activity Last Documented On 3 11:41AM ; [facility] Not requesting contraception Last Documented On 3 11:41AM ; [facility] offered active and suppo rtive listening. [facility] discussed coping skills and supports to manage increased anxiety. [facility] discussed support groups and resources for adults with autism and provided counseling resources for patient to look into establishing with a new therapist Last Documented On 3 4:45PM ; [facility] Discussed nutritional needs teach healthy choices including fruits and vegetables Last Documented On 3 10:59AM ; [facility] Patient education about a pr oper diet Last Documented On 3 10:59AM ; [facility] Discussed concerns about exe rcise : promote physical activity Last Documented On 3 10:59AM ; [facility] Not requesting contraception Last Documented On 3 10:59AM ; [facility] provided supportive and active listening, allowing patient the space to discuss concerns and explored with patient coping strategies to continue to implement in daily routine. [facility] discussed with patient resources and supports that she can utilize. Patient feels that she is aware of community resources should she need them and that correctional counselor/case manager is also helpful in connecting her to things Last Documented On 3 8:44AM ; [facility] Discussed nutritional needs teach healthy choices including fruits and vegetables Last Documented On 3 10:27AM ; [facility] Patient education about a pr oper diet Last Documented On 3 10:27AM ; [facility] Discussed concerns about exe rcise : promote physical activity Last Documented On 3 10:27AM ; [facility] Discussed nutritional needs teach healthy choices including fruits and vegetables Last Documented On 2 9:49AM ; [facility] Patient education about a pr oper diet Last Documented On 2 9:49AM ; [facility] Discussed concerns about exe rcise : promote physical activity Last Documented On 2 9:49AM ; [facility] Not requesting contraception Last Documented On 2 9:51AM ; [facility] Discussed nutritional needs teach healthy choices including fruits and vegetables Last Documented On 2 9:12AM ; [facility] Patient education about a pr oper diet Last Documented On 2 9:12AM ; [facility] Discussed concerns about exe rcise : promote physical activity Last Documented On 2 9:12AM ; [facility] Discussed current self-care methods/coping skills. ~Validated and normalized pt?s feelings while assisting patient process recent events. ~Discussed ongoing counseling. ~Discussed lifestyle changes to address chronic illness. ~Supported patient's personal health goals ~ ~video games, read, farzad, dog, dinner, puzzles, music Last Documented On 2 11:01AM ; [facility] Discussed nutritional needs teach healthy choices including fruits and vegetables Last Documented On 2 10:39AM ; [facility] Patient education about a pr oper diet Last Documented On 2 10:39AM ; [facility] Discussed concerns about exe rcise : promote physical activity Last Documented On 2 10:39AM ; [facility] Not requesting contraception Last Documented On 2 11:04AM ; [facility] Discussed current self-care methods/coping skills. ~Validated and normalized patient's feelings while assisting patient process recent events. ~Discussed ongoing counseling. ~Discussed lifestyle changes to address chronic illness. ~Supported patient's personal health goals Last Documented On 2 12:36AM ; [facility] Discussed nutritional needs teach healthy choices including fruits and vegetables Last Documented On 2 10:48AM ; [facility] Patient education about a pr oper diet Last Documented On 2 10:48AM ; [facility] Discussed concerns about exe rcise : promote physical activity Last Documented On 2 10:48AM ; [facility] offered active and suppo rtive listening, normalized emotions and feelings, processed current stressors and explored coping and stress reducing skills. ~[facility] discused patients established coping skills and supports Last Documented On 1 9:36PM ; [facility] Discussed nutritional needs teach healthy choices including fruits and vegetables Last Documented On 1 5:05PM ; [facility] Patient education about a pr oper diet Last Documented On 1 5:05PM ; [facility] Patient education about a pr oper diet Last Documented On 1 5:23PM ; [facility] Patient education about meal planning Last Documented On 1 5:23PM ; [facility] Education about changing eat ing habits Last Documented On 1 5:23PM ; [facility] Patient education about high fiber diet Last Documented On 1 5:23PM ; [facility] Patient education about low fat diet Last Documented On 1 5:23PM ; [facility] Patient education about low cholesterol diet Last Documented On 1 5:23PM ; [facility] Patient education about low carbohydrate diet Last Documented On 1 5:23PM ; [facility] Patient education about high protein diet Last Documented On 1 5:23PM ; [facility] Discussed concerns about exe rcise : promote physical activity Last Documented On 1 5:05PM ; [facility] Patient education about a pr oper diet Last Documented On 1 4:21PM ; [facility] Patient education about meal planning Last Documented On 1 4:21PM ; [facility] Education about changing eat ing habits Last Documented On 1 4:21PM ; [facility] Patient education about high fiber diet Last Documented On 1 4:21PM ; [facility] Patient education about low fat diet Last Documented On 1 4:21PM ; [facility] Patient education about low cholesterol diet Last Documented On 1 4:21PM ; [facility] Patient education about low carbohydrate diet Last Documented On 1 4:21PM ; [facility] Patient education about high protein diet Last Documented On 1 4:21PM ; [facility] Discussed nutritional needs teach healthy choices including fruits and vegetables Last Documented On 1 6:04PM ; [facility] Patient education about a pr oper diet Last Documented On 1 6:04PM ; [facility] Patient education about a pr oper diet Last Documented On 1 6:26PM ; [facility] Patient education about meal planning Last Documented On 1 6:26PM ; [facility] Education about changing eat ing habits Last Documented On 1 6:26PM ; [facility] Patient education about high fiber diet Last Documented On 1 6:26PM ; [facility] Patient education about low fat diet Last Documented On 1 6:26PM ; [facility] Patient education about low cholesterol diet Last Documented On 1 6:26PM ; [facility] Patient education about low carbohydrate diet Last Documented On 1 6:26PM ; [facility] Patient education about high protein diet Last Documented On 1 6:26PM ; [facility] Discussed concerns about exe rcise : promote physical activity Last Documented On 1 6:04PM ; [facility] Discussed nutritional needs teach healthy choices including fruits and vegetables Last Documented On 1 6:19PM ; [facility] Patient education about a pr oper diet Last Documented On 1 6:19PM ; [facility] Patient education about a pr oper diet Last Documented On 1 6:50PM ; [facility] Patient education about meal planning Last Documented On 1 6:50PM ; [facility] Education about changing eat ing habits Last Documented On 1 6:50PM ; [facility] Patient education about high fiber diet Last Documented On 1 6:50PM ; [facility] Patient education about low fat diet Last Documented On 1 6:50PM ; [facility] Patient education about low cholesterol diet Last Documented On 1 6:50PM ; [facility] Patient education about low carbohydrate diet Last Documented On 1 6:50PM ; [facility] Patient education about high protein diet Last Documented On 1 6:50PM ; [facility] Discussed concerns about exe rcise : promote physical activity Last Documented On 1 6:19PM ; [facility] Discussed nutritional needs teach healthy choices including fruits and vegetables Last Documented On 1 4:51PM ; [facility] Patient education about a pr oper diet Last Documented On 1 4:51PM ; [facility] Patient education about a pr oper diet Last Documented On 1 5:27PM ; [facility] Patient education about meal planning Last Documented On 1 5:27PM ; [facility] Education about changing eat ing habits Last Documented On 1 5:27PM ; [facility] Patient education about high fiber diet Last Documented On 1 5:27PM ; [facility] Patient education about low fat diet Last Documented On 1 5:27PM ; [facility] Patient education about low cholesterol diet Last Documented On 1 5:27PM ; [facility] Patient education about low carbohydrate diet Last Documented On 1 5:27PM ; [facility] Patient education about high protein diet Last Documented On 1 5:27PM ; [facility] Discussed concerns about exe rcise : promote physical activity Last Documented On 1 4:51PM ; [facility] Work Phone: [phone]) 468-130511-06-2023 Instructions Includes: Instructions for all patient encounters Instructions to patient Intervention and counseling on cessation of tobacco use, 3-10 minutes Discussed medication and nicotine replacement for tobacco cessation Last Documented On 2 11:12AM ; [facility] Intervention and counseling on cessation of tobacco use, 3-10 minutes Last Documented On 1 6:19PM ; [facility] Education and Decision Aids were provided during visit for: [facility] offered active and suppo rtive listening. ~[facility] discussed coping skills and supports to implement in daily routine to manage increased anxiety. [facility] encouraged sheryl bailey continue to follow-up with therapy via telehealth as she identified this as a postivie support Last Documented On 3 4:21PM ; [facility] Discussed nutritional needs teach healthy choices including fruits and vegetables Last Documented On 3 11:41AM ; [facility] Patient education about a pr oper diet Last Documented On 3 11:41AM ; [facility] Discussed concerns about exe rcise : promote physical activity Last Documented On 3 11:41AM ; [facility] Not requesting contraception Last Documented On 3 11:41AM ; [facility] offered active and suppo rtive listening. ~[facility] discussed coping skills and supports to manage increased anxiety. ~[facility] discussed support groups and resources for adults with autism and provided counseling resources for patient to look into establishing with a new therapist Last Documented On 3 4:45PM ; [facility] Discussed nutritional needs teach healthy choices including fruits and vegetables Last Documented On 3 10:59AM ; [facility] Patient education about a pr oper diet Last Documented On 3 10:59AM ; [facility] Discussed concerns about exe rcise : promote physical activity Last Documented On 3 10:59AM ; [facility] Not requesting contraception Last Documented On 3 10:59AM ; [facility] provided supportive and active listening, allowing patient the space to discuss concerns and explored with patient coping strategies to continue to implement in daily routine. ~[facility] discussed with patient resources and supports that she can utilize. Patient feels that she is aware of community resources should she need them and that correctional counselor/case manager is also helpful in connecting her to things Last Documented On 3 8:44AM ; [facility] Discussed nutritional needs teach healthy choices including fruits and vegetables Last Documented On 3 10:27AM ; [facility] Patient education about a pr oper diet Last Documented On 3 10:27AM ; [facility] Discussed concerns about exe rcise : promote physical activity Last Documented On 3 10:27AM ; [facility] Discussed nutritional needs teach healthy choices including fruits and vegetables Last Documented On 2 9:49AM ; [facility] Patient education about a pr oper diet Last Documented On 2 9:49AM ; [facility] Discussed concerns about exe rcise : promote physical activity Last Documented On 2 9:49AM ; [facility] Not requesting contraception Last Documented On 2 9:51AM ; [facility] Discussed nutritional needs teach healthy choices including fruits and vegetables Last Documented On 2 9:12AM ; [facility] Patient education about a pr oper diet Last Documented On 2 9:12AM ; [facility] Discussed concerns about exe rcise : promote physical activity Last Documented On 2 9:12AM ; [facility] Discussed current self-care methods/coping skills. ~Validated and normalized pt?s feelings while assisting patient process recent events. ~Discussed ongoing counseling. ~Discussed lifestyle changes to address chronic illness. ~Supported patient's personal health goals ~ ~video games, read, farzad, dog, dinner, puzzles, music Last Documented On 2 11:01AM ; [facility] Discussed nutritional needs teach healthy choices including fruits and vegetables Last Documented On 2 10:39AM ; [facility] Patient education about a pr oper diet Last Documented On 2 10:39AM ; [facility] Discussed concerns about exe rcise : promote physical activity Last Documented On 2 10:39AM ; [facility] Not requesting contraception Last Documented On 2 11:04AM ; [facility] Discussed current self-care methods/coping skills. ~Validated and normalized patient's feelings while assisting patient process recent events. ~Discussed ongoing counseling. ~Discussed lifestyle changes to address chronic illness. ~Supported patient's personal health goals Last Documented On 2 12:36AM ; [facility] Discussed nutritional needs teach healthy choices including fruits and vegetables Last Documented On 2 10:48AM ; [facility] Patient education about a pr oper diet Last Documented On 2 10:48AM ; [facility] Discussed concerns about exe rcise : promote physical activity Last Documented On 2 10:48AM ; [facility] offered active and suppo rtive listening, normalized emotions and feelings, processed current stressors and explored coping and stress reducing skills. ~P discused patients established coping skills and supports Last Documented On 1 9:36PM ; [facility] Discussed nutritional needs teach healthy choices including fruits and vegetables Last Documented On 1 5:05PM ; [facility] Patient education about a pr oper diet Last Documented On 1 5:05PM ; [facility] Patient education about a pr oper diet Last Documented On 1 5:23PM ; [facility] Patient education about meal planning Last Documented On 1 5:23PM ; [facility] Education about changing eat ing habits Last Documented On 1 5:23PM ; [facility] Patient education about high fiber diet Last Documented On 1 5:23PM ; [facility] Patient education about low fat diet Last Documented On 1 5:23PM ; [facility] Patient education about low cholesterol diet Last Documented On 1 5:23PM ; [facility] Patient education about low carbohydrate diet Last Documented On 1 5:23PM ; [facility] Patient education about high protein diet Last Documented On 1 5:23PM ; [facility] Discussed concerns about exe rcise : promote physical activity Last Documented On 1 5:05PM ; [facility] Patient education about a pr oper diet Last Documented On 1 4:21PM ; [facility] Patient education about meal planning Last Documented On 1 4:21PM ; [facility] Education about changing eat ing habits Last Documented On 1 4:21PM ; [facility] Patient education about high fiber diet Last Documented On 1 4:21PM ; [facility] Patient education about low fat diet Last Documented On 1 4:21PM ; [facility] Patient education about low cholesterol diet Last Documented On 1 4:21PM ; [facility] Patient education about low carbohydrate diet Last Documented On 1 4:21PM ; [facility] Patient education about high protein diet Last Documented On 1 4:21PM ; [facility] Discussed nutritional needs teach healthy choices including fruits and vegetables Last Documented On 1 6:04PM ; [facility] Patient education about a pr oper diet Last Documented On 1 6:04PM ; [facility] Patient education about a pr oper diet Last Documented On 1 6:26PM ; [facility] Patient education about meal planning Last Documented On 1 6:26PM ; [facility] Education about changing eat ing habits Last Documented On 1 6:26PM ; [facility] Patient education about high fiber diet Last Documented On 1 6:26PM ; [facility] Patient education about low fat diet Last Documented On 1 6:26PM ; [facility] Patient education about low cholesterol diet Last Documented On 1 6:26PM ; [facility] Patient education about low carbohydrate diet Last Documented On 1 6:26PM ; [facility] Patient education about high protein diet Last Documented On 1 6:26PM ; [facility] Discussed concerns about exe rcise : promote physical activity Last Documented On 1 6:04PM ; [facility] Discussed nutritional needs teach healthy choices including fruits and vegetables Last Documented On 1 6:19PM ; [facility] Patient education about a pr oper diet Last Documented On 1 6:19PM ; [facility] Patient education about a pr oper diet Last Documented On 1 6:50PM ; [facility] Patient education about meal planning Last Documented On 1 6:50PM ; [facility] Education about changing eat ing habits Last Documented On 1 6:50PM ; [facility] Patient education about high fiber diet Last Documented On 1 6:50PM ; [facility] Patient education about low fat diet Last Documented On 1 6:50PM ; [facility] Patient education about low cholesterol diet Last Documented On 1 6:50PM ; [facility] Patient education about low carbohydrate diet Last Documented On 1 6:50PM ; [facility] Patient education about high protein diet Last Documented On 1 6:50PM ; [facility] Discussed concerns about exe rcise : promote physical activity Last Documented On 1 6:19PM ; [facility] Discussed nutritional needs teach healthy choices including fruits and vegetables Last Documented On 1 4:51PM ; [facility] Patient education about a pr oper diet Last Documented On 1 4:51PM ; [facility] Patient education about a pr oper diet Last Documented On 1 5:27PM ; [facility] Patient education about meal planning Last Documented On 1 5:27PM ; [facility] Education about changing eat ing habits Last Documented On 1 5:27PM ; [facility] Patient education about high fiber diet Last Documented On 1 5:27PM ; [facility] Patient education about low fat diet Last Documented On 1 5:27PM ; [facility] Patient education about low cholesterol diet Last Documented On 1 5:27PM ; [facility] Patient education about low carbohydrate diet Last Documented On 1 5:27PM ; [facility] Patient education about high protein diet Last Documented On 1 5:27PM ; [facility] Discussed concerns about exe rcise : promote physical activity Last Documented On 1 4:51PM ; [facility] Work Phone: 1([phone]) 559-815911-06-2023 Instructions Includes: Instructions for all patient encounters Instructions to patient Intervention and counseling on cessation of tobacco use, 3-10 minutes Discussed medication and nicotine replacement for tobacco cessation Last Documented On 2 11:12AM ; [facility] Intervention and counseling on cessation of tobacco use, 3-10 minutes Last Documented On 1 6:19PM ; [facility] Education and Decision Aids were provided during visit for: [facility] offered active and suppo rtive listening. ~[facility] discussed coping skills and supports to implement in daily routine to manage increased anxiety. [facility] encouraged sheryl bailey continue to follow-up with therapy via telehealth as she identified this as a postivie support Last Documented On 3 4:21PM ; [facility] Discussed nutritional needs teach healthy choices including fruits and vegetables Last Documented On 3 11:41AM ; [facility] Patient education about a pr oper diet Last Documented On 3 11:41AM ; [facility] Discussed concerns about exe rcise : promote physical activity Last Documented On 3 11:41AM ; [facility] Not requesting contraception Last Documented On 3 11:41AM ; [facility] offered active and suppo rtive listening. ~[facility] discussed coping skills and supports to manage increased anxiety. ~[facility] discussed support groups and resources for adults with autism and provided counseling resources for patient to look into establishing with a new therapist Last Documented On 3 4:45PM ; [facility] Discussed nutritional needs teach healthy choices including fruits and vegetables Last Documented On 3 10:59AM ; [facility] Patient education about a pr oper diet Last Documented On 3 10:59AM ; [facility] Discussed concerns about exe rcise : promote physical activity Last Documented On 3 10:59AM ; [facility] Not requesting contraception Last Documented On 3 10:59AM ; [facility] provided supportive and active listening, allowing patient the space to discuss concerns and explored with patient coping strategies to continue to implement in daily routine. ~[facility] discussed with patient resources and supports that she can utilize. Patient feels that she is aware of community resources should she need them and that correctional counselor/case manager is also helpful in connecting her to things Last Documented On 3 8:44AM ; [facility] Discussed nutritional needs teach healthy choices including fruits and vegetables Last Documented On 3 10:27AM ; [facility] Patient education about a pr oper diet Last Documented On 3 10:27AM ; [facility] Discussed concerns about exe rcise : promote physical activity Last Documented On 3 10:27AM ; [facility] Discussed nutritional needs teach healthy choices including fruits and vegetables Last Documented On 2 9:49AM ; [facility] Patient education about a pr oper diet Last Documented On 2 9:49AM ; [facility] Discussed concerns about exe rcise : promote physical activity Last Documented On 2 9:49AM ; [facility] Not requesting contraception Last Documented On 2 9:51AM ; [facility] Discussed nutritional needs teach healthy choices including fruits and vegetables Last Documented On 2 9:12AM ; [facility] Patient education about a pr oper diet Last Documented On 2 9:12AM ; [facility] Discussed concerns about exe rcise : promote physical activity Last Documented On 2 9:12AM ; [facility] Discussed current self-care methods/coping skills. ~Validated and normalized pt?s feelings while assisting patient process recent events. ~Discussed ongoing counseling. ~Discussed lifestyle changes to address chronic illness. ~Supported patient's personal health goals ~ ~video games, read, farzad, dog, dinner, puzzles, music Last Documented On 2 11:01AM ; [facility] Discussed nutritional needs teach healthy choices including fruits and vegetables Last Documented On 2 10:39AM ; [facility] Patient education about a pr oper diet Last Documented On 2 10:39AM ; [facility] Discussed concerns about exe rcise : promote physical activity Last Documented On 2 10:39AM ; [facility] Not requesting contraception Last Documented On 2 11:04AM ; [facility] Discussed current self-care methods/coping skills. ~Validated and normalized patient's feelings while assisting patient process recent events. ~Discussed ongoing counseling. ~Discussed lifestyle changes to address chronic illness. ~Supported patient's personal health goals Last Documented On 2 12:36AM ; [facility] Discussed nutritional needs teach healthy choices including fruits and vegetables Last Documented On 2 10:48AM ; [facility] Patient education about a pr oper diet Last Documented On 2 10:48AM ; [facility] Discussed concerns about exe rcise : promote physical activity Last Documented On 2 10:48AM ; [facility] offered active and suppo rtive listening, normalized emotions and feelings, processed current stressors and explored coping and stress reducing skills. ~[facility] discused patients established coping skills and supports Last Documented On 1 9:36PM ; [facility] Discussed nutritional needs teach healthy choices including fruits and vegetables Last Documented On 1 5:05PM ; [facility] Patient education about a pr oper diet Last Documented On 1 5:05PM ; [facility] Patient education about a pr oper diet Last Documented On 1 5:23PM ; [facility] Patient education about meal planning Last Documented On 1 5:23PM ; [facility] Education about changing eat ing habits Last Documented On 1 5:23PM ; [facility] Patient education about high fiber diet Last Documented On 1 5:23PM ; [facility] Patient education about low fat diet Last Documented On 1 5:23PM ; [facility] Patient education about low cholesterol diet Last Documented On 1 5:23PM ; [facility] Patient education about low carbohydrate diet Last Documented On 1 5:23PM ; [facility] Patient education about high protein diet Last Documented On 1 5:23PM ; [facility] Discussed concerns about exe rcise : promote physical activity Last Documented On 1 5:05PM ; [facility] Patient education about a pr oper diet Last Documented On 1 4:21PM ; [facility] Patient education about meal planning Last Documented On 1 4:21PM ; [facility] Education about changing eat ing habits Last Documented On 1 4:21PM ; [facility] Patient education about high fiber diet Last Documented On 1 4:21PM ; [facility] Patient education about low fat diet Last Documented On 1 4:21PM ; [facility] Patient education about low cholesterol diet Last Documented On 1 4:21PM ; [facility] Patient education about low carbohydrate diet Last Documented On 1 4:21PM ; [facility] Patient education about high protein diet Last Documented On 1 4:21PM ; [facility] Discussed nutritional needs teach healthy choices including fruits and vegetables Last Documented On 1 6:04PM ; [facility] Patient education about a pr oper diet Last Documented On 1 6:04PM ; [facility] Patient education about a pr oper diet Last Documented On 1 6:26PM ; [facility] Patient education about meal planning Last Documented On 1 6:26PM ; [facility] Education about changing eat ing habits Last Documented On 1 6:26PM ; [facility] Patient education about high fiber diet Last Documented On 1 6:26PM ; [facility] Patient education about low fat diet Last Documented On 1 6:26PM ; [facility] Patient education about low cholesterol diet Last Documented On 1 6:26PM ; [facility] Patient education about low carbohydrate diet Last Documented On 1 6:26PM ; [facility] Patient education about high protein diet Last Documented On 1 6:26PM ; [facility] Discussed concerns about exe rcise : promote physical activity Last Documented On 1 6:04PM ; [facility] Discussed nutritional needs teach healthy choices including fruits and vegetables Last Documented On 1 6:19PM ; [facility] Patient education about a pr oper diet Last Documented On 1 6:19PM ; [facility] Patient education about a pr oper diet Last Documented On 1 6:50PM ; [facility] Patient education about meal planning Last Documented On 1 6:50PM ; [facility] Education about changing eat ing habits Last Documented On 1 6:50PM ; [facility] Patient education about high fiber diet Last Documented On 1 6:50PM ; [facility] Patient education about low fat diet Last Documented On 1 6:50PM ; [facility] Patient education about low cholesterol diet Last Documented On 1 6:50PM ; [facility] Patient education about low carbohydrate diet Last Documented On 1 6:50PM ; [facility] Patient education about high protein diet Last Documented On 1 6:50PM ; [facility] Discussed concerns about exe rcise : promote physical activity Last Documented On 1 6:19PM ; [facility] Discussed nutritional needs teach healthy choices including fruits and vegetables Last Documented On 1 4:51PM ; [facility] Patient education about a pr oper diet Last Documented On 1 4:51PM ; [facility] Patient education about a pr oper diet Last Documented On 1 5:27PM ; [facility] Patient education about meal planning Last Documented On 1 5:27PM ; [facility] Education about changing eat ing habits Last Documented On 1 5:27PM ; [facility] Patient education about high fiber diet Last Documented On 1 5:27PM ; [facility] Patient education about low fat diet Last Documented On 1 5:27PM ; [facility] Patient education about low cholesterol diet Last Documented On 1 5:27PM ; [facility] Patient education about low carbohydrate diet Last Documented On 1 5:27PM ; [facility] Patient education about high protein diet Last Documented On 1 5:27PM ; [facility] Discussed concerns about exe rcise : promote physical activity Last Documented On 1 4:51PM ; [facility] Work Phone: [phone]) 365-328410-05-2023 Evaluation note Includes: Assessments for all patient encounters Findings Encounter Date Autistic disorder Established Patient with Ka itlin Short LISWS 07/15/2023 Last Documented On 3 12:03PM ; [facility] Bipolar schizoaffective disorder Esta blished Patient with Tiffani Short LISWS 07/15/2023 Last Documented On 3 12:03PM ; [facility] Dependence on nicotine in ci garettes - uncomplicated BH Established Patient with Tiffani Short LISWS 07/15/2023 Last Documented On 3 12:03PM ; [facility] Generalized anxiety disorder Establis hed Patient with Tiffani Short LISWS 07/15/2023 Last Documented On 3 12:03PM ; [facility] [N94.6 - Dysmenorrhea, unspe cified] dysmenorrhea Medical Established Patient with Desmond Barrera CAP MACHINE OPERATOR 07/15/2023 Last Documented On 3 3:36PM ; [facility] Assessment of body mass index Medical Es tablished Patient with Desmond Barrera CAP MACHINE OPERATOR 07/15/2023 Last Documented On 3 3:36PM ; [facility] Body mass index Medical Established Patient with Desmond Barrera CAP MACHINE OPERATOR 07/15/2023 Last Documented On 3 3:36PM ; [facility] Dependence on nicotine in ci garettes - uncomplicated Medical Established Patient with Desmond Bruce CAP MACHINE OPERATOR 07/15/2023 Last Documented On 3 3:36PM ; [facility] Encounter for Immunization Medical Estab lished Patient with Desmond Bruce CAP MACHINE OPERATOR 07/15/2023 Last Documented On 3 3:36PM ; [facility] Generalized anxiety disorder Medical Est ablished Patient with Desmond Bruce CAP MACHINE OPERATOR 07/15/2023 Last Documented On 3 3:36PM ; [facility] Uncomplicated mild persistent asthma Med ical Established Patient with Desmond Bruce CAP MACHINE OPERATOR 07/15/2023 Last Documented On 3 3:36PM ; [facility] Visit for routine adult H&P without abnormal findings Medical Established Patient with Desmond Barrera CAP MACHINE OPERATOR 07/15/2023 Last Documented On 3 3:36PM ; [facility] Bipolar schizoaffective disorder BH Esta blished Patient with Tiffani Short LISWS 12/24/2022 Last Documented On 3 8:44AM ; [facility] Generalized anxiety disorder BH Establis hed Patient with Tiffani Short LISWS 12/24/2022 Last Documented On 3 8:44AM ; [facility] [Z68.33 - Body mass index [B WA] 33.0-33.9, adult] assessment of body mass index Medical Established Patient with Desmond Barrera CAP MACHINE OPERATOR 12/24/2022 Last Documented On 3 1:22PM ; [facility] Diabetes Risk Test Score was three score 12/24/2022 Medical Established Patient with Desmond Bruce CAP MACHINE OPERATOR 12/24/2022 Last Documented On 3 1:22PM ; [facility] Visit for routine adult H&P without abnormal findings Medical Established Patient with Desmondpaulette Estradaen CAP MACHINE OPERATOR 12/24/2022 Last Documented On 3 1:22PM ; [facility] Asthma Medical Established Patient with Desmond Bruce CAP MACHINE OPERATOR 05/28/2022 Last Documented On 2 10:19AM ; [facility] Z68.33 - Body mass index [BM I] 33.0-33.9, adult Medical Established Patient with Desmond Bruce CAP MACHINE OPERATOR 05/28/2022 Last Documented On 2 10:19AM ; [facility] Bipolar schizoaffective disorder Esta blished Patient with Yelitza Gonsalez LPCC-S 04/30/2022 Last Documented On 2 9:11PM ; [facility] Generalized anxiety disorder Establis hed Patient with Yelitza Gonsalez LPCC-S 04/30/2022 Last Documented On 2 9:11PM ; [facility] No cough Medical Established Patient with Desmond Bruce CAP MACHINE OPERATOR 04/30/2022 Last Documented On 2 9:39AM ; [facility] Z68.32 - Body mass index [BM I] 32.0-32.9, adult Medical Established Patient with Desmond Bruce CAP MACHINE OPERATOR 04/30/2022 Last Documented On 2 9:39AM ; [facility] Bipolar schizoaffective disorder Esta blished Patient with Yelitza Gonsalez LPCC-S 03/16/2022 Last Documented On 2 10:54PM ; [facility] Generalized anxiety disorder Establis hed Patient with Yelitza Gonsalez LPCC-S 03/16/2022 Last Documented On 2 10:54PM ; [facility] No cough Medical Established Patient with Desmond Bruce CAP MACHINE OPERATOR 03/16/2022 Last Documented On 2 11:22AM ; [facility] Z68.32 - Body mass index [BM I] 32.0-32.9, adult Medical Established Patient with Desmond Bruce CAP MACHINE OPERATOR 03/16/2022 Last Documented On 2 11:22AM ; [facility] Bipolar schizoaffective disorder Esta blished Patient with Yelitza Gonsalez LPCC-S 12/24/2021 Last Documented On 2 12:42AM ; [facility] Generalized anxiety disorder Establis hed Patient with Yelitza Gonsalez LPCC-S 12/24/2021 Last Documented On 2 12:42AM ; [facility] Diabetes Risk Test Score was three score 12/24/2021 Medical Established Patient with Desmond Barrera CAP MACHINE OPERATOR 12/24/2021 Last Documented On 2 11:15AM ; [facility] Intervention and counseling on cessation of tobacco use, 3-10 minutes Discussed medication and nicotine replacement for tobacco cessation Medical Established Patient with Desmond Barrera CAP MACHINE OPERATOR 12/24/2021 Last Documented On 2 11:15AM ; [facility] Nicotine dependence Medical Established Patient with Desmond Bruce CAP MACHINE OPERATOR 12/24/2021 Last Documented On 2 11:15AM ; [facility] No cough Medical Established Patient with Desmond Barrera CAP MACHINE OPERATOR 12/24/2021 Last Documented On 2 11:15AM ; [facility] Visit for routine adult H&P without abnormal findings Medical Established Patient with Desmond Barrera CAP MACHINE OPERATOR 12/24/2021 Last Documented On 2 11:15AM ; [facility] Z68.31 - Body mass index [BM I] 31.0-31.9, adult Medical Established Patient with Desmond Barrera CAP MACHINE OPERATOR 12/24/2021 Last Documented On 2 11:15AM ; [facility] Nicotine dependence Established Patient with Tiffani Cross LISWS 04/28/2021 Last Documented On 1 9:36PM ; [facility] Schizoaffective disorder per patient reported history Established Patient with Tiffani Short LISWS 04/28/2021 Last Documented On 1 9:36PM ; [facility] Arthralgia of ankle / foot Medical Estab lished Patient with Desmond Barrera CAP MACHINE OPERATOR 04/28/2021 Last Documented On 1 5:28PM ; [facility] Body mass index Medical Established Patient with Desmondpaulette Barrera CAP MACHINE OPERATOR 04/28/2021 Last Documented On 1 5:28PM ; [facility] Nicotine dependence Medical Established Patient with Desmond Bruce CAP MACHINE OPERATOR 04/28/2021 Last Documented On 1 5:28PM ; [facility] Obesity due to excess calories Medical E stablished Patient with Desmond Bruce CAP MACHINE OPERATOR 04/28/2021 Last Documented On 1 5:28PM ; [facility] Body mass index Medical Established Patient with Desmond Bruce CAP MACHINE OPERATOR 02/25/2021 Last Documented On 1 4:24PM ; [facility] Nicotine dependence Medical Established Patient with Desmond Bruce CAP MACHINE OPERATOR 02/25/2021 Last Documented On 1 4:24PM ; [facility] Obesity due to excess calories Medical E stablished Patient with Desmond Bruce CAP MACHINE OPERATOR 02/25/2021 Last Documented On 1 4:24PM ; [facility] Perennial allergic rhinitis with seasonal variation Medical Established Patient with Desmond Bruce CAP MACHINE OPERATOR 02/25/2021 Last Documented On 1 4:24PM ; [facility] Assess Screen malignant neop lasm cervix [facility] with Desmond Bruce CAP MACHINE OPERATOR 01/09/2021 Last Documented On 1 6:31PM ; [facility] Overweight [facility] with Desmond Bruce CAP MACHINE OPERATOR 01/09/2021 Last Documented On 1 6:31PM ; [facility] Z68.29 - Body mass index [BM I] 29.0-29.9, adult [facility] with Desmond Bruce CAP MACHINE OPERATOR 01/09/2021 Last Documented On 1 6:31PM ; [facility] Body mass index Medical Established Patient with Desmond Bruce CAP MACHINE OPERATOR 12/19/2020 Last Documented On 1 6:56PM ; [facility] Overweight Medical Established Patient with Desmond Bruce CAP MACHINE OPERATOR 12/19/2020 Last Documented On 1 6:56PM ; [facility] Diabetes Risk Test Score was 0 score 12/11/2020 Medical Established Patient with Desmond Bruce CAP MACHINE OPERATOR 12/11/2020 Last Documented On 1 5:31PM ; [facility] Overweight Medical Established Patient with Desmond Bruce CAP MACHINE OPERATOR 12/11/2020 Last Documented On 1 5:31PM ; [facility] Z68.28 - Body mass index [BM I] 28.0-28.9, adult Medical Established Patient with Desmond Bruce CAP MACHINE OPERATOR 12/11/2020 Last Documented On 1 5:31PM ; [facility] Z68.24 - Body mass index [BM I] 24.0-24.9, adult Telemedicine Establisted Patient with Desmondpaulette Barrera CAP MACHINE OPERATOR 07/25/2020 Last Documented On 0 6:12PM ; [facility] Work Phone: 1(129) 710-240210-05-2023 Evaluation note Includes: Assessments for all patient encounters Findings Encounter Date Autistic disorder Established Patient with Ka itlin Short LISWS 07/15/2023 Last Documented On 3 4:46PM ; [facility] Bipolar schizoaffective disorder Esta blished Patient with Tiffani Short LISWS 07/15/2023 Last Documented On 3 4:46PM ; [facility] Dependence on nicotine in ci garettes - uncomplicated BH Established Patient with Tiffani Short LISWS 07/15/2023 Last Documented On 3 4:46PM ; [facility] Generalized anxiety disorder Establis hed Patient with Tiffani Short LISWS 07/15/2023 Last Documented On 3 4:46PM ; [facility] [N94.6 - Dysmenorrhea, unspe cified] dysmenorrhea Medical Established Patient with Desmond Barrera CAP MACHINE OPERATOR 07/15/2023 Last Documented On 3 3:36PM ; [facility] Assessment of body mass index Medical Es tablished Patient with Desmondpaulette Barrera CAP MACHINE OPERATOR 07/15/2023 Last Documented On 3 3:36PM ; [facility] Body mass index Medical Established Patient with Desmond Bruce CAP MACHINE OPERATOR 07/15/2023 Last Documented On 3 3:36PM ; [facility] Dependence on nicotine in ci garettes - uncomplicated Medical Established Patient with Desmond Bruce CAP MACHINE OPERATOR 07/15/2023 Last Documented On 3 3:36PM ; [facility] Encounter for Immunization Medical Estab lished Patient with Desmond Bruce CAP MACHINE OPERATOR 07/15/2023 Last Documented On 3 3:36PM ; [facility] Generalized anxiety disorder Medical Est ablished Patient with Desmond Barrera CAP MACHINE OPERATOR 07/15/2023 Last Documented On 3 3:36PM ; [facility] Uncomplicated mild persistent asthma Med ical Established Patient with Desmond Bruce CAP MACHINE OPERATOR 07/15/2023 Last Documented On 3 3:36PM ; [facility] Visit for routine adult H&P without abnormal findings Medical Established Patient with Desmond Barrera CAP MACHINE OPERATOR 07/15/2023 Last Documented On 3 3:36PM ; [facility] Bipolar schizoaffective disorder Esta blished Patient with Tiffani Short LISWS 12/24/2022 Last Documented On 3 8:44AM ; [facility] Generalized anxiety disorder Establis hed Patient with Tiffani Short LISWS 12/24/2022 Last Documented On 3 8:44AM ; [facility] [Z68.33 - Body mass index [B WA] 33.0-33.9, adult] assessment of body mass index Medical Established Patient with Desmond Barrera CAP MACHINE OPERATOR 12/24/2022 Last Documented On 3 1:22PM ; [facility] Diabetes Risk Test Score was three score 12/24/2022 Medical Established Patient with Desmondpaulette Barrera CAP MACHINE OPERATOR 12/24/2022 Last Documented On 3 1:22PM ; [facility] Visit for routine adult H&P without abnormal findings Medical Established Patient with Desmond Barrera CAP MACHINE OPERATOR 12/24/2022 Last Documented On 3 1:22PM ; [facility] Asthma Medical Established Patient with Desmondpaulette Barrera CAP MACHINE OPERATOR 05/28/2022 Last Documented On 2 10:19AM ; [facility] Z68.33 - Body mass index [BM I] 33.0-33.9, adult Medical Established Patient with Desmond Bruce CAP MACHINE OPERATOR 05/28/2022 Last Documented On 2 10:19AM ; [facility] Bipolar schizoaffective disorder Esta blished Patient with Yelitza Gonsalez LPCC-S 04/30/2022 Last Documented On 2 9:11PM ; [facility] Generalized anxiety disorder Establis hed Patient with Yelitza Gonsalez LPCC-S 04/30/2022 Last Documented On 2 9:11PM ; [facility] No cough Medical Established Patient with Desmond Bruce CAP MACHINE OPERATOR 04/30/2022 Last Documented On 2 9:39AM ; [facility] Z68.32 - Body mass index [BM I] 32.0-32.9, adult Medical Established Patient with Desmond Bruce CAP MACHINE OPERATOR 04/30/2022 Last Documented On 2 9:39AM ; [facility] Bipolar schizoaffective disorder Esta blished Patient with Yelitza Gonsalez LPCC-S 03/16/2022 Last Documented On 2 10:54PM ; [facility] Generalized anxiety disorder Establis hed Patient with Yelitza Gonsalez LPCC-S 03/16/2022 Last Documented On 2 10:54PM ; [facility] No cough Medical Established Patient with Desmond Bruce CAP MACHINE OPERATOR 03/16/2022 Last Documented On 2 11:22AM ; [facility] Z68.32 - Body mass index [BM I] 32.0-32.9, adult Medical Established Patient with Desmond Bruce CAP MACHINE OPERATOR 03/16/2022 Last Documented On 2 11:22AM ; [facility] Bipolar schizoaffective disorder Esta blished Patient with Yelitza Gonsalez LPCC-S 12/24/2021 Last Documented On 2 12:42AM ; [facility] Generalized anxiety disorder Establis hed Patient with Yelitza Gonsalez LPCC-S 12/24/2021 Last Documented On 2 12:42AM ; [facility] Diabetes Risk Test Score was three score 12/24/2021 Medical Established Patient with Desmond Bruce CAP MACHINE OPERATOR 12/24/2021 Last Documented On 2 11:15AM ; [facility] Intervention and counseling on cessation of tobacco use, 3-10 minutes Discussed medication and nicotine replacement for tobacco cessation Medical Established Patient with Desmond Bruce CAP MACHINE OPERATOR 12/24/2021 Last Documented On 2 11:15AM ; [facility] Nicotine dependence Medical Established Patient with Desmond Bruce CAP MACHINE OPERATOR 12/24/2021 Last Documented On 2 11:15AM ; [facility] No cough Medical Established Patient with Desmond Bruce CAP MACHINE OPERATOR 12/24/2021 Last Documented On 2 11:15AM ; [facility] Visit for routine adult H&P without abnormal findings Medical Established Patient with Desmond Bruce CAP MACHINE OPERATOR 12/24/2021 Last Documented On 2 11:15AM ; [facility] Z68.31 - Body mass index [BM I] 31.0-31.9, adult Medical Established Patient with Desmond Bruce CAP MACHINE OPERATOR 12/24/2021 Last Documented On 2 11:15AM ; [facility] Nicotine dependence Established Patient with Tiffani Short LISWS 04/28/2021 Last Documented On 1 9:36PM ; [facility] Schizoaffective disorder per patient reported history Established Patient with Tiffani Short LISWS 04/28/2021 Last Documented On 1 9:36PM ; [facility] Arthralgia of ankle / foot Medical Estab lished Patient with Desmond Bruce CAP MACHINE OPERATOR 04/28/2021 Last Documented On 1 5:28PM ; [facility] Body mass index Medical Established Patient with Desmond Bruce CAP MACHINE OPERATOR 04/28/2021 Last Documented On 1 5:28PM ; [facility] Nicotine dependence Medical Established Patient with Desmond Bruce CAP MACHINE OPERATOR 04/28/2021 Last Documented On 1 5:28PM ; [facility] Obesity due to excess calories Medical E stablished Patient with Desmond Bruce CAP MACHINE OPERATOR 04/28/2021 Last Documented On 1 5:28PM ; [facility] Body mass index Medical Established Patient with Desmond Bruce CAP MACHINE OPERATOR 02/25/2021 Last Documented On 1 4:24PM ; [facility] Nicotine dependence Medical Established Patient with Desmond Bruce CAP MACHINE OPERATOR 02/25/2021 Last Documented On 1 4:24PM ; [facility] Obesity due to excess calories Medical E stablished Patient with Desmondpualette Barrera CAP MACHINE OPERATOR 02/25/2021 Last Documented On 1 4:24PM ; [facility] Perennial allergic rhinitis with seasonal variation Medical Established Patient with Desmond Bruce CAP MACHINE OPERATOR 02/25/2021 Last Documented On 1 4:24PM ; [facility] Assess Screen malignant neop lasm cervix [facility] with Desmond Bruce CAP MACHINE OPERATOR 01/09/2021 Last Documented On 1 6:31PM ; [facility] Overweight Women's Health with Desmond Bruce CAP MACHINE OPERATOR 01/09/2021 Last Documented On 1 6:31PM ; [facility] Z68.29 - Body mass index [BM I] 29.0-29.9, adult Women[facility] with Desmondpaulette Barrera CAP MACHINE OPERATOR 01/09/2021 Last Documented On 1 6:31PM ; [facility] Body mass index Medical Established Patient with Desmond Bruce CAP MACHINE OPERATOR 12/19/2020 Last Documented On 1 6:56PM ; [facility] Overweight Medical Established Patient with Desmond Bruce CAP MACHINE OPERATOR 12/19/2020 Last Documented On 1 6:56PM ; [facility] Diabetes Risk Test Score was 0 score 12/11/2020 Medical Established Patient with Desmond Bruce CAP MACHINE OPERATOR 12/11/2020 Last Documented On 1 5:31PM ; [facility] Overweight Medical Established Patient with Desmond Bruce CAP MACHINE OPERATOR 12/11/2020 Last Documented On 1 5:31PM ; [facility] Z68.28 - Body mass index [BM I] 28.0-28.9, adult Medical Established Patient with Desmond Bruce CAP MACHINE OPERATOR 12/11/2020 Last Documented On 1 5:31PM ; [facility] Z68.24 - Body mass index [BM I] 24.0-24.9, adult Telemedicine Establisted Patient with Desmond Bruce CAP MACHINE OPERATOR 07/25/2020 Last Documented On 0 6:12PM ; [facility] Work Phone: [phone]) 114-847810-05-2023 Progress note* Progress note Date Encounter Last Documented by 07/15/2023 Medical Established Patient Last documented on 07/15/2023; 3:36 PM, Desmond Barrera CNP; [facility] Active Problems & Conditions - J45.30 - Asthma Mild Persistent Uncomplicated - F84.0 - Autism Spectrum Disorder - J34.2 - Deviated Nasal Septum - F41.1 - Generalized Anxiety Disorder - F17.210 - Nicotine Dependence Cigarettes Uncomplicated - F25.0 - Schizoaffective Disorder, Bipolar Chief Complaint The Chief Complaint is: Discuss meds. Referred Here No prior encounters. History of Present Illness Maggie Gaines is a 33 year old female. - Allergy list reviewed - Reviewed Medications - Medication list reviewed - Date of last menstruation 07/11/2023 - test - would not like a test Presents for med f/u however changed pharmacies and never picked up her inhalers . would like to restart hydroxyzine for prn use (psych rx'd in the past) states the past 3 period she has just spotted I dont even go thru a pad grandma had early menopause at age 38 or 39 . declines urine preg but will do a lab Current Medication - *NEBULIZER SUPPLIES Miscellaneous use with albuterol as directed, 30 days, 0 refills - Albuterol Sulfate (2.5 MG/3ML) 0.083% Inhalation Nebulization solution inhale via nebulization route every 6 hours as needed for wheezing/ shortness of breath (disp 1 box), 30 days, 5 refills - Ankle Support Miscellaneous apply to right ankle while at work, 30 days, 0 refills - Dulera 200-5 MCG/ACT Inhalation Aerosol inhale 1 actuation by mouth twice daily, 30 days, 5 refills - Ventolin HFA 108 (90 Base) MCG/ACT Inhalation Aerosol, solution Aerosol Solution inhale 1-2 puffs by mouth every 6 hours as needed for wheezing/ shortness of breath(may sub equivalent), 30 days, 11 refills Past Medical/Surgical History Reported: No recent change in medical history and Has sex without a condom. Medical: No previous hospitalizations. Partners sexually transmitted infection status known. : Previously 0 time(s) and para having 0 live (s). Not planning to have a baby in the next 12 months. Diagnoses: No diagnosis of cervical dysplasia. No diagnosis of human papilloma virus infection Procedural: - Tooth extraction Surgical: - General surgery nerve block lower spine to see if would help patient's pinched nerve Social History Environmental Exposure: Secondhand cigarette smoke exposure. Tobacco use: Cigarette smoking Light (1-10/day) and 14 pack-years. Not using electronic cigarettes/vaping. Alcohol: Not using alcohol. Drug Use: Not using drugs denied by patient. Sexual: Denied sexual activity, sexual orientation Other, and gender identity Other. Allergies - Codeine Reaction: unknown - -No Environmental Allergies - -No Known Food Allergies - Sumatriptan - Sun Reaction: Skin Rashes / Eruption of skin Family History No significant medical history Review Of Systems Head: No head symptoms. Neck: No neck symptoms. Eyes: No eye symptoms. Otolaryngeal: No ear symptoms, no nasal symptoms, no nose and sinus finding, no throat symptoms, no oral cavity symptoms, and no jaw symptoms. Breasts: No breast symptoms. Cardiovascular: No cardiovascular symptoms and no chest pain or discomfort. Pulmonary: No pulmonary symptoms. Gastrointestinal: No gastrointestinal symptoms. Genitourinary: No genitourinary symptoms. Obstetrics and gynecology: irregular periods. Musculoskeletal: No musculoskeletal symptoms. Neurological: No neurological symptoms. Psychological: Anxiety. No depression. Skin: No skin symptoms. Cardiovascular: Edema not present. Physical Findings - Vitals taken 07/15/2023 10:52 am BP-Sitting L122/89 mmHg BP Cuff SizeLarge Pulse Rate-Ehvsotu944 bpm Lozbvv96 in Cpaiua056 lbs 6.4 oz Body Mass Index35.9 kg/m2 Body Surface Area2 m2 Oxygen Pezockazpv45 % Vital Signs: - Systolic blood pressure < 130 mmHg. - Diastolic blood pressure 80-89 mmHg. General Appearance: - Awake. - Alert. - Well developed. - Well nourished. - In no acute distress. Lungs: - Respiration rhythm and depth was normal. - Clear to auscultation. Cardiovascular: Heart Rate And Rhythm: - Normal. Heart Sounds: - Normal. Murmurs: - No murmurs were heard. Thrill: - No thrill. Abdomen: Visual Inspection: - Abdomen was normal on visual inspection. Musculoskeletal System: General/bilateral: - Normal movement of all extremities. Skin: - General appearance was normal. Tests Laboratory-based Chemistry: Other Laboratory Tests: Screening for sexually transmitted infections was not performed. Assessment - Z00.00 - Encounter for general adult medical examination without abnormal findings - Z68.35 - Body mass index [BMI] 35.0-35.9, adult - Z68.35 - Body mass index [BMI] 35.0-35.9, adult - Z23 - Encounter for immunization - J45.30 - Mild persistent asthma, uncomplicated - N94.6 - Dysmenorrhea, unspecified - F17.210 - Nicotine dependence, cigarettes, uncomplicated - F41.1 - Generalized anxiety disorder Therapy - Patient has agreed to receive flu vaccine today. - Immunization administration, by injection, one vaccine. Vaccinations - Hep A, ped/adol (2 dose) Havrix Dose #1 Status: Prev Hist Date: 02/25/2010 - Fluarix 0.5mL for 6 months and older Dose #1 Status: Administered Date: 07/15/2023 - Received dose of Reported: Patient has received the COVID Vaccine - Received dose of Fluarix 0.05mL (6 months and up) Counseling/Education - Discussed nutritional needs teach healthy choices including fruits and vegetables - Patient education about a proper diet - Not requesting contraception - Discussed concerns about exercise: promote physical activity Plan StartCited- Encntr for general adult medical exam w/o abnormal findings Lab: CBC WITH DIFF Instructions: hcg qualitative with quant reflex Lab: COMP METABOLIC PROF Instructions: hcg qualitative with quant reflex Lab: TOTAL ESTROGENS Instructions: hcg qualitative with quant reflex Lab: FOLLICLE STIM. HORMONE Instructions: hcg qualitative with quant reflex Lab: HCG,,BLOOD Instructions: hcg qualitative with quant reflex Lab: LUTEINIZING HORMONE Instructions: hcg qualitative with quant reflex Lab: LIPID PROFILE Instructions: hcg qualitative with quant reflex Lab: TRIIODOTHYRONINE T3 Instructions: hcg qualitative with quant reflex Lab: THYROXINE T4 Instructions: hcg qualitative with quant reflex Lab: TSH Instructions: hcg qualitative with quant reflex EndCited StartCited- Generalized anxiety disorder hydrOXYzine HCl 50 MG tablet take 1 tablet by mouth every 8 hours as needed for anxiety, 30 days, 5 refills EndCited StartCited- Mild persistent asthma, uncomplicated Ventolin HFA 108 (90 Base) MCG/ACT gram inhale 1-2 puffs by mouth every 6 hours as needed for wheezing/ shortness of breath(may sub equivalent), 30 days, 11 refills EndCited StartCited- Moderate persistent asthma, uncomplicated Dulera 200-5 MCG/ACT gram inhale 1 actuation by mouth twice daily, 30 days, 5 refills EndCited Health Reminders - Adult Well Visit 18 years and older satisfied 07/15/2023. - Assess BMI satisfied 07/15/2023. - Assess Tobacco Use satisfied 07/15/2023. - Follow Up Plan BMI Management satisfied 07/15/2023. [facility]10-05-2023 Progress note* Progress note Date Encounter Last Documented by 07/15/2023 [facility] Patient Last docu mented on 07/15/2023; 4:46 PM, Tiffani BORJAS; [facility] Active Problems & Conditions - J45.30 - Asthma Mild Persistent Uncomplicated - F84.0 - Autism Spectrum Disorder - J34.2 - Deviated Nasal Septum - F41.1 - Generalized Anxiety Disorder - F17.210 - Nicotine Dependence Cigarettes Uncomplicated - F25.0 - Schizoaffective Disorder, Bipolar Chief Complaint The Chief Complaint is: [facility] met with patient to follow-up regarding mood and medications. Patient reports that she is no longer seeing [facility] and has stopped Inve[facility]. Patient reports moods feel well controlled and is not noticing the physical symptoms she was experiencing a week prior to her shot being due. Patient reports that she has had ongoing anxiety that she used to take Hydroxyzine for and would like to resume that. Patient states that she would like to find a therapist to work on Autism and Anxiety as [facility] does not have a provider to work with those diagnoses. Patient denies thoughts of harm towards self or others. History of Present Illness Maggie Gaines is a 33 year old female. - No Irritability - Normal appetite - Anxiety - Energy level is fair - Racing thoughts - No depression - No sleep disturbances - No loss of interest in activities - No social isolation - No impulsive behavior Current Medication - *NEBULIZER SUPPLIES Miscellaneous use with albuterol as directed, 30 days, 0 refills - Albuterol Sulfate (2.5 MG/3ML) 0.083% Inhalation Nebulization solution inhale via nebulization route every 6 hours as needed for wheezing/ shortness of breath (disp 1 box), 30 days, 5 refills - Ankle Support Miscellaneous apply to right ankle while at work, 30 days, 0 refills - Dulera 200-5 MCG/ACT Inhalation Aerosol inhale 1 actuation by mouth twice daily, 30 days, 5 refills - Dulera 200-5 MCG/ACT Inhalation Aerosol inhale 1 actuation by mouth twice daily, 30 days, 5 refills - hydrOXYzine HCl 50 MG Oral Tablet take 1 tablet by mouth every 8 hours as needed for anxiety, 30 days, 5 refills - Ventolin HFA 108 (90 Base) MCG/ACT Inhalation Aerosol Solution inhale 1-2 puffs by mouth every 6 hours as needed for wheezing/ shortness of breath(may sub equivalent), 30 days, 11 refills - Ventolin HFA 108 (90 Base) MCG/ACT Inhalation Aerosol, solution Aerosol Solution inhale 1-2 puffs by mouth every 6 hours as needed for wheezing/ shortness of breath(may sub equivalent), 30 days, 11 refills Social History Environmental Exposure: Secondhand cigarette smoke exposure. Tobacco use: Cigarette smoking Moderate (11-19/day). Alcohol: Not using alcohol. Drug Use: Not using drugs. Housing And Economic Circumstances: Lives with significant other. Work: Unemployed and would like to find a job. Physical Findings General Appearance: - Normal Appearance. Neurological: - Estimated intelligence was normal. - Oriented to time, place, and person. - No hallucinations. - Judgement was not impaired. Speech: - Is Normal. Psychiatric: - Mood was anxious. - Attitude Open. Demonstrated Behavior: - Motor Activity Normal Activity. - Eye Contact Appropriate. Affect: - Congruent with the mood. Thought Content: - Insight was intact. - No delusions. - No suicidal ideation. - No Passive thoughts of . - No suicidal plans. - No suicidal intent. - No homicidal ideations. - No homicidal plans. - No homicidal intent. Past Medical: - No repetitive self injurious behavior. - No access to weapons / guns in home. Assessment - F84.0 - Autistic disorder - F17.210 - Nicotine dependence, cigarettes, uncomplicated - F25.0 - Schizoaffective disorder, bipolar type - F41.1 - Generalized anxiety disorder Therapy - SBIRT Full Screen Neg. - Brief solution-focused therapy. - Referral to mental health team. - Plan - PCP to start Hydroxyzine 50mg every 8 hours as needed for anxiety. Patient agreeable to plan and Collaborated with patient and provider: Counseling/Education - Not wishing to stop smoking offered Quit Line information [facility] offered active and supportive listening. [facility] discussed coping skills and supports to manage increased anxiety. [facility] discussed support groups and resources for adults with autism and provided counseling resources for patient to look into establishing with a new therapist. Plan Patient to take medications as prescribed and contact the office with any questions or concerns. Patient to implement coping skills and positive supports as discussed. [facility] to attempt to follow-up with patient via phone in 2 weeks and at next in person visit as scheduled. Health Reminders - Assess Tobacco Use satisfied 07/15/2023. - BI-2 satisfied 07/15/2023. - PHQ9 / PHQA satisfied 07/15/2023. - SBIRT satisfied 07/15/2023. - Smoking & Tobacco Cessation Intervention and Counseling satisfied 07/15/2023. User Defined 1 Has not worked without getting the payment you thought you would, has not felt pressured to do something against will to keep job, have not felt threatened in a relationship, has not been put down, humilitated, or someone has tried to control them, has not been hit, kicked, punched, or sexually forced to do something, or hurt, and not afraid of someone you have a relationship with. Domestic Violence/ Human Trafficking Screening was completed. She has not had 4 or more drinks in a day within the past year., no misuse of prescription only drugs, and not illicit. Little interest or pleasure in doing things in the last 2 weeks? 0 pt Not at all and [PHQ-2] Patient Health Questionnaire 2 item total score: 0 pts (Scale: 0-6) PHQ2. BI-2 score was three 07/15/2023, BI-7 score [BI-7] Feeling nervous, anxious or on edge? + 2 pt : More than half the days, [BI-7] Not being able to stop or control worrying? + 1 pt : Several days, Patient Health Questionnaire 9-Item total score was three 07/15/2023 If you checked off problems, how difficult is it for you to do your work? + : Somewhat difficult, [PHQ-9-1] Little interest or pleasure in doing things? + 0 pt : Not at all, [PHQ-9-2] Feeling down, depressed, or hopeless? + 0 pt : Not at all, [PHQ-9-3] Trouble falling or staying asleep or sleeping too much? + 0 pt : Not at all, [PHQ-9-4] Feeling tired or having little energy? + 0 pt : Not at all, [PHQ-9-5] Poor appetite or overeating? + 0 pt : Not at all, [PHQ-9-6] Feeling bad about yourself-or that you are a failure + 0 pt : Not at all, [PHQ-9-7] Trouble concentrating on things such as reading the newspaper + 2 pt : More than half the days, [PHQ-9-8] Moving or speaking so slowly that other people have noticed. + 1 pt : Several days, and [PHQ-9-9] Thoughts that you would be better off or hurting yourself? + 0 pt : Not at all. [facility]10-05-2023 Reason for referral (narrative)* Date Encounter Description Provider Reason for Referral 07/15/23 Established Patient Tiffanidiane SOLITARIO S Referral To Mental Health Team 12/24/22 Established Patient Tiffanited SOLITARIO S Referral To Mental Health Team 03/16/22 Established Patient Yelitzasamir Molinamons [facility] Referral To Mental Health Team - P and pt discussed responses leading to score of 6. [facility] Work Phone: [phone]) 985-909410-05-2023 Instructions Includes: Instructions for all patient encounters Instructions to patient Intervention and counseling on cessation of tobacco use, 3-10 minutes Discussed medication and nicotine replacement for tobacco cessation Last Documented On 2 11:12AM ; [facility] Intervention and counseling on cessation of tobacco use, 3-10 minutes Last Documented On 1 6:19PM ; [facility] Education and Decision Aids were provided during visit for: Discussed nutritional needs teach healthy choices including fruits and vegetables Last Documented On 3 10:59AM ; [facility] Patient education about a pr oper diet Last Documented On 3 10:59AM ; [facility] Discussed concerns about exe rcise : promote physical activity Last Documented On 3 10:59AM ; [facility] Not requesting contraception Last Documented On 3 10:59AM ; [facility] provided supportive and active listening, allowing patient the space to discuss concerns and explored with patient coping strategies to continue to implement in daily routine. ~[facility] discussed with patient resources and supports that she can utilize. Patient feels that she is aware of community resources should she need them and that correctional counselor/case manager is also helpful in connecting her to things Last Documented On 3 8:44AM ; [facility] Discussed nutritional needs teach healthy choices including fruits and vegetables Last Documented On 3 10:27AM ; [facility] Patient education about a pr oper diet Last Documented On 3 10:27AM ; [facility] Discussed concerns about exe rcise : promote physical activity Last Documented On 3 10:27AM ; [facility] Discussed nutritional needs teach healthy choices including fruits and vegetables Last Documented On 2 9:49AM ; [facility] Patient education about a pr oper diet Last Documented On 2 9:49AM ; [facility] Discussed concerns about exe rcise : promote physical activity Last Documented On 2 9:49AM ; [facility] Not requesting contraception Last Documented On 2 9:51AM ; [facility] Discussed nutritional needs teach healthy choices including fruits and vegetables Last Documented On 2 9:12AM ; [facility] Patient education about a pr oper diet Last Documented On 2 9:12AM ; [facility] Discussed concerns about exe rcise : promote physical activity Last Documented On 2 9:12AM ; [facility] Discussed current self-care methods/coping skills. ~Validated and normalized pt?s feelings while assisting patient process recent events. ~Discussed ongoing counseling. ~Discussed lifestyle changes to address chronic illness. ~Supported patient's personal health goals ~ ~video games, read, farzda, dog, dinner, puzzles, music Last Documented On 2 11:01AM ; [facility] Discussed nutritional needs teach healthy choices including fruits and vegetables Last Documented On 2 10:39AM ; [facility] Patient education about a pr oper diet Last Documented On 2 10:39AM ; [facility] Discussed concerns about exe rcise : promote physical activity Last Documented On 2 10:39AM ; [facility] Not requesting contraception Last Documented On 2 11:04AM ; [facility] Discussed current self-care methods/coping skills. ~Validated and normalized patient's feelings while assisting patient process recent events. ~Discussed ongoing counseling. ~Discussed lifestyle changes to address chronic illness. ~Supported patient's personal health goals Last Documented On 2 12:36AM ; [facility] Discussed nutritional needs teach healthy choices including fruits and vegetables Last Documented On 2 10:48AM ; [facility] Patient education about a pr oper diet Last Documented On 2 10:48AM ; [facility] Discussed concerns about exe rcise : promote physical activity Last Documented On 2 10:48AM ; [facility] offered active and suppo rtive listening, normalized emotions and feelings, processed current stressors and explored coping and stress reducing skills. ~[facility] discused patients established coping skills and supports Last Documented On 1 9:36PM ; [facility] Discussed nutritional needs teach healthy choices including fruits and vegetables Last Documented On 1 5:05PM ; [facility] Patient education about a pr oper diet Last Documented On 1 5:05PM ; [facility] Patient education about a pr oper diet Last Documented On 1 5:23PM ; [facility] Patient education about meal planning Last Documented On 1 5:23PM ; [facility] Education about changing eat ing habits Last Documented On 1 5:23PM ; [facility] Patient education about high fiber diet Last Documented On 1 5:23PM ; [facility] Patient education about low fat diet Last Documented On 1 5:23PM ; [facility] Patient education about low cholesterol diet Last Documented On 1 5:23PM ; [facility] Patient education about low carbohydrate diet Last Documented On 1 5:23PM ; [facility] Patient education about high protein diet Last Documented On 1 5:23PM ; [facility] Discussed concerns about exe rcise : promote physical activity Last Documented On 1 5:05PM ; [facility] Patient education about a pr oper diet Last Documented On 1 4:21PM ; [facility] Patient education about meal planning Last Documented On 1 4:21PM ; [facility] Education about changing eat ing habits Last Documented On 1 4:21PM ; [facility] Patient education about high fiber diet Last Documented On 1 4:21PM ; [facility] Patient education about low fat diet Last Documented On 1 4:21PM ; [facility] Patient education about low cholesterol diet Last Documented On 1 4:21PM ; [facility] Patient education about low carbohydrate diet Last Documented On 1 4:21PM ; [facility] Patient education about high protein diet Last Documented On 1 4:21PM ; [facility] Discussed nutritional needs teach healthy choices including fruits and vegetables Last Documented On 1 6:04PM ; [facility] Patient education about a pr oper diet Last Documented On 1 6:04PM ; [facility] Patient education about a pr oper diet Last Documented On 1 6:26PM ; [facility] Patient education about meal planning Last Documented On 1 6:26PM ; [facility] Education about changing eat ing habits Last Documented On 1 6:26PM ; [facility] Patient education about high fiber diet Last Documented On 1 6:26PM ; [facility] Patient education about low fat diet Last Documented On 1 6:26PM ; [facility] Patient education about low cholesterol diet Last Documented On 1 6:26PM ; [facility] Patient education about low carbohydrate diet Last Documented On 1 6:26PM ; [facility] Patient education about high protein diet Last Documented On 1 6:26PM ; [facility] Discussed concerns about exe rcise : promote physical activity Last Documented On 1 6:04PM ; [facility] Discussed nutritional needs teach healthy choices including fruits and vegetables Last Documented On 1 6:19PM ; [facility] Patient education about a pr oper diet Last Documented On 1 6:19PM ; [facility] Patient education about a pr oper diet Last Documented On 1 6:50PM ; [facility] Patient education about meal planning Last Documented On 1 6:50PM ; [facility] Education about changing eat ing habits Last Documented On 1 6:50PM ; [facility] Patient education about high fiber diet Last Documented On 1 6:50PM ; [facility] Patient education about low fat diet Last Documented On 1 6:50PM ; [facility] Patient education about low cholesterol diet Last Documented On 1 6:50PM ; [facility] Patient education about low carbohydrate diet Last Documented On 1 6:50PM ; [facility] Patient education about high protein diet Last Documented On 1 6:50PM ; [facility] Discussed concerns about exe rcise : promote physical activity Last Documented On 1 6:19PM ; [facility] Discussed nutritional needs teach healthy choices including fruits and vegetables Last Documented On 1 4:51PM ; [facility] Patient education about a pr oper diet Last Documented On 1 4:51PM ; [facility] Patient education about a pr oper diet Last Documented On 1 5:27PM ; [facility] Patient education about meal planning Last Documented On 1 5:27PM ; [facility] Education about changing eat ing habits Last Documented On 1 5:27PM ; [facility] Patient education about high fiber diet Last Documented On 1 5:27PM ; [facility] Patient education about low fat diet Last Documented On 1 5:27PM ; [facility] Patient education about low cholesterol diet Last Documented On 1 5:27PM ; [facility] Patient education about low carbohydrate diet Last Documented On 1 5:27PM ; [facility] Patient education about high protein diet Last Documented On 1 5:27PM ; [facility] Discussed concerns about exe rcise : promote physical activity Last Documented On 1 4:51PM ; [facility] Work Phone: [phone] 406-754210-05-2023 Instructions Includes: Instructions for all patient encounters Instructions to patient Intervention and counseling on cessation of tobacco use, 3-10 minutes Discussed medication and nicotine replacement for tobacco cessation Last Documented On 2 11:12AM ; [facility] Intervention and counseling on cessation of tobacco use, 3-10 minutes Last Documented On 1 6:19PM ; [facility] Education and Decision Aids were provided during visit for: Discussed nutritional needs teach healthy choices including fruits and vegetables Last Documented On 3 10:59AM ; [facility] Patient education about a pr oper diet Last Documented On 3 10:59AM ; [facility] Discussed concerns about exe rcise : promote physical activity Last Documented On 3 10:59AM ; [facility] Not requesting contraception Last Documented On 3 10:59AM ; [facility] provided supportive and active listening, allowing patient the space to discuss concerns and explored with patient coping strategies to continue to implement in daily routine. ~[facility] discussed with patient resources and supports that she can utilize. Patient feels that she is aware of community resources should she need them and that correctional counselor/case manager is also helpful in connecting her to things Last Documented On 3 8:44AM ; [facility] Discussed nutritional needs teach healthy choices including fruits and vegetables Last Documented On 3 10:27AM ; [facility] Patient education about a pr oper diet Last Documented On 3 10:27AM ; [facility] Discussed concerns about exe rcise : promote physical activity Last Documented On 3 10:27AM ; [facility] Discussed nutritional needs teach healthy choices including fruits and vegetables Last Documented On 2 9:49AM ; [facility] Patient education about a pr oper diet Last Documented On 2 9:49AM ; [facility] Discussed concerns about exe rcise : promote physical activity Last Documented On 2 9:49AM ; [facility] Not requesting contraception Last Documented On 2 9:51AM ; [facility] Discussed nutritional needs teach healthy choices including fruits and vegetables Last Documented On 2 9:12AM ; [facility] Patient education about a pr oper diet Last Documented On 2 9:12AM ; [facility] Discussed concerns about exe rcise : promote physical activity Last Documented On 2 9:12AM ; [facility] Discussed current self-care methods/coping skills. ~Validated and normalized pt?s feelings while assisting patient process recent events. ~Discussed ongoing counseling. ~Discussed lifestyle changes to address chronic illness. ~Supported patient's personal health goals ~ ~video games, read, farzad, dog, dinner, puzzles, music Last Documented On 2 11:01AM ; [facility] Discussed nutritional needs teach healthy choices including fruits and vegetables Last Documented On 2 10:39AM ; [facility] Patient education about a pr oper diet Last Documented On 2 10:39AM ; [facility] Discussed concerns about exe rcise : promote physical activity Last Documented On 2 10:39AM ; [facility] Not requesting contraception Last Documented On 2 11:04AM ; [facility] Discussed current self-care methods/coping skills. ~Validated and normalized patient's feelings while assisting patient process recent events. ~Discussed ongoing counseling. ~Discussed lifestyle changes to address chronic illness. ~Supported patient's personal health goals Last Documented On 2 12:36AM ; [facility] Discussed nutritional needs teach healthy choices including fruits and vegetables Last Documented On 2 10:48AM ; [facility] Patient education about a pr oper diet Last Documented On 2 10:48AM ; [facility] Discussed concerns about exe rcise : promote physical activity Last Documented On 2 10:48AM ; [facility] offered active and suppo rtive listening, normalized emotions and feelings, processed current stressors and explored coping and stress reducing skills. ~P discused patients established coping skills and supports Last Documented On 1 9:36PM ; [facility] Discussed nutritional needs teach healthy choices including fruits and vegetables Last Documented On 1 5:05PM ; [facility] Patient education about a pr oper diet Last Documented On 1 5:05PM ; [facility] Patient education about a pr oper diet Last Documented On 1 5:23PM ; [facility] Patient education about meal planning Last Documented On 1 5:23PM ; [facility] Education about changing eat ing habits Last Documented On 1 5:23PM ; [facility] Patient education about high fiber diet Last Documented On 1 5:23PM ; [facility] Patient education about low fat diet Last Documented On 1 5:23PM ; [facility] Patient education about low cholesterol diet Last Documented On 1 5:23PM ; [facility] Patient education about low carbohydrate diet Last Documented On 1 5:23PM ; [facility] Patient education about high protein diet Last Documented On 1 5:23PM ; [facility] Discussed concerns about exe rcise : promote physical activity Last Documented On 1 5:05PM ; [facility] Patient education about a pr oper diet Last Documented On 1 4:21PM ; [facility] Patient education about meal planning Last Documented On 1 4:21PM ; [facility] Education about changing eat ing habits Last Documented On 1 4:21PM ; [facility] Patient education about high fiber diet Last Documented On 1 4:21PM ; [facility] Patient education about low fat diet Last Documented On 1 4:21PM ; [facility] Patient education about low cholesterol diet Last Documented On 1 4:21PM ; [facility] Patient education about low carbohydrate diet Last Documented On 1 4:21PM ; [facility] Patient education about high protein diet Last Documented On 1 4:21PM ; [facility] Discussed nutritional needs teach healthy choices including fruits and vegetables Last Documented On 1 6:04PM ; [facility] Patient education about a pr oper diet Last Documented On 1 6:04PM ; [facility] Patient education about a pr oper diet Last Documented On 1 6:26PM ; [facility] Patient education about meal planning Last Documented On 1 6:26PM ; [facility] Education about changing eat ing habits Last Documented On 1 6:26PM ; [facility] Patient education about high fiber diet Last Documented On 1 6:26PM ; [facility] Patient education about low fat diet Last Documented On 1 6:26PM ; [facility] Patient education about low cholesterol diet Last Documented On 1 6:26PM ; [facility] Patient education about low carbohydrate diet Last Documented On 1 6:26PM ; [facility] Patient education about high protein diet Last Documented On 1 6:26PM ; [facility] Discussed concerns about exe rcise : promote physical activity Last Documented On 1 6:04PM ; [facility] Discussed nutritional needs teach healthy choices including fruits and vegetables Last Documented On 1 6:19PM ; [facility] Patient education about a pr oper diet Last Documented On 1 6:19PM ; [facility] Patient education about a pr oper diet Last Documented On 1 6:50PM ; [facility] Patient education about meal planning Last Documented On 1 6:50PM ; [facility] Education about changing eat ing habits Last Documented On 1 6:50PM ; [facility] Patient education about high fiber diet Last Documented On 1 6:50PM ; [facility] Patient education about low fat diet Last Documented On 1 6:50PM ; [facility] Patient education about low cholesterol diet Last Documented On 1 6:50PM ; [facility] Patient education about low carbohydrate diet Last Documented On 1 6:50PM ; [facility] Patient education about high protein diet Last Documented On 1 6:50PM ; [facility] Discussed concerns about exe rcise : promote physical activity Last Documented On 1 6:19PM ; [facility] Discussed nutritional needs teach healthy choices including fruits and vegetables Last Documented On 1 4:51PM ; [facility] Patient education about a pr oper diet Last Documented On 1 4:51PM ; [facility] Patient education about a pr oper diet Last Documented On 1 5:27PM ; [facility] Patient education about meal planning Last Documented On 1 5:27PM ; [facility] Education about changing eat ing habits Last Documented On 1 5:27PM ; [facility] Patient education about high fiber diet Last Documented On 1 5:27PM ; [facility] Patient education about low fat diet Last Documented On 1 5:27PM ; [facility] Patient education about low cholesterol diet Last Documented On 1 5:27PM ; [facility] Patient education about low carbohydrate diet Last Documented On 1 5:27PM ; [facility] Patient education about high protein diet Last Documented On 1 5:27PM ; [facility] Discussed concerns about exe rcise : promote physical activity Last Documented On 1 4:51PM ; [facility] Work Phone: [phone] Instructions Includes: Instructions for all patient encounters Instructions to patient Intervention and counseling on cessation of tobacco use, 3-10 minutes Discussed medication and nicotine replacement for tobacco cessation Last Documented On 2 11:12AM ; [facility] Intervention and counseling on cessation of tobacco use, 3-10 minutes Last Documented On 1 6:19PM ; [facility] Education and Decision Aids were provided during visit for: [facility] offered active and suppo rtive listening. ~[facility] discussed coping skills and supports to manage increased anxiety. ~[facility] discussed support groups and resources for adults with autism and provided counseling resources for patient to look into establishing with a new therapist Last Documented On 3 4:45PM ; [facility] Discussed nutritional needs teach healthy choices including fruits and vegetables Last Documented On 3 10:59AM ; [facility] Patient education about a pr oper diet Last Documented On 3 10:59AM ; [facility] Discussed concerns about exe rcise : promote physical activity Last Documented On 3 10:59AM ; [facility] Not requesting contraception Last Documented On 3 10:59AM ; [facility] provided supportive and active listening, allowing patient the space to discuss concerns and explored with patient coping strategies to continue to implement in daily routine. ~[facility] discussed with patient resources and supports that she can utilize. Patient feels that she is aware of community resources should she need them and that correctional counselor/case manager is also helpful in connecting her to things Last Documented On 3 8:44AM ; [facility] Discussed nutritional needs teach healthy choices including fruits and vegetables Last Documented On 3 10:27AM ; [facility] Patient education about a pr oper diet Last Documented On 3 10:27AM ; [facility] Discussed concerns about exe rcise : promote physical activity Last Documented On 3 10:27AM ; [facility] Discussed nutritional needs teach healthy choices including fruits and vegetables Last Documented On 2 9:49AM ; [facility] Patient education about a pr oper diet Last Documented On 2 9:49AM ; [facility] Discussed concerns about exe rcise : promote physical activity Last Documented On 2 9:49AM ; [facility] Not requesting contraception Last Documented On 2 9:51AM ; [facility] Discussed nutritional needs teach healthy choices including fruits and vegetables Last Documented On 2 9:12AM ; [facility] Patient education about a pr oper diet Last Documented On 2 9:12AM ; [facility] Discussed concerns about exe rcise : promote physical activity Last Documented On 2 9:12AM ; [facility] Discussed current self-care methods/coping skills. ~Validated and normalized pt?s feelings while assisting patient process recent events. ~Discussed ongoing counseling. ~Discussed lifestyle changes to address chronic illness. ~Supported patient's personal health goals ~ ~video games, read, farzad, dog, dinner, puzzles, music Last Documented On 2 11:01AM ; [facility] Discussed nutritional needs teach healthy choices including fruits and vegetables Last Documented On 2 10:39AM ; [facility] Patient education about a pr oper diet Last Documented On 2 10:39AM ; [facility] Discussed concerns about exe rcise : promote physical activity Last Documented On 2 10:39AM ; [facility] Not requesting contraception Last Documented On 2 11:04AM ; [facility] Discussed current self-care methods/coping skills. ~Validated and normalized patient's feelings while assisting patient process recent events. ~Discussed ongoing counseling. ~Discussed lifestyle changes to address chronic illness. ~Supported patient's personal health goals Last Documented On 2 12:36AM ; [facility] Discussed nutritional needs teach healthy choices including fruits and vegetables Last Documented On 2 10:48AM ; [facility] Patient education about a pr oper diet Last Documented On 2 10:48AM ; [facility] Discussed concerns about exe rcise : promote physical activity Last Documented On 2 10:48AM ; [facility] offered active and suppo rtive listening, normalized emotions and feelings, processed current stressors and explored coping and stress reducing skills. [facility] discused patients established coping skills and supports Last Documented On 1 9:36PM ; [facility] Discussed nutritional needs teach healthy choices including fruits and vegetables Last Documented On 1 5:05PM ; [facility] Patient education about a pr oper diet Last Documented On 1 5:05PM ; [facility] Patient education about a pr oper diet Last Documented On 1 5:23PM ; [facility] Patient education about meal planning Last Documented On 1 5:23PM ; [facility] Education about changing eat ing habits Last Documented On 1 5:23PM ; [facility] Patient education about high fiber diet Last Documented On 1 5:23PM ; [facility] Patient education about low fat diet Last Documented On 1 5:23PM ; [facility] Patient education about low cholesterol diet Last Documented On 1 5:23PM ; [facility] Patient education about low carbohydrate diet Last Documented On 1 5:23PM ; [facility] Patient education about high protein diet Last Documented On 1 5:23PM ; [facility] Discussed concerns about exe rcise : promote physical activity Last Documented On 1 5:05PM ; [facility] Patient education about a pr oper diet Last Documented On 1 4:21PM ; [facility] Patient education about meal planning Last Documented On 1 4:21PM ; [facility] Education about changing eat ing habits Last Documented On 1 4:21PM ; [facility] Patient education about high fiber diet Last Documented On 1 4:21PM ; [facility] Patient education about low fat diet Last Documented On 1 4:21PM ; [facility] Patient education about low cholesterol diet Last Documented On 1 4:21PM ; [facility] Patient education about low carbohydrate diet Last Documented On 1 4:21PM ; [facility] Patient education about high protein diet Last Documented On 1 4:21PM ; [facility] Discussed nutritional needs teach healthy choices including fruits and vegetables Last Documented On 1 6:04PM ; [facility] Patient education about a pr oper diet Last Documented On 1 6:04PM ; [facility] Patient education about a pr oper diet Last Documented On 1 6:26PM ; [facility] Patient education about meal planning Last Documented On 1 6:26PM ; [facility] Education about changing eat ing habits Last Documented On 1 6:26PM ; [facility] Patient education about high fiber diet Last Documented On 1 6:26PM ; [facility] Patient education about low fat diet Last Documented On 1 6:26PM ; [facility] Patient education about low cholesterol diet Last Documented On 1 6:26PM ; [facility] Patient education about low carbohydrate diet Last Documented On 1 6:26PM ; [facility] Patient education about high protein diet Last Documented On 1 6:26PM ; [facility] Discussed concerns about exe rcise : promote physical activity Last Documented On 1 6:04PM ; [facility] Discussed nutritional needs teach healthy choices including fruits and vegetables Last Documented On 1 6:19PM ; [facility] Patient education about a pr oper diet Last Documented On 1 6:19PM ; [facility] Patient education about a pr oper diet Last Documented On 1 6:50PM ; [facility] Patient education about meal planning Last Documented On 1 6:50PM ; [facility] Education about changing eat ing habits Last Documented On 1 6:50PM ; [facility] Patient education about high fiber diet Last Documented On 1 6:50PM ; [facility] Patient education about low fat diet Last Documented On 1 6:50PM ; [facility] Patient education about low cholesterol diet Last Documented On 1 6:50PM ; [facility] Patient education about low carbohydrate diet Last Documented On 1 6:50PM ; [facility] Patient education about high protein diet Last Documented On 1 6:50PM ; [facility] Discussed concerns about exe rcise : promote physical activity Last Documented On 1 6:19PM ; [facility] Discussed nutritional needs teach healthy choices including fruits and vegetables Last Documented On 1 4:51PM ; [facility] Patient education about a pr oper diet Last Documented On 1 4:51PM ; [facility] Patient education about a pr oper diet Last Documented On 1 5:27PM ; [facility] Patient education about meal planning Last Documented On 1 5:27PM ; [facility] Education about changing eat ing habits Last Documented On 1 5:27PM ; [facility] Patient education about high fiber diet Last Documented On 1 5:27PM ; [facility] Patient education about low fat diet Last Documented On 1 5:27PM ; [facility] Patient education about low cholesterol diet Last Documented On 1 5:27PM ; [facility] Patient education about low carbohydrate diet Last Documented On 1 5:27PM ; [facility] Patient education about high protein diet Last Documented On 1 5:27PM ; [facility] Discussed concerns about exe rcise : promote physical activity Last Documented On 1 4:51PM ; [facility] Work Phone: [phone]) [phone] Evaluation note* Encounter Date Diagnosis Assessment Notes Treatment Notes Treatment Clinical Notes Jun, Sprain of other ligament of left knee, subsequent encounter (ICD-10 - S83.8X2D) Patient has improved with recent injection but continues to have mild pain. MRI reading and images normal. Patient would like to live with this at this time as symptoms are tolerable. Patient instructed to continue working on daily exercises, maintain tone and function. May consider repeat cortisone injection in future. Knee arthroscopy also discussed. Jun, Acute pain of left knee (ICD-10 - M25.562) [facility] Other 08-29-2023 Evaluation note* Encounter Date Diagnosis Assessment Notes Treatment Notes Treatment Clinical Notes May, Sprain of other ligament of left knee, subsequent encounter (ICD-10 - S83.8X2D) MRI reviewed with patient as no abnormality. We will treat this as a knee strain for now. We will begin gentle motion and strength exercise with hopes that the condition will improve with conservative measures. Continue knee exercises as demonstrated by her previous time in physical therapy, these were demonstrated in office. We performed a marcaine / kenalog cortisone injection into the knee joint under sterile technique. Patient tolerated the injection well without adverse reaction. If no improvement with conservative treatment, may consider knee scope for further evaluation. [facility] Other 07-27-2023 Evaluation note* Encounter Date Diagnosis Assessment Notes Treatment Notes Treatment Clinical Notes Apr, Internal derangement of left knee (ICD-10 - M23.92) Patient presents with left knee pain secondary to injury. Radiographs reviewed and discussed in detail with patient. X-Ray is unremarkable. Patient demonstrates positive mcmurrays test on physical exam. We will order formal physical therapy and patient is to continue to take Ibuprofen. I have concern for meniscal tear based on the history of this condition and physical exam findings. This condition could require surgical treatment. An MRI will be necessary to plan futher treatment. Patient voices understanding and is agreeable to treatment plan. [facility] Other 03-17-2023 Instructions Includes: Instructions for all patient encounters Instructions to patient Intervention and counseling on cessation of tobacco use, 3-10 minutes Discussed medication and nicotine replacement for tobacco cessation Last Documented On 2 11:12AM ; [facility] Intervention and counseling on cessation of tobacco use, 3-10 minutes Last Documented On 1 6:19PM ; [facility] Education and Decision Aids were provided during visit for: [facility] provided supportive and active listening, allowing patient the space to discuss concerns and explored with patient coping strategies to continue to implement in daily routine. ~P discussed with patient resources and supports that she can utilize. Patient feels that she is aware of community resources should she need them and that correctional counselor/case manager is also helpful in connecting her to things Last Documented On 3 8:44AM ; [facility] Discussed nutritional needs teach healthy choices including fruits and vegetables Last Documented On 3 10:27AM ; [facility] Patient education about a pr oper diet Last Documented On 3 10:27AM ; [facility] Discussed concerns about exe rcise : promote physical activity Last Documented On 3 10:27AM ; [facility] Discussed nutritional needs teach healthy choices including fruits and vegetables Last Documented On 2 9:49AM ; [facility] Patient education about a pr oper diet Last Documented On 2 9:49AM ; [facility] Discussed concerns about exe rcise : promote physical activity Last Documented On 2 9:49AM ; [facility] Not requesting contraception Last Documented On 2 9:51AM ; [facility] Discussed nutritional needs teach healthy choices including fruits and vegetables Last Documented On 2 9:12AM ; [facility] Patient education about a pr oper diet Last Documented On 2 9:12AM ; [facility] Discussed concerns about exe rcise : promote physical activity Last Documented On 2 9:12AM ; [facility] Discussed current self-care methods/coping skills. ~Validated and normalized pt?s feelings while assisting patient process recent events. ~Discussed ongoing counseling. ~Discussed lifestyle changes to address chronic illness. ~Supported patient's personal health goals ~ ~video games, read, farzad, dog, dinner, puzzles, music Last Documented On 2 11:01AM ; [facility] Discussed nutritional needs teach healthy choices including fruits and vegetables Last Documented On 2 10:39AM ; [facility] Patient education about a pr oper diet Last Documented On 2 10:39AM ; [facility] Discussed concerns about exe rcise : promote physical activity Last Documented On 2 10:39AM ; [facility] Not requesting contraception Last Documented On 2 11:04AM ; [facility] Discussed current self-care methods/coping skills. ~Validated and normalized patient's feelings while assisting patient process recent events. ~Discussed ongoing counseling. ~Discussed lifestyle changes to address chronic illness. ~Supported patient's personal health goals Last Documented On 2 12:36AM ; [facility] Discussed nutritional needs teach healthy choices including fruits and vegetables Last Documented On 2 10:48AM ; [facility] Patient education about a pr oper diet Last Documented On 2 10:48AM ; [facility] Discussed concerns about exe rcise : promote physical activity Last Documented On 2 10:48AM ; [facility] offered active and suppo rtive listening, normalized emotions and feelings, processed current stressors and explored coping and stress reducing skills. ~[facility] discused patients established coping skills and supports Last Documented On 1 9:36PM ; [facility] Discussed nutritional needs teach healthy choices including fruits and vegetables Last Documented On 1 5:05PM ; [facility] Patient education about a pr oper diet Last Documented On 1 5:05PM ; [facility] Patient education about a pr oper diet Last Documented On 1 5:23PM ; [facility] Patient education about meal planning Last Documented On 1 5:23PM ; [facility] Education about changing eat ing habits Last Documented On 1 5:23PM ; [facility] Patient education about high fiber diet Last Documented On 1 5:23PM ; [facility] Patient education about low fat diet Last Documented On 1 5:23PM ; [facility] Patient education about low cholesterol diet Last Documented On 1 5:23PM ; [facility] Patient education about low carbohydrate diet Last Documented On 1 5:23PM ; [facility] Patient education about high protein diet Last Documented On 1 5:23PM ; [facility] Discussed concerns about exe rcise : promote physical activity Last Documented On 1 5:05PM ; [facility] Patient education about a pr oper diet Last Documented On 1 4:21PM ; [facility] Patient education about meal planning Last Documented On 1 4:21PM ; [facility] Education about changing eat ing habits Last Documented On 1 4:21PM ; [facility] Patient education about high fiber diet Last Documented On 1 4:21PM ; [facility] Patient education about low fat diet Last Documented On 1 4:21PM ; [facility] Patient education about low cholesterol diet Last Documented On 1 4:21PM ; [facility] Patient education about low carbohydrate diet Last Documented On 1 4:21PM ; [facility] Patient education about high protein diet Last Documented On 1 4:21PM ; [facility] Discussed nutritional needs teach healthy choices including fruits and vegetables Last Documented On 1 6:04PM ; [facility] Patient education about a pr oper diet Last Documented On 1 6:04PM ; [facility] Patient education about a pr oper diet Last Documented On 1 6:26PM ; [facility] Patient education about meal planning Last Documented On 1 6:26PM ; [facility] Education about changing eat ing habits Last Documented On 1 6:26PM ; [facility] Patient education about high fiber diet Last Documented On 1 6:26PM ; [facility] Patient education about low fat diet Last Documented On 1 6:26PM ; [facility] Patient education about low cholesterol diet Last Documented On 1 6:26PM ; [facility] Patient education about low carbohydrate diet Last Documented On 1 6:26PM ; [facility] Patient education about high protein diet Last Documented On 1 6:26PM ; [facility] Discussed concerns about exe rcise : promote physical activity Last Documented On 1 6:04PM ; [facility] Discussed nutritional needs teach healthy choices including fruits and vegetables Last Documented On 1 6:19PM ; [facility] Patient education about a pr oper diet Last Documented On 1 6:19PM ; [facility] Patient education about a pr oper diet Last Documented On 1 6:50PM ; [facility] Patient education about meal planning Last Documented On 1 6:50PM ; [facility] Education about changing eat ing habits Last Documented On 1 6:50PM ; [facility] Patient education about high fiber diet Last Documented On 1 6:50PM ; [facility] Patient education about low fat diet Last Documented On 1 6:50PM ; [facility] Patient education about low cholesterol diet Last Documented On 1 6:50PM ; [facility] Patient education about low carbohydrate diet Last Documented On 1 6:50PM ; [facility] Patient education about high protein diet Last Documented On 1 6:50PM ; [facility] Discussed concerns about exe rcise : promote physical activity Last Documented On 1 6:19PM ; [facility] Discussed nutritional needs teach healthy choices including fruits and vegetables Last Documented On 1 4:51PM ; [facility] Patient education about a pr oper diet Last Documented On 1 4:51PM ; [facility] Patient education about a pr oper diet Last Documented On 1 5:27PM ; [facility] Patient education about meal planning Last Documented On 1 5:27PM ; [facility] Education about changing eat ing habits Last Documented On 1 5:27PM ; [facility] Patient education about high fiber diet Last Documented On 1 5:27PM ; [facility] Patient education about low fat diet Last Documented On 1 5:27PM ; [facility] Patient education about low cholesterol diet Last Documented On 1 5:27PM ; [facility] Patient education about low carbohydrate diet Last Documented On 1 5:27PM ; [facility] Patient education about high protein diet Last Documented On 1 5:27PM ; [facility] Discussed concerns about exe rcise : promote physical activity Last Documented On 1 4:51PM ; [facility] Work Phone: [phone]) 964-323303-16-2023 Evaluation note Includes: Assessments for all patient encounters Findings Encounter Date Bipolar schizoaffective disorder Esta blished Patient with Tiffani Short LISWS 12/24/2022 Last Documented On 3 8:44AM ; [facility] Generalized anxiety disorder BH Establis hed Patient with Tiffani Short LISWS 12/24/2022 Last Documented On 3 8:44AM ; [facility] [Z68.33 - Body mass index [B WA] 33.0-33.9, adult] assessment of body mass index Medical Established Patient with Desmond Barrera CAP MACHINE OPERATOR 12/24/2022 Last Documented On 3 1:22PM ; [facility] Diabetes Risk Test Score was three score 12/24/2022 Medical Established Patient with Desmond Barrera CAP MACHINE OPERATOR 12/24/2022 Last Documented On 3 1:22PM ; [facility] Visit for routine adult H&P without abnormal findings Medical Established Patient with Desmond Barrera CAP MACHINE OPERATOR 12/24/2022 Last Documented On 3 1:22PM ; [facility] Asthma Medical Established Patient with Desmond Barrera CAP MACHINE OPERATOR 05/28/2022 Last Documented On 2 10:19AM ; [facility] Z68.33 - Body mass index [BM I] 33.0-33.9, adult Medical Established Patient with Desmond Barrera CAP MACHINE OPERATOR 05/28/2022 Last Documented On 2 10:19AM ; [facility] Bipolar schizoaffective disorder Esta blished Patient with Yelitza Gonsalez LPCC-S 04/30/2022 Last Documented On 2 9:11PM ; [facility] Generalized anxiety disorder BH Establis hed Patient with Yelitza Gonsalez LPCC-S 04/30/2022 Last Documented On 2 9:11PM ; [facility] No cough Medical Established Patient with Desmond Bruce CAP MACHINE OPERATOR 04/30/2022 Last Documented On 2 9:39AM ; [facility] Z68.32 - Body mass index [BM I] 32.0-32.9, adult Medical Established Patient with Desmond Bruce CAP MACHINE OPERATOR 04/30/2022 Last Documented On 2 9:39AM ; [facility] Bipolar schizoaffective disorder Esta blished Patient with Yelitza Gonsalez LPCC-S 03/16/2022 Last Documented On 2 10:54PM ; [facility] Generalized anxiety disorder Establis hed Patient with Yelitza Gonsalez LPCC-S 03/16/2022 Last Documented On 2 10:54PM ; [facility] No cough Medical Established Patient with Desmond Bruce CAP MACHINE OPERATOR 03/16/2022 Last Documented On 2 11:22AM ; [facility] Z68.32 - Body mass index [BM I] 32.0-32.9, adult Medical Established Patient with Desmond Bruce CAP MACHINE OPERATOR 03/16/2022 Last Documented On 2 11:22AM ; [facility] Bipolar schizoaffective disorder Esta blished Patient with Yelitza Gonsalez LPCC-S 12/24/2021 Last Documented On 2 12:42AM ; [facility] Generalized anxiety disorder Establis hed Patient with Yelitza Gonsalez LPCC-S 12/24/2021 Last Documented On 2 12:42AM ; [facility] Diabetes Risk Test Score was three score 12/24/2021 Medical Established Patient with Desmond Bruce CAP MACHINE OPERATOR 12/24/2021 Last Documented On 2 11:15AM ; [facility] Intervention and counseling on cessation of tobacco use, 3-10 minutes Discussed medication and nicotine replacement for tobacco cessation Medical Established Patient with Desmond Barrera CAP MACHINE OPERATOR 12/24/2021 Last Documented On 2 11:15AM ; [facility] Nicotine dependence Medical Established Patient with Desmondpaulette Estradaen CAP MACHINE OPERATOR 12/24/2021 Last Documented On 2 11:15AM ; [facility] No cough Medical Established Patient with Desmond Estradaen CAP MACHINE OPERATOR 12/24/2021 Last Documented On 2 11:15AM ; [facility] Visit for routine adult H&P without abnormal findings Medical Established Patient with Desmond Barrera CAP MACHINE OPERATOR 12/24/2021 Last Documented On 2 11:15AM ; [facility] Z68.31 - Body mass index [BM I] 31.0-31.9, adult Medical Established Patient with Desmond aBrrera CAP MACHINE OPERATOR 12/24/2021 Last Documented On 2 11:15AM ; [facility] Nicotine dependence Established Patient with Tiffani Short LISWS 04/28/2021 Last Documented On 1 9:36PM ; [facility] Schizoaffective disorder per patient reported history Established Patient with Tiffani Short LISWS 04/28/2021 Last Documented On 1 9:36PM ; [facility] Arthralgia of ankle / foot Medical Estab lished Patient with Desmond Barrera CAP MACHINE OPERATOR 04/28/2021 Last Documented On 1 5:28PM ; [facility] Body mass index Medical Established Patient with Desmond Barrera CAP MACHINE OPERATOR 04/28/2021 Last Documented On 1 5:28PM ; [facility] Nicotine dependence Medical Established Patient with Desmond Bruce CAP MACHINE OPERATOR 04/28/2021 Last Documented On 1 5:28PM ; [facility] Obesity due to excess calories Medical E stablished Patient with Desmond Bruce CAP MACHINE OPERATOR 04/28/2021 Last Documented On 1 5:28PM ; [facility] Body mass index Medical Established Patient with Desmond Bruce CAP MACHINE OPERATOR 02/25/2021 Last Documented On 1 4:24PM ; [facility] Nicotine dependence Medical Established Patient with Desmond Estradaen CAP MACHINE OPERATOR 02/25/2021 Last Documented On 1 4:24PM ; [facility] Obesity due to excess calories Medical E stablished Patient with Desmondpauletet Estradaen CAP MACHINE OPERATOR 02/25/2021 Last Documented On 1 4:24PM ; [facility] Perennial allergic rhinitis with seasonal variation Medical Established Patient with Desmondpaulette Barrera CAP MACHINE OPERATOR 02/25/2021 Last Documented On 1 4:24PM ; [facility] Assess Screen malignant neop lasm cervix Women's Health with Desmondpaulette Barrera CAP MACHINE OPERATOR 01/09/2021 Last Documented On 1 6:31PM ; [facility] Overweight Women's Health with Desmondpaulette Barrera CAP MACHINE OPERATOR 01/09/2021 Last Documented On 1 6:31PM ; [facility] Z68.29 - Body mass index [BM I] 29.0-29.9, adult Women's Health with Desmond Barrera CAP MACHINE OPERATOR 01/09/2021 Last Documented On 1 6:31PM ; [facility] Body mass index Medical Established Patient with Desmond Barrera CAP MACHINE OPERATOR 12/19/2020 Last Documented On 1 6:56PM ; [facility] Overweight Medical Established Patient with Desmond Bruce CAP MACHINE OPERATOR 12/19/2020 Last Documented On 1 6:56PM ; [facility] Diabetes Risk Test Score was 0 score 12/11/2020 Medical Established Patient with Desmondpaulette Barrera CAP MACHINE OPERATOR 12/11/2020 Last Documented On 1 5:31PM ; [facility] Overweight Medical Established Patient with Desmond Bruce CAP MACHINE OPERATOR 12/11/2020 Last Documented On 1 5:31PM ; [facility] Z68.28 - Body mass index [BM I] 28.0-28.9, adult Medical Established Patient with Desmond Bruce CAP MACHINE OPERATOR 12/11/2020 Last Documented On 1 5:31PM ; [facility] Z68.24 - Body mass index [BM I] 24.0-24.9, adult Telemedicine Establisted Patient with Desmond Barrera FLORENTINO 07/25/2020 Last Documented On 0 6:12PM ; [facility] Work Phone: [phone]) 522-121003-16-2023 Progress note* Progress note Date Encounter Last Documented by 12/24/2022 Medical Established Patient Last documented on 12/24/2022; 1:22 PM, Desmond Barrera FLORENTINO; [facility] Active Problems & Conditions - J45.30 - Asthma Mild Persistent Uncomplicated - J34.2 - Deviated Nasal Septum - F41.1 - Generalized Anxiety Disorder - F17.210 - Nicotine Dependence Cigarettes Uncomplicated - F25.0 - Schizoaffective Disorder, Bipolar Chief Complaint The Chief Complaint is: Wellness. Referral for Zebulon Jeffrey to be tested for Autism. Referred Here Referred by emergency room. Prior encounters. History of Present Illness Maggie Gaines is a 32 year old female. - Allergy list reviewed - Reviewed Medications Presents for wellness, no acute concerns other than wants autism referral in [place] . seeing nwo for left foot fx and will be in boot another 2 weeks Current Medication - *NEBULIZER SUPPLIES Miscellaneous use with albuterol as directed, 30 days, 0 refills - Albuterol Sulfate (2.5 MG/3ML) 0.083% Inhalation Nebulization solution inhale via nebulization route every 6 hours as needed for wheezing/ shortness of breath (disp 1 box), 30 days, 5 refills - Ankle Support Miscellaneous apply to right ankle while at work, 30 days, 0 refills - Dulera 200-5 MCG/ACT Inhalation Aerosol inhale 1 actuation by mouth twice daily, 30 days, 5 refills - hydrOXYzine HCl 50 MG Oral Tablet as needed for anxietyLKailash Deleon, 30 days, 0 refills - Invega Sustenna 78 MG/0.5ML Intramuscular Suspension Prefilled Syringe 0 days, 0 refills - Ventolin HFA 108 (90 Base) MCG/ACT Inhalation Aerosol, solution Aerosol Solution inhale 1-2 puffs by mouth every 6 hours as needed for wheezing/ shortness of breath(may sub equivalent), 30 days, 11 refills Past Medical/Surgical History Reported: No recent change in medical history and Has sex without a condom. Medical: No previous hospitalizations. Partners sexually transmitted infection status known. : Previously 0 time(s) and para having 0 live (s). Not planning to have a baby in the next 12 months. Diagnoses: No diagnosis of cervical dysplasia. No diagnosis of human papilloma virus infection Procedural: - Tooth extraction Social History Environmental Exposure: No secondhand cigarette smoke exposure. Behavioral: Not a current tobacco user. Tobacco use: Using electronic cigarettes/vaping. Sexual: Sexual orientation Other and gender identity Other. Allergies - Codeine Reaction: unknown - -No Environmental Allergies - -No Known Food Allergies - Sumatriptan - Sun Reaction: Skin Rashes / Eruption of skin Review Of Systems Head: No head symptoms. Neck: No neck symptoms. Eyes: No eye symptoms. Otolaryngeal: No ear symptoms, no nasal symptoms, no nose and sinus finding, no throat symptoms, no oral cavity symptoms, and no jaw symptoms. Breasts: No breast symptoms. Cardiovascular: No cardiovascular symptoms and no chest pain or discomfort. Pulmonary: No pulmonary symptoms. Gastrointestinal: No gastrointestinal symptoms. Genitourinary: No genitourinary symptoms. Musculoskeletal: No musculoskeletal symptoms. Neurological: No neurological symptoms. Psychological: No psychological symptoms. Skin: No skin symptoms. Cardiovascular: Edema not present. Physical Findings - Vitals taken 12/24/2022 10:23 am BP-Sitting L112/80 mmHg BP Cuff SizeRegular Pulse Rate-Wlxjuir78 bpm Temp-Dtynuyom06.2 F Ktbwme66 in Skmgif876 lbs 12.8 oz Body Mass Index33.6 kg/m2 Body Surface Area1.9 m2 Oxygen Sshmowhlmb51 % General Appearance: - Awake. - Alert. - Well developed. - Well nourished. - In no acute distress. Head: Appearance: - Head normocephalic. Scar: - No scar on the head. Scalp: - Normal. Skull Tenderness: - No skull tenderness. Crepitus: - Head showed no crepitus. Temporal Arteries: - Normal. Neck: Appearance: - Of the neck was normal. Palpation: - Of the neck revealed no abnormalities. Suppleness: - Neck demonstrated no decrease in suppleness. Maneuvers: - Neck maneuvers elicited no abnormal responses. Weakness: - No neck weakness was seen. Thyroid: - Not diffusely enlarged. - Did not have a mass. - Did not have a nodule. - Not irregular to palpation. - Not tender. Cervical Mass: - No cervical mass was seen. Scar: - No surgical/traumatic scar was seen on the neck. Eyes: General/bilateral: Extraocular Movements: - Normal. Pupils: - PERRLA. - Size of the pupil was normal. - Reactive to light. - Showed normal accommodation. - No abnormal pupil function. External: - Eyelids showed no abnormalities. Sclera: - Not red. Ears: General/bilateral: Outer Ear: - Normal. Tympanic Membrane: - Examined. Hearing: - No hearing abnormalities. Right Ear: - Examined. Left Ear: - Examined. Nose: General/bilateral: Discharge: - No nasal discharge. Nasal Malformation: - No nasal malformation. External Deformities: - No external nose deformities. External Mass: - No external nasal mass. Piercings: - Nose was not pierced. Cavity: - No nasal cavity abnormalities. Nasal Erythema: - No nasal erythema was noted. Nasal Edema: - No nasal edema was noted. Nasal Bone Tenderness: - No nasal bone tenderness. Sinus Tenderness: - No sinus tenderness. Oral Cavity: - Odor of breath was normal. Lips: - Showed no abnormalities. Frenum Attachment: - Showed no abnormalities. Gums: - Examination showed no abnormalities. Teeth: - Dental no abnormalities. Buccal Mucosa: - Showed no mucosal abnormalities. Tongue: - Examination showed no abnormalities. Salivary Glands: - No salivary calculus was found. - Sublingual glands were not tender. - Sublingual glands were not swollen. - Sublingual glands did not have erythematous overlying mucosa. Palate: - Hard palate was normal. - Not cleft. - Showed no mucosal abnormalities. Pharynx: Nasopharynx: - Normal. Oropharynx: - Normal. Hypopharynx: - Normal. Mucosal: - Pharynx had no mucosal abnormalities. Lungs: - Respiration rhythm and depth was normal. - Clear to auscultation. Cardiovascular: Heart Rate And Rhythm: - Normal. Heart Sounds: - Normal. Murmurs: - No murmurs were heard. Thrill: - No thrill. Abdomen: Visual Inspection: - Abdomen was normal on visual inspection. Musculoskeletal System: General/bilateral: - Normal movement of all extremities. Neurological: - Oriented to time, place, and person. Skin: - General appearance was normal. Tests Blood Analysis: Blood Endocrine Laboratory Tests: ValueDate Blood glucose level by fingerstick Fasting 97 mg/dl12/24/2022 Blood hemoglobin A1c 5.1%12/24/2022 Educational Testing: In the Past 4 Weeks, Asthma kept me from getting much done at work/school/work? (5 Pts) None of the Time, During the past 4 weeks, how often have you had shortness of breath? (5 Pts) Not at all, During the past for 4 weeks, asthma symptoms woke me up at night or earlier than (5 Pts) Not at all, During the past 4 weeks, have used rescue inhaler or nebulizer medication (5 Pts) Not at all, and Asthma control during the past 4 weeks (5 Pts) Completely Controlled. Assessment - Z00.00 - Encounter for general adult medical examination without abnormal findings - Z68.33 - Body mass index [BMI] 33.0-33.9, adult - Z13.1 - Encounter for screening for diabetes mellitus Test Conclusions Asthma Control Test (ACT), adult total score was 25 12/24/2022. Therapy - Patient refused flu vaccine. Discussed benefits of flu vaccine with Patient. Vaccinations - Received dose of Reported: Patient has received the COVID Vaccine Counseling/Education - Discussed nutritional needs teach healthy choices including fruits and vegetables - Patient education about a proper diet - Discussed concerns about exercise: promote physical activity Plan StartCited- Encntr for general adult medical exam w/o abnormal findings Lab: CBC WITH DIFF Lab: COMP MET PROF LEVIN Lab: LIPID PROFILE Lab: TRIIODOTHYRONINE T3 Lab: THYROXINE T4 Lab: TSH EndCited StartCited- Encounter for autism screening Referrals: Psychiatry Instructions: Please make a referral to: behavioral health in [place] EndCited Practice Management Hemoglobin A1c level < 7.0%, for blood pressure systolic < 140 mmHg systolic < 130 mmHg systolic < 130 mmHg, and diastolic 80-89 mmHg diastolic 80-89 mmHg. Health Reminders - Adult Well Visit 18 years and older satisfied 12/24/2022. - Assess BMI satisfied 12/24/2022. - Assess Tobacco Use satisfied 12/24/2022. - Diabetes Risk Screening Needed satisfied 12/24/2022. - Follow Up Plan BMI Management satisfied 12/24/2022. User Defined 1 No (0 points) [Pre-DM]: No, mother, father, sister, or brother does not have DM, No (0 points) [Pre-DM]: No, patient has not been diagnosed with high blood pressure, No (0 points) [Pre-DM]: Patient has not been diagnosed with gestational diabetes or given to a baby weighing 9 pounds or more, Yes (0 point) [Pre-DM]: Yes, physically active, and Woman (0 Points) [Pre-DM]. Less than 40 years (0 points) [Pre-DM]. [facility]03-16-2023 Progress note* Progress note Date Encounter Last Documented by 12/24/2022 Established Patient Last docu mented on 12/25/2022; 8:44 AM, Tiffani BORJAS; [facility] Active Problems & Conditions - J45.30 - Asthma Mild Persistent Uncomplicated - J34.2 - Deviated Nasal Septum - F41.1 - Generalized Anxiety Disorder - F17.210 - Nicotine Dependence Cigarettes Uncomplicated - F25.0 - Schizoaffective Disorder, Bipolar Chief Complaint The Chief Complaint is: [facility] met with patient to follow-up regarding mood and PHQ score of 4. Patient reports that she is compliant with seeing [facility] and feels that mood is well managed but is interested in a referral for Autism testing. Patient states that she has talked to providers there, but they have not been open to discussing this. Patient reports that she has concerns about irritability when overwhelmed, feeling overstimulated when in social situations and feeling that she has had poor social skills throughout her life. Patient reports that she did move out of her Grandmothers house and this has been a positive. Patient reports no thoughts of harm towards self or others. History of Present Illness Maggie Gaines is a 32 year old female. - Normal appetite. - Energy level is fair - Easily distracted - Social isolation - No anxiety - No depression - No sleep disturbances - No loss of interest in activities - No racing thoughts - No high involvement in pleasurable activities Current Medication - *NEBULIZER SUPPLIES Miscellaneous use with albuterol as directed, 30 days, 0 refills - Albuterol Sulfate (2.5 MG/3ML) 0.083% Inhalation Nebulization solution inhale via nebulization route every 6 hours as needed for wheezing/ shortness of breath (disp 1 box), 30 days, 5 refills - Ankle Support Miscellaneous apply to right ankle while at work, 30 days, 0 refills - Dulera 200-5 MCG/ACT Inhalation Aerosol inhale 1 actuation by mouth twice daily, 30 days, 5 refills - hydrOXYzine HCl 50 MG Oral Tablet as needed for anxietyL. Pancho, 30 days, 0 refills - Invega Sustenna 78 MG/0.5ML Intramuscular Suspension Prefilled Syringe 0 days, 0 refills - Ventolin HFA 108 (90 Base) MCG/ACT Inhalation Aerosol, solution Aerosol Solution inhale 1-2 puffs by mouth every 6 hours as needed for wheezing/ shortness of breath(may sub equivalent), 30 days, 11 refills Social History Environmental Exposure: No secondhand cigarette smoke exposure. Personal: Recent emotional stress with living situation and waiting for repair on her own place to be completed. Tobacco use: Using electronic cigarettes/vaping. Alcohol: Not using alcohol. Drug Use: Not using drugs. Housing And Economic Circumstances: Lives with significant other and his family. Physical Findings General Appearance: - Normal Appearance. Neurological: - Estimated intelligence was normal. - Oriented to time, place, and person. - No hallucinations. - Judgement was not impaired. Speech: - Is Normal. Psychiatric: - Mood is Euthymic. - Attitude Open. Demonstrated Behavior: - Motor Activity Normal Activity. - Eye Contact Appropriate. Affect: - Congruent with the mood. Thought Content: - Insight was intact. - No delusions. - No suicidal ideation. - No Passive thoughts of . - No suicidal plans. - No suicidal intent. - No homicidal ideations. - No homicidal plans. - No homicidal intent. Past Medical: - No repetitive self injurious behavior. - No access to weapons / guns in home. Assessment - F25.0 - Schizoaffective disorder, bipolar type - F41.1 - Generalized anxiety disorder Therapy - Brief solution-focused therapy. - Adherent with medications. - Referral to mental health team. - Plan - do not modify medication. Collaborated with patient and provider: Counseling/Education P provided supportive and active listening, allowing patient the space to discuss concerns and explored with patient coping strategies to continue to implement in daily routine. BHP discussed with patient resources and supports that she can utilize. Patient feels that she is aware of community resources should she need them and that correctional counselor/case manager is also helpful in connecting her to things. Plan Patient to take medications as prescribed and contact the office with any questions or concerns. Patient to implement coping skills and positive supports as discussed. Patient to follow-up on referrals as discussed with PCP. BHP to follow-up with patient at next visit as scheduled. Health Reminders - Assess Tobacco Use satisfied 12/24/2022. - PHQ9 / PHQA satisfied 12/24/2022. User Defined 1 Has not worked without getting the payment you thought you would, has not felt pressured to do something against will to keep job, have not felt threatened in a relationship, has not been put down, humilitated, or someone has tried to control them, has not been hit, kicked, punched, or sexually forced to do something, or hurt, not afraid of someone you have a relationship with No, and not afraid of someone you have a relationship with. Domestic Violence/ Human Trafficking Screening was completed. Has lack of transportation kept patient from medical appointments or from getting medications: No and lack of transportation has kept patient from beneficial non-medical activities: No. Do you feel stress - tense, restless, nervous, or anxious, or unable to sleep at night because your mind is troubled all the time - these days? Somewhat and Does patient feel physically and emotionally safe where he/she lives: Yes. Is patient is worried about losing housing: No. What is the highest grade or level of school you have completed or the highest degree you have received? More than high school. In the past year, patient or family members in household were unable to get needed clothing: No, unable to get needed rn child: No, unable to get other needs No, unable to get needed phone: No, unable to get needed utilities: No, unable to get needed Medicine or Health Care: No, and In the past year, patient or family members in household were unable to get needed food: No. How often does patient see or talk to people that that he/she cares about and feels close to: 5 or more times a week. PHQ-9: total score was two 12/24/2022 If you checked off problems, how difficult is it for you to do your work? + : Somewhat difficult, [PHQ-9-1] Little interest or pleasure in doing things? + 0 pt : Not at all, [PHQ-9-2] Feeling down, depressed, or hopeless? + 0 pt : Not at all, [PHQ-9-3] Trouble falling or staying asleep or sleeping too much? + 0 pt : Not at all, [PHQ-9-4] Feeling tired or having little energy? + 1 pt : Several days, [PHQ-9-5] Poor appetite or overeating? + 0 pt : Not at all, [PHQ-9-6] Feeling bad about yourself-or that you are a failure + 0 pt : Not at all, [PHQ-9-7] Trouble concentrating on things such as reading the newspaper + 1 pt : Several days, [PHQ-9-8] Moving or speaking so slowly that other people have noticed. + 0 pt : Not at all, and [PHQ-9-9] Thoughts that you would be better off or hurting yourself? + 0 pt : Not at all. [facility]03-16-2023 Reason for referral (narrative)* Date Encounter Description Provider Reason for Referral 12/24/22 Established Patient Tiffani America [facility] S Referral To Mental Health Team 03/16/22 Established Patient Yelitza Molinamons [facility] Referral To Mental Health Team - P and pt discussed responses leading to score of 6. [facility] Work Phone: [phone] 672-517603-16-2023 Instructions Includes: Instructions for all patient encounters Instructions to patient Intervention and counseling on cessation of tobacco use, 3-10 minutes Discussed medication and nicotine replacement for tobacco cessation Last Documented On 2 11:12AM ; [facility] Intervention and counseling on cessation of tobacco use, 3-10 minutes Last Documented On 1 6:19PM ; [facility] Education and Decision Aids were provided during visit for: Discussed nutritional needs teach healthy choices including fruits and vegetables Last Documented On 3 10:27AM ; [facility] Patient education about a pr oper diet Last Documented On 3 10:27AM ; [facility] Discussed concerns about exe rcise : promote physical activity Last Documented On 3 10:27AM ; [facility] Discussed nutritional needs teach healthy choices including fruits and vegetables Last Documented On 2 9:49AM ; [facility] Patient education about a pr oper diet Last Documented On 2 9:49AM ; [facility] Discussed concerns about exe rcise : promote physical activity Last Documented On 2 9:49AM ; [facility] Not requesting contraception Last Documented On 2 9:51AM ; [facility] Discussed nutritional needs teach healthy choices including fruits and vegetables Last Documented On 2 9:12AM ; [facility] Patient education about a pr oper diet Last Documented On 2 9:12AM ; [facility] Discussed concerns about exe rcise : promote physical activity Last Documented On 2 9:12AM ; [facility] Discussed current self-care methods/coping skills. ~Validated and normalized pt?s feelings while assisting patient process recent events. ~Discussed ongoing counseling. ~Discussed lifestyle changes to address chronic illness. ~Supported patient's personal health goals ~ ~video games, read, farzad, dog, dinner, puzzles, music Last Documented On 2 11:01AM ; [facility] Discussed nutritional needs teach healthy choices including fruits and vegetables Last Documented On 2 10:39AM ; [facility] Patient education about a pr oper diet Last Documented On 2 10:39AM ; [facility] Discussed concerns about exe rcise : promote physical activity Last Documented On 2 10:39AM ; [facility] Not requesting contraception Last Documented On 2 11:04AM ; [facility] Discussed current self-care methods/coping skills. ~Validated and normalized patient's feelings while assisting patient process recent events. ~Discussed ongoing counseling. ~Discussed lifestyle changes to address chronic illness. ~Supported patient's personal health goals Last Documented On 2 12:36AM ; [facility] Discussed nutritional needs teach healthy choices including fruits and vegetables Last Documented On 2 10:48AM ; [facility] Patient education about a pr oper diet Last Documented On 2 10:48AM ; [facility] Discussed concerns about exe rcise : promote physical activity Last Documented On 2 10:48AM ; [facility] offered active and suppo rtive listening, normalized emotions and feelings, processed current stressors and explored coping and stress reducing skills. ~[facility] discused patients established coping skills and supports Last Documented On 1 9:36PM ; [facility] Discussed nutritional needs teach healthy choices including fruits and vegetables Last Documented On 1 5:05PM ; [facility] Patient education about a pr oper diet Last Documented On 1 5:05PM ; [facility] Patient education about a pr oper diet Last Documented On 1 5:23PM ; [facility] Patient education about meal planning Last Documented On 1 5:23PM ; [facility] Education about changing eat ing habits Last Documented On 1 5:23PM ; [facility] Patient education about high fiber diet Last Documented On 1 5:23PM ; [facility] Patient education about low fat diet Last Documented On 1 5:23PM ; [facility] Patient education about low cholesterol diet Last Documented On 1 5:23PM ; [facility] Patient education about low carbohydrate diet Last Documented On 1 5:23PM ; [facility] Patient education about high protein diet Last Documented On 1 5:23PM ; [facility] Discussed concerns about exe rcise : promote physical activity Last Documented On 1 5:05PM ; [facility] Patient education about a pr oper diet Last Documented On 1 4:21PM ; [facility] Patient education about meal planning Last Documented On 1 4:21PM ; [facility] Education about changing eat ing habits Last Documented On 1 4:21PM ; [facility] Patient education about high fiber diet Last Documented On 1 4:21PM ; [facility] Patient education about low fat diet Last Documented On 1 4:21PM ; [facility] Patient education about low cholesterol diet Last Documented On 1 4:21PM ; [facility] Patient education about low carbohydrate diet Last Documented On 1 4:21PM ; [facility] Patient education about high protein diet Last Documented On 1 4:21PM ; [facility] Discussed nutritional needs teach healthy choices including fruits and vegetables Last Documented On 1 6:04PM ; [facility] Patient education about a pr oper diet Last Documented On 1 6:04PM ; [facility] Patient education about a pr oper diet Last Documented On 1 6:26PM ; [facility] Patient education about meal planning Last Documented On 1 6:26PM ; [facility] Education about changing eat ing habits Last Documented On 1 6:26PM ; [facility] Patient education about high fiber diet Last Documented On 1 6:26PM ; [facility] Patient education about low fat diet Last Documented On 1 6:26PM ; [facility] Patient education about low cholesterol diet Last Documented On 1 6:26PM ; [facility] Patient education about low carbohydrate diet Last Documented On 1 6:26PM ; [facility] Patient education about high protein diet Last Documented On 1 6:26PM ; [facility] Discussed concerns about exe rcise : promote physical activity Last Documented On 1 6:04PM ; [facility] Discussed nutritional needs teach healthy choices including fruits and vegetables Last Documented On 1 6:19PM ; [facility] Patient education about a pr oper diet Last Documented On 1 6:19PM ; [facility] Patient education about a pr oper diet Last Documented On 1 6:50PM ; [facility] Patient education about meal planning Last Documented On 1 6:50PM ; [facility] Education about changing eat ing habits Last Documented On 1 6:50PM ; [facility] Patient education about high fiber diet Last Documented On 1 6:50PM ; [facility] Patient education about low fat diet Last Documented On 1 6:50PM ; [facility] Patient education about low cholesterol diet Last Documented On 1 6:50PM ; [facility] Patient education about low carbohydrate diet Last Documented On 1 6:50PM ; [facility] Patient education about high protein diet Last Documented On 1 6:50PM ; [facility] Discussed concerns about exe rcise : promote physical activity Last Documented On 1 6:19PM ; [facility] Discussed nutritional needs teach healthy choices including fruits and vegetables Last Documented On 1 4:51PM ; [facility] Patient education about a pr oper diet Last Documented On 1 4:51PM ; [facility] Patient education about a pr oper diet Last Documented On 1 5:27PM ; [facility] Patient education about meal planning Last Documented On 1 5:27PM ; [facility] Education about changing eat ing habits Last Documented On 1 5:27PM ; [facility] Patient education about high fiber diet Last Documented On 1 5:27PM ; [facility] Patient education about low fat diet Last Documented On 1 5:27PM ; [facility] Patient education about low cholesterol diet Last Documented On 1 5:27PM ; [facility] Patient education about low carbohydrate diet Last Documented On 1 5:27PM ; [facility] Patient education about high protein diet Last Documented On 1 5:27PM ; [facility] Discussed concerns about exe rcise : promote physical activity Last Documented On 1 4:51PM ; [facility] Work Phone: [phone]) 532-667803-16-2023 Instructions Includes: Instructions for all patient encounters Instructions to patient Intervention and counseling on cessation of tobacco use, 3-10 minutes Discussed medication and nicotine replacement for tobacco cessation Last Documented On 2 11:12AM ; [facility] Intervention and counseling on cessation of tobacco use, 3-10 minutes Last Documented On 1 6:19PM ; [facility] Education and Decision Aids were provided during visit for: Discussed nutritional needs teach healthy choices including fruits and vegetables Last Documented On 3 10:27AM ; [facility] Patient education about a pr oper diet Last Documented On 3 10:27AM ; [facility] Discussed concerns about exe rcise : promote physical activity Last Documented On 3 10:27AM ; [facility] Discussed nutritional needs teach healthy choices including fruits and vegetables Last Documented On 2 9:49AM ; [facility] Patient education about a pr oper diet Last Documented On 2 9:49AM ; [facility] Discussed concerns about exe rcise : promote physical activity Last Documented On 2 9:49AM ; [facility] Not requesting contraception Last Documented On 2 9:51AM ; [facility] Discussed nutritional needs teach healthy choices including fruits and vegetables Last Documented On 2 9:12AM ; [facility] Patient education about a pr oper diet Last Documented On 2 9:12AM ; [facility] Discussed concerns about exe rcise : promote physical activity Last Documented On 2 9:12AM ; [facility] Discussed current self-care methods/coping skills. ~Validated and normalized pt?s feelings while assisting patient process recent events. ~Discussed ongoing counseling. ~Discussed lifestyle changes to address chronic illness. ~Supported patient's personal health goals ~ ~video games, read, farzad, dog, dinner, puzzles, music Last Documented On 2 11:01AM ; [facility] Discussed nutritional needs teach healthy choices including fruits and vegetables Last Documented On 2 10:39AM ; [facility] Patient education about a pr oper diet Last Documented On 2 10:39AM ; [facility] Discussed concerns about exe rcise : promote physical activity Last Documented On 2 10:39AM ; [facility] Not requesting contraception Last Documented On 2 11:04AM ; [facility] Discussed current self-care methods/coping skills. ~Validated and normalized patient's feelings while assisting patient process recent events. ~Discussed ongoing counseling. ~Discussed lifestyle changes to address chronic illness. ~Supported patient's personal health goals Last Documented On 2 12:36AM ; [facility] Discussed nutritional needs teach healthy choices including fruits and vegetables Last Documented On 2 10:48AM ; [facility] Patient education about a pr oper diet Last Documented On 2 10:48AM ; [facility] Discussed concerns about exe rcise : promote physical activity Last Documented On 2 10:48AM ; [facility] offered active and suppo rtive listening, normalized emotions and feelings, processed current stressors and explored coping and stress reducing skills. ~P discused patients established coping skills and supports Last Documented On 1 9:36PM ; [facility] Discussed nutritional needs teach healthy choices including fruits and vegetables Last Documented On 1 5:05PM ; [facility] Patient education about a pr oper diet Last Documented On 1 5:05PM ; [facility] Patient education about a pr oper diet Last Documented On 1 5:23PM ; [facility] Patient education about meal planning Last Documented On 1 5:23PM ; [facility] Education about changing eat ing habits Last Documented On 1 5:23PM ; [facility] Patient education about high fiber diet Last Documented On 1 5:23PM ; [facility] Patient education about low fat diet Last Documented On 1 5:23PM ; [facility] Patient education about low cholesterol diet Last Documented On 1 5:23PM ; [facility] Patient education about low carbohydrate diet Last Documented On 1 5:23PM ; [facility] Patient education about high protein diet Last Documented On 1 5:23PM ; [facility] Discussed concerns about exe rcise : promote physical activity Last Documented On 1 5:05PM ; [facility] Patient education about a pr oper diet Last Documented On 1 4:21PM ; [facility] Patient education about meal planning Last Documented On 1 4:21PM ; [facility] Education about changing eat ing habits Last Documented On 1 4:21PM ; [facility] Patient education about high fiber diet Last Documented On 1 4:21PM ; [facility] Patient education about low fat diet Last Documented On 1 4:21PM ; [facility] Patient education about low cholesterol diet Last Documented On 1 4:21PM ; [facility] Patient education about low carbohydrate diet Last Documented On 1 4:21PM ; [facility] Patient education about high protein diet Last Documented On 1 4:21PM ; [facility] Discussed nutritional needs teach healthy choices including fruits and vegetables Last Documented On 1 6:04PM ; [facility] Patient education about a pr oper diet Last Documented On 1 6:04PM ; [facility] Patient education about a pr oper diet Last Documented On 1 6:26PM ; [facility] Patient education about meal planning Last Documented On 1 6:26PM ; [facility] Education about changing eat ing habits Last Documented On 1 6:26PM ; [facility] Patient education about high fiber diet Last Documented On 1 6:26PM ; [facility] Patient education about low fat diet Last Documented On 1 6:26PM ; [facility] Patient education about low cholesterol diet Last Documented On 1 6:26PM ; [facility] Patient education about low carbohydrate diet Last Documented On 1 6:26PM ; [facility] Patient education about high protein diet Last Documented On 1 6:26PM ; [facility] Discussed concerns about exe rcise : promote physical activity Last Documented On 1 6:04PM ; [facility] Discussed nutritional needs teach healthy choices including fruits and vegetables Last Documented On 1 6:19PM ; [facility] Patient education about a pr oper diet Last Documented On 1 6:19PM ; [facility] Patient education about a pr oper diet Last Documented On 1 6:50PM ; [facility] Patient education about meal planning Last Documented On 1 6:50PM ; [facility] Education about changing eat ing habits Last Documented On 1 6:50PM ; [facility] Patient education about high fiber diet Last Documented On 1 6:50PM ; [facility] Patient education about low fat diet Last Documented On 1 6:50PM ; [facility] Patient education about low cholesterol diet Last Documented On 1 6:50PM ; [facility] Patient education about low carbohydrate diet Last Documented On 1 6:50PM ; [facility] Patient education about high protein diet Last Documented On 1 6:50PM ; [facility] Discussed concerns about exe rcise : promote physical activity Last Documented On 1 6:19PM ; [facility] Discussed nutritional needs teach healthy choices including fruits and vegetables Last Documented On 1 4:51PM ; [facility] Patient education about a pr oper diet Last Documented On 1 4:51PM ; [facility] Patient education about a pr oper diet Last Documented On 1 5:27PM ; [facility] Patient education about meal planning Last Documented On 1 5:27PM ; [facility] Education about changing eat ing habits Last Documented On 1 5:27PM ; [facility] Patient education about high fiber diet Last Documented On 1 5:27PM ; [facility] Patient education about low fat diet Last Documented On 1 5:27PM ; [facility] Patient education about low cholesterol diet Last Documented On 1 5:27PM ; [facility] Patient education about low carbohydrate diet Last Documented On 1 5:27PM ; [facility] Patient education about high protein diet Last Documented On 1 5:27PM ; [facility] Discussed concerns about exe rcise : promote physical activity Last Documented On 1 4:51PM ; [facility] Work Phone: [phone]) 509-467501-24-2023 NotePROCEDURE: XR FOOT LT MIN 3 VIEWS HISTORY: Pain ; acute left second, third, and fourth toe pain following injury COMPARISON: None. FINDINGS: BONES:No fracture, acute abnormality, or significant arthropathy. SOFT TISSUES:No visible soft tissue swelling. EFFUSION:None visible. OTHER: Negative. IMPRESSION: 1. No acute bone abnormality. Electronically authenticated by: DARLINE TREVIZO Date: 2022-11-03 11:46[facility]11-02-2022 NotePROCEDURE: XR FOOT LT MIN 3 VIEWS COMPARISON: 07/30/2022 HISTORY: Contusion of left foot FINDINGS: BONES:No fracture, acute abnormality, or significant arthropathy. SOFT TISSUES:Negative. No visible soft tissue swelling. EFFUSION:None visible. OTHER: Negative. IMPRESSION: No acute abnormality Electronically authenticated by: MONIE PARIKH Date: 2022-08-12 19:08[facility]08-18-2022 History general Narrative - Reported Includes: Medical History in patient's chart Description Last Updated History of tooth extraction 05/28/2022 Last Documented On 2 10:19AM ; [facility] Has sex without a condom 04/30/2022 Last Documented On 2 9:11PM ; [facility] 0 previous live (s) 03/16/2022 Last Documented On 2 11:22AM ; [facility] Not planning to have a baby in the next 12 months 03/16/2022 Last Documented On 2 11:22AM ; [facility] status known for sexually trans mitted infection 03/16/2022 Last Documented On 2 11:22AM ; [facility] Previously 0 time(s) 03/16/2022 Last Documented On 2 11:22AM ; [facility] No diagnosis of history of cervical dysp lasia 01/09/2021 Last Documented On 1 6:31PM ; [facility] No diagnosis of history of human papillo ma virus infection 01/09/2021 Last Documented On 1 6:31PM ; [facility] No previous hospitalizations 12/19/2020 Last Documented On 1 6:56PM ; [facility] Recent immunization for flu 12/11/2020 Last Documented On 1 5:31PM ; [facility] No recent change in medical history 03/12 Last Documented On 0 11:05AM ; [facility] Work Phone: [phone]) 991-907908-18-2022 History general Narrative - Reported Includes: Medical History in patient's chart Description Last Updated History of tooth extraction 05/28/2022 Last Documented On 2 10:19AM ; [facility] Has sex without a condom 04/30/2022 Last Documented On 2 9:11PM ; [facility] 0 previous live (s) 03/16/2022 Last Documented On 2 11:22AM ; [facility] Not planning to have a baby in the next 12 months 03/16/2022 Last Documented On 2 11:22AM ; [facility] status known for sexually trans mitted infection 03/16/2022 Last Documented On 2 11:22AM ; [facility] Previously 0 time(s) 03/16/2022 Last Documented On 2 11:22AM ; [facility] No diagnosis of history of cervical dysp lasia 01/09/2021 Last Documented On 1 6:31PM ; [facility] No diagnosis of history of human papillo ma virus infection 01/09/2021 Last Documented On 1 6:31PM ; [facility] No previous hospitalizations 12/19/2020 Last Documented On 1 6:56PM ; [facility] Recent immunization for flu 12/11/2020 Last Documented On 1 5:31PM ; [facility] No recent change in medical history 03/12 Last Documented On 0 11:05AM ; [facility] Work Phone: [phone]) 781-388008-18-2022 History general Narrative - Reported Includes: Medical History in patient's chart Description Last Updated History of tooth extraction 05/28/2022 Last Documented On 2 10:19AM ; [facility] Has sex without a condom 04/30/2022 Last Documented On 2 9:11PM ; [facility] 0 previous live (s) 03/16/2022 Last Documented On 2 11:22AM ; [facility] Not planning to have a baby in the next 12 months 03/16/2022 Last Documented On 2 11:22AM ; [facility] status known for sexually trans mitted infection 03/16/2022 Last Documented On 2 11:22AM ; [facility] Previously 0 time(s) 03/16/2022 Last Documented On 2 11:22AM ; [facility] No diagnosis of history of cervical dysp lasia 01/09/2021 Last Documented On 1 6:31PM ; [facility] No diagnosis of history of human papillo ma virus infection 01/09/2021 Last Documented On 1 6:31PM ; [facility] No previous hospitalizations 12/19/2020 Last Documented On 1 6:56PM ; [facility] Recent immunization for flu 12/11/2020 Last Documented On 1 5:31PM ; [facility] No recent change in medical history 03/12 Last Documented On 0 11:05AM ; [facility] Work Phone: [phone]) [phone] History general Narrative - Reported Includes: Medical History in patient's chart Description Last Updated History of tooth extraction 05/28/2022 Last Documented On 2 10:19AM ; [facility] Has sex without a condom 04/30/2022 Last Documented On 2 9:11PM ; [facility] 0 previous live (s) 03/16/2022 Last Documented On 2 11:22AM ; [facility] Not planning to have a baby in the next 12 months 03/16/2022 Last Documented On 2 11:22AM ; [facility] status known for sexually trans mitted infection 03/16/2022 Last Documented On 2 11:22AM ; [facility] Previously 0 time(s) 03/16/2022 Last Documented On 2 11:22AM ; [facility] No diagnosis of history of cervical dysp lasia 01/09/2021 Last Documented On 1 6:31PM ; [facility] No diagnosis of history of human papillo ma virus infection 01/09/2021 Last Documented On 1 6:31PM ; [facility] No previous hospitalizations 12/19/2020 Last Documented On 1 6:56PM ; [facility] Recent immunization for flu 12/11/2020 Last Documented On 1 5:31PM ; [facility] No recent change in medical history 03/12 Last Documented On 0 11:05AM ; [facility] Work Phone: 1([phone]) 600-525608-18-2022 History general Narrative - Reported Includes: Medical History in patient's chart Description Last Updated History of tooth extraction 05/28/2022 Last Documented On 2 10:19AM ; [facility] Has sex without a condom 04/30/2022 Last Documented On 2 9:11PM ; [facility] 0 previous live (s) 03/16/2022 Last Documented On 2 11:22AM ; [facility] Not planning to have a baby in the next 12 months 03/16/2022 Last Documented On 2 11:22AM ; [facility] status known for sexually trans mitted infection 03/16/2022 Last Documented On 2 11:22AM ; [facility] Previously 0 time(s) 03/16/2022 Last Documented On 2 11:22AM ; [facility] No diagnosis of history of cervical dysp lasia 01/09/2021 Last Documented On 1 6:31PM ; [facility] No diagnosis of history of human papillo ma virus infection 01/09/2021 Last Documented On 1 6:31PM ; [facility] No previous hospitalizations 12/19/2020 Last Documented On 1 6:56PM ; [facility] Recent immunization for flu 12/11/2020 Last Documented On 1 5:31PM ; [facility] No recent change in medical history 03/12 Last Documented On 0 11:05AM ; [facility] Work Phone: 1([phone]) 528-888908-18-2022 History general Narrative - Reported Includes: Medical History in patient's chart Description Last Updated History of tooth extraction 05/28/2022 Last Documented On 2 10:19AM ; [facility] Has sex without a condom 04/30/2022 Last Documented On 2 9:11PM ; [facility] 0 previous live (s) 03/16/2022 Last Documented On 2 11:22AM ; [facility] Not planning to have a baby in the next 12 months 03/16/2022 Last Documented On 2 11:22AM ; [facility] status known for sexually trans mitted infection 03/16/2022 Last Documented On 2 11:22AM ; [facility] Previously 0 time(s) 03/16/2022 Last Documented On 2 11:22AM ; [facility] No diagnosis of history of cervical dysp lasia 01/09/2021 Last Documented On 1 6:31PM ; [facility] No diagnosis of history of human papillo ma virus infection 01/09/2021 Last Documented On 1 6:31PM ; [facility] No previous hospitalizations 12/19/2020 Last Documented On 1 6:56PM ; [facility] Recent immunization for flu 12/11/2020 Last Documented On 1 5:31PM ; [facility] No recent change in medical history 03/12 Last Documented On 0 11:05AM ; [facility] Work Phone: 1(588) 126-751208-18-2022 History general Narrative - Reported Includes: Medical History in patient's chart Description Last Updated History of tooth extraction 05/28/2022 Last Documented On 2 10:19AM ; [facility] Has sex without a condom 04/30/2022 Last Documented On 2 9:11PM ; [facility] 0 previous live (s) 03/16/2022 Last Documented On 2 11:22AM ; [facility] Not planning to have a baby in the next 12 months 03/16/2022 Last Documented On 2 11:22AM ; [facility] status known for sexually trans mitted infection 03/16/2022 Last Documented On 2 11:22AM ; [facility] Previously 0 time(s) 03/16/2022 Last Documented On 2 11:22AM ; [facility] No diagnosis of history of cervical dysp lasia 01/09/2021 Last Documented On 1 6:31PM ; [facility] No diagnosis of history of human papillo ma virus infection 01/09/2021 Last Documented On 1 6:31PM ; [facility] No previous hospitalizations 12/19/2020 Last Documented On 1 6:56PM ; [facility] Recent immunization for flu 12/11/2020 Last Documented On 1 5:31PM ; [facility] No recent change in medical history 03/12 Last Documented On 0 11:05AM ; [facility] Work Phone: 1(771) 542-475408-18-2022 History general Narrative - Reported Includes: Medical History in patient's chart Description Last Updated History of tooth extraction 05/28/2022 Last Documented On 2 10:19AM ; [facility] Has sex without a condom 04/30/2022 Last Documented On 2 9:11PM ; [facility] 0 previous live (s) 03/16/2022 Last Documented On 2 11:22AM ; [facility] Not planning to have a baby in the next 12 months 03/16/2022 Last Documented On 2 11:22AM ; [facility] status known for sexually trans mitted infection 03/16/2022 Last Documented On 2 11:22AM ; [facility] Previously 0 time(s) 03/16/2022 Last Documented On 2 11:22AM ; [facility] No diagnosis of history of cervical dysp lasia 01/09/2021 Last Documented On 1 6:31PM ; [facility] No diagnosis of history of human papillo ma virus infection 01/09/2021 Last Documented On 1 6:31PM ; [facility] No previous hospitalizations 12/19/2020 Last Documented On 1 6:56PM ; [facility] Recent immunization for flu 12/11/2020 Last Documented On 1 5:31PM ; [facility] No recent change in medical history 03/12 Last Documented On 0 11:05AM ; [facility] Work Phone: 1([phone]) 543-260708-18-2022 History general Narrative - Reported Includes: Medical History in patient's chart Description Last Updated History of tooth extraction 05/28/2022 Last Documented On 2 10:19AM ; [facility] Has sex without a condom 04/30/2022 Last Documented On 2 9:11PM ; [facility] 0 previous live (s) 03/16/2022 Last Documented On 2 11:22AM ; [facility] Not planning to have a baby in the next 12 months 03/16/2022 Last Documented On 2 11:22AM ; [facility] status known for sexually trans mitted infection 03/16/2022 Last Documented On 2 11:22AM ; [facility] Previously 0 time(s) 03/16/2022 Last Documented On 2 11:22AM ; [facility] No diagnosis of history of cervical dysp lasia 01/09/2021 Last Documented On 1 6:31PM ; [facility] No diagnosis of history of human papillo ma virus infection 01/09/2021 Last Documented On 1 6:31PM ; [facility] No previous hospitalizations 12/19/2020 Last Documented On 1 6:56PM ; [facility] Recent immunization for flu 12/11/2020 Last Documented On 1 5:31PM ; [facility] No recent change in medical history 03/12 Last Documented On 0 11:05AM ; [facility] Work Phone: 1(421) 226-212707-21-2022 Evaluation note Includes: Assessments for all patient encounters Findings Encounter Date Bipolar schizoaffective disorder BH Esta blished Patient with Yelitza Gonsalez [facility] 04/30/2022 Generalized anxiety disorder BH Establis hed Patient with Yelitza Gonsalez [facility] 04/30/2022 No cough Medical Established Patient with Desmond Barrera CNP 04/30/2022 Z68.32 - Body mass index [BM I] 32.0-32.9, adult Medical Established Patient with Desmondpaulette Estradaen [employer] M[employer]INE [employer]PER[employer] 04/30/2022 Bipolar schizoaffective disorder BH Esta blished Patient with Yelitza Gonsalez [facility] 03/16/2022 Generalized anxiety disorder BH Establis hed Patient with Yelitza Gonsalez [facility] 03/16/2022 No cough Medical Established Patient with Desmond Bruce CAP MACHINE OPERATOR 03/16/2022 Z68.32 - Body mass index [BM I] 32.0-32.9, adult Medical Established Patient with Desmond Bruce CAP MACHINE OPERATOR 03/16/2022 Bipolar schizoaffective disorder BH Esta blished Patient with Yelitza Gonsalez [facility] 12/24/2021 Generalized anxiety disorder BH Establis hed Patient with Yelitza Gonsalez [facility] 12/24/2021 Diabetes Risk Test Score was three score 12/24/2021 Medical Established Patient with Desmond Barrera CAP MACHINE OPERATOR 12/24/2021 Intervention and counseling on cessation of tobacco use, 3-10 minutes Discussed medication and nicotine replacement for tobacco cessation Medical Established Patient with Desmond Bruce CAP MACHINE OPERATOR 12/24/2021 Nicotine dependence Medical Established Patient with Desmond Barrera CAP MACHINE OPERATOR 12/24/2021 No cough Medical Established Patient with Dsemond Barrera CAP MACHINE OPERATOR 12/24/2021 Visit for routine adult H&P without abnormal findings Medical Established Patient with Desmond Barrera CAP MACHINE OPERATOR 12/24/2021 Z68.31 - Body mass index [BM I] 31.0-31.9, adult Medical Established Patient with Desmond Barrera CAP MACHINE OPERATOR 12/24/2021 Nicotine dependence Established Patie nt with Tiffani Short [facility] 04/28/2021 Schizoaffective disorder per patient reported history Established Patient with Tiffani Short LISWS 04/28/2021 Arthralgia of ankle / foot Medical Estab lished Patient with Desmond Bruce CAP MACHINE OPERATOR 04/28/2021 Body mass index Medical Established Patient with Desmond Bruce CAP MACHINE OPERATOR 04/28/2021 Nicotine dependence Medical Established Patient with Desmond Estradaen CAP MACHINE OPERATOR 04/28/2021 Obesity due to excess calories Medical E stablished Patient with Desmond Bruce CAP MACHINE OPERATOR 04/28/2021 Body mass index Medical Established Patient with Desmond Barrera CAP MACHINE OPERATOR 02/25/2021 Nicotine dependence Medical Established Patient with Desmond Bruce CAP MACHINE OPERATOR 02/25/2021 Obesity due to excess calories Medical E stablished Patient with Desmond Barrera CNP 02/25/2021 Perennial allergic rhinitis with seasonal variation Medical Established Patient with Desmond Barrera CNP 02/25/2021 Assess Screen malignant neoplasm cervix [facility] with Desmond Barrera CNP 01/09/2021 Overweight [facility] with Desmond Barrera CNP 01/09/2021 Z68.29 - Body mass index [BM I] 29.0-29.9, adult [facility] with Desmond Barrera CNP 01/09/2021 Body mass index Medical Established Patient with Desmond Barrera CAP MACHINE OPERATOR 12/19/2020 Overweight Medical Established Patient with Desmond Barrera CNP 12/19/2020 Diabetes Risk Test Score was 0 score 12/11/2020 Medical Established Patient with Desmond Barrera CAP MACHINE OPERATOR 12/11/2020 Overweight Medical Established Patient with Desmond Barrera CAP MACHINE OPERATOR 12/11/2020 Z68.28 - Body mass index [BM I] 28.0-28.9, adult Medical Established Patient with Desmond Barrera CAP MACHINE OPERATOR 12/11/2020 Z68.24 - Body mass index [BM I] 24.0-24.9, adult Telemedicine Establisted Patient with Desmond Barrera [facility] 07/25/2020 Health [facility] Work Phone: 1(390) 674-847607-21-2022 History general Narrative - Reported Includes: Medical History in patient's chart Description Last Updated Has sex without a condom 04/30/2022 0 previous live (s) 03/16/2022 Not planning to have a baby in the next 12 months 03/16/2022 Partners status known for sexually trans mitted infection 03/16/2022 Previously 0 time(s) 03/16/2022 No diagnosis of history of cervical dysp lasia 01/09/2021 No diagnosis of history of human papillo ma virus infection 01/09/2021 No previous hospitalizations 12/19/2020 Recent immunization for flu 12/11/2020 No recent change in medical history 03/12 [facility] Work Phone: 1(726) 912-819307-21-2022 History general Narrative - Reported Includes: Medical History in patient's chart Description Last Updated History of tooth extraction 05/28/2022 Has sex without a condom 04/30/2022 0 previous live (s) 03/16/2022 Not planning to have a baby in the next 12 months 03/16/2022 Partners status known for sexually trans mitted infection 03/16/2022 Previously 0 time(s) 03/16/2022 No diagnosis of history of cervical dysp lasia 01/09/2021 No diagnosis of history of human papillo ma virus infection 01/09/2021 No previous hospitalizations 12/19/2020 Recent immunization for flu 12/11/2020 No recent change in medical history 03/12 [facility] Work Phone: 1(360) 349-143106-06-2022 Evaluation note Includes: Assessments for all patient encounters Findings Encounter Date Bipolar schizoaffective disorder Esta blished Patient with Yelitza Gonsalez [facility] 03/16/2022 Generalized anxiety disorder Establis hed Patient with Yelitza Gonsalez [facility] 03/16/2022 No cough Medical Established Patient with Desmond Barrera CAP MACHINE OPERATOR 03/16/2022 Z68.32 - Body mass index [BM I] 32.0-32.9, adult Medical Established Patient with Desmondpaulette Estradaen CAP MACHINE OPERATOR 03/16/2022 Bipolar schizoaffective disorder Esta blished Patient with Yelitza Gonsalez [facility] 12/24/2021 Generalized anxiety disorder Establis hed Patient with Yelitza Gonsalez [facility] 12/24/2021 Diabetes Risk Test Score was three score 12/24/2021 Medical Established Patient with Desmondpaulette Barrera CAP MACHINE OPERATOR 12/24/2021 Intervention and counseling on cessation of tobacco use, 3-10 minutes Discussed medication and nicotine replacement for tobacco cessation Medical Established Patient with Desmond Bruce CAP MACHINE OPERATOR 12/24/2021 Nicotine dependence Medical Established Patient with Desmondpaulette Estradaen CAP MACHINE OPERATOR 12/24/2021 No cough Medical Established Patient with Desmondpaulette Estradaen CAP MACHINE OPERATOR 12/24/2021 Visit for routine adult H&P without abnormal findings Medical Established Patient with Desmondpaulette Estradaen CAP MACHINE OPERATOR 12/24/2021 Z68.31 - Body mass index [BM I] 31.0-31.9, adult Medical Established Patient with Desmondpaulette Estradaen CAP MACHINE OPERATOR 12/24/2021 Nicotine dependence Established Patie nt with Tiffani Cross [facility] 04/28/2021 Schizoaffective disorder per patient reported history BH Established Patient with Tiffani Cross [facility] 04/28/2021 Arthralgia of ankle / foot Medical Estab lished Patient with Desmond Barrera CAP MACHINE OPERATOR 04/28/2021 Body mass index Medical Established Patient with Desmond Barrera CAP MACHINE OPERATOR 04/28/2021 Nicotine dependence Medical Established Patient with Desmond Barrera CAP MACHINE OPERATOR 04/28/2021 Obesity due to excess calories Medical E stablished Patient with Desmondpaulette Barrera CAP MACHINE OPERATOR 04/28/2021 Body mass index Medical Established Patient with Desmond Barrera CAP MACHINE OPERATOR 02/25/2021 Nicotine dependence Medical Established Patient with Desmond Barrera CAP MACHINE OPERATOR 02/25/2021 Obesity due to excess calories Medical E stablished Patient with Desmond Barrera CAP MACHINE OPERATOR 02/25/2021 Perennial allergic rhinitis with seasonal variation Medical Established Patient with Desmond Barrera CNP 02/25/2021 Assess Screen malignant neoplasm cervix [facility] with Desmond Barrera CAP MACHINE OPERATOR 01/09/2021 Overweight [facility] with Desmond Barrera CAP MACHINE OPERATOR 01/09/2021 Z68.29 - Body mass index [BM I] 29.0-29.9, adult [facility] with Desmond Barrera CAP MACHINE OPERATOR 01/09/2021 Body mass index Medical Established Patient with Desmond Barrera CAP MACHINE OPERATOR 12/19/2020 Overweight Medical Established Patient with Desmond Barrera CNP 12/19/2020 Diabetes Risk Test Score was 0 score 12/11/2020 Medical Established Patient with Desmond Barrera CAP MACHINE OPERATOR 12/11/2020 Overweight Medical Established Patient with Desmond Barrera CAP MACHINE OPERATOR 12/11/2020 Z68.28 - Body mass index [BM I] 28.0-28.9, adult Medical Established Patient with Desmond Barrera CAP MACHINE OPERATOR 12/11/2020 Z68.24 - Body mass index [BM I] 24.0-24.9, adult Telemedicine Establisted Patient with Desmond Barrera CAP MACHINE OPERATOR 07/25/2020 [facility] Work Phone: 1(282) [phone] History general Narrative - Reported Includes: Medical History in patient's chart Description Last Updated 0 previous live (s) 03/16/2022 Has sex without a condom 03/16/2022 Not planning to have a baby in the next 12 months 03/16/2022 Partners status known for sexually trans mitted infection 03/16/2022 Previously 0 time(s) 03/16/2022 No diagnosis of history of cervical dysp lasia 01/09/2021 No diagnosis of history of human papillo ma virus infection 01/09/2021 No previous hospitalizations 12/19/2020 Recent immunization for flu 12/11/2020 No recent change in medical history 03/12 [facility] Work Phone: [phone]) [phone] Reason for referral (narrative)* Date Encounter Description Provider Reason for Referral 03/16/22 Established Patient Yelitza Gonsalez [facility] Referral To Mental Health Team - [facility] and pt discussed responses leading to score of 6. [facility] Work Phone: 1([phone]) 704-374503-16-2022 Evaluation note Includes: Assessments for all patient encounters Findings Encounter Date Bipolar schizoaffective disorder Esta blished Patient with Yelitza Gonsalez [facility] 12/24/2021 Generalized anxiety disorder Establis hed Patient with Yelitza Gonsalez [facility] 12/24/2021 Diabetes Risk Test Score was three score 12/24/2021 Medical Established Patient with Desmond Barrera CAP MACHINE OPERATOR 12/24/2021 Intervention and counseling on cessation of tobacco use, 3-10 minutes Discussed medication and nicotine replacement for tobacco cessation Medical Established Patient with Desmond Bruce CAP MACHINE OPERATOR 12/24/2021 Nicotine dependence Medical Established Patient with Desmond Bruce CAP MACHINE OPERATOR 12/24/2021 No cough Medical Established Patient with Desmond Bruce CAP MACHINE OPERATOR 12/24/2021 Visit for routine adult H&P without abnormal findings Medical Established Patient with Desmond Estraaden CAP MACHINE OPERATOR 12/24/2021 Z68.31 - Body mass index [BM I] 31.0-31.9, adult Medical Established Patient with Desmond Bruce CAP MACHINE OPERATOR 12/24/2021 Nicotine dependence Established Patie nt with Tiffani Cross [facility] 04/28/2021 Schizoaffective disorder per patient reported history Established Patient with Tiffani Short L[facility] 04/28/2021 Arthralgia of ankle / foot Medical Estab lished Patient with Desmond Bruce CAP MACHINE OPERATOR 04/28/2021 Body mass index Medical Established Patient with Desmond Barrera CAP MACHINE OPERATOR 04/28/2021 Nicotine dependence Medical Established Patient with Desmond Barrera CAP MACHINE OPERATOR 04/28/2021 Obesity due to excess calories Medical E stablished Patient with Desmond Barrera CAP MACHINE OPERATOR 04/28/2021 Body mass index Medical Established Patient with Desmond Barrera CAP MACHINE OPERATOR 02/25/2021 Nicotine dependence Medical Established Patient with Desmond Barrera CAP MACHINE OPERATOR 02/25/2021 Obesity due to excess calories Medical E stablished Patient with Desmond Barrera CAP MACHINE OPERATOR 02/25/2021 Perennial allergic rhinitis with seasonal variation Medical Established Patient with Desmond Barrera CAP MACHINE OPERATOR 02/25/2021 Assess Screen malignant neoplasm cervix [facility] with Desmond Barrera CAP MACHINE OPERATOR 01/09/2021 Overweight [facility] with Desmond Barrera CNP 01/09/2021 Z68.29 - Body mass index [BM I] 29.0-29.9, adult [facility] with Desmond Barrera CAP MACHINE OPERATOR 01/09/2021 Body mass index Medical Established Patient with Desmond Barrera CNP 12/19/2020 Overweight Medical Established Patient with Desmond Barrera CAP MACHINE OPERATOR 12/19/2020 Diabetes Risk Test Score was 0 score 12/11/2020 Medical Established Patient with Desmond Barrera CAP MACHINE OPERATOR 12/11/2020 Overweight Medical Established Patient with Desmond Brarera CNP 12/11/2020 Z68.28 - Body mass index [BM I] 28.0-28.9, adult Medical Established Patient with Desmond Barrera CNP 12/11/2020 Z68.24 - Body mass index [BM I] 24.0-24.9, adult Telemedicine Establisted Patient with Desmond Barrera CAP MACHINE OPERATOR 07/25/2020 [facility] Work Phone: [phone]) [phone] Evaluation note Includes: Assessments for all patient encounters Findings Encounter Date Nicotine dependence BH Established Patie nt with Tiffani Short LIS[facility] 04/28/2021 Schizoaffective disorder per patient reported history BH Established Patient with Tiffani Short LISWS 04/28/2021 Arthralgia of ankle / foot Medical Estab lished Patient with Desmond Barrera CAP MACHINE OPERATOR 04/28/2021 Body mass index Medical Established Patient with Desmond Barrera CAP MACHINE OPERATOR 04/28/2021 Nicotine dependence Medical Established Patient with Desmond Barrera CAP MACHINE OPERATOR 04/28/2021 Obesity due to excess calories Medical E stablished Patient with Desmond Barrera CAP MACHINE OPERATOR 04/28/2021 Body mass index Medical Established Patient with Desmond Barrera CAP MACHINE OPERATOR 02/25/2021 Nicotine dependence Medical Established Patient with Desmond Barrera CAP MACHINE OPERATOR 02/25/2021 Obesity due to excess calories Medical E stablished Patient with Desmond Barrera CAP MACHINE OPERATOR 02/25/2021 Perennial allergic rhinitis with seasonal variation Medical Established Patient with Desmond Barrera CAP MACHINE OPERATOR 02/25/2021 Assess Screen malignant neoplasm cervix Women's [facility] with Desmond Barrera CAP MACHINE OPERATOR 01/09/2021 Overweight Women's [facility] with Desmond Barrera CAP MACHINE OPERATOR 01/09/2021 Z68.29 - Body mass index [BM I] 29.0-29.9, adult Women's [facility] with Desmond Barrera CAP MACHINE OPERATOR 01/09/2021 Body mass index Medical Established Patient with Desmond Barrera [facility] 12/19/2020 Overweight Medical Established Patient with Desmond Barrera [facility] 12/19/2020 Diabetes Risk Test Score was 0 score 12/11/2020 Medical Established Patient with Desmond Barrera [facility] 12/11/2020 Overweight Medical Established Patient with Desmond Barrera CAP MACHINE OPERATOR 12/11/2020 Z68.28 - Body mass index [BM I] 28.0-28.9, adult Medical Established Patient with Desmond aBrrera [facility] 12/11/2020 Z68.24 - Body mass index [BM I] 24.0-24.9, adult Telemedicine Establisted Patient with Desmond Barrera [facility] 07/25/2020 [facility] Work Phone: 1(174) 376-280805-18-2021 Evaluation note Includes: Assessments for all patient encounters Findings Encounter Date Body mass index Medical Established Patient with Desmond Barrera CAP MACHINE OPERATOR 02/25/2021 Nicotine dependence Medical Established Patient with Desmond Barrera CAP MACHINE OPERATOR 02/25/2021 Obesity due to excess calories Medical E stablished Patient with Desmond Barrera CAP MACHINE OPERATOR 02/25/2021 Perennial allergic rhinitis with seasonal variation Medical Established Patient with Desmond Barrera CAP MACHINE OPERATOR 02/25/2021 Assess Screen malignant neop lasm cervix Women's [facility] with Desmond Barrera CAP MACHINE OPERATOR 01/09/2021 Overweight [facility]'s [facility] with Desmond Barrera CAP MACHINE OPERATOR 01/09/2021 Z68.29 - Body mass index [BM I] 29.0-29.9, adult Women's [facility] with Desmond Barrera CAP MACHINE OPERATOR 01/09/2021 Body mass index Medical Established Patient with Desmond Barrera CAP MACHINE OPERATOR 12/19/2020 Overweight Medical Established Patient with Desmond Barrera CAP MACHINE OPERATOR 12/19/2020 Diabetes Risk Test Score was 0 score 12/11/2020 Medical Established Patient with Desmond Barrera CAP MACHINE OPERATOR 12/11/2020 Overweight Medical Established Patient with Desmond Barrera CNP 12/11/2020 Z68.28 - Body mass index [BM I] 28.0-28.9, adult Medical Established Patient with Desmond Barrera CNP 12/11/2020 Z68.24 - Body mass index [BM I] 24.0-24.9, adult Telemedicine Establisted Patient with Desmond Barrera CAP MACHINE OPERATOR 07/25/2020 [facility] Work Phone: 1(506) 334-590704-01-2021 History general Narrative - Reported Includes: Medical History in patient's chart Description Last Updated No diagnosis of history of cervical dysp lasia 01/09/2021 No diagnosis of history of human papillo ma virus infection 01/09/2021 No previous hospitalizations 12/19/2020 Recent immunization for flu 12/11/2020 No recent change in medical history 03/12 [facility] Work Phone: Evaluation + Plan note No data [facility] Nausea- Primary Nausea alone Cyst of right ovary Other and unspecified ovarian cyst documented in this encounter [facility] Work Phone: evaluation note Includes: Assessments for all patient encounters No [facility]: Evaluation note Includes: Assessments for all patient encounters Findings Encounter Date Bipolar schizoaffective disorder BH Esta blished Patient with Yelitzasamir Gonsalez [facility] 12/24/2021 Generalized anxiety disorder BH Establis hed Patient with Yelitza Wallace [facility] 12/24/2021 Diabetes Risk Test Score was three score 12/24/2021 Medical Established Patient with Desmond Barrera CAP MACHINE OPERATOR 12/24/2021 Intervention and counseling on cessation of tobacco use, 3-10 minutes Discussed medication and nicotine replacement for tobacco cessation Medical Established Patient with Desmond Barrera CAP MACHINE OPERATOR 12/24/2021 Nicotine dependence Medical Established Patient with Desmond Barrera CAP MACHINE OPERATOR 12/24/2021 No cough Medical Established Patient with Desmond Barrera CAP MACHINE OPERATOR 12/24/2021 Visit for routine adult H&P without abnormal findings Medical Established Patient with Desmond Barrera CAP MACHINE OPERATOR 12/24/2021 Z68.31 - Body mass index [BM I] 31.0-31.9, adult Medical Established Patient with Desmond Barrera CAP MACHINE OPERATOR 12/24/2021 Nicotine dependence Established Patie nt with Tiffani Short L[facility] 04/28/2021 Schizoaffective disorder per patient reported history BH Established Patient with Tiffani Short LISWS 04/28/2021 Arthralgia of ankle / foot Medical Estab lished Patient with Desmond Barrera [facility] 04/28/2021 Body mass index Medical Established Patient with Desmond Barrera CAP MACHINE OPERATOR 04/28/2021 Nicotine dependence Medical Established Patient with Desmond Barrera CAP MACHINE OPERATOR 04/28/2021 Obesity due to excess calories Medical E stablished Patient with Desmond Barrera [facility] [facility]21 Body mass index Medical Established Patient with Desmond Barrera [employer] 02/25/2021 Nicotine dependence Medical Established Patient with Desmond Barrera [facility] 02/25/2021 Obesity due to excess calories Medical E stablished Patient with Desmond Barrera [facility] 02/25/2021 Perennial allergic rhinitis with seasonal variation Medical Established Patient with Desmond Barrera [facility] 02/25/2021 Assess Screen malignant neoplasm cervix Women's Health with Desmond Barrera [employer] [employer] 01/09/2021 Overweight Women's Health with Desmond Barrera [facility] 01/09/2021 Z68.29 - Body mass index [BM I] 29.0-29.9, adult Women's Health with Desmond Barrera [employer] 01/09/2021 Body mass index Medical Established Patient with Desmond Barrera [employer] MACHINE [employer]PER[employer] 12/19/2020 Overweight Medical Established Patient with Desmond Barrera [facility] 12/19/2020 Diabetes Risk Test Score was 0 score 12/11/2020 Medical Established Patient with Desmond Barrera [employer] MACHINE OPERATOR 12/11/2020 Overweight Medical Established Patient with Desmond Barrera [facility] 12/11/2020 Z68.28 - Body mass index [BM I] 28.0-28.9, adult Medical Established Patient with Desmond Brarera CAP MACHINE OPERATOR 12/11/2020 Z68.24 - Body mass index [BM I] 24.0-24.9, adult Telemedicine Establisted Patient with Desmond Barrera CNP 07/25/2020 [facility] Work Phone: Evaluation note Includes: Assessments for all patient encounters Findings Encounter Date No cough Medical Established Patient with Desmond Barrera [employer] MACHINE OPERATOR 03/16/2022 Z68.32 - Body mass index [BM I] 32.0-32.9, adult Medical Established Patient with Desmond Barrera [employer] MACHINE OPER[employer] 03/16/2022 Bipolar schizoaffective disorder Esta blished Patient with Yelitza Molinamons [facility] 12/24/2021 Generalized anxiety disorder BH Establis hed Patient with Yelitza Gonsalez [facility] 12/24/2021 Diabetes Risk Test Score was three score 12/24/2021 Medical Established Patient with Desmond Barrera [employer] MACHINE OPERATOR 12/24/2021 Intervention and counseling on cessation of tobacco use, 3-10 minutes Discussed medication and nicotine replacement for tobacco cessation Medical Established Patient with Desmond Barrera [employer]ACHINE OPER[employer] 12/24/2021 Nicotine dependence Medical Established Patient with Desmond Barrera CAP MACHINE OPERATOR 12/24/2021 No cough Medical Established Patient with Desmond Barrera [employer] MACHINE OPER[employer] 12/24/2021 Visit for routine adult H&P without abnormal findings Medical Established Patient with Desmond Barrera CAP MACHINE OPERATOR 12/24/2021 Z68.31 - Body mass index [BM I] 31.0-31.9, adult Medical Established Patient with Desmond Barrera [employer] MACHINE OPERATOR 12/24/2021 Nicotine dependence Established Patie nt with Tiffani Short [facility] 04/28/2021 Schizoaffective disorder per patient reported history Established Patient with Tiffani Short [facility] 04/28/2021 Arthralgia of ankle / foot Medical Estab lished Patient with Desmond Barrera CAP MACHINE OPERATOR 04/28/2021 Body mass index Medical Established Patient with Desmond Bruce [employer] MACHINE OPERATOR 04/28/2021 Nicotine dependence Medical Established Patient with Desmond Bruce [employer] MACHINE OPER[employer] 04/28/2021 Obesity due to excess calories Medical E stablished Patient with Desmond Bruce [employer] MACHINE OPER[employer] 04/28/2021 Body mass index Medical Established Patient with Desmond Bruce [employer] MACHINE OPERATOR 02/25/2021 Nicotine dependence Medical Established Patient with Desmond Bruce [employer] MACHINE OPER[employer] 02/25/2021 Obesity due to excess calories Medical E stablished Patient with Desmond Barrera [employer] MACHINE OPERATOR 02/25/2021 Perennial allergic rhinitis with seasonal variation Medical Established Patient with Desmond Barrera [employer] MACHINE OPERATOR 02/25/2021 Assess Screen malignant neoplasm cervix Women's Health with Desmond Barrera CAP MACHINE OPERATOR 01/09/2021 Overweight Women's Health with Desmond Barrera CAP MACHINE OPERATOR 01/09/2021 Z68.29 - Body mass index [BM I] 29.0-29.9, adult Women's Health with Desmond Barrera [employer] MACHINE OPERATOR 01/09/2021 Body mass index Medical Established Patient with Desmond Barrera CAP MACHINE OPERATOR 12/19/2020 Overweight Medical Established Patient with Desmond Barrera [employer] MACHINE OPERATOR 12/19/2020 Diabetes Risk Test Score was 0 score 12/11/2020 Medical Established Patient with Desmond Barrera CAP MACHINE OPERATOR 12/11/2020 Overweight Medical Established Patient with Desmond Barrera [employer] MACHINE OPERATOR 12/11/2020 Z68.28 - Body mass index [BM I] 28.0-28.9, adult Medical Established Patient with Desmond Barrera CAP MACHINE OPERATOR 12/11/2020 Z68.24 - Body mass index [BM I] 24.0-24.9, adult Telemedicine Establisted Patient with Desmond Barrera [facility] 07/25/2020 [facility] Work Phone: Evaluation note Includes: Assessments for all patient encounters Findings Encounter Date No cough Medical Established Patient with Desmond Barrera CAP MACHINE OPERATOR 04/30/2022 Z68.32 - Body mass index [BM I] 32.0-32.9, adult Medical Established Patient with Desmond Barrera CAP MACHINE OPERATOR 04/30/2022 Bipolar schizoaffective disorder BH Esta blished [facility] 03/16/2022 Generalized anxiety disorder BH Establis hed Patient with Yelitza Gonsalez [facility] 03/16/2022 No cough Medical Established Patient with Desmond Estradaen CAP MACHINE OPERATOR 03/16/2022 Z68.32 - Body mass index [BM I] 32.0-32.9, adult Medical Established Patient with Desmondpaulette Estradaen CAP MACHINE OPERATOR 03/16/2022 Bipolar schizoaffective disorder BH Esta blished Patient with Yelitza Gonsalez [facility] 12/24/2021 Generalized anxiety disorder BH Establis hed Patient with Yelitza Gonsalez [facility] 12/24/2021 Diabetes Risk Test Score was three score 12/24/2021 Medical Established Patient with Desmond Barrera CAP MACHINE OPERATOR 12/24/2021 Intervention and counseling on cessation of tobacco use, 3-10 minutes Discussed medication and nicotine replacement for tobacco cessation Medical Established Patient with Desmond Bruce [facility] 12/24/2021 Nicotine dependence Medical Established Patient with Desmond Bruce [facility] 12/24/2021 No cough Medical Established Patient with Desmond Barrera [facility] 12/24/2021 Visit for routine adult H&P without abnormal findings Medical Established Patient with Desmond Barrera [facility] 12/24/2021 Z68.31 - Body mass index [BM I] 31.0-31.9, adult Medical Established Patient with Desmond Barrera [facility] 12/24/2021 Nicotine dependence Established Patie nt with Tiffani Short [facility] 04/28/2021 Schizoaffective disorder per patient reported history Established Patient with Tiffani Short [facility] 04/28/2021 Arthralgia of ankle / foot Medical Estab lished Patient with Desmond Barrera [facility] 04/28/2021 Body mass index Medical Established Patient with Desmond Bruce [facility] 04/28/2021 Nicotine dependence Medical Established Patient with Desmond Bruce [facility] 04/28/2021 Obesity due to excess calories Medical E stablished Patient with Desmond Bruce [facility] 04/28/2021 Body mass index Medical Established Patient with Desmond Bruce [facility] 02/25/2021 Nicotine dependence Medical Established Patient with Desmond Bruce [facility] 02/25/2021 Obesity due to excess calories Medical E stablished Patient with Desmond Bruce [facility] 02/25/2021 Perennial allergic rhinitis with seasonal variation Medical Established Patient with Desmnod Bruce [facility] 02/25/2021 Assess Screen malignant neoplasm cervix Women's Health with Desmond Bruce [facility] 01/09/2021 Overweight Women's Health with Desmond Bruce [facility] 01/09/2021 Z68.29 - Body mass index [BM I] 29.0-29.9, adult Women's Health with Desmond Bruce CAP MACHINE OPERATOR 01/09/2021 Body mass index Medical Established Patient with Desmond Bruce [facility] 12/19/2020 Overweight Medical Established Patient with Desmond Bruce [facility] 12/19/2020 Diabetes Risk Test Score was 0 score 12/11/2020 Medical Established Patient with Desmond Bruce CAP MACHINE OPERATOR 12/11/2020 Overweight Medical Established Patient with Desmond Bruce CAP MACHINE OPERATOR 12/11/2020 Z68.28 - Body mass index [BM I] 28.0-28.9, adult Medical Established Patient with Desmond Bruce CAP MACHINE OPERATOR 12/11/2020 Z68.24 - Body mass index [BM I] 24.0-24.9, adult Telemedicine Establisted Patient with Desmond Bruce CAP MACHINE OPERATOR 07/25/2020 [facility] Work Phone: Evaluation note Includes: Assessments for all patient encounters Findings Encounter Date Asthma Medical Established Patient with Desmond Bruce CAP MACHINE OPERATOR 05/28/2022 Z68.33 - Body mass index [BM I] 33.0-33.9, adult Medical Established Patient with Desmond Bruce CAP MACHINE OPERATOR 05/28/2022 Bipolar schizoaffective disorder BH Esta blished Patient with Yelitza Gonsalez [facility] 04/30/2022 Generalized anxiety disorder BH Establis hed Patient with Yelitza Gonsalez [facility] 04/30/2022 No cough Medical Established Patient with Desmond Bruce [facility] 04/30/2022 Z68.32 - Body mass index [BM I] 32.0-32.9, adult Medical Established Patient with Desmond Bruce CAP MACHINE OPERATOR 04/30/2022 Bipolar schizoaffective disorder BH Esta blished Patient with Yelitza Gonsalez [facility] 03/16/2022 Generalized anxiety disorder BH Establis hed Patient with Yelitza Gonsalez [facility] 03/16/2022 No cough Medical Established Patient with Desmond Bruce CAP MACHINE OPERATOR 03/16/2022 Z68.32 - Body mass index [BM I] 32.0-32.9, adult Medical Established Patient with Desmond Bruce CAP MACHINE OPERATOR 03/16/2022 Bipolar schizoaffective disorder BH Esta blished Patient with Yelitza Gonsalez [facility] 12/24/2021 Generalized anxiety disorder BH Establis hed Patient with Yelitza Gonsalez [facility] 12/24/2021 Diabetes Risk Test Score was three score 12/24/2021 Medical Established Patient with Desmond Bruce CAP MACHINE OPERATOR 12/24/2021 Intervention and counseling on cessation of tobacco use, 3-10 minutes Discussed medication and nicotine replacement for tobacco cessation Medical Established Patient with Desmond Barrera CAP MACHINE OPERATOR 12/24/2021 Nicotine dependence Medical Established Patient with Desmond Barrera CAP MACHINE OPERATOR 12/24/2021 No cough Medical Established Patient with Desmond Barrera CAP MACHINE OPERATOR 12/24/2021 Visit for routine adult H&P without abnormal findings Medical Established Patient with Desmond Barrera CAP MACHINE OPERATOR 12/24/2021 Z68.31 - Body mass index [BM I] 31.0-31.9, adult Medical Established Patient with Desmond Barrera CAP MACHINE OPERATOR 12/24/2021 Nicotine dependence Established Patie nt with Tiffani Short [facility] 04/28/2021 Schizoaffective disorder per patient reported history BH Established Patient with Tiffani Short [facility] 04/28/2021 Arthralgia of ankle / foot Medical Estab lished Patient with Desmond Barrera [facility] 04/28/2021 Body mass index Medical Established Patient with Desmond Barrera CAP MACHINE OPERATOR 04/28/2021 Nicotine dependence Medical Established Patient with Desmond Barrera CAP MACHINE OPERATOR 04/28/2021 Obesity due to excess calories Medical E stablished Patient with Desmond Barrera [facility] 04/28/2021 Body mass index Medical Established Patient with Desmond Barrera [facility] 02/25/2021 Nicotine dependence Medical Established Patient with Desmond Barrera CAP MACHINE OPERATOR 02/25/2021 Obesity due to excess calories Medical E stablished Patient with Desmondpaulette Barrera [facility] 02/25/2021 Perennial allergic rhinitis with seasonal variation Medical Established Patient with Desmond Barrera [facility] 02/25/2021 Assess Screen malignant neoplasm cervix Women's Health with Desmond Barrera CAP MACHINE OPERATOR 01/09/2021 Overweight Women's Health with Desmond Barrera [facility] 01/09/2021 Z68.29 - Body mass index [BM I] 29.0-29.9, adult Women's Health with Desmond Barrera CAP MACHINE OPERATOR 01/09/2021 Body mass index Medical Established Patient with Desmond Barrera CAP MACHINE OPERATOR 12/19/2020 Overweight Medical Established Patient with Desmond Barrera [facility] 12/19/2020 Diabetes Risk Test Score was 0 score 12/11/2020 Medical Established Patient with Desmond Barrera CAP MACHINE OPERATOR 12/11/2020 Overweight Medical Established Patient with Desmond Barrera [facility] 12/11/2020 Z68.28 - Body mass index [BM I] 28.0-28.9, adult Medical Established Patient with Desmondpaulette Barrera CAP MACHINE OPERATOR 12/11/2020 Z68.24 - Body mass index [BM I] 24.0-24.9, adult Telemedicine Establisted Patient with Desmondpaulette Barrera CAP MACHINE OPERATOR 07/25/2020 [facility] Work Phone: Evaluation note Includes: Assessments for all patient encounters Findings Encounter Date [Z68.33 - Body mass index [B WA] 33.0-33.9, adult] assessment of body mass index Medical Established Patient with Desmondpaulette Estradaen CAP MACHINE OPERATOR 12/24/2022 Last Documented On 3 11:24AM ; [facility] Diabetes Risk Test Score was three score 12/24/2022 Medical Established Patient with Desmond Bruce CAP MACHINE OPERATOR 12/24/2022 Last Documented On 3 11:24AM ; [facility] Visit for routine adult H&P without abnormal findings Medical Established Patient with Desmond Bruce CAP MACHINE OPERATOR 12/24/2022 Last Documented On 3 11:24AM ; [facility] Asthma Medical Established Patient with Desmond Bruce CAP MACHINE OPERATOR 05/28/2022 Last Documented On 2 10:19AM ; [facility] Z68.33 - Body mass index [BM I] 33.0-33.9, adult Medical Established Patient with Desmond Bruce CAP MACHINE OPERATOR 05/28/2022 Last Documented On 2 10:19AM ; [facility] Bipolar schizoaffective disorder BH Esta blished Patient with Yelitza Gonsalez [facility] 04/30/2022 Last Documented On 2 9:11PM ; [facility] Generalized anxiety disorder BH Establis hed Patient with Yelitza Gonsalez [facility] 04/30/2022 Last Documented On 2 9:11PM ; [facility] No cough Medical Established Patient with Desmond Bruce CAP MACHINE OPERATOR 04/30/2022 Last Documented On 2 9:39AM ; [facility] Z68.32 - Body mass index [BM I] 32.0-32.9, adult Medical Established Patient with Desmond Bruce CAP MACHINE OPERATOR 04/30/2022 Last Documented On 2 9:39AM ; [facility] Bipolar schizoaffective disorder Esta blished Patient with Yelitza Gonsalez [facility] 03/16/2022 Last Documented On 2 10:54PM ; [facility] Generalized anxiety disorder BH Establis hed Patient with Yelitza Gonsalez [facility] 03/16/2022 Last Documented On 2 10:54PM ; [facility] No cough Medical Established Patient with Desmond Bruce CAP MACHINE OPERATOR 03/16/2022 Last Documented On 2 11:22AM ; [facility] Z68.32 - Body mass index [BM I] 32.0-32.9, adult Medical Established Patient with Desmond Bruce CAP MACHINE OPERATOR 03/16/2022 Last Documented On 2 11:22AM ; [facility] Bipolar schizoaffective disorder Esta blished Patient with Yelitza Gonsalez [facility] 12/24/2021 Last Documented On 2 12:42AM ; [facility] Generalized anxiety disorder Establis hed Patient with Yelitza Gonsalez [facility] 12/24/2021 Last Documented On 2 12:42AM ; [facility] Diabetes Risk Test Score was three score 12/24/2021 Medical Established Patient with Desmond Bruce CAP MACHINE OPERATOR 12/24/2021 Last Documented On 2 11:15AM ; [facility] Intervention and counseling on cessation of tobacco use, 3-10 minutes Discussed medication and nicotine replacement for tobacco cessation Medical Established Patient with Desmond Bruce CAP MACHINE OPERATOR 12/24/2021 Last Documented On 2 11:15AM ; [facility] Nicotine dependence Medical Established Patient with Desmond Bruce CAP MACHINE OPERATOR 12/24/2021 Last Documented On 2 11:15AM ; [facility] No cough Medical Established Patient with Desmond Bruce CAP MACHINE OPERATOR 12/24/2021 Last Documented On 2 11:15AM ; [facility] Visit for routine adult H&P without abnormal findings Medical Established Patient with Desmond Bruce CAP MACHINE OPERATOR 12/24/2021 Last Documented On 2 11:15AM ; [facility] Z68.31 - Body mass index [BM I] 31.0-31.9, adult Medical Established Patient with Desmond Bruce CAP MACHINE OPERATOR 12/24/2021 Last Documented On 2 11:15AM ; [facility] Nicotine dependence BH Established Patient with Tiffani Short [facility] 04/28/2021 Last Documented On 1 9:36PM ; [facility] Schizoaffective disorder per patient reported history Established Patient with Tiffani Short [facility] 04/28/2021 Last Documented On 1 9:36PM ; [facility] Arthralgia of ankle / foot Medical Estab lished Patient with Desmond Bruce CAP MACHINE OPERATOR 04/28/2021 Last Documented On 1 5:28PM ; [facility] Body mass index Medical Established Patient with Desmond Bruce CAP MACHINE OPERATOR 04/28/2021 Last Documented On 1 5:28PM ; [facility] Nicotine dependence Medical Established Patient with Desmond Bruce CAP MACHINE OPERATOR 04/28/2021 Last Documented On 1 5:28PM ; [facility] Obesity due to excess calories Medical E stablished Patient with Desmond Bruce CAP MACHINE OPERATOR 04/28/2021 Last Documented On 1 5:28PM ; [facility] Body mass index Medical Established Patient with Desmond Bruce CAP MACHINE OPERATOR 02/25/2021 Last Documented On 1 4:24PM ; [facility] Nicotine dependence Medical Established Patient with Desmond Bruce CAP MACHINE OPERATOR 02/25/2021 Last Documented On 1 4:24PM ; [facility] Obesity due to excess calories Medical E stablished Patient with Desmond Bruce CAP MACHINE OPERATOR 02/25/2021 Last Documented On 1 4:24PM ; [facility] Perennial allergic rhinitis with seasonal variation Medical Established Patient with Desmond Bruce CAP MACHINE OPERATOR 02/25/2021 Last Documented On 1 4:24PM ; [facility] Assess Screen malignant neop lasm cervix Women's Health with Desmond Bruce CAP MACHINE OPERATOR 01/09/2021 Last Documented On 1 6:31PM ; [facility] Overweight Women's Health with Desmondpaulette Barrera CAP MACHINE OPERATOR 01/09/2021 Last Documented On 1 6:31PM ; [facility] Z68.29 - Body mass index [BM I] 29.0-29.9, adult Women's Health with Desmondpaulette Barrera CAP MACHINE OPERATOR 01/09/2021 Last Documented On 1 6:31PM ; [facility] Body mass index Medical Established Patient with Desmond Bruce CAP MACHINE OPERATOR 12/19/2020 Last Documented On 1 6:56PM ; [facility] Overweight Medical Established Patient with Desmond Bruce CAP MACHINE OPERATOR 12/19/2020 Last Documented On 1 6:56PM ; [facility] Diabetes Risk Test Score was 0 score 12/11/2020 Medical Established Patient with Desmond Bruce CAP MACHINE OPERATOR 12/11/2020 Last Documented On 1 5:31PM ; [facility] Overweight Medical Established Patient with Desmond Bruce CAP MACHINE OPERATOR 12/11/2020 Last Documented On 1 5:31PM ; [facility] Z68.28 - Body mass index [BM I] 28.0-28.9, adult Medical Established Patient with Desmondpaulette Barrera CAP MACHINE OPERATOR 12/11/2020 Last Documented On 1 5:31PM ; [facility] Z68.24 - Body mass index [BM I] 24.0-24.9, adult Telemedicine Establisted Patient with Desmond Barrera CAP MACHINE OPERATOR 07/25/2020 Last Documented On 0 6:12PM ; [facility] Work Phone: Evaluation note Includes: Assessments for all patient encounters Findings Encounter Date Bipolar schizoaffective disorder Esta blished Patient with Tiffani Short [facility] 12/24/2022 Last Documented On 3 12:24PM ; [facility] Generalized anxiety disorder Establis hed Patient with Tiffani Short [facility]IS[facility] 12/24/2022 Last Documented On 3 12:24PM ; [facility] [Z68.33 - Body mass index [B WA] 33.0-33.9, adult] assessment of body mass index Medical Established Patient with Desmond Bruce CAP MACHINE OPERATOR 12/24/2022 Last Documented On 3 1:22PM ; [facility] Diabetes Risk Test Score was three score 12/24/2022 Medical Established Patient with Desmond Bruce CAP MACHINE OPERATOR 12/24/2022 Last Documented On 3 1:22PM ; [facility] Visit for routine adult H&P without abnormal findings Medical Established Patient with Desmond Bruce CAP MACHINE OPERATOR 12/24/2022 Last Documented On 3 1:22PM ; [facility] Asthma Medical Established Patient with Desmond Bruce CAP MACHINE OPERATOR 05/28/2022 Last Documented On 2 10:19AM ; [facility] Z68.33 - Body mass index [BM I] 33.0-33.9, adult Medical Established Patient with Desmond Bruce CAP MACHINE OPERATOR 05/28/2022 Last Documented On 2 10:19AM ; [facility] Bipolar schizoaffective disorder BH Esta blished Patient with Yelitza Gonsalez [facility] 04/30/2022 Last Documented On 2 9:11PM ; [facility] Generalized anxiety disorder Establis hed Patient with Yelitza Gonsalez [facility] 04/30/2022 Last Documented On 2 9:11PM ; [facility] No cough Medical Established Patient with Desmond Bruce CAP MACHINE OPERATOR 04/30/2022 Last Documented On 2 9:39AM ; [facility] Z68.32 - Body mass index [BM I] 32.0-32.9, adult Medical Established Patient with Desmond Bruce CAP MACHINE OPERATOR 04/30/2022 Last Documented On 2 9:39AM ; [facility] Bipolar schizoaffective disorder BH Esta blished Patient with Yelitza Gonsalez [facility] 03/16/2022 Last Documented On 2 10:54PM ; [facility] Generalized anxiety disorder BH Establis hed Patient with Yelitza Gonsalez [facility] 03/16/2022 Last Documented On 2 10:54PM ; [facility] No cough Medical Established Patient with Desmond Bruce CAP MACHINE OPERATOR 03/16/2022 Last Documented On 2 11:22AM ; [facility] Z68.32 - Body mass index [BM I] 32.0-32.9, adult Medical Established Patient with Desmond Bruce CAP MACHINE OPERATOR 03/16/2022 Last Documented On 2 11:22AM ; [facility] Bipolar schizoaffective disorder Esta blished Patient with Yelitza Gonsalez [facility] 12/24/2021 Last Documented On 2 12:42AM ; [facility] Generalized anxiety disorder Establis hed Patient with Yelitza Gonsalez [facility] 12/24/2021 Last Documented On 2 12:42AM ; [facility] Diabetes Risk Test Score was three score 12/24/2021 Medical Established Patient with Desmond Bruce CAP MACHINE OPERATOR 12/24/2021 Last Documented On 2 11:15AM ; [facility] Intervention and counseling on cessation of tobacco use, 3-10 minutes Discussed medication and nicotine replacement for tobacco cessation Medical Established Patient with Desmond Bruce CAP MACHINE OPERATOR 12/24/2021 Last Documented On 2 11:15AM ; [facility] [place] Nicotine dependence Medical Established Patient with Desmond Bruce CAP MACHINE OPERATOR 12/24/2021 Last Documented On 2 11:15AM ; [facility] [place] No cough Medical Established Patient with Desmond Bruce CAP MACHINE OPERATOR 12/24/2021 Last Documented On 2 11:15AM ; [facility] [place] Visit for routine adult H&P without abnormal findings Medical Established Patient with Desmond Bruce CAP MACHINE OPERATOR 12/24/2021 Last Documented On 2 11:15AM ; [facility] [place] Z68.31 - Body mass index [BM I] 31.0-31.9, adult Medical Established Patient with Desmond Bruce CAP MACHINE OPERATOR 12/24/2021 Last Documented On 2 11:15AM ; [facility] [place] Nicotine dependence Established Patient with Tiffani Short LISWS 04/28/2021 Last Documented On 1 9:36PM ; [facility] [place] Schizoaffective disorder per patient reported history Established Patient with Tiffani Short LISWS 04/28/2021 Last Documented On 1 9:36PM ; [facility] [place] Arthralgia of ankle / foot Medical Estab lished Patient with Desmondpaulette Barrera CAP MACHINE OPERATOR 04/28/2021 Last Documented On 1 5:28PM ; [facility] [place] Body mass index Medical Established Patient with Desmond Bruce CAP MACHINE OPERATOR 04/28/2021 Last Documented On 1 5:28PM ; [facility] [place] Nicotine dependence Medical Established Patient with Desmond Bruce CAP MACHINE OPERATOR 04/28/2021 Last Documented On 1 5:28PM ; [facility] [place] Obesity due to excess calories Medical E stablished Patient with Desmond Bruce CAP MACHINE OPERATOR 04/28/2021 Last Documented On 1 5:28PM ; [facility] [place] Body mass index Medical Established Patient with Desmond Bruce CAP MACHINE OPERATOR 02/25/2021 Last Documented On 1 4:24PM ; [facility] [place] Nicotine dependence Medical Established Patient with Desmond Bruce CAP MACHINE OPERATOR 02/25/2021 Last Documented On 1 4:24PM ; [facility] [place] Obesity due to excess calories Medical E stablished Patient with Desmond Bruce CAP MACHINE OPERATOR 02/25/2021 Last Documented On 1 4:24PM ; [facility] [place] Perennial allergic rhinitis with seasonal variation Medical Established Patient with Desmond Bruce CAP MACHINE OPERATOR 02/25/2021 Last Documented On 1 4:24PM ; [facility] [place] Assess Screen malignant neop lasm cervix [facility] with Desmond Bruce CAP MACHINE OPERATOR 01/09/2021 Last Documented On 1 6:31PM ; [facility] [place] Overweight Women's [facility] with Desmond Bruce CAP MACHINE OPERATOR 01/09/2021 Last Documented On 1 6:31PM ; [facility] [place] Z68.29 - Body mass index [BM I] 29.0-29.9, adult Women[facility] with Desmond Bruce CAP MACHINE OPERATOR 01/09/2021 Last Documented On 1 6:31PM ; [facility] [place] Body mass index Medical Established Patient with Desmond Bruce CAP MACHINE OPERATOR 12/19/2020 Last Documented On 1 6:56PM ; [facility] [place] Overweight Medical Established Patient with Desmond Barrera CAP MACHINE OPERATOR 12/19/2020 Last Documented On 1 6:56PM ; [facility] [place] Diabetes Risk Test Score was 0 score 12/11/2020 Medical Established Patient with Desmond Barrera CAP MACHINE OPERATOR 12/11/2020 Last Documented On 1 5:31PM ; [facility] [place] Overweight Medical Established Patient with Desmond Barrera CAP MACHINE OPERATOR 12/11/2020 Last Documented On 1 5:31PM ; [facility] [place] Z68.28 - Body mass index [BM I] 28.0-28.9, adult Medical Established Patient with Desmond Barrera CAP MACHINE OPERATOR 12/11/2020 Last Documented On 1 5:31PM ; [facility] [place] Z68.24 - Body mass index [BM I] 24.0-24.9, adult Telemedicine Establisted Patient with Desmond Barrera CAP MACHINE OPERATOR 07/25/2020 Last Documented On 0 6:12PM ; [facility] Work Phone: Evaluation noteNo InformationNort [employer] Other Evaluation noteNo assessment information [facility] Work Phone: Evaluation note Includes: Assessments for all patient encounters Findings Encounter Date Autistic disorder Established Patient with Ka itlin Short LISWS 07/15/2023 Last Documented On 3 11:31AM ; [facility] [place] Bipolar schizoaffective disorder Esta blished Patient with Tiffani Short LISWS 07/15/2023 Last Documented On 3 11:31AM ; [facility] [place] Dependence on nicotine in ci garettes - uncomplicated Established Patient with Tiffani Short LISWS 07/15/2023 Last Documented On 3 11:31AM ; [facility] [place] Generalized anxiety disorder Establis hed Patient with Tiffani Short LISWS 07/15/2023 Last Documented On 3 11:31AM ; [facility] [place] [N94.6 - Dysmenorrhea, unspe cified] dysmenorrhea Medical Established Patient with Desmond Barrera CAP MACHINE OPERATOR 07/15/2023 Last Documented On 3 11:34AM ; [facility] [place] Assessment of body mass index Medical Es tablished Patient with Desmond Barrera CAP MACHINE OPERATOR 07/15/2023 Last Documented On 3 11:34AM ; [facility] [place] Body mass index Medical Established Patient with Desmond Barrera CAP MACHINE OPERATOR 07/15/2023 Last Documented On 3 11:34AM ; [facility] [place] Dependence on nicotine in ci garettes - uncomplicated Medical Established Patient with Desmond Barrera CAP MACHINE OPERATOR 07/15/2023 Last Documented On 3 11:34AM ; [facility] [place] Generalized anxiety disorder Medical Est ablished Patient with Desmond Barrera CAP MACHINE OPERATOR 07/15/2023 Last Documented On 3 11:34AM ; [facility] [place] Uncomplicated mild persistent asthma Med ical Established Patient with Desmond Barrera CAP MACHINE OPERATOR 07/15/2023 Last Documented On 3 11:34AM ; [facility] [place] Visit for routine adult H&P without abnormal findings Medical Established Patient with Desmond Barrera CAP MACHINE OPERATOR 07/15/2023 Last Documented On 3 11:34AM ; [facility] [place] Bipolar schizoaffective disorder BH Esta blished Patient with Tiffani Short LISWS 12/24/2022 Last Documented On 3 8:44AM ; [facility] [place] Generalized anxiety disorder BH Establis hed Patient with Tiffani Short LISWS 12/24/2022 Last Documented On 3 8:44AM ; [facility] [place] [Z68.33 - Body mass index [B WA] 33.0-33.9, adult] assessment of body mass index Medical Established Patient with Desmond Barrera CAP MACHINE OPERATOR 12/24/2022 Last Documented On 3 1:22PM ; [facility] [place] Diabetes Risk Test Score was three score 12/24/2022 Medical Established Patient with Desmond Barrera CAP MACHINE OPERATOR 12/24/2022 Last Documented On 3 1:22PM ; [facility] [place] Visit for routine adult H&P without abnormal findings Medical Established Patient with Desmond Barrera CAP MACHINE OPERATOR 12/24/2022 Last Documented On 3 1:22PM ; [facility] [place] Asthma Medical Established Patient with Desmond Bruce CAP MACHINE OPERATOR 05/28/2022 Last Documented On 2 10:19AM ; [facility] [place] Z68.33 - Body mass index [BM I] 33.0-33.9, adult Medical Established Patient with Desmond Bruce CAP MACHINE OPERATOR 05/28/2022 Last Documented On 2 10:19AM ; [facility] [place] Bipolar schizoaffective disorder Esta blished Patient with Yelitza Gonsalez LPCC-S 04/30/2022 Last Documented On 2 9:11PM ; [facility] [place] Generalized anxiety disorder Establis hed Patient with Yelitza Gonsalez LPCC-S 04/30/2022 Last Documented On 2 9:11PM ; [facility] [place] No cough Medical Established Patient with Desmond Bruce CAP MACHINE OPERATOR 04/30/2022 Last Documented On 2 9:39AM ; [facility] [place] Z68.32 - Body mass index [BM I] 32.0-32.9, adult Medical Established Patient with Desmond Bruce CAP MACHINE OPERATOR 04/30/2022 Last Documented On 2 9:39AM ; [facility] [place] Bipolar schizoaffective disorder Esta blished Patient with Yelitza Gonsalez LPCC-S 03/16/2022 Last Documented On 2 10:54PM ; [facility] [place] Generalized anxiety disorder Establis hed Patient with Yelitza Gonsalez LPCC-S 03/16/2022 Last Documented On 2 10:54PM ; [facility] [place] No cough Medical Established Patient with Desmond Bruce CAP MACHINE OPERATOR 03/16/2022 Last Documented On 2 11:22AM ; [facility] [place] Z68.32 - Body mass index [BM I] 32.0-32.9, adult Medical Established Patient with Desmond Bruce CAP MACHINE OPERATOR 03/16/2022 Last Documented On 2 11:22AM ; [facility] [place] Bipolar schizoaffective disorder Esta blished Patient with Yelitza Gonsalez LPCC-S 12/24/2021 Last Documented On 2 12:42AM ; [facility] [place] Generalized anxiety disorder BH Establis hed Patient with Yelitza Gonsalez LPCC-S 12/24/2021 Last Documented On 2 12:42AM ; [facility] [place] Diabetes Risk Test Score was three score 12/24/2021 Medical Established Patient with Desmond Barrera CAP MACHINE OPERATOR 12/24/2021 Last Documented On 2 11:15AM ; [facility] [place] Intervention and counseling on cessation of tobacco use, 3-10 minutes Discussed medication and nicotine replacement for tobacco cessation Medical Established Patient with Desmond Bruce CAP MACHINE OPERATOR 12/24/2021 Last Documented On 2 11:15AM ; [facility] [place] Nicotine dependence Medical Established Patient with Desmond Bruce CAP MACHINE OPERATOR 12/24/2021 Last Documented On 2 11:15AM ; [facility] [place] No cough Medical Established Patient with Desmond Bruce CAP MACHINE OPERATOR 12/24/2021 Last Documented On 2 11:15AM ; [facility] [place] Visit for routine adult H&P without abnormal findings Medical Established Patient with Desmond Bruce CAP MACHINE OPERATOR 12/24/2021 Last Documented On 2 11:15AM ; [facility] [place] Z68.31 - Body mass index [BM I] 31.0-31.9, adult Medical Established Patient with Demsond Barrera CAP MACHINE OPERATOR 12/24/2021 Last Documented On 2 11:15AM ; [facility] [place] Nicotine dependence Established Patient with Tiffani Short LISWS 04/28/2021 Last Documented On 1 9:36PM ; [facility] [place] Schizoaffective disorder per patient reported history Established Patient with Tiffani Short LISWS 04/28/2021 Last Documented On 1 9:36PM ; [facility] [place] Arthralgia of ankle / foot Medical Estab lished Patient with Desmond Bruce CAP MACHINE OPERATOR 04/28/2021 Last Documented On 1 5:28PM ; [facility] [place] Body mass index Medical Established Patient with Desmond Bruce CAP MACHINE OPERATOR 04/28/2021 Last Documented On 1 5:28PM ; [facility] [place] Nicotine dependence Medical Established Patient with Desmond Bruce CAP MACHINE OPERATOR 04/28/2021 Last Documented On 1 5:28PM ; [facility] [place] Obesity due to excess calories Medical E stablished Patient with Desmond Bruce CAP MACHINE OPERATOR 04/28/2021 Last Documented On 1 5:28PM ; [facility] [place] Body mass index Medical Established Patient with Desmond Bruce CAP MACHINE OPERATOR 02/25/2021 Last Documented On 1 4:24PM ; [facility] [place] Nicotine dependence Medical Established Patient with Desmond Bruce CAP MACHINE OPERATOR 02/25/2021 Last Documented On 1 4:24PM ; [facility] [place] Obesity due to excess calories Medical E stablished Patient with Desmond Bruce CAP MACHINE OPERATOR 02/25/2021 Last Documented On 1 4:24PM ; [facility] [place] Perennial allergic rhinitis with seasonal variation Medical Established Patient with Desmond Bruce CAP MACHINE OPERATOR 02/25/2021 Last Documented On 1 4:24PM ; [facility] [place] Assess Screen malignant neop lasm cervix [facility] with Desmond Bruce CAP MACHINE OPERATOR 01/09/2021 Last Documented On 1 6:31PM ; [facility] [place] Overweight [facility] with Desmond Bruce CAP MACHINE OPERATOR 01/09/2021 Last Documented On 1 6:31PM ; [facility] [place] Z68.29 - Body mass index [BM I] 29.0-29.9, adult Women[facility] with Desmond Bruce CAP MACHINE OPERATOR 01/09/2021 Last Documented On 1 6:31PM ; [facility] [place] Body mass index Medical Established Patient with Desmond Bruce CAP MACHINE OPERATOR 12/19/2020 Last Documented On 1 6:56PM ; [facility] [place] Overweight Medical Established Patient with Desmond Bruce CAP MACHINE OPERATOR 12/19/2020 Last Documented On 1 6:56PM ; [facility] [place] Diabetes Risk Test Score was 0 score 12/11/2020 Medical Established Patient with Desmond Bruce CAP MACHINE OPERATOR 12/11/2020 Last Documented On 1 5:31PM ; [facility] [place] Overweight Medical Established Patient with Desmond Bruce CAP MACHINE OPERATOR 12/11/2020 Last Documented On 1 5:31PM ; [facility] [place] Z68.28 - Body mass index [BM I] 28.0-28.9, adult Medical Established Patient with Desmondpaulette Estradaen CAP MACHINE OPERATOR 12/11/2020 Last Documented On 1 5:31PM ; [facility] [place] Z68.24 - Body mass index [BM I] 24.0-24.9, adult Telemedicine Establisted Patient with Desmondpaulette Barrera CAP MACHINE OPERATOR 07/25/2020 Last Documented On 0 6:12PM ; [facility] Work Phone: Evaluation note Includes: Assessments for all patient encounters Findings Encounter Date Autism spectrum disorder Established Patient with Tiffani Short LISWS 08/16/2023 Last Documented On 3 11:53AM ; [facility] [place] Bipolar schizoaffective disorder Esta blished Patient with Tiffani Short LISWS 08/16/2023 Last Documented On 3 11:53AM ; [facility] [place] Dependence on nicotine in ci garettes - uncomplicated BH Established Patient with Tiffani Short LISWS 08/16/2023 Last Documented On 3 11:53AM ; [facility] [place] Generalized anxiety disorder Establis hed Patient with Tiffani Short LISWS 08/16/2023 Last Documented On 3 11:53AM ; [facility] [place] [Z68.36 - Body mass index [B WA] 36.0-36.9, adult] assessment of body mass index Medical Established Patient with Desmond Barrera CAP MACHINE OPERATOR 08/16/2023 Last Documented On 3 1:33PM ; [facility] [place] Dependence on nicotine in ci garettes - uncomplicated Medical Established Patient with Desmond Bruce CAP MACHINE OPERATOR 08/16/2023 Last Documented On 3 1:33PM ; [facility] [place] Dependence on nicotine in ci garettes - uncomplicated Medical Established Patient with Desmond Bruce CAP MACHINE OPERATOR 08/16/2023 Last Documented On 3 1:33PM ; [facility] [place] Generalized anxiety disorder Medical Est ablished Patient with Desmond Bruce CAP MACHINE OPERATOR 08/16/2023 Last Documented On 3 1:33PM ; [facility] [place] Generalized anxiety disorder Medical Est ablished Patient with Desmond Bruce CAP MACHINE OPERATOR 08/16/2023 Last Documented On 3 1:33PM ; [facility] [place] Autistic disorder BH Established Patient with Ka itlin Short LISWS 07/15/2023 Last Documented On 3 4:46PM ; [facility] [place] Bipolar schizoaffective disorder BH Esta blished Patient with Tiffani Short LISWS 07/15/2023 Last Documented On 3 4:46PM ; [facility] [place] Dependence on nicotine in ci garettes - uncomplicated BH Established Patient with Tiffani Short LISWS 07/15/2023 Last Documented On 3 4:46PM ; [facility] [place] Generalized anxiety disorder BH Establis hed Patient with Tiffani Short LISWS 07/15/2023 Last Documented On 3 4:46PM ; [facility] [place] [N94.6 - Dysmenorrhea, unspe cified] dysmenorrhea Medical Established Patient with Desmond Bruce CAP MACHINE OPERATOR 07/15/2023 Last Documented On 3 3:36PM ; [facility] [place] Assessment of body mass index Medical Es tablished Patient with Desmond Bruce CAP MACHINE OPERATOR 07/15/2023 Last Documented On 3 3:36PM ; [facility] [place] Body mass index Medical Established Patient with Desmond Bruce CAP MACHINE OPERATOR 07/15/2023 Last Documented On 3 3:36PM ; [facility] [place] Dependence on nicotine in ci garettes - uncomplicated Medical Established Patient with Desmond Bruce CAP MACHINE OPERATOR 07/15/2023 Last Documented On 3 3:36PM ; [facility] [place] Encounter for Immunization Medical Estab lished Patient with Desmond Bruce CAP MACHINE OPERATOR 07/15/2023 Last Documented On 3 3:36PM ; [facility] [place] Generalized anxiety disorder Medical Est ablished Patient with Desmond Bruce CAP MACHINE OPERATOR 07/15/2023 Last Documented On 3 3:36PM ; [facility] [place] Uncomplicated mild persistent asthma Med ical Established Patient with Desmond Bruce CAP MACHINE OPERATOR 07/15/2023 Last Documented On 3 3:36PM ; [facility] [place] Visit for routine adult H&P without abnormal findings Medical Established Patient with Desmond Barrera CAP MACHINE OPERATOR 07/15/2023 Last Documented On 3 3:36PM ; [facility] [place] Bipolar schizoaffective disorder BH Esta blished Patient with Tiffani Short LISWS 12/24/2022 Last Documented On 3 8:44AM ; [facility] [place] Generalized anxiety disorder Establis hed Patient with Tiffani Short LISWS 12/24/2022 Last Documented On 3 8:44AM ; [facility] [place] [Z68.33 - Body mass index [B WA] 33.0-33.9, adult] assessment of body mass index Medical Established Patient with Desmond Barrera CAP MACHINE OPERATOR 12/24/2022 Last Documented On 3 1:22PM ; [facility] [place] Diabetes Risk Test Score was three score 12/24/2022 Medical Established Patient with Desmond Barrera CAP MACHINE OPERATOR 12/24/2022 Last Documented On 3 1:22PM ; [facility] [place] Visit for routine adult H&P without abnormal findings Medical Established Patient with Desmond Barrera CAP MACHINE OPERATOR 12/24/2022 Last Documented On 3 1:22PM ; [facility] [place] Asthma Medical Established Patient with Desmond Barrera CAP MACHINE OPERATOR 05/28/2022 Last Documented On 2 10:19AM ; [facility] [place] Z68.33 - Body mass index [BM I] 33.0-33.9, adult Medical Established Patient with Desmond Barrera CAP MACHINE OPERATOR 05/28/2022 Last Documented On 2 10:19AM ; [facility] [place] Bipolar schizoaffective disorder BH Esta blished Patient with Yelitza Gonsalez LPCC-S 04/30/2022 Last Documented On 2 9:11PM ; [facility] [place] Generalized anxiety disorder Establis hed Patient with Yelitza Gonsalez LPCC-S 04/30/2022 Last Documented On 2 9:11PM ; [facility] [place] No cough Medical Established Patient with Desmond Bruce CAP MACHINE OPERATOR 04/30/2022 Last Documented On 2 9:39AM ; [facility] [place] Z68.32 - Body mass index [BM I] 32.0-32.9, adult Medical Established Patient with Desmond Bruce CAP MACHINE OPERATOR 04/30/2022 Last Documented On 2 9:39AM ; [facility] [place] Bipolar schizoaffective disorder Esta blished Patient with Yelitza Gonsalez LPCC-S 03/16/2022 Last Documented On 2 10:54PM ; [facility] [place] Generalized anxiety disorder Establis hed Patient with Yelitza Gonsalez LPCC-S 03/16/2022 Last Documented On 2 10:54PM ; [facility] [place] No cough Medical Established Patient with Desmond Bruce CAP MACHINE OPERATOR 03/16/2022 Last Documented On 2 11:22AM ; [facility] [place] Z68.32 - Body mass index [BM I] 32.0-32.9, adult Medical Established Patient with Desmond Bruce CAP MACHINE OPERATOR 03/16/2022 Last Documented On 2 11:22AM ; [facility] [place] Bipolar schizoaffective disorder Esta blished Patient with Yelitza Gonsalez LPCC-S 12/24/2021 Last Documented On 2 12:42AM ; [facility] [place] Generalized anxiety disorder Establis hed Patient with Yelitza Gonsalez LPCC-S 12/24/2021 Last Documented On 2 12:42AM ; [facility] [place] Diabetes Risk Test Score was three score 12/24/2021 Medical Established Patient with Desmond Bruce CAP MACHINE OPERATOR 12/24/2021 Last Documented On 2 11:15AM ; [facility] [place] Intervention and counseling on cessation of tobacco use, 3-10 minutes Discussed medication and nicotine replacement for tobacco cessation Medical Established Patient with Desmond Bruce CAP MACHINE OPERATOR 12/24/2021 Last Documented On 2 11:15AM ; [facility] [place] Nicotine dependence Medical Established Patient with Desmond Bruce CAP MACHINE OPERATOR 12/24/2021 Last Documented On 2 11:15AM ; [facility] [place] No cough Medical Established Patient with Desmond Bruce CAP MACHINE OPERATOR 12/24/2021 Last Documented On 2 11:15AM ; [facility] [place] Visit for routine adult H&P without abnormal findings Medical Established Patient with Desmond Bruce CAP MACHINE OPERATOR 12/24/2021 Last Documented On 2 11:15AM ; [facility] [place] Z68.31 - Body mass index [BM I] 31.0-31.9, adult Medical Established Patient with Desmond Bruce CAP MACHINE OPERATOR 12/24/2021 Last Documented On 2 11:15AM ; [facility] [place] Nicotine dependence Established Patient with Tiffani Short LISWS 04/28/2021 Last Documented On 1 9:36PM ; [facility] [place] Schizoaffective disorder per patient reported history Established Patient with Tiffani Short LISWS 04/28/2021 Last Documented On 1 9:36PM ; [facility] [place] Arthralgia of ankle / foot Medical Estab lished Patient with Desmond Bruce CAP MACHINE OPERATOR 04/28/2021 Last Documented On 1 5:28PM ; [facility] [place] Body mass index Medical Established Patient with Desmond Bruce CAP MACHINE OPERATOR 04/28/2021 Last Documented On 1 5:28PM ; [facility] [place] Nicotine dependence Medical Established Patient with Desmond Bruce CAP MACHINE OPERATOR 04/28/2021 Last Documented On 1 5:28PM ; [facility] [place] Obesity due to excess calories Medical E stablished Patient with Desmond Bruce CAP MACHINE OPERATOR 04/28/2021 Last Documented On 1 5:28PM ; [facility] [place] Body mass index Medical Established Patient with Desmond Bruce CAP MACHINE OPERATOR 02/25/2021 Last Documented On 1 4:24PM ; [facility] [place] Nicotine dependence Medical Established Patient with Desmond Bruce CAP MACHINE OPERATOR 02/25/2021 Last Documented On 1 4:24PM ; [facility] [place] Obesity due to excess calories Medical E stablished Patient with Desmond Bruce CAP MACHINE OPERATOR 02/25/2021 Last Documented On 1 4:24PM ; [facility] Perennial allergic rhinitis with seasonal variation Medical Established Patient with Desmond Bruce CAP MACHINE OPERATOR 02/25/2021 Last Documented On 1 4:24PM ; [facility] [place] Assess Screen malignant neop lasm cervix Women's Health with Desmond Bruce CAP MACHINE OPERATOR 01/09/2021 Last Documented On 1 6:31PM ; [facility] [place] Overweight Women's Health with Desmond Bruce CAP MACHINE OPERATOR 01/09/2021 Last Documented On 1 6:31PM ; [facility] Z68.29 - Body mass index [BM I] 29.0-29.9, adult Women's Health with Desmond Bruce CAP MACHINE OPERATOR 01/09/2021 Last Documented On 1 6:31PM ; [facility] [place] Body mass index Medical Established Patient with Desmond Bruce CAP MACHINE OPERATOR 12/19/2020 Last Documented On 1 6:56PM ; [facility] [place] Overweight Medical Established Patient with Desmond Bruce CAP MACHINE OPERATOR 12/19/2020 Last Documented On 1 6:56PM ; [facility] [place] Diabetes Risk Test Score was 0 score 12/11/2020 Medical Established Patient with Desmond Bruce CAP MACHINE OPERATOR 12/11/2020 Last Documented On 1 5:31PM ; [facility] [place] Overweight Medical Established Patient with Desmond Bruce CAP MACHINE OPERATOR 12/11/2020 Last Documented On 1 5:31PM ; [facility] Z68.28 - Body mass index [BM I] 28.0-28.9, adult Medical Established Patient with Desmondpaulette Barrera CAP MACHINE OPERATOR 12/11/2020 Last Documented On 1 5:31PM ; [facility] [place] Z68.24 - Body mass index [BM I] 24.0-24.9, adult Telemedicine Establisted Patient with Desmond Bruce CAP MACHINE OPERATOR 07/25/2020 Last Documented On 0 6:12PM ; [facility] Work Phone: Evaluation note* Diagnosis Acute pain of left wrist- Primary documented in this encounter GEMMA DOWNS HEALTHEvaluation note* Diagnosis Nausea and vomiting, unspecified vomiting type- Primary Viral illness Unspecified viral infection, in conditions classified elsewhere and of unspecified site documented in this encounter GEMMA SCHULZ [employer] HEALTHEvaluation note* Diagnosis Sprain of left wrist, initial encounter- Primary documented in this encounter GEMMA ZEUS DOWNS [facility] general Narrative - Reported Includes: Medical History in patient's chart Description Last Updated 0 previous live (s) 03/16/2022 Has sex without a condom 03/16/2022 Not planning to have a baby in the next 12 months 03/16/2022 Partners status known for sexually trans mitted infection 03/16/2022 Previously 0 time(s) 03/16/2022 No diagnosis of history of cervical dysp lasia 01/09/2021 No diagnosis of history of human papillo ma virus infection 01/09/2021 No previous hospitalizations 12/19/2020 Recent immunization for flu 12/11/2020 No recent change in medical history 03/12 Health [facility] Work Phone: History general Narrative - Reported* Type Description Date Medical History Otosclerosis Medical History stress Medical History Anxiety disorder Medical History bipolar Medical History asthma - mild intermittent Medical History migraine headaches Medical History Osteoarthritis Medical History Schizoeffective Disorder Surgical History Tubes in Ears 1991 Surgical History [place] Teeth Extracted 2008 Hospitalization History [facility] [place] 2011 Hospitalization History [facility] 04/2018 [facility] Other Hisytlg general Narrative - Reported* Type Description Date Medical History Otosclerosis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 Instructions Recorded Instructions not supported for this document type No Instructions Recorded Instructions not supported for this document type No Instructions Recorded Instructions not supported for this document type No Instructions Recorded History of Present Illness History of Present Illness not supported for this document type No History of Present Illness Recorded History of Present Illness not supported for this document type No History of Present Illness Recorded History of Present Illness not supported for this document type No History of Present Illness Recorded History of Present Illness not supported for this document type No History of Present Illness Recorded Review of System Review of Systems not supported for this document type No Review of Systems Recorded Review of Systems not supported for this document type No Review of Systems Recorded Review of Systems not supported for this document type No Review of Systems Recorded Review of Systems not supported for this document type No Review of Systems Recorded Physical Exam Physical Exam not supported for this document type No Physical Exam Recorded Physical Exam not supported for this document type No Physical Exam Recorded Physical Exam not supported for this document type No Physical Exam Recorded Physical Exam not supported for this document type No Physical Exam Recorded Physical Exam not supported for this document type No Physical Exam Recorded Physical Exam not supported for this document type No Physical Exam Recorded Physical Exam not supported for this document type No Physical Exam Recorded Physical Exam not supported for this document type No Physical Exam Recorded Physical Exam not supported for this document type No Physical Exam Recorded Physical Exam not supported for this document type No Physical Exam Recorded Physical Exam not supported for this document type No Physical Exam Recorded Physical Exam not supported for this document type No Physical Exam Recorded Physical Exam not supported for this document type No Physical Exam Recorded Physical Exam not supported for this document type No Physical Exam Recorded Physical Exam not supported for this document type No Physical Exam Recorded Physical Exam not supported for this document type No Physical Exam Recorded Physical Exam not supported for this document type No Physical Exam Recorded Physical Exam not supported for this document type No Physical Exam Recorded Physical Exam not supported for this document type No Physical Exam Recorded Physical Exam not supported for this document type No Physical Exam Recorded Physical Exam not supported for this document type No Physical Exam Recorded Physical Exam not supported for this document type No Physical Exam Recorded Physical Exam not supported for this document type No Physical Exam Recorded Physical Exam not supported for this document type No Physical Exam Recorded Physical Exam not supported for this document type No Physical Exam Recorded Physical Exam not supported for this document type No Physical Exam Recorded Chief Complaint and Reason for Visit Chief Complaint m23.92 Chief Complaint m24.9 Additional Source Comments INFORMATION SOURCE (unrecogn ized section and content) DATE CREATED AUTHOR 08/24/2018 [facility] DATE CREATED AUTHOR AUTHOR'S ORGANIZ ATION 09/03/2020 [facility] DATE CREATED AUTHOR AUTHOR'S ORGANIZ ATION 05/16/2022 [facility] DATE CREATED AUTHOR AUTHOR'S ORGANIZ ATION 10/03/2022 [facility] DATE CREATED AUTHOR AUTHOR'S ORGANIZ ATION 12/22/2022 [facility] DATE CREATED AUTHOR AUTHOR'S ORGANIZ ATION 06/28/2023 [facility] DATE CREATED AUTHOR AUTHOR'S ORGANIZ ATION 11/19/2023 [facility] DATE CREATED AUTHOR AUTHOR'S ORGANIZ ATION 04/29/2024 [facility] DATE CREATED AUTHOR AUTHOR'S ORGANIZ ATION 08/21/2024 [facility] DATE CREATED AUTHOR AUTHOR'S ORGANIZ ATION 09/05/2024 [facility] Reason for Visit (unrecogniz ed section and content) Reason Comments Foot Pain left foot pain unkno w what happened Reason Comments Hallucinations Started having hallu cinations this am the potatos were bleeding at work .HX of schizophrenia Status Reason Specialty Diagnoses / Procedures Referre d By Contact Referred To Contact Closed Radiology Diagnoses Nausea Procedures HC NM HEPATOBILIARY IMAGING W PHARM Desmond Barrera, 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 [address] [place] [address] [facility] [address] [place] [address] Reason Comments Suicidal urge to harm self i s strong Reason Comments Knee Pain left knee onset yest erday after twisting it wrong Reason Comments Test patient states her p eriod is late and she has off and on nausea Specialty Diagnoses / Procedures Referred By Volodymyr colin Referred To Contact Radiology Diagnoses Enostosis of left radius Tendinitis of extensor tendon of left hand Procedures NM BONE SCAN 3 PHASE Fransico Shell PA-C [address] [place] [address] Referral ID Status Reason Start Date Expiration Date Visits Re quested Visits Authorized [id number] Closed 09/20/2022 09/20/2023 1 1 Reason Comments Wrist Injury Pt has left wrist in jury from Jul and stated it snapped when she reached for TP Specialty Diagnoses / Procedures Referred By Volodymyr colin Referred To Contact Occupational Therapy Diagnoses Wrist sprain, left, initial encounter Procedures EVAL ONLY*ok to [facility] 1 appt Eff: 11/11/23 verified on website Covers 100% @medicaid rate Jacquelyn Sadler PA-C [address] [place] [address] [facility] [address] [place] [address] Referral ID Status Reason Start Date Expiration Date V isits Requested Visits Authorized [id number] Closed Specialty Services Required 12/02/2023 12/01/2024 1 1 Reason Comments Emesis Patient states emesi s since starting her period 3-4 days prior. other Patient states she f eels like bugs are crawling in her throat and her head Reason Comments Hand Injury Wrist Pain Medical History (unrecognize d section and content) Description No recent change in medical history 03/12 Description Last Updated Recent immunization for flu 12/11/2020 No recent change in medical history 03/12 Description Last Updated No previous hospitalizations 12/19/2020 Recent immunization for flu 12/11/2020 No recent change in medical history 03/12 Description Last Updated No diagnosis of history of cervical dysp lasia 01/09/2021 No diagnosis of history of human papillo ma virus infection 01/09/2021 No previous hospitalizations 12/19/2020 Recent immunization for flu 12/11/2020 No recent change in medical history 03/12 Evaluations & Outcomes (unre cognized section and content) Includes: Evaluations & Outcomes for active GoalsNo Outcomes Recorded Includes: Evaluations & Outcomes for active GoalsNo Outcomes Recorded Includes: Evaluations & Outcomes for active GoalsNo Outcomes Recorded Includes: Evaluations & Outcomes for active GoalsNo Outcomes Recorded Ordered Prescriptions (unrec ognized section and content) Prescription Sig Dispensed Refills Start Date End Da te ondansetron (ZOFRAN ODT) 4 MG disintegrating tablet Take 1 tablet by mouth every 8 hours as needed for Nausea 20 tablet 0 02/16/2021 Prescription Sig Dispensed Refills Start Date End Da te ondansetron (ZOFRAN-ODT) 4 MG disintegrating tablet Take 1 tablet by mouth 3 times daily as needed for Nausea or Vomiting 21 tablet 0 01/11/2024 Prescription Sig Dispensed Refills Start Date End Da te etodolac (LODINE) 400 MG tablet Take 1 tablet by mouth 2 times daily 14 tablet 0 04/03/2024 Care Teams (unrecognized sec tion and content) Emergency Vehicle Driver Relationship Specialty Start Date End Date Desmond Barrera APRN - CAP MACHINE OPERATOR [address] [place] [address] PCP - General 12/07/16 Team Status: Active Member Role Status Dates NON STAFF Primary Care Provider Active Team Status: Inactive Member Role Status Dates NON STAFF Primary Care Provider Active ALTA Emerson Attending Provider Active Team Status: Inactive Member Role Status Dates NON STAFF Primary Care Provider Active Pancho Henry MD Attending Provider Active Emergency Vehicle Driver Relationship Specialty Start Date End Date Desmond Barrera APRN - CNP [address] [place] [address] PCP - General 12/07/16 Emergency Vehicle Driver Relationship Specialty Start Date End Date Desmond Barrera APRN - CAP MACHINE OPERATOR [address] [place] [address] PCP - General 12/07/16 Emergency Vehicle Driver Relationship Specialty Start Date End Date Desmond BarreraLOGAN - CAP MACHINE OPERATOR [address] [place] [address] PCP - General 12/07/16 Emergency Vehicle Driver Relationship Specialty Start Date End Date Desmond BarreraLOGAN - CAP MACHINE OPERATOR [address] [place] [address] PCP - General 12/07/16 Goals (unrecognized section and content) Goals may be documented in a n alternate section Scheduled Active and Recently Administ ered Medications (unrecognized section and content) Medication Order 11/26/2023 11/27/2023 11/28/2023 ibuprofen (ADVIL;MOTRIN) tablet 600 mg (COMPLETED) 600 mg, Oral, ONCE, 1 dose, On Wed11/28/23 at 0145 0150 (Given - Provid er: Orly Manning RN) Scheduled Medication Order 01/09/2024 01/10/2024 01/11/2024 ondansetron (ZOFRAN) injection 4 mg (COMPLETED) 4 mg, IntraVENous, ONCE, 1 dose, On Wed01/11/24 at 0233 0238 (Given - Provid er: Bunny Stanley RN) sodium chloride 0.9 % bolus 1,000 mL (COMPLETED) 1,000 mL (11 mL/kg), IntraVENous, at 983.6 mL/hr, Administer over 61 Minutes, ONCE, On Wed01/11/24 at 0225, For 1 dose 0237 (New Bag - Prov ider: Bunny Stanley RN)[id number] (Stopped - Provider: Orly Manning RN) Scheduled Medication Order 04/01/2024 04/02/2024 04/03/2024 naproxen (NAPROSYN) tablet 500 mg (COMPLETED) 500 mg, Oral, ONCE, 1 dose, On Wed04/03/24 at 0106 0113 (Given - Provid er: Monie Ivy RN) FOR RECORDS PERTAINING TO PATIENTS WHO ARE OR HAVE BEEN ENROLLED IN A CHEMICAL DEPENDENCY/SUBSTANCEABUSE PROGRAM, SOME INFORMATION MAY BE OMITTED. This clinical summary was aggregated from multiple sources. Caution should be exercised in using it in the provision of clinical care. This summary normalizes information from multiple sources, and as a consequence, information in this document may materially change the coding, format and clinical context of patient data. In addition, data may be omitted in some cases. CLINICAL DECISIONS SHOULD BE BASED ON THE PRIMARY CLINICAL RECORDS. [facility]. provides no warranty or guarantee of the accuracy or completeness of information in this document.
[2024-09-07 08:05] LABS: Basophils Absolute Auto 0.1 10^3/uL (0.0-0.1); Basophils Percent Auto 0.4 % (0.2-2.0); Eosinophils Absolute Auto 0.2 10^3/uL (0.0-0.7); Hematocrit 39.9 % (36.0-48.0); Hemoglobin 13.3 g/dL (12.0-16.0); Immature Granulocytes Abs Auto 0.09 10^3/uL (0.00-0.03); Immature Granulocytes Pct Auto 0.6 % (0.0-0.5); Lymphocytes Absolute Auto 4.2 10^3/uL (1.2-3.8); Lymphocytes Percent Auto 26.9 % (20.5-60.0); Mean Corpuscular HGB Conc 33.3 g/dL (29.9-35.2); Mean Corpuscular Volume 89.9 fL (81.0-99.0); Mean Platelet Volume 10.1 fL (9.5-13.5); Monocytes Absolute Auto 0.9 10^3/uL (0.3-0.8); Monocytes Percent Auto 5.8 % (1.7-12.0); Neutrophils Absolute Auto 10.2 10^3/uL (1.4-6.5); Neutrophils Percent Auto 65.3 % (43.0-75.0); Platelet Count 324 10^3/uL (150-450); Red Blood Count 4.44 10^6/uL (4.20-5.40); Red Cell Distribution Width 16.2 % (11.0-15.0); White Blood Count 15.7 10^3/uL (4.0-11.0)
[2024-09-07 08:17] LABS: Anion Gap 15.8; BUN Creatinine Ratio 5.6; Calcium 8.5 mg/dL (8.5-10.1); Chloride 102 mmol/L (98-107); Estimated GFR (African America >60 (>=60 mL/min/1.73m^2); Estimated GFR (Non-African Ame >60 (>=60 mL/min/1.73m^2); Glucose 101 mg/dL (74-106); Magnesium 1.6 mg/dL (1.8-2.4); Sodium 141 mmol/L (136-145)
[2024-09-07 08:19] LABS: Potassium 2.8 mmol/L (3.5-5.1)
[2024-09-07 08:42] LABS: HCG Qualitative NEGATIVE (NEGATIVE); Internal Control Within Normal Limits
[2024-09-07] MEDS: MAGNESIUM SULFATE IN WATER 2 GM/50 ML PREMIX IV (09:00)
[2024-09-07] MEDS: POTASSIUM BICARBONATE/CIT 25 MEQ TABLET EFF 50 MEQ PO (09:00)
--- NOTE | 2024-09-07 09:03 | CT_ITS ---
The [address] [address] Patient Name: BOZENA PERERA MRN: [id number] date: 1990 Sex: F Assigned Patient Location: ER Current Patient Location: ER Accession/Order Number: [id number] Exam Date: 09/07/2024 09:35 Report Date: 09/07/2024 10:15 At the request of: JENY LAYTON Procedure: CT head/brain wo con CT HEAD WITHOUT CONTRAST, 09/07/2024 HISTORY: Tingling and numbness in legs. COMPARISON: None. TECHNIQUE: Noncontrast axial CT images obtained through the head. Reconstructions obtained in the sagittal and coronal planes. Dose reduction techniques were achieved by using automated exposure control and/or adjustment of mA and/or kV according to patient size and/or use of iterative reconstruction technique. FINDINGS: Paranasal sinuses are clear. Mastoid air cells are clear. Skull base is intact. No skull lesion. Extracranial soft tissue structures unremarkable. Ventricles are normal in size. No hydrocephalus. No mass effect. No shift of midline. No hemorrhage. No mass. Jackson matter and white matter differentiation is intact. CT/CT head/brain wo con IMPRESSION: Normal CT of the head. Electronically authenticated by: GEORGE HANDY Date: 09/07/2024 10:15
--- NOTE | 2024-09-07 09:03 | CT_ITS ---
The [place] [id number] Patient Name: BOZENA PERERA MRN: [id number] date: 1990 Sex: F Assigned Patient Location: Current Patient Location: Accession/Order Number: [id number] Exam Date: 09/07/2024 09:35 Report Date: 09/07/2024 11:35 At the request of: JENY LAYTON Procedure: CT lumbar spine wo con CT LUMBAR SPINE WITHOUT CONTRAST, 09/07/2024 HISTORY: Tingling and numbness in legs. COMPARISON: None. TECHNIQUE: Noncontrast axial CT images obtained through the lumbar spine. Reconstructions obtained in the sagittal and coronal planes. Dose reduction techniques were achieved by using automated exposure control and/or adjustment of mA and/or kV according to patient size and/or use of iterative reconstruction technique. FINDINGS: No spondylolysis. No spondylolisthesis. Alignment normal. No compression fracture. Posterior elements are intact. L5-S1, the disc space is normal in height. No spinal stenosis. No foraminal narrowing. L4-L5, the disc space is normal in height. No spinal stenosis or foraminal narrowing. L3-L4, the disc space is normal in height. No spinal stenosis or foraminal narrowing. L2-L3, no spinal stenosis or foraminal narrowing. L1-L2, no spinal stenosis or foraminal narrowing. T12-L1, no spinal stenosis or foraminal narrowing. No significant degenerative changes. No paraspinal soft tissue swelling. No paraspinal mass. CT/CT lumbar spine wo con IMPRESSION: 1. Normal CT of the lumbar spine. 2. No significant degenerative changes. There is no spinal stenosis or neural foraminal narrowing at any level. Electronically authenticated by: GEORGE HANDY Date: 09/07/2024 11:35
[2024-09-07] MEDS: ONDANSETRON 4 MG RAPDIS TABLET SL (10:37)
== END 2024-09-07 11:12 | disposition home or self-care (01) ==
PROVIDERS: Emergency Provider Emergency Medicine; PCP Nurse Practitioner Family
DX: E83.42 Hypomagnesemia (principal); E87.6 Hypokalemia; F17.200 Nicotine dependence, unspecified, uncomplicated; R20.0 Anesthesia of skin
CPT/HCPCS: 36415; 70450; 72131; 80048; 83735; 84703; 85025; 93005; 99285; J3475; Q0162